=== PATIENT | male | born 1950 | race Asian ===

== ENCOUNTER 2020-06-08 13:12 | Inpatient (IN) | payer MEDICARE, MEDICAID ==
[2020-06-08] VITALS (7 sets, daily range): BP systolic 119–131; BP diastolic 62–78
[~2020-06-08] VITALS: Ht 177.8 cm; Wt 69.0 kg
--- NOTE | 2020-06-08 13:20 | NUR ---
ED Nurse Note: Patient BIBA from [facility] d/t abnormal labs, WBC 28.16 and HGb of 7.0 drawn yesterday. Patient obtunded at baseline. Patient came with Thomson catheter, intact and patent. G-tube intact. Trach to vent, AC 16 VT 400, FiO2 45, P 5. Patient has 2 port PICC line in left upper arm, one port will not flush, the 2nd port is patent. Blood drawn and sent to lab along with urine and Covid swab. Patient on the environmental monitoring technician. Bed in lowest position.
--- NOTE | 2020-06-08 13:35 | Emergency Room Report ---
History of Present Illness General Chief Complaint: Abnormal Labs Source: Medical Record (Wilma Anne) Present Illness HPI 70 YO male w. hx of CKD, respiratory failure, sepsis, DM2, and decubitus ulcers amongst others was sent to the ED from [facility]. Care for having an elevated WBC count of 28K. No fevers or chills. HPI and ROS are limited to that of the paperwork provided by residential with general summary of pt. PmHx, meds, and abnormal lab value. Pt. unable to give detail regarding his ED visit as he is non-verbal. (Wilma Anne) Allergies: Coded Allergies: No Known Allergies (Unverified , 06/08/20) COVID-19 Screening Contact w/high risk pt: No Experienced COVID-19 symptoms?: No COVID-19 Testing performed EDUCATION COORDINATOR: No COVID-19 Screening: Negative COVID-19 COVID-19 Testing Source: 06/02/20 (Wilma Anne) Patient History Limited by: medical condition Past Medical History: see triage record, old chart reviewed Past Surgical History: none Pertinent Family History: unable to obtain Reviewed Nursing Documentation: PMH: Agreed; PSxH: Agreed (Wilma Anne) Nursing Documentation-PMH Past Medical History: No History, Except For Hx Diabetes: Yes - DMII, hypothyroidism (Wilma Anne) Review of Systems All Other Systems: negative except mentioned in HPI (Wilma Anne) Physical Exam Vital Signs Date Time Temp Pulse Resp B/P (MAP) Pulse Ox O2 Delivery O2 Flow Rate FiO2 06/08/20 13:14 98.2 101 26 126/71 (89) 98 Mechanical Ventilator 4.0 (Wilma Anne) Medical Decision Making PA Attestation Dr. Hull Is my supervising Physician whom patient management has been discussed with. (Wilma Anne) Diagnostic Impression: Primary Impression: Pneumonia Qualified Codes: J18.9 - Pneumonia, unspecified organism Additional Impression: UTI (urinary tract infection) Qualified Codes: N30.01 - Acute cystitis with hematuria ER Course 70 YO male w. hx of CKD, respiratory failure, sepsis, DM2, and decubitus ulcers amongst others was sent to the ED from [facility]. Care for having an elevated WBC count of 28K. No fevers or chills. HPI and ROS are limited to that of the paperwork provided by residential with general summary of pt. PmHx, meds, and abnormal lab value. Pt. unable to give detail regarding his ED visit as he is non-verbal. Ddx considered but are not limited to renal failure, infection/sepsis, electrolyte imbalance, cardiac injury, or UTI just to name a few Vital signs: are WNL, pt. is afebrile H&PE are most consistent with Medically complicated patient with hx of sepsis with new onset of elevated WBC's. Pt. is chronically ill, Trach-vent dependent. ORDERS: -CBC: WBC's 20k -CMP: -Lactic Acid -Troponin: -CK: - UA: evidence of UTI : presence of both yeast and bacteria with increased inflammatory markers. CXR: Left lower lobe infiltrate. ED INTERVENTIONS: - 30cc/Kg NS Bolus IV - Levquin 750mg IV -Zosyn IV - Vancomycin 1.5g IV DISPOSITION: at this time pt. will be admitted to Dr. Hyatt for UTI and PNA in a patient who is Trach-vent dependent. Dr. Hyatt agreed to admit the pt. and to continue pt. care management. Labs Test 06/08/20 13:35 06/08/20 14:10 POC Whole Blood Glucose 104 MG/DL (74-106) White Blood Count 20.6 K/UL (4.8-10.8) Red Blood Count 2.60 M/UL (4.70-6.10) Hemoglobin 7.3 G/DL (14.2-18.0) Hematocrit 23.7 % (42.0-52.0) Mean Corpuscular Volume 91 FL (80-99) Mean Corpuscular Hemoglobin 28.0 PG (27.0-31.0) Mean Corpuscular Hemoglobin Concent 30.7 G/DL (32.0-36.0) Red Cell Distribution Width 16.2 % (11.6-14.8) Platelet Count 632 K/UL (150-450) Mean Platelet Volume 6.1 FL (6.5-10.1) Neutrophils (%) (Auto) % (45.0-75.0) Lymphocytes (%) (Auto) % (20.0-45.0) Monocytes (%) (Auto) % (1.0-10.0) Eosinophils (%) (Auto) % (0.0-3.0) Basophils (%) (Auto) % (0.0-2.0) Differential Total Cells Counted 100 Neutrophils % (Manual) 85 % (45-75) Lymphocytes % (Manual) 9 % (20-45) Monocytes % (Manual) 6 % (1-10) Eosinophils % (Manual) 0 % (0-3) Basophils % (Manual) 0 % (0-2) Band Neutrophils 0 % (0-8) Platelet Estimate Increased Platelet Morphology Normal Hypochromasia 1+ Anisocytosis 1+ Urine Color Pale yellow Urine Appearance Slightly cloudy Urine pH 5 (4.5-8.0) Urine Specific [place] 1.010 (1.005-1.035) Urine Protein 2+ (NEGATIVE) Urine Glucose (UA) Negative (NEGATIVE) Urine Ketones Negative (NEGATIVE) Urine Blood Negative (NEGATIVE) Urine Nitrite Positive (NEGATIVE) Urine Bilirubin Negative (NEGATIVE) Urine Urobilinogen Normal MG/DL (0.0-1.0) Urine Leukocyte Esterase 2+ (NEGATIVE) Urine RBC 0 /HPF (0 - 0) Urine WBC 10-15 /HPF (0 - 0) Urine Squamous Epithelial Cells None /LPF (NONE/OCC) Urine Bacteria Moderate /HPF (NONE) Urine Yeast Moderate /HPF (NONE) Sodium Level 144 MMOL/L (136-145) Potassium Level 3.7 MMOL/L (3.5-5.1) Chloride Level 111 MMOL/L (98-107) Carbon Dioxide Level 21 MMOL/L (21-32) Anion Gap 12 mmol/L (5-15) Blood Urea Nitrogen 27 mg/dL (7-18) Creatinine 0.8 MG/DL (0.55-1.30) Estimat Glomerular Filtration Rate > 60 mL/min (>60) Glucose Level 85 MG/DL (74-106) Lactic Acid Level 0.90 mmol/L (0.4-2.0) Calcium Level 8.3 MG/DL (8.5-10.1) Total Bilirubin 0.2 MG/DL (0.2-1.0) Aspartate Amino Transf (AST/SGOT) 34 U/L (15-37) Alanine Aminotransferase (ALT/SGPT) 97 U/L (12-78) Alkaline Phosphatase 367 U/L (46-116) Total Creatine Kinase 27 U/L (26-308) Creatine Kinase MB 1.5 NG/ML (0.0-3.6) Creatine Kinase MB Relative Index 5.5 Troponin I 0.000 ng/mL (0.000-0.056) Total Protein 7.7 G/DL (6.4-8.2) Albumin 1.7 G/DL (3.4-5.0) Globulin 6.0 g/dL Albumin/Globulin Ratio 0.3 (1.0-2.7) (Wilma Anne) ER Course Please see above note. Patient examined by me. Patient able to nod yes and no with my questions. He denies pain at this time. Discussed findings with patient and treatment plan. Contacted admitting physician. (Abner Carlson MD) EKG Diagnostic Results Rate: normal - 98 Rhythm: NSR ST Segments: no acute changes Other Impression 1st degree AV block ASA given to the pt in ED: No PA Scribe Text This Interpretation was scribed by LISSETT Anne. (Wilma Anne) Chest X-Ray Diagnostic Results Chest X-Ray Diagnostic Results : Chest X-Ray Ordered: Yes # of Views/Limited/Complete: 1 View EP Interpretation: Yes PA Xray: Interpretation reviewed, by supervising MD, and agrees with findings. Interpretation: no pneumothorax, other - Left lower lobe infiltrate. Impression: Other Electronically Signed by: Wilma Anne PA-C (Wilma Anne) Last Vital Signs Date Time Temp Pulse Resp B/P (MAP) Pulse Ox O2 Delivery O2 Flow Rate FiO2 06/08/20 13:14 98.2 101 26 126/71 (89) 98 Mechanical Ventilator 4.0 (Wilma Anne) Status: improved (Abner Carlson MD) Disposition: ADMITTED INPATIENT Condition: Serious Wilma Anne Jun 08, 2020 13:35 Abner Carlson MD Jun 09, 2020 23:27
[2020-06-08] MEDS ORDERED: FAMOTIDINE20 MG GT (13:45)
[2020-06-08] MEDS ORDERED: CLONIDINE HCL0.1 M1 GT (13:45)
[2020-06-08] MEDS ORDERED: DOCUSATE SODIU100 MG GT (13:45)
[2020-06-08] MEDS ORDERED: HUMULIN R100 UNIT/1 SUBQ (13:45)
[2020-06-08] MEDS ORDERED: EPOGEN20000 UNI1 SUBQ (13:45)
[2020-06-08] MEDS ORDERED: ACETAMINOP160 MG/5 M ORAL (13:45)
[2020-06-08] MEDS ORDERED: FLORASTOR250 MG GT (13:45)
[2020-06-08] MEDS ORDERED: AMLODIPINE BESYL5 MG GT (13:45)
[2020-06-08] MEDS ORDERED: AMIODARONE HCL200 MG GT (13:45)
[2020-06-08] MEDS ORDERED: URECHOLINE25 MG GT (13:45)
[2020-06-08] MEDS ORDERED: HYDRALAZINE HCL25 M1 GT (13:46)
[2020-06-08] MEDS ORDERED: LANSOPRAZOLE30 MG GT (13:54)
[2020-06-08] MEDS ORDERED: ZINC SULFATE220 M1 GT (13:54)
[2020-06-08] MEDS ORDERED: ZOFRAN4 M3 GT (13:54)
[2020-06-08] MEDS ORDERED: LACTULOSE20 GM/301 GT (13:54)
[2020-06-08] MEDS ORDERED: RENA-VITE RX T1 EAC1 GT (13:54)
[2020-06-08] MEDS ORDERED: PRAVASTATIN SOD40 M1 GT (13:54)
[2020-06-08] MEDS ORDERED: NORCO 5-325 TA1 EAC1 GT ×2 (13:54→22:55)
[2020-06-08] MEDS ORDERED: NITRO0.4 SL (13:54)
[2020-06-08] MEDS ORDERED: UTI-STAT L3875 MG/31 GT (13:54)
[2020-06-08] MEDS ORDERED: KEPPRA LIQ100 MG/1 M GT (13:54)
[2020-06-08] MEDS ORDERED: LEVOTHYROXINE75 MCG GT (13:54)
[2020-06-08] MEDS ORDERED: METOCLOPRA10 MG/10 M GT (13:54)
--- NOTE | 2020-06-08 14:15 | NUR ---
ED Nurse Note: Patient has 2 port PICC line in left upper arm, blood drawn and sent to lab, along with urine, covid swab, and vre/mrsa swabs.
[2020-06-08 14:35] LABS: HEMATOCRIT 23.7 % (42.0-52.0); HEMOGLOBIN 7.3 G/DL (14.2-18.0); MEAN CORPUSCULAR VOLUME 91 FL (80-99); PLATELET COUNT 632 K/UL (150-450); RED CELL DISTRIBUTION WIDTH 16.2 % (11.6-14.8); WHITE BLOOD COUNT 20.6 K/UL (4.8-10.8)
[2020-06-08 14:40] LABS: APPEARANCE,URINE SLIGHTLY CLOUDY; BILIRUBIN, URINE NEGATIVE (NEGATIVE); COLOR,URINE PALE YELLOW; GLUCOSE, URINE (UA) NEGATIVE (NEGATIVE); KETONES,URINE NEGATIVE (NEGATIVE); LEUKOCYTE ESTERASE ,URINE 2+ (NEGATIVE); NITRITE,URINE POSITIVE (NEGATIVE); PH,URINE 5 (4.5-8.0); PROTEIN,URINE 2+ (NEGATIVE); UROBILINOGEN,URINE NORMAL MG/DL (0.0-1.0)
[2020-06-08] MEDS ORDERED: Piperacillin/Tazobactam 2.25 GM in NS 110 ML IVPB ONE (14:45)
[2020-06-08] MEDS ORDERED: Vancomycin 1.5gm/NS Premix 275 ML IVPB ONE (14:45)
[2020-06-08 14:48] LABS: ANION GAP 12 mmol/L (5-15); BLOOD UREA NITROGEN 27 mg/dL (7-18); CALCIUM 8.3 MG/DL (8.5-10.1); CARBON DIOXIDE 21 MMOL/L (21-32); CHLORIDE 111 MMOL/L (98-107); CREATININE 0.8 MG/DL (0.55-1.30); POTASSIUM 3.7 MMOL/L (3.5-5.1); SODIUM 144 MMOL/L (136-145)
[2020-06-08 15:01] LABS: ALANINE AMINOTRANSFERASE 97 U/L (12-78); ALBUMIN 1.7 G/DL (3.4-5.0); ALBUMIN/GLOBULIN RATIO 0.3 (1.0-2.7); ALKALINE PHOSPHATASE 367 U/L (46-116); ASPARTATE AMINO TRANSFERASE 34 U/L (15-37); BILIRUBIN,TOTAL 0.2 MG/DL (0.2-1.0); CKMB 1.5 NG/ML (0.0-3.6); CREATINE KINASE 27 U/L (26-308)
[2020-06-08] MEDS ORDERED: Cathflo Alteplase 2mg Inj INJ ONE (15:45)
--- NOTE | 2020-06-08 16:00 | NUR ---
ED Nurse Note: Per ERMD, alteplase infused into clogged PICC port per protocol. Port now flushes well, patent.
--- NOTE | 2020-06-08 16:30 | NUR ---
ED Nurse Note: Patient resting in bed, no s/s of acute distress. Patient HR currently 106, ERMD aware, patient tolerating all medications given.
--- NOTE | 2020-06-08 17:10 | Diagnostic Imaging Report ---
EXAM: XR Chest, 1 View CLINICAL HISTORY: PAIN TECHNIQUE: Frontal view of the chest. COMPARISON: None FINDINGS: Lungs: There are bibasilar infiltrates, left greater than right. There is mild elevation of left hemidiaphragm. Pleural space: Unremarkable. No pneumothorax. Heart: Unremarkable. No cardiomegaly. Mediastinum: Unremarkable. Bones/joints: Unremarkable. Tubes, lines and devices: A tracheostomy cannula and left upper extremity PICC are in satisfactory position. IMPRESSION: Bibasilar infiltrates, worrisome for pneumonia
--- NOTE | 2020-06-08 17:45 | NUR ---
ED Nurse Note: Patient vent indicating volumes are low on some breaths, RT notified. Rt increased inspiritory time. New vent settings are AC 16, VT400, FiO2 45%, P5.
--- NOTE | 2020-06-08 17:45 | NUR ---
ED Nurse Note: Pictures taken of wounds, patient has multiple pressure ulcers on sacrum, bilateral buttocks, low back, bilateral heels/calves.
--- NOTE | 2020-06-08 19:03 | NUR ---
HAND-OFF: Report given to Cecil RN.
--- NOTE | 2020-06-08 19:04 | NUR ---
ED Nurse Note: Report received from CLOVER HADDAD
--- NOTE | 2020-06-08 19:14 | NUR ---
RESPIRATORY NOTE: Received pt in ED on AC VC+ 16, 400VT, 45%, PEEP +5. Pt is trach-dependent w/ a cuffed, Portex 6 tube. Pt obtunded. B/S jessenia. rhonchi, sxn small to moderate amounts of thick/thin, mckinnon-yellow secretions. Vent plugged into red outlet, ambubag at bedside. Pt in no apparent distress at this time. Will continue plan of care.
--- NOTE | 2020-06-08 20:27 | NUR ---
ED Nurse Note: Report given to GET HADDAD
--- NOTE | 2020-06-08 20:40 | NUR ---
TRANSFER TO FLOOR: Patient transferred to SDU at rm 235 via gurney with fig washer, accompanied by RN. Belongings checked and given to RN . Patient transported safely to bed and endorsed to RN.
--- NOTE | 2020-06-08 20:50 | NUR ---
NURSE NOTES: RECEIVED REPORT FROM BOO ALBRIGHT. PATIENT TRANSFERRED TO [facility] FROM ED VIA THREE-PERSON ASSIST WITHOUT INCIDENT- RT ALREADY AT BEDSIDE. ADMITTED UNDER CARE OF DR. RUIZ WITH ADMITTING DIAGNOSIS OF SEPSIS. PATIENT IS NON-VERBAL HOWEVER IS ABLE TO SHAKE/NOD HEAD IN RESPONSE TO QUESTIONS BEING ASKED; OPENS EYES SPONTANEOUSLY. PLACED ON PATIENT CASE COORDINATOR- SHOWING NSR. NO S/SX OF PAIN OR DISCOMFORT NOTED. BREATHING EVEN AND UNLABORED ON CURRENT TRACH-VENT SETTINGS OF AC 16, VT 400, FIO2 45%, PEEP 5. VILLALOBOS CATHETER DRAINING WELL TO GRAVITY, URINE CLEAR AND YELLOW IN COLOR. NOTED TO HAVE GT UPPER QUADRANT, DRESSING CLEAN AND DRY. NOTED TO HAVE LLQ COLOSTOMY, NO STOOL NOTED IN COLLECTION BAG. DOUBLE-LUMEN PICC LINE NOTED IN NII- DRESSING CLEAN AND DRY, SITE ASYMPTOMATIC. NOTED WITH MULTIPLE PRESSURE INJURIES. PATIENT HAS NO BELONGINGS. FALL AND ASPIRATION PRECAUTIONS IN PLACE. CONTACT ISOLATION IMPLEMENTED. BED LOCKED AND IN LOWEST POSITION, SIDERAILS UP X 3. BRAKES ENGAGED. CALL LIGHT WITHIN REACH. WILL CONTINUE TO MONITOR FOR ANY CHANGES. Addendum: 06/08/20 at 2241 by Sydnee Albert RN *ABLE TO SHAKE/NOD HEAD IN RESPONSE TO SIMPLE QUESTIONS, SUCH "ARE YOU IN PAIN", "ARE YOU HAVING DIFFICULTY BREATHING".
--- NOTE | 2020-06-08 21:50 | NUR ---
NURSE NOTES: S/W TAMARA AT [facility]- PER TAMARA, FLU/PNA VACCINE DATES UNAVAILABLE RIGHT NOW, CALL BACK IN THE MORNING. TAMARA VERIFIED TPN FORMULA BEING GIVEN AT [facility], WHICH CONSISTS OF MGSO4 16, KPO4 16, KACETATE 40. TAMARA ALSO VERIFIED GT WAS REPLACED ON 06/06/20 AT [facility].
--- NOTE | 2020-06-08 21:59 | NUR ---
NURSE NOTES: CONTACTED DR. TALAVERA FOR ADMISSION ORDERS. AWAITING CALL BACK.
--- NOTE | 2020-06-08 22:34 | NUR ---
NURSE NOTES: PLACED SECOND CALL TO DR. AHUJA @ [phone] FOR ADMISSION ORDERS. AWAITING CALL BACK.
--- NOTE | 2020-06-08 23:20 | NUR ---
NURSE NOTES: PLACED THIRD CALL TO DR. TALAVERA REGARDING ADMISSION ORDERS. AWAITING CALL BACK.
--- NOTE | 2020-06-08 23:40 | NUR ---
NURSE NOTES: INFORMED NURSE DAIRY EQUIPMENT REPAIRER, BETTY, AND CHARGE NURSE, KATHARINE, DR. TALAVERA HAS NOT RETURNED CALLS YET- WAS INSTRUCTED BY KATHARINE TO CALL JOSEPH. MESSAGE LEFT FOR DR. RUIZ. AWAITING CALL BACK.
--- NOTE | 2020-06-08 23:58 | History & Physical ---
History and Physical History & Physicial History and Physical HPI Patient is a 70 year old man with.past medical history of Respiratory failure, Sepsis, Chronic Kidney Disease, Type 2 Diabetes, and Decubitus ulcers, Hypertension, GERD, Anemia Pancreatitis, on TPN, Seizure Hx, Hypothyroidism, Hyperlidemia. Noted to have abnormal labs, having an elevated WBC count of 28K. No fevers, chills noted. HPI and ROS are limited Pt. unable to give detail regarding his ED visit as he is non-verbal. Allergies: No Known Allergies Past Medical History: Respiratory failure, Sepsis, Chronic Kidney Disease, Type 2 Diabetes, and Decubitus ulcers, Hypertension, GERD, Anemia Pancreatitis, on TPN, Seizure Hx, Hypothyroidism, Hyperlidemia Past Surgical History: Trach, G tube All Other Systems: negative except mentioned in HPI Physical Exam Vital Signs Noted Date Time Temp Pulse Resp B/P (MAP) Pulse Ox O2 Delivery O2 Flow Rate FiO2 06/08/20 13:14 98.2 101 26 126/71 (89) 98 Mechanical Ventilator 4.0 Physical Examination: Chronically illappearing HEENT:NCAT, moist mm Chest: CTAB Heart: Hs1, HS2, RRR Abdomen: SNTND, G tube Extyremities: Wellperfusedd, no edema ASSESSMENT ANALYST: AMS, no focal signs, no seizures Impression: Pneumonia Urinary tract infection Sepsis Chronic Respiratory failure Anemia Chronic Kidney Disease Coronary Artery Disease Type 2 Diabetes Hypoglycemia Decubitus ulcers Hypertension GERD Anemi Pancreatitis, on TPN Seizure Hx Hypothyroidism Hyperlidemia Plan IV Antibiotics Await culture results Monitor labs IVF/IV glucose 10% TPN per Renal REGIONAL RECRUITER Medications Seizure medications PPX Dextrose Transfuse PRN GERD management Labs noted Test 06/08/20 13:35 06/08/20 14:10 POC Whole Blood Glucose 104 MG/DL (74-106) White Blood Count 20.6 K/UL (4.8-10.8) Red Blood Count 2.60 M/UL (4.70-6.10) Hemoglobin 7.3 G/DL (14.2-18.0) Hematocrit 23.7 % (42.0-52.0) Mean Corpuscular Volume 91 FL (80-99) Mean Corpuscular Hemoglobin 28.0 PG (27.0-31.0) Mean Corpuscular Hemoglobin Concent 30.7 G/DL (32.0-36.0) Red Cell Distribution Width 16.2 % (11.6-14.8) Platelet Count 632 K/UL (150-450) Mean Platelet Volume 6.1 FL (6.5-10.1) Neutrophils (%) (Auto) % (45.0-75.0) Lymphocytes (%) (Auto) % (20.0-45.0) Monocytes (%) (Auto) % (1.0-10.0) Eosinophils (%) (Auto) % (0.0-3.0) Basophils (%) (Auto) % (0.0-2.0) Differential Total Cells Counted 100 Neutrophils % (Manual) 85 % (45-75) Lymphocytes % (Manual) 9 % (20-45) Monocytes % (Manual) 6 % (1-10) Eosinophils % (Manual) 0 % (0-3) Basophils % (Manual) 0 % (0-2) Band Neutrophils 0 % (0-8) Platelet Estimate Increased Platelet Morphology Normal Hypochromasia 1+ Anisocytosis 1+ Urine Color Pale yellow Urine Appearance Slightly cloudy Urine pH 5 (4.5-8.0) Urine Specific [place] 1.010 (1.005-1.035) Urine Protein 2+ (NEGATIVE) Urine Glucose (UA) Negative (NEGATIVE) Urine Ketones Negative (NEGATIVE) Urine Blood Negative (NEGATIVE) Urine Nitrite Positive (NEGATIVE) Urine Bilirubin Negative (NEGATIVE) Urine Urobilinogen Normal MG/DL (0.0-1.0) Urine Leukocyte Esterase 2+ (NEGATIVE) Urine RBC 0 /HPF (0 - 0) Urine WBC 10-15 /HPF (0 - 0) Urine Squamous Epithelial Cells None /LPF (NONE/OCC) Urine Bacteria Moderate /HPF (NONE) Urine Yeast Moderate /HPF (NONE) Sodium Level 144 MMOL/L (136-145) Potassium Level 3.7 MMOL/L (3.5-5.1) Chloride Level 111 MMOL/L (98-107) Carbon Dioxide Level 21 MMOL/L (21-32) Anion Gap 12 mmol/L (5-15) Blood Urea Nitrogen 27 mg/dL (7-18) Creatinine 0.8 MG/DL (0.55-1.30) Estimat Glomerular Filtration Rate > 60 mL/min (>60) Glucose Level 85 MG/DL (74-106) Lactic Acid Level 0.90 mmol/L (0.4-2.0) Calcium Level 8.3 MG/DL (8.5-10.1) Total Bilirubin 0.2 MG/DL (0.2-1.0) Aspartate Amino Transf (AST/SGOT) 34 U/L (15-37) Alanine Aminotransferase (ALT/SGPT) 97 U/L (12-78) Alkaline Phosphatase 367 U/L (46-116) Total Creatine Kinase 27 U/L (26-308) Creatine Kinase MB 1.5 NG/ML (0.0-3.6) Creatine Kinase MB Relative Index 5.5 Troponin I 0.000 ng/mL (0.000-0.056) Total Protein 7.7 G/DL (6.4-8.2) Albumin 1.7 G/DL (3.4-5.0) Globulin 6.0 g/dL Albumin/Globulin Ratio 0.3 (1.0-2.7) EKG: Rate: normal - 98 Rhythm: NSR ST Segments: no acute changes Other Impression 1st degree AV block Chest X-Ray no pneumothorax, other - Left lower lobe infiltrate. Abner Mcclelland MD Jun 08, 2020 23:58
[2020-06-09] VITALS: BP 107/61
[2020-06-09] MEDS ORDERED: Dextrose 10%/0.9% SOD CHL 1,000 ML IV SCH (00:15)
[2020-06-09] MEDS ORDERED: Dextrose 10% 1,000 ML IV SCH (00:15)
[2020-06-09] MEDS ORDERED: Nitroglycerin Subl 0.4mg tab SL PRN (00:30)
[2020-06-09] MEDS ORDERED: Lactulose 20gm/30ml UDC GT PRN (00:30)
--- NOTE | 2020-06-09 00:30 | NUR ---
JACQUARD CARD CUTTER Note: JACQUARD CARD CUTTER was called at 2350 by RASHMI SHARP RN, and notified DR. TALAVERA. PATIENT BS NOTED TO BE 36, RECHECKED BS 33. NO ADMISSION ORDERS AT THAT TIME, AND PATIENT NPO- PRESENCE OF G-TUBE FOR MEDICATIONS ONLY. JACQUARD CARD CUTTER ARRIVED WITHIN 2 MINUTES OF CALL BEING PLACED. BS 32, GIVEN D50 1 AMP- BS THEN 165. See JACQUARD CARD CUTTER documentation form for full report.
[2020-06-09 00:45] LABS: ANION GAP 12 mmol/L (5-15); BLOOD UREA NITROGEN 21 mg/dL (7-18); CARBON DIOXIDE 20 MMOL/L (21-32); CHLORIDE 114 MMOL/L (98-107); CREATININE 0.7 MG/DL (0.55-1.30); POTASSIUM 3.4 MMOL/L (3.5-5.1); SODIUM 146 MMOL/L (136-145)
--- NOTE | 2020-06-09 00:45 | NUR ---
NURSE NOTES: MADE DR. TALAVERA AWARE THAT HGB 7.3. PER DR. TALAVERA, WILL WAIT FOR H/H RESULTS IN THE AM BEFORE GIVING ADDITIONAL ORDERS.
[2020-06-09 00:49] LABS: ALANINE AMINOTRANSFERASE 85 U/L (12-78); ALBUMIN 1.5 G/DL (3.4-5.0); ALBUMIN/GLOBULIN RATIO 0.3 (1.0-2.7); ALKALINE PHOSPHATASE 383 U/L (46-116); ASPARTATE AMINO TRANSFERASE 44 U/L (15-37); BILIRUBIN,TOTAL 0.2 MG/DL (0.2-1.0)
[2020-06-09] MEDS ORDERED: Dextrose 10% 1,000 ML IV ONE (00:53)
[2020-06-09] MEDS: Dextrose 10% 1,000 ML IV SCH ×3 (01:41→23:28)
[2020-06-09 04:00] VITALS: BP 141/76
[2020-06-09] MEDS: Vancomycin 1.5gm/NS Premix 275 ML IVPB SCH ×2 (04:19→15:13)
--- NOTE | 2020-06-09 04:59 | NUR ---
NURSE NOTES: PICC LINE DRESSING CHANGED, SITE REMAINS ASYMPTOMATIC. PATIENT TOLERATED WELL.
--- NOTE | 2020-06-09 05:39 | NUR ---
NURSE NOTES: BS 65, RECHECKED 66. PATIENT CURRENTLY RECEIVING D10W @ 75 ML/HR. CONTACTED DR. TALAVERA TO REQUEST AN ADJUSTMENT IN RATE. AWAITING CALL BACK.
[2020-06-09] MEDS: Piperacillin/Tazobactam 3.375 GM in NS 110 ML IVPB SCH ×3 (05:42→21:04)
--- NOTE | 2020-06-09 05:45 | NUR ---
NURSE NOTES: RECEIVED NEW ORDERS TO/RB FROM DR. TALAVERA TO INCREASE D10W TO 90 ML/HR AND TO REDUCE NS TO 50 ML/HR. ORDERS NOTED AND CARRIED OUT.
[2020-06-09] MEDS: HydrALAZINE 25mg tab GT SCH ×3 (05:48→21:05)
[2020-06-09] MEDS: Bethanechol 25mg Tab GT SCH ×4 (05:48→23:28)
[2020-06-09] MEDS: Metoclopramide 10mg/10ml Liq GT SCH ×4 (05:48→23:28)
[2020-06-09] MEDS: NovoLOG Insulin Flexpen SUBQ SCH ×4 (06:00→23:27)
--- NOTE | 2020-06-09 07:25 | NUR ---
NURSE HAND-OFF REPORT: Important Events on Shift: NEW ADMISSION, LABOR RELATIONS ANALYST CALLED FOR HYPOGLYCEMIA, HYPOGLYCEMIA EPISODES Patient Status: STABLE Diet: NPO Pending Orders: TPN PER DR. VARNER Pending Results/Labs:06/09 AM LABS Pending MD notification:N/A Latest Vital Signs: Temperature 97.2 , Pulse 87 , B/P 145 /80 , Respiratory Rate 24 , O2 SAT 100 , Mechanical Ventilator, O2 Flow Rate 4.0 . Vital Sign Comment: STABLE EKG Rhythm: Sinus Rhythm Rhythm change?: N MD Notified?: Y -DR.BALFE BAILEY Response: No New Orders Received Latest Pulido Fall Score: 70 Fall Risk: High Risk Safety Measures: Call light Within Reach, Bed Alarm Zone 2, Side Rails Side Rails x3, Bed position Low and Locked. Fall Precautions: Yellow Socks Yellow Gown Door Sign Patient Fall Education Report given to BOO ENGL[place].
--- NOTE | 2020-06-09 07:30 | NUR ---
NURSE NOTES: Received report from BOO Machado and BOO Lane. The patient is resting on the bed without acute distress or shortness of breath. The patient is obtunded, opening eyes spontaneously but not tracking. SR with HR of 90-100s with 1AVB on the teletypesetter monitor. The patient is trach'ed and on mechanical ventilator on following setting and oxygen saturation is 100%: Portex 6, AC 16, TV 400, FiO2 45%, and PEEP 5. The patient has GT that is intact and patent but kept in NPO since the patient has history of pancreatitis and was on TPN at residential. The patient has Thomson that is draining by gravity. The patient has colostomy with red intact stoma. Multiple skin issues noted and dressing intact. Per BOO Lane, ordered P200 matress but did not arrive yet. The patient has NII double lumen PICC line that the patient came in with from residential that is intact and patent and running D10W @90mL/hr and NS @ 50mL/hr per order. Per BOO Lane, the patient had episode of hypoglycemia and had to call CHANGE OF ADDRESS CLERK for the management of the condition. The patient's bed in the lowest position, call light in reach, and fall, aspiration, and seizure precaution reinforced. IV site intact and patent. Will follow up the order and lab. Will closely monitor the patient. Will continue plan of care.
[2020-06-09] MEDS ORDERED: ACETYLCYST100 MG/1 M INH (07:43)
[2020-06-09] MEDS ORDERED: FERROUS SU300 MG/5 M GT (07:43)
[2020-06-09] MEDS ORDERED: VITAMIN C500 M1 GT (07:43)
--- NOTE | 2020-06-09 07:55 | Pulmonology Progress Note ---
Subjective ROS Limited/Unobtainable: Yes Allergies: Coded Allergies: No Known Allergies (Unverified , 06/08/20) Subjective care noted overnight events reviewed on vent Objective Last 24 Hour Vital Signs Date Time Temp Pulse Resp B/P (MAP) Pulse Ox O2 Delivery O2 Flow Rate FiO2 06/09/20 05:48 145/80 06/09/20 04:00 87 06/09/20 04:00 97.2 86 24 141/76 (97) 100 06/09/20 04:00 45 06/09/20 04:00 Mechanical Ventilator 06/09/20 03:27 88 30 45 06/09/20 00:00 Mechanical Ventilator 06/09/20 00:00 97.0 87 22 107/61 (76) 100 06/09/20 00:00 84 06/09/20 00:00 45 06/08/20 23:50 83 20 100 06/08/20 23:26 85 25 45 06/08/20 22:13 98.6 84 26 121/79 100 Mechanical Ventilator 45 06/08/20 22:00 87 06/08/20 21:39 97.5 91 19 126/71 (89) 100 06/08/20 21:38 Mechanical Ventilator 06/08/20 20:29 98.6 93 26 121/72 100 Mechanical Ventilator 4.0 45 06/08/20 19:22 98.5 27 119/62 100 Mechanical Ventilator 4.0 45 06/08/20 19:11 98 27 100 Mechanical Ventilator 45 06/08/20 19:10 98 27 45 06/08/20 17:16 98.1 23 130/76 100 Mechanical Ventilator 45 06/08/20 15:30 98.2 22 131/78 99 Mechanical Ventilator 40 06/08/20 15:30 92 28 98 Mechanical Ventilator 4.0 45 97 26 45 45 06/08/20 13:32 98.2 26 126/71 98 Mechanical Ventilator 4.0 06/08/20 13:20 97 26 45 06/08/20 13:14 98.2 101 26 126/71 (89) 98 Mechanical Ventilator 4.0 Intake and Output 06/08/20 06/09/20 19:00 07:00 Intake Total 656.75 ml Output Total 1600 ml Balance -943.25 ml Intake IV Total 656.75 ml Output Urine Total 1600 ml Objective WDWN NAD reduced breath sounds bilaterally without rhonchi or wheeze [id number] without MRG NABS nontender colostomy no CCE nonfocal reduced LOC trach in place Microbiology Date/Time Source Procedure Growth Status 06/08/20 14:10 Urine,Clean Catch Urine Culture - Preliminary Gram Negative Imer Resulted 06/08/20 13:40 Nasopharynx SARS-CoV-2 RdRp Gene Assay - Final Complete Laboratory Tests 06/08/20 13:35: POC Whole Blood Glucose 104 06/08/20 14:10: White Blood Count 20.6H, Red Blood Count 2.60L, Hemoglobin 7.3L, Hematocrit 23.7L, Mean Corpuscular Volume 91, Mean Corpuscular Hemoglobin 28.0, Mean Corpuscular Hemoglobin Concent 30.7L, Red Cell Distribution Width 16.2H, Platelet Count 632H, Mean Platelet Volume 6.1L, Neutrophils (%) (Auto) , Lymphocytes (%) (Auto) , Monocytes (%) (Auto) , Eosinophils (%) (Auto) , Basophils (%) (Auto) , Differential Total Cells Counted 100, Neutrophils % (Manual) 85H, Lymphocytes % (Manual) 9L, Monocytes % (Manual) 6, Eosinophils % ( Manual) 0, Basophils % (Manual) 0, Band Neutrophils 0, Platelet Estimate IncreasedH, Platelet Morphology Normal, Hypochromasia 1+, Anisocytosis 1+, Prothrombin Time 11.4, Prothromb Time International Ratio 1.0, Activated Partial Thromboplast Time 34H, Urine Color Pale yellow, Urine Appearance Slightly cloudy, Urine pH 5, Urine Specific [place] 1.010, Urine Protein 2+H, Urine Glucose (UA) Negative, Urine Ketones Negative, Urine Blood Negative, Urine Nitrite PositiveH, Urine Bilirubin Negative, Urine Urobilinogen Normal, Urine Leukocyte Esterase 2+H, Urine RBC 0, Urine WBC 10-15H, Urine Squamous Epithelial Cells None, Urine Bacteria ModerateH, Urine Yeast ModerateH, Sodium Level 144, Potassium Level 3.7, Chloride Level 111H, Carbon Dioxide Level 21, Anion Gap 12, Blood Urea Nitrogen 27H, Creatinine 0.8, Estimat Glomerular Filtration Rate > 60, Glucose Level 85, Lactic Acid Level 0.90, Calcium Level 8.3L, Total Bilirubin 0.2, Aspartate Amino Transf (AST/SGOT) 34, Alanine Aminotransferase (ALT/SGPT) 97H, Alkaline Phosphatase 367H, Total Creatine Kinase 27, Creatine Kinase MB 1.5, Creatine Kinase MB Relative Index 5.5, Troponin I 0.000, Total Protein 7.7, Albumin 1.7L, Globulin 6.0, Albumin/Globulin Ratio 0.3L 06/08/20 23:41: POC Whole Blood Glucose 36*L 06/08/20 23:45: POC Whole Blood Glucose 33*L 06/08/20 23:59: POC Whole Blood Glucose 32*L 06/09/20 00:03: POC Whole Blood Glucose [Pending] 06/09/20 00:27: Sodium Level 146H, Potassium Level 3.4L, Chloride Level 114H, Carbon Dioxide Level 20L, Anion Gap 12, Blood Urea Nitrogen 21H, Creatinine 0.7, Estimat Glomerular Filtration Rate > 60, Glucose Level 115H, Calcium Level 8.0L, Total Bilirubin 0.2, Aspartate Amino Transf (AST/SGOT) 44H, Alanine Aminotransferase (ALT/SGPT) 85H, Alkaline Phosphatase 383H, Total Protein 6.8, Albumin 1.5L, Globulin 5.3, Albumin/Globulin Ratio 0.3L 06/09/20 05:34: POC Whole Blood Glucose 65L 06/09/20 05:36: POC Whole Blood Glucose 66L 06/09/20 06:22: POC Whole Blood Glucose 120H 06/09/20 07:33: POC Whole Blood Glucose [Pending] Current Medications Medications (Trade) Dose Ordered Sig/Milla Route PRN Reason Start Time Stop Time Status Last Admin Dose Admin Amiodarone HCl (Cordarone) 200 mg DAILY GT 06/09/20 09:00 09/07/20 08:59 Amlodipine Besylate (Norvasc) 5 mg TWICE A DAY GT 06/09/20 09:00 07/09/20 08:59 Bethanechol Chloride (Urecholine) 25 mg Q6HR GT 06/09/20 06:00 07/09/20 05:59 06/09/20 05:48 Clonidine HCl (Catapres Tab) 0.1 mg Q6H PRN GT For High Blood Pressure 06/09/20 00:30 09/07/20 00:29 Dextrose 1,000 ml @ 90 mls/hr Q11H7M IV 06/09/20 01:00 07/09/20 00:59 06/09/20 01:41 Dextrose (Dextrose 50%) 25 ml Q30M PRN IV Hypoglycemia 06/09/20 06:00 09/07/20 05:59 06/09/20 06:02 Dextrose (Dextrose 50%) 50 ml Q30M PRN IV Hypoglycemia 06/09/20 00:15 09/07/20 00:14 Dextrose (Dextrose 50%) 50 ml Q30M PRN IV Hypoglycemia 06/09/20 00:15 09/07/20 00:14 Docusate Sodium (Colace) 100 mg TWICE A DAY GT 06/09/20 09:00 07/09/20 08:59 Epoetin Cameron (Epoetin Cameron-EPBX(NON ESRD)) 10,000 unit TUE- SUBQ 06/09/20 21:00 09/07/20 20:59 Famotidine (Pepcid) 20 mg TWICE A DAY GT 06/09/20 09:00 09/07/20 08:59 Hydralazine HCl (Apresoline) 25 mg EVERY 8 HOURS GT 06/09/20 06:00 09/07/20 05:59 06/09/20 05:48 Insulin Aspart (NovoLOG) Q6HR SUBQ 06/09/20 06:00 09/07/20 05:59 Lactulose (Cephulac) 20 gm Q6H PRN GT Constipation 06/09/20 00:30 07/09/20 00:29 Lansoprazole (Prevacid) 30 mg TWICE A DAY GT 06/09/20 09:00 07/09/20 08:59 Levetiracetam (Keppra) 500 mg TWICE A DAY GT 06/09/20 09:00 07/09/20 08:59 Levofloxacin 150 ml @ 150 mls/hr Q24H IVPB 06/09/20 14:00 06/16/20 13:59 Levothyroxine Sodium (Synthroid) 75 mcg DAILY GT 06/09/20 09:00 07/09/20 08:59 Metoclopramide HCl (Reglan) 5 mg EVERY 6 HOURS GT 06/09/20 06:00 07/09/20 05:59 06/09/20 05:48 Nitroglycerin (Ntg) 0.4 mg Q5MIN X 3 DOSES PRN SL CHEST PAIN 06/09/20 00:30 07/09/20 00:29 Ondansetron HCl (Zofran) 4 mg Q6H PRN GT Nausea & Vomiting 06/09/20 00:30 07/09/20 00:29 Piperacillin Sod/ Tazobactam Sod 3.375 gm/Sodium Chloride 110 ml @ 27.5 mls/hr EVERY 8 HOURS IVPB 06/09/20 06:00 06/16/20 05:59 06/09/20 05:42 Pravastatin Sodium (Pravachol) 40 mg BEDTIME GT 06/09/20 21:00 07/09/20 20:59 Sodium Chloride 1,000 ml @ 50 mls/hr Q20H IV 06/09/20 01:00 07/09/20 00:59 06/09/20 01:37 Vancomycin HCl (Vanco pharmacy to dose) 1 ea DAILY PRN MISC Per rx protocol 06/09/20 00:15 07/09/20 00:14 Vancomycin/Sodium Chloride 275 ml @ 137.5 mls/ hr Q12H IVPB 06/09/20 04:00 06/14/20 03:59 06/09/20 04:19 Zinc Sulfate (Zinc Sulfate) 220 mg DAILY GT 06/09/20 09:00 09/07/20 08:59 Assessment/Plan Assessment/Plan sepsis leukocytosis anemia colostomy respiratory failure possible gib chronic pancreatitis chronic encephalopathy hypernatremia acute renal failure pneumonia PLAN vent support IV antibiotics GI to see for TPN and anemia renal with abnormal lytes ID assessment concern with TPN line and risk for fungemia assess for gt feeds monitor cxr close follow up transfuse guarded at present impression, plan, and exam edited and reviewed in detail care discussed with Mundo Burciaga MD Jun 09, 2020 07:55
[2020-06-09 08:00] VITALS: BP 148/82
--- NOTE | 2020-06-09 08:00 | NUR ---
NURSE NOTES: Initial nursing assessment done. Initial vital signs taken. BS of 96 noted. Will closely monitor the patient. Will continue plan of care.
--- NOTE | 2020-06-09 09:00 | NUR ---
NURSE NOTES: Lab called to primary RN. Per lab personnel, blood needs to be redrawn since there is huge difference in result from previous day. Will redraw from PICC line as soon as possible. Will continue plan of care.
--- NOTE | 2020-06-09 09:02 | NUR ---
RD ASSESSMENT & RECOMMENDATIONS SEE CARE ACTIVITY FOR COMPLETE ASSESSMENT DAILY ESTIMATED NEEDS: Needs based on Critical care, wound, pancreatitis/ 67kg 22-30 kcals/kg 8739-2037 total kcals 1.25-2 g protein/kg 83-134 g total protein 25-30 mL/kg 2973-0570 total fluid mLs NUTRITION DIAGNOSIS: Swallowing difficulty R/T dysphagia, respiratory status as evidenced by pt trach/vent dep, h/o PEG placement, GT feeds held and was on TPN [employer] for Pancreatitis, remains NPO and off TPN at this time. CURRENT TF:NPO ENTERAL NUTRITION RECOMMENDATIONS: CONSULT RD FOR TF WHEN PANCREATITIS RESOLVED/ MEDICALLY APPROPRIATE FOR TF PARENTERAL NUTRITION RECOMMENDATIONS: D/AA Rate: 60 IL Rate: 0 Total Rate: 60 Volume: 1440 % Dextrose: 20 % AA: 5.0 Energy (kcals/kg): 1267 Protein (g/kg protein): 72 Nonprotein KCALS: 979.2 GIR (mg CHO/kg/min): 4.3 % Fat KCALS: 0 TPN Comment: * If triglyceride is elevated, rec to continue MA[employer] TPN order of D20% AA 5.0% without lipids @ 60ml/hr x 24 hrs -> will meet 86% est kcal/87% est prot needs. * Consult RD for TPN formulary change if triglyceride wnl ADDITIONAL RECOMMENDATIONS: * Per SNF: HT=5'8" [id number] (as of 05/22/20), rec re-calibrated bedscale wt * Check LIPASE and TRIGLYCERIDE * Monitor for ability to resume GT feeds * Close monitoring for hypoglycemia: maintain D10 IVF while without TPN/NPO * Monitor lytes, replete as needed * Wound healing: add MVI x 1, Vit C 500mg x1 add Grady BID w/ TF
--- NOTE | 2020-06-09 09:14 | History and Physical Report ---
DATE OF ADMISSION: 06/08/2020 CHIEF COMPLAINT: Sepsis and pneumonia. HISTORY OF PRESENT ILLNESS: The patient is an unfortunate 70-year-old male. He has a history of chronic respiratory failure, encephalopathy, and pancreatitis. He has a colostomy and has been on TPN at the shelter facility. He was transferred from [facility] with complaints of severe leukocytosis and anemia. On evaluation in the emergency room, the patient was afebrile. He had a white count of 25,000. An x-ray evidence of bilateral pneumonia. The patient has been pancultured and has been started on broad spectrum IV antibiotics. He is now admitted for further evaluation and care. PAST MEDICAL HISTORY: As above. PAST SURGICAL HISTORY: Includes a trach and a colostomy. CURRENT MEDICATIONS: Reconciled and reviewed. ALLERGIES: None. FAMILY HISTORY: None. SOCIAL HISTORY: There is no known history of tobacco, ethanol, or drugs. REVIEW OF SYSTEMS: Unobtainable as the patient is nonverbal. PHYSICAL EXAMINATION: VITAL SIGNS: Temperature 98, pulse 100, respirations 23, blood pressure 130/76. GENERAL: The patient is a chronically ill-appearing male, in no apparent distress. HEENT: Head is normocephalic and atraumatic. Sclerae are anicteric. Oropharynx is clear. NECK: Supple. HEART: Regular rate and rhythm without murmurs, rubs, or gallops. LUNGS: Clear to auscultation anteriorly. ABDOMEN: Soft, nontender, and nondistended. There is colostomy noted with brown stool. EXTREMITIES: Without clubbing or cyanosis. SKIN: The patient has multiple wounds on the heels and stage III on the left buttock. A large stage IV sacral decubitus ulcer noted that appears clean. There is also right heel DTI. NEUROLOGIC: The patient does open his eyes. LABORATORY DATA: Sodium 146, potassium 3.4, chloride 114, bicarb 20, BUN 21, and creatinine 0.7. White count 20, hemoglobin 7.3, hematocrit 23.7. Chest x-ray showed bilateral infiltrates. ASSESSMENT: This is an unfortunate 70-year-old with a history of pancreatitis, colostomy, hypertension, hyperlipidemia, and atrial fibrillation, admitted with sepsis secondary to pneumonia. PLAN: 1. IV antibiotics. 2. Follow up pending cultures. 3. Continue vent support. 4. Pulmonary, Renal, Infectious Disease, and Surgery consultations. 5. Wound care will be referred to the general surgeon. 6. Continue amiodarone for rate control. 7. Monitor electrolytes. 8. The patient will be continued on DVT and stress ulcer prophylaxes. Robby Mays M.D. DR: IDANIA JOB#: [id number] CC:
--- NOTE | 2020-06-09 09:17 | Consultation ---
History of Present Illness General Date patient seen: Jun 09, 2020 Reason for Hospitalization: Abnormal Labs Present Illness HPI 70 year old male with multiple medical comorbidities including history of CKD, respiratory failure, sepsis, DM2, and decubitus ulcers who came to ED from [facility]. Care for having an elevated WBC count and abnormal labs. No fevers or chills. HPI and ROS are limited to that of the paperwork provided by [facility] with general summary of pt. PmHx, meds, and abnormal lab value. Pt. unable to give detail as he is non-verbal. noted to have stage 4 sacral wound, dTI's, colostomy. surgery called to evaluate and assist with care. patient seen, chart reviewed, patient examined. Allergies: Coded Allergies: No Known Allergies (Unverified , 06/08/20) COVID-19 Screening Contact w/high risk pt: No Experienced COVID-19 symptoms?: No Medication History Scheduled Amiodarone Hcl* (Cordarone*), 200 MG GT DAILY, (Reported) Amlodipine Besylate* (Amlodipine Besylate*), 5 MG GT TWICE A DAY, (Reported) Ascorbic Acid* (Vitamin C*), 500 MG GT DAILY, (Reported) Bethanechol Chl (Bethanechol Chloride), 25 MG GT Q6HR, (Reported) Cran/Vitc/Mannose/Inulin/Brom (Uti-Stat Liquid), 3,875 MG GT DAILY, (Reported) Docusate Sodium* (Docusate Sodium*), 100 MG GT TWICE A DAY, (Reported) Epoetin Cameron (Epogen), 10,000 UNIT SUBQ 3XW, (Reported) Famotidine* (Pepcid 20mg tablet*), 20 MG GT TWICE A DAY, (Reported) Ferrous Sulfate (Ferrous Sulfate), 7.5 ML GT TID, (Reported) Hydralazine Hcl* (Hydralazine Hcl*), 25 MG GT EVERY 8 HOURS, (Reported) Insulin Regular, Human (Humulin R), 0 SUBQ Q6HR, (Reported) Lansoprazole* (Lansoprazole*), 30 MG GT TWICE A DAY, (Reported) Levetiracetam (Keppra), 5 ML GT TWICE A DAY, (Reported) Levothyroxine Sodium* (Levothyroxine Sodium*), 75 MCG GT DAILY, (Reported) Metoclopramide Hcl* (Metoclopramide Hcl*), 5 MG GT EVERY 6 HOURS, (Reported) Pravastatin Sod (Pravastatin Sod), 40 MG GT BEDTIME, (Reported) Saccharomyces Boulardii (Florastor*), 1 CAP GT TWICE A DAY, (Reported) Vit B Cmplx 3/Fa/Vit C/Biotin (Karmen-Armida Rx Tablet), 1 EACH GT DAILY, (Reported) Zinc Sulfate (Zinc Sulfate*), 220 MG GT DAILY, (Reported) Scheduled PRN Acetylcysteine* (Acetylcysteine*), 100 MG INH Q6H PRN for MUCUS, (Reported) Clonidine HCl (Clonidine HCl ER), 0.1 MG GT Q6HR PRN for For High Blood Pressure, (Reported) Hydrocodone Bit/Acetaminophen 5-325* ([place] 5-325 Tablet*), 1 TAB GT Q4H PRN for Pain Scale (3-5), (Reported) Hydrocodone Bit/Acetaminophen 5-325* ([place] 5-325 Tablet*), 2 TAB GT Q4H PRN for Pain Scale (6-10), (Reported) Lactulose (Lactulose*), 30 ML GT Q6HR PRN for Constipation, (Reported) Nitroglycerin 0.4MG table* (Nitroglycerin*), 0.4 MG SL .Q5MIN X 3 DOSES PRN for CHEST PAIN, (Reported) Ondansetron* (Zofran*), 4 MG GT Q6H PRN for Nausea & Vomiting, (Reported) Discontinued Medications Acetaminophen 160MG/5ML* (Acetaminophen*), 20 ML ORAL, (Reported) Discontinued Reason: MD discontinued med Patient History Limited by: medical condition History Provided By: Medical Record, PMD Healthcare decision maker Resuscitation status Advanced Directive on File Past Medical/Surgical History Past Medical/Surgical History: (1) Colostomy in place (2) Stage 4 skin ulcer of sacral region (3) Deep tissue injury (4) Feeding by G-tube (5) UTI (urinary tract infection) (6) Pneumonia (7) Sepsis Review of Systems Review of Symptoms General ROS: no weight loss or fever Psychological ROS: no depression or mood changes, no memory loss Ophthalmic ROS: no visual changes or eye irritation ENT ROS: no nasal congestion, hearing loss, dizziness Allergy and Immunology ROS: no allergic symptoms or urticaria Hematological and Lymphatic ROS: no swollen glands, unusual bleeding or bruising Endocrine ROS: no polyuria, polydipsia, weight changes, temperature intolerance Respiratory ROS: no cough, shortness of breath, or wheezing Cardiovascular ROS: no chest pain or dyspnea on exertion Gastrointestinal ROS: denies abdominal pain, bright red blood in stool. Musculoskeletal ROS: no myalgias or arthralgias Neurological ROS: no TIA or stroke symptoms Dermatological ROS: no new or changing skin lesions, rashes or pruritis limited given medical condition Physical Exam Physical Exam General appearance: alert, no distress, appears stated age Head: Normocephalic, without obvious abnormality, atraumatic Eyes: conjunctivae/corneas clear. PERRL, EOM's intact. Fundi benign Throat: Lips, mucosa, and tongue normal. Teeth and gums normal Neck: supple, symmetrical, trachea midline, no adenopathy, thyroid: not enlarged, symmetric, no tenderness/mass/nodules, no carotid bruit and no JVD trach on vent Lungs: dec to auscultation bilaterally on vent Heart: regular rate and rhythm, S1, S2 normal, no murmur, click, rub or gallop Abdomen: soft, non-tender. Bowel sounds normal. No masses, no organomegaly peg, colostomy Extremities: extremities normal, atraumatic, no cyanosis or edema Pulses: 2+ and symmetric Skin: Skin stage 4 sacral, dti Neurologic: Grossly normal Last 24 Hour Vital Signs Date Time Temp Pulse Resp B/P (MAP) Pulse Ox O2 Delivery O2 Flow Rate FiO2 06/09/20 08:39 35 06/09/20 07:07 91 25 45 06/09/20 05:48 145/80 06/09/20 04:00 87 06/09/20 04:00 97.2 86 24 141/76 (97) 100 06/09/20 04:00 45 06/09/20 04:00 Mechanical Ventilator 06/09/20 03:27 88 30 45 06/09/20 00:00 Mechanical Ventilator 06/09/20 00:00 97.0 87 22 107/61 (76) 100 06/09/20 00:00 84 06/09/20 00:00 45 06/08/20 23:50 83 20 100 06/08/20 23:26 85 25 45 06/08/20 22:13 98.6 84 26 121/79 100 Mechanical Ventilator 45 06/08/20 22:00 87 06/08/20 21:39 97.5 91 19 126/71 (89) 100 06/08/20 21:38 Mechanical Ventilator 06/08/20 20:29 98.6 93 26 121/72 100 Mechanical Ventilator 4.0 45 06/08/20 19:22 98.5 27 119/62 100 Mechanical Ventilator 4.0 45 06/08/20 19:11 98 27 100 Mechanical Ventilator 45 06/08/20 19:10 98 27 45 06/08/20 17:16 98.1 23 130/76 100 Mechanical Ventilator 45 06/08/20 15:30 98.2 22 131/78 99 Mechanical Ventilator 40 06/08/20 15:30 92 28 98 Mechanical Ventilator 4.0 45 97 26 45 45 06/08/20 13:32 98.2 26 126/71 98 Mechanical Ventilator 4.0 06/08/20 13:20 97 26 45 06/08/20 13:14 98.2 101 26 126/71 (89) 98 Mechanical Ventilator 4.0 Intake and Output 06/08/20 06/09/20 19:00 07:00 Intake Total 656.75 ml Output Total 1600 ml Balance -943.25 ml Intake IV Total 656.75 ml Output Urine Total 1600 ml Laboratory Tests Test 06/08/20 13:35 06/08/20 14:10 06/08/20 23:41 06/08/20 23:45 POC Whole Blood Glucose 104 MG/DL (74-106) 36 MG/DL (74-106) *L 33 MG/DL (74-106) *L White Blood Count 20.6 K/UL (4.8-10.8) H Red Blood Count 2.60 M/UL (4.70-6.10) L Hemoglobin 7.3 G/DL (14.2-18.0) L Hematocrit 23.7 % (42.0-52.0) L Mean Corpuscular Volume 91 FL (80-99) Mean Corpuscular Hemoglobin 28.0 PG (27.0-31.0) Mean Corpuscular Hemoglobin Concent 30.7 G/DL (32.0-36.0) L Red Cell Distribution Width 16.2 % (11.6-14.8) H Platelet Count 632 K/UL (150-450) H Mean Platelet Volume 6.1 FL (6.5-10.1) L Neutrophils (%) (Auto) % (45.0-75.0) Lymphocytes (%) (Auto) % (20.0-45.0) Monocytes (%) (Auto) % (1.0-10.0) Eosinophils (%) (Auto) % (0.0-3.0) Basophils (%) (Auto) % (0.0-2.0) Differential Total Cells Counted 100 Neutrophils % (Manual) 85 % (45-75) H Lymphocytes % (Manual) 9 % (20-45) L Monocytes % (Manual) 6 % (1-10) Eosinophils % (Manual) 0 % (0-3) Basophils % (Manual) 0 % (0-2) Band Neutrophils 0 % (0-8) Platelet Estimate Increased H Platelet Morphology Normal Hypochromasia 1+ Anisocytosis 1+ Prothrombin Time 11.4 SEC (9.30-11.50) Prothromb Time International Ratio 1.0 (0.9-1.1) Activated Partial Thromboplast Time 34 SEC (23-33) H Urine Color Pale yellow Urine Appearance Slightly cloudy Urine pH 5 (4.5-8.0) Urine Specific [place] 1.010 (1.005-1.035) Urine Protein 2+ (NEGATIVE) H Urine Glucose (UA) Negative (NEGATIVE) Urine Ketones Negative (NEGATIVE) Urine Blood Negative (NEGATIVE) Urine Nitrite Positive (NEGATIVE) H Urine Bilirubin Negative (NEGATIVE) Urine Urobilinogen Normal MG/DL (0.0-1.0) Urine Leukocyte Esterase 2+ (NEGATIVE) H Urine RBC 0 /HPF (0 - 0) Urine WBC 10-15 /HPF (0 - 0) H Urine Squamous Epithelial Cells None /LPF (NONE/OCC) Urine Bacteria Moderate /HPF (NONE) H Urine Yeast Moderate /HPF (NONE) H Sodium Level 144 MMOL/L (136-145) Potassium Level 3.7 MMOL/L (3.5-5.1) Chloride Level 111 MMOL/L (98-107) H Carbon Dioxide Level 21 MMOL/L (21-32) Anion Gap 12 mmol/L (5-15) Blood Urea Nitrogen 27 mg/dL (7-18) H Creatinine 0.8 MG/DL (0.55-1.30) Estimat Glomerular Filtration Rate > 60 mL/min (>60) Glucose Level 85 MG/DL (74-106) Lactic Acid Level 0.90 mmol/L (0.4-2.0) Calcium Level 8.3 MG/DL (8.5-10.1) L Total Bilirubin 0.2 MG/DL (0.2-1.0) Aspartate Amino Transf (AST/SGOT) 34 U/L (15-37) Alanine Aminotransferase (ALT/SGPT) 97 U/L (12-78) H Alkaline Phosphatase 367 U/L (46-116) H Total Creatine Kinase 27 U/L (26-308) Creatine Kinase MB 1.5 NG/ML (0.0-3.6) Creatine Kinase MB Relative Index 5.5 Troponin I 0.000 ng/mL (0.000-0.056) Total Protein 7.7 G/DL (6.4-8.2) Albumin 1.7 G/DL (3.4-5.0) L Globulin 6.0 g/dL Albumin/Globulin Ratio 0.3 (1.0-2.7) L Test 06/08/20 23:59 06/09/20 00:03 06/09/20 00:27 06/09/20 04:00 POC Whole Blood Glucose 32 MG/DL (74-106) *L Pending Sodium Level 146 MMOL/L (136-145) H Pending Potassium Level 3.4 MMOL/L (3.5-5.1) L Pending Chloride Level 114 MMOL/L (98-107) H Pending Carbon Dioxide Level 20 MMOL/L (21-32) L Pending Anion Gap 12 mmol/L (5-15) Blood Urea Nitrogen 21 mg/dL (7-18) H Pending Creatinine 0.7 MG/DL (0.55-1.30) Pending Estimat Glomerular Filtration Rate > 60 mL/min (>60) Pending Glucose Level 115 MG/DL (74-106) H Pending Calcium Level 8.0 MG/DL (8.5-10.1) L Pending Total Bilirubin 0.2 MG/DL (0.2-1.0) Aspartate Amino Transf (AST/SGOT) 44 U/L (15-37) H Alanine Aminotransferase (ALT/SGPT) 85 U/L (12-78) H Alkaline Phosphatase 383 U/L (46-116) H Total Protein 6.8 G/DL (6.4-8.2) Albumin 1.5 G/DL (3.4-5.0) L Globulin 5.3 g/dL Albumin/Globulin Ratio 0.3 (1.0-2.7) L Hemoglobin A1c Pending Iron Level Pending Unsaturated Iron Binding Pending Vitamin B12 Level Pending Test 06/09/20 05:34 06/09/20 05:36 06/09/20 06:22 06/09/20 07:33 POC Whole Blood Glucose 65 MG/DL (74-106) L 66 MG/DL (74-106) L 120 MG/DL (74-106) H Pending Test 06/09/20 08:23 Arterial Blood pH 7.376 (7.350-7.450) Arterial Blood Partial Pressure CO2 32.5 mmHg (35.0-45.0) L Arterial Blood Partial Pressure O2 156.9 mmHg (75.0-100.0) H Arterial Blood HCO3 18.6 mmol/L (22.0-26.0) L Arterial Blood Oxygen Saturation 99.1 % (95-100) Arterial Blood Base Excess -5.9 (-2-2) L Ismael Test Positive Microbiology Date/Time Source Procedure Growth Status 06/08/20 14:10 Urine,Clean Catch Urine Culture - Preliminary Gram Negative Imer Resulted 06/08/20 13:40 Nasopharynx SARS-CoV-2 RdRp Gene Assay - Final Complete Height (Feet): 5 Height (Inches): 10.00 Weight (Pounds): 162 Medications Current Medications Medications (Trade) Dose Ordered Sig/Milla Route PRN Reason Start Time Stop Time Status Last Admin Dose Admin Amiodarone HCl (Cordarone) 200 mg DAILY GT 06/09/20 09:00 09/07/20 08:59 Amlodipine Besylate (Norvasc) 5 mg TWICE A DAY GT 06/09/20 09:00 07/09/20 08:59 Bethanechol Chloride (Urecholine) 25 mg Q6HR GT 06/09/20 06:00 07/09/20 05:59 06/09/20 05:48 Clonidine HCl (Catapres Tab) 0.1 mg Q6H PRN GT For High Blood Pressure 06/09/20 00:30 12/20/20 00:29 Dextrose 1,000 ml @ 90 mls/hr Q11H7M IV 06/09/20 01:00 07/09/20 00:59 06/09/20 01:41 Dextrose (Dextrose 50%) 25 ml Q30M PRN IV Hypoglycemia 06/09/20 06:00 09/07/20 05:59 06/09/20 06:02 Dextrose (Dextrose 50%) 50 ml Q30M PRN IV Hypoglycemia 06/09/20 00:15 09/07/20 00:14 Dextrose (Dextrose 50%) 50 ml Q30M PRN IV Hypoglycemia 06/09/20 00:15 09/07/20 00:14 Docusate Sodium (Colace) 100 mg TWICE A DAY GT 06/09/20 09:00 07/09/20 08:59 Epoetin Cameron (Epoetin Cameron-EPBX(NON ESRD)) 10,000 unit SUBQ 06/09/20 21:00 09/07/20 20:59 Famotidine (Pepcid) 20 mg TWICE A DAY GT 06/09/20 09:00 09/07/20 08:59 Hydralazine HCl (Apresoline) 25 mg EVERY 8 HOURS GT 06/09/20 06:00 09/07/20 05:59 06/09/20 05:48 Insulin Aspart (NovoLOG) Q6HR SUBQ 06/09/20 06:00 09/07/20 05:59 Lactulose (Cephulac) 20 gm Q6H PRN GT Constipation 06/09/20 00:30 07/09/20 00:29 Lansoprazole (Prevacid) 30 mg TWICE A DAY GT 06/09/20 09:00 07/09/20 08:59 Levetiracetam (Keppra) 500 mg TWICE A DAY GT 06/09/20 09:00 07/09/20 08:59 Levofloxacin 150 ml @ 150 mls/hr Q24H IVPB 06/09/20 14:00 06/16/20 13:59 Levothyroxine Sodium (Synthroid) 75 mcg DAILY GT 06/09/20 09:00 07/09/20 08:59 Metoclopramide HCl (Reglan) 5 mg EVERY 6 HOURS GT 06/09/20 06:00 07/09/20 05:59 06/09/20 05:48 Nitroglycerin (Ntg) 0.4 mg Q5MIN X 3 DOSES PRN SL CHEST PAIN 06/09/20 00:30 07/09/20 00:29 Ondansetron HCl (Zofran) 4 mg Q6H PRN GT Nausea & Vomiting 06/09/20 00:30 07/09/20 00:29 Piperacillin Sod/ Tazobactam Sod 3.375 gm/Sodium Chloride 110 ml @ 27.5 mls/hr EVERY 8 HOURS IVPB 06/09/20 06:00 06/16/20 05:59 06/09/20 05:42 Pravastatin Sodium (Pravachol) 40 mg BEDTIME GT 06/09/20 21:00 07/09/20 20:59 Sodium Chloride 1,000 ml @ 50 mls/hr Q20H IV 06/09/20 01:00 07/09/20 00:59 06/09/20 01:37 Vancomycin HCl (Vanco pharmacy to dose) 1 ea DAILY PRN MISC Per rx protocol 06/09/20 00:15 07/09/20 00:14 Vancomycin/Sodium Chloride 275 ml @ 137.5 mls/ hr Q12H IVPB 06/09/20 04:00 06/14/20 03:59 06/09/20 04:19 Zinc Sulfate (Zinc Sulfate) 220 mg DAILY GT 06/09/20 09:00 09/07/20 08:59 Assessment/Plan Problem List: (1) UTI (urinary tract infection) ICD Codes: N39.0 - Urinary tract infection, site not specified SNOMED: 62690954 Qualifiers: Qualified Codes: N30.01 - Acute cystitis with hematuria (2) Pneumonia ICD Codes: J18.9 - Pneumonia, unspecified organism SNOMED: 082905941 Qualifiers: Qualified Codes: J18.9 - Pneumonia, unspecified organism (3) Sepsis Assessment & Plan: leukocytosis, anemia. abnormal labs stage 4 sacral prior debridement and seems like ostectomy colostomy noted mid back and bilateral ischial dti ua noted on iv abx g tube in place but per reports on tpn at facility labs ordered imaging ordered no acute surgical intervention planned will follow with recs ICD Codes: A41.9 - Sepsis, unspecified organism SNOMED: 56541577 (4) Colostomy in place ICD Codes: Z93.3 - Colostomy status SNOMED: 962380429, 094189246 (5) Feeding by G-tube ICD Codes: Z93.1 - Gastrostomy status SNOMED: 720015084, 884852941, 177241945 (6) Deep tissue injury ICD Codes: T14.8XXA - Other injury of unspecified body region, initial encounter SNOMED: 021965396 (7) Stage 4 skin ulcer of sacral region Assessment & Plan: Patient noted to have stage 4 sacral decubitus ulcer which has had prior debridement and seems like ostectomy vs bone biopsy. bone palpable. good granulation tissue. no drainage. minimal tunneling. wounds likely etiology of sepsis. does have bilateral ischial and mid back eschar deep issue injury noted. local care plan initiated. will follow with recs ICD Codes: L98.429 - Non-pressure chronic ulcer of back with unspecified severity SNOMED: 29989770, 884534554 Jonny Powell Jun 09, 2020 09:17
--- NOTE | 2020-06-09 09:24 | General Progress Note ---
Subjective Allergies: Coded Allergies: No Known Allergies (Unverified , 06/08/20) Objective Last 24 Hour Vital Signs Date Time Temp Pulse Resp B/P (MAP) Pulse Ox O2 Delivery O2 Flow Rate FiO2 06/09/20 08:39 35 06/09/20 07:07 91 25 45 06/09/20 05:48 145/80 06/09/20 04:00 87 06/09/20 04:00 97.2 86 24 141/76 (97) 100 06/09/20 04:00 45 06/09/20 04:00 Mechanical Ventilator 06/09/20 03:27 88 30 45 06/09/20 00:00 Mechanical Ventilator 06/09/20 00:00 97.0 87 22 107/61 (76) 100 06/09/20 00:00 84 06/09/20 00:00 45 06/08/20 23:50 83 20 100 06/08/20 23:26 85 25 45 06/08/20 22:13 98.6 84 26 121/79 100 Mechanical Ventilator 45 06/08/20 22:00 87 06/08/20 21:39 97.5 91 19 126/71 (89) 100 06/08/20 21:38 Mechanical Ventilator 06/08/20 20:29 98.6 93 26 121/72 100 Mechanical Ventilator 4.0 45 06/08/20 19:22 98.5 27 119/62 100 Mechanical Ventilator 4.0 45 06/08/20 19:11 98 27 100 Mechanical Ventilator 45 06/08/20 19:10 98 27 45 06/08/20 17:16 98.1 23 130/76 100 Mechanical Ventilator 45 06/08/20 15:30 98.2 22 131/78 99 Mechanical Ventilator 40 06/08/20 15:30 92 28 98 Mechanical Ventilator 4.0 45 97 26 45 45 06/08/20 13:32 98.2 26 126/71 98 Mechanical Ventilator 4.0 06/08/20 13:20 97 26 45 06/08/20 13:14 98.2 101 26 126/71 (89) 98 Mechanical Ventilator 4.0 Intake and Output 06/08/20 06/09/20 19:00 07:00 Intake Total 656.75 ml Output Total 1600 ml Balance -943.25 ml Intake IV Total 656.75 ml Output Urine Total 1600 ml Laboratory Tests 06/08/20 13:35: POC Whole Blood Glucose 104 06/08/20 14:10: White Blood Count 20.6H, Red Blood Count 2.60L, Hemoglobin 7.3L, Hematocrit 23.7L, Mean Corpuscular Volume 91, Mean Corpuscular Hemoglobin 28.0, Mean Corpuscular Hemoglobin Concent 30.7L, Red Cell Distribution Width 16.2H, Platelet Count 632H, Mean Platelet Volume 6.1L, Neutrophils (%) (Auto) , Lymphocytes (%) (Auto) , Monocytes (%) (Auto) , Eosinophils (%) (Auto) , Basophils (%) (Auto) , Differential Total Cells Counted 100, Neutrophils % (Manual) 85H, Lymphocytes % (Manual) 9L, Monocytes % (Manual) 6, Eosinophils % (Manual) 0, Basophils % (Manual) 0, Band Neutrophils 0, Platelet Estimate IncreasedH, Platelet Morphology Normal, Hypochromasia 1+, Anisocytosis 1+, Prothrombin Time 11.4, Prothromb Time International Ratio 1.0, Activated Partial Thromboplast Time 34H, Urine Color Pale yellow, Urine Appearance Slightly cloudy, Urine pH 5, Urine Specific [place] 1.010, Urine Protein 2+H, Urine Glucose (UA) Negative, Urine Ketones Negative, Urine Blood Negative, Urine Nitrite PositiveH, Urine Bilirubin Negative, Urine Urobilinogen Normal, Urine Leukocyte Esterase 2+H, Urine RBC 0, Urine WBC 10-15H, Urine Squamous Epithelial Cells None, Urine Bacteria ModerateH, Urine Yeast ModerateH, Sodium Level 144, Potassium Level 3.7, Chloride Level 111H, Carbon Dioxide Level 21, Anion Gap 12, Blood Urea Nitrogen 27H, Creatinine 0.8, Estimat Glomerular Filtration Rate > 60, Glucose Level 85, Lactic Acid Level 0.90, Calcium Level 8.3L, Total Bilirubin 0.2, Aspartate Amino Transf (AST/SGOT) 34, Alanine Aminotransferase (ALT/SGPT) 97H, Alkaline Phosphatase 367H, Total Creatine Kinase 27, Creatine Kinase MB 1.5, Creatine Kinase MB Relative Index 5.5, Troponin I 0.000, Total Protein 7.7, Albumin 1.7L, Globulin 6.0, Albumin/Globulin Ratio 0.3L 06/08/20 23:41: POC Whole Blood Glucose 36*L 06/08/20 23:45: POC Whole Blood Glucose 33*L 06/08/20 23:59: POC Whole Blood Glucose 32*L 06/09/20 00:03: POC Whole Blood Glucose [Pending] 06/09/20 00:27: Sodium Level 146H, Potassium Level 3.4L, Chloride Level 114H, Carbon Dioxide Level 20L, Anion Gap 12, Blood Urea Nitrogen 21H, Creatinine 0.7, Estimat Glomerular Filtration Rate > 60, Glucose Level 115H, Calcium Level 8.0L, Total Bilirubin 0.2, Aspartate Amino Transf (AST/SGOT) 44H, Alanine Aminotransferase (ALT/SGPT) 85H, Alkaline Phosphatase 383H, Total Protein 6.8, Albumin 1.5L, Globulin 5.3, Albumin/Globulin Ratio 0.3L 06/09/20 04:00: Sodium Level [Pending], Potassium Level [Pending], Chloride Level [Pending], Carbon Dioxide Level [Pending], Blood Urea Nitrogen [Pending], Creatinine [Pending], Estimat Glomerular Filtration Rate [Pending], Glucose Level [Pending], Calcium Level [Pending], Hemoglobin A1c [Pending], Iron Level [Pending], Unsaturated Iron Binding [Pending], Vitamin B12 Level [Pending] 06/09/20 05:34: POC Whole Blood Glucose 65L 06/09/20 05:36: POC Whole Blood Glucose 66L 06/09/20 06:22: POC Whole Blood Glucose 120H 06/09/20 07:33: POC Whole Blood Glucose [Pending] 06/09/20 08:23: Arterial Blood pH 7.376, Arterial Blood Partial Pressure CO2 32.5L, Arterial Blood Partial Pressure O2 156.9H, Arterial Blood HCO3 18.6L, Arterial Blood Oxygen Saturation 99.1, Arterial Blood Base Excess -5.9L, Ismael Test Positive Height (Feet): 5 Height (Inches): 10.00 Weight (Pounds): 162 Assessment/Plan Assessment/Plan: Assessment - h/o pancreatitis - s/p colostomy - sepsis/leukocytosis - resp failure / trach - dysphagia / GT - s/p CVA - Anemia - CAD - DM - HTN - GERD Recommendations - Abx - CT abd/pelvis - PPI - Monitor CBC - NPO - will evaluate for feeds after CT obtained Thank you P Moshe Casas MD Jun 09, 2020 09:24
[2020-06-09] MEDS: Amiodarone 200mg tab GT SCH (09:29)
[2020-06-09] MEDS: Docusate 100mg/10ml Liq GT SCH ×2 (09:29→17:38)
[2020-06-09] MEDS: levETIRAcetam 500mg/5ml Liquid GT SCH ×2 (09:29→17:38)
[2020-06-09] MEDS ORDERED: Omnipaque-300 100ml vial INJ PRN (09:30)
[2020-06-09] MEDS: Zinc Sulfate 220mg GT SCH (09:30)
--- NOTE | 2020-06-09 09:30 | NUR ---
NURSE NOTES: Dr. Kraft at the bedside assessed the patient. Notified Dr. Kraft regarding the patient's condition and abnormal lab. Dr. Kraft ordered CT abdomen and pelvis with contrast to be done. Dr. Kraft ordered the patient to be NPO status until CT abdomen and pelvis to be done. Will closely monitor the patient. Will continue plan of care.
[2020-06-09 09:53] LABS: HEMATOCRIT 19.9 % (42.0-52.0); HEMOGLOBIN 5.9 G/DL (14.2-18.0); MEAN CORPUSCULAR VOLUME 96 FL (80-99); PLATELET COUNT 488 K/UL (150-450); RED BLOOD COUNT 2.06 M/UL (4.70-6.10); RED CELL DISTRIBUTION WIDTH 16.6 % (11.6-14.8); WHITE BLOOD COUNT 11.7 K/UL (4.8-10.8)
--- NOTE | 2020-06-09 10:00 | NUR ---
NURSE NOTES: Morning medications administered per order. Tolerated well. Redrew blood from PICC line site and sent down to the lab. Awaiting for the result. Will closely monitor the patient. Will continue plan of care.
--- NOTE | 2020-06-09 10:30 | NUR ---
NURSE NOTES: Dr. Kraft was notified regarding abnormal lab including hemoglobin from 7.[address] Kraft ordered 2 unit pRBC to be transfused. Will carry out the order as soon as possible. Will closely monitor the patient. Will continue plan of care.
--- NOTE | 2020-06-09 11:30 | NUR ---
NURSE NOTES: Dr. Hamilton was notified regarding abnormal blood culture result. Dr. Hamilton was notifeid gram positive cocci in 1/2 bottle in blood culture. Per Dr. Hamilton, the patient is already on vanco and seen by Dr. Leyva. No new order at this time. Will closely monitor the patient. Will continue plan of care.
--- NOTE | 2020-06-09 11:30 | Consultation ---
DATE OF CONSULTATION: 06/09/2020 INFECTIOUS DISEASES CONSULTATION This consult is for coverage of Dr. Leyva. CONSULTING PHYSICIAN: Ramakrishna Lancaster MD PRIMARY ATTENDING PHYSICIAN: Mundo Hamilton MD REASON FOR CONSULTATION: Sepsis, UTI, pneumonia. HISTORY OF PRESENT ILLNESS: The patient is a 70-year-old male [facility] from [facility] because of elevation of WBC to 28,000, in hospital had a WBC of 20.6 and pulse of 101. The patient came with PICC line that was placed before in an outside facility. According to notes, he had pancreatitis and for a while he was on TPN also. PAST MEDICAL HISTORY: Significant for ventilator-dependent respiratory failure, diabetes mellitus , hypothyroidism, stage IV sacral ulcer, hypertension, anemia. PAST SURGICAL HISTORY: Tracheotomy, G-tube placement, and colostomy. ALLERGIES: No known drug allergies. MEDICATIONS: Epogen, Levaquin, zinc, levothyroxine, Keppra, Prevacid, famotidine, amlodipine, metoclopramide, Zosyn, vancomycin, sodium chloride, Zofran, lactulose, nitroglycerin. SOCIAL HISTORY: prison resident. . No other history obtainable by the patient. PHYSICAL EXAMINATION: VITAL SIGNS: Temperature 97, pulse 87, blood pressure 107/61. GENERAL APPEARANCE: No acute distress, seems to have normal weight. HEAD AND NECK: Status post tracheostomy. HEART: Normal rate, has left arm PICC line. ABDOMEN: Flat, soft, has G-tube and colostomy. GENITOURINARY: Has Thomson catheter. EXTREMITIES: Has no edema. LABORATORY AND DIAGNOSTIC DATA: WBC today is 11.7, hemoglobin 5.9 coming down from 7.3, hematocrit 19.9, platelet 488. Sodium 146 , , chloride 114, BUN 21, creatinine 0.7, glucose of 32 at the time of admission. Chest x-ray showed bibasilar infiltrates worrisome for pneumonia. UA showed wbc's of 10 to 15. COVID-19 test was negative. Urine culture gram-negative rods. IMPRESSION: Sepsis with leukocytosis and tachycardia, has pyuria, bacteriuria likely UTI, may have pneumonia in the basilar area, has central line. We will try to rule out line sepsis, has ventilator-dependent respiratory failure, diabetes mellitus with hypoglycemia, hypothyroidism, has multiple pressure ulcers including stage IV sacral ulcer, right heel deep tissue injury, has hypertension, has anemia with drop in hemoglobin and hematocrit. RECOMMENDATION: Ask for sputum culture. We will follow up urine and blood culture. We will continue with Zosyn, vancomycin, and Levaquin. Try to taper antibiotics soon. At the end of my exam, I thank Dr. Hamilton, for involving me in the care of this patient. Ramakrishna Lancaster M.D. DR: Marcelo JOB#: [id number] CC: CARLOS
[2020-06-09 11:56] LABS: ANION GAP 13 mmol/L (5-15); BLOOD UREA NITROGEN 15 mg/dL (7-18); CALCIUM 8.1 MG/DL (8.5-10.1); CARBON DIOXIDE 19 MMOL/L (21-32); CHLORIDE 111 MMOL/L (98-107); CREATININE 0.6 MG/DL (0.55-1.30); POTASSIUM 3.4 MMOL/L (3.5-5.1); SODIUM 143 MMOL/L (136-145)
[2020-06-09 12:00] VITALS: BP 146/73
--- NOTE | 2020-06-09 12:00 | NUR ---
NURSE NOTES: The patient was seen by wound care nurse and Dr. Powell. Wound care ordered by Dr. Powell and wound care dressing done by wound care nurse. Will closely monitor the patient. Will continue plan of care.
--- NOTE | 2020-06-09 12:10 | NUR ---
NURSE NOTES: BS 114 noted. No coverage per protocol. Will closely monitor the patient. Will continue plan of care.
--- NOTE | 2020-06-09 12:30 | NUR ---
NURSE NOTES: Dr. Hamilton was notified regarding abnormal lab including hemoglobin, potassium, and blood culture. Dr. Hamilton ordered KCL 10mEq x2 total 20mEq KCL to be administered. Will administer per order. Will closely monitor the patient. Will continue plan of care.
[2020-06-09 12:32] LABS: % IRON SATURATION 14 % (15-50); IRON 17 ug/dL (50-175); TOTAL IRON BINDING CAPACITY 122 ug/dL (250-450)
--- NOTE | 2020-06-09 13:00 | NUR ---
NURSE NOTES: Dr. Juarez at the bedside assessed the patient. Dr. Juarez was notified that the patient has been getting TPN at [facility] living. Per Dr. uJarez, he will review and order as needed. Will closely monitor the patient. Will continue plan of care.
--- NOTE | 2020-06-09 13:44 | Consultation ---
DATE OF CONSULTATION: 06/09/2020 NEPHROLOGY CONSULTATION CONSULTING PHYSICIAN: Jacek Cole MD REFERRING PHYSICIAN: Mundo Hamilton MD REASON FOR CONSULTATION: TPN. HISTORY OF PRESENT ILLNESS: This is a 70-year-old male from jail with anoxic encephalopathy, chronic kidney disease, type 2 diabetes mellitus, and decubitus ulcer, who I am asked to see for TPN. PAST MEDICAL HISTORY: As above: 1. Respiratory failure. 2. Chronic kidney disease. 3. Type 2 diabetes mellitus. 4. Decubitus ulcers. 5. Hypertensive cardiovascular disease. 6. Gastroesophageal reflux disease. 7. Anemia of chronic kidney disease. 8. Malfunctioning graft. MEDICATIONS: 1. TPN. 2. IV D10. 3. Potassium chloride p.r.n. 4. IV Levaquin. 5. IV Zosyn. 6. IV fluid normal saline. 7. Vancomycin IV. 8. Amiodarone via G-tube. 9. Amlodipine via G-tube. 10. Urecholine via G-tube. 11. Catapres via G-tube p.r.n. elevated SBP. 12. Subcutaneous Epogen. 13. Hydralazine. 14. Insulin sliding scale. 15. Lactulose. 16. Keppra. 17. Synthroid. 18. Metoclopramide p.r.n. 19. Zofran p.r.n. 20. Zinc sulfate. ALLERGIES: No known drug allergies. FAMILY HISTORY: Unable to obtain due to mental status. SOCIAL HISTORY: Unable to obtain due to mental status. REVIEW OF SYSTEMS: Unable to obtain due to mental status. PHYSICAL EXAMINATION: GENERAL: This is an elderly male, who is in no acute distress. VITAL SIGNS: Blood pressure 145/74, pulse 92 and regular, respirations 24. HEENT: The head is normocephalic and atraumatic. Pupils are equal, round, and reactive to light. NECK: He has midline tracheostomy. LUNGS: Bilateral rhonchi. HEART: Regular rate and rhythm without rubs, murmurs, or gallops. ABDOMEN: Soft and nontender. He has a G-tube. Bowel sounds were active. EXTREMITIES: No clubbing, cyanosis, or edema. NEUROLOGICAL: He is obtunded. There were no gross focal findings. LABORATORY AND ANCILLARY DATA: CBC shows white count of 11,700, hematocrit 19.9, and platelet count 488,000. Chemistry, sodium 143, potassium 3.4, creatinine 0.6, BUN 15. Urinalysis, 10-15 white blood cells. Chest x-ray, bibasilar infiltrates, suspected pneumonia. ASSESSMENT: 1. Bilateral pneumonia. 2. Septicemia secondary to the above. 3. Respiratory failure. 4. Chronic kidney disease. 5. Type 2 diabetes mellitus. 6. Decubitus ulcers. 7. Hypertensive cardiovascular disease. 8. Gastroesophageal reflux disease. 9. Anemia of chronic kidney disease. 10. Malfunctioning graft. PLAN: 1. Continue TPN from the same formula from the jail. 2. chemistry and adjust TPN accordingly. Thank you, Dr. Hamilton, for letting me participate in the care of this patient. Jacek Cole M.D. DR: Bakari JOB#: [id number] CC:
--- NOTE | 2020-06-09 13:50 | NUR ---
NURSE NOTES: 1 unit pRBC transfusion started per Dr. Kraft's order. Stable vital signs noted. Will recheck the patient in 15 minutes. Will closely monitor the patient. Will continue plan of care.
--- NOTE | 2020-06-09 14:05 | NUR ---
NURSE NOTES: The patient is getting 1 unit pRBC transfusion in safe manner per Dr. Kraft's order. Stable vital signs noted. Will closely monitor the patient. Will continue plan of care.
--- NOTE | 2020-06-09 14:30 | NUR ---
NURSE NOTES: The patient went down and up from CT of abdomen and pelvis with contrast with consent per Dr. Kraft's order. The patient safely came back to floor and stabilized by RT and RN. Will closely monitor the patient. Will continue plan of care.
--- NOTE | 2020-06-09 15:30 | NUR ---
NURSE NOTES: 1 unit pRBC transfusion completed per Dr. Gutierrez's order. Tolerated well. Will closely monitor the patient. Will get 2nd unit pRBC transfusion to be started. Will continue plan of care.
--- NOTE | 2020-06-09 15:50 | NUR ---
NURSE NOTES: 2nd unit pRBC transfusion started per Dr. Kraft's order. The patient is tolerating well. Will recheck the vital signs in 15 minutes. Will closely monitor the patient. Will continue plan of care.
[2020-06-09 16:00] VITALS: BP 135/76
--- NOTE | 2020-06-09 16:05 | NUR ---
NURSE NOTES: The patient is getting 2nd unit pRBC transfusion in a safe manner per Dr. Kraft's order. Stable vital signs noted. Will closely monitor the patient. Will continue plan of care.
--- NOTE | 2020-06-09 16:25 | NUR ---
CASE MANAGEMENT: REVIEW 70 YEAR OLD MALE BIBA FROM [facility] CC: ABNORMAL LABS SI: SEPSIS T 98.2 HR 101 RR 26 BP 126/71 SAT 98% MECH VENT FIO2 45 WBC 20.6 H/H 7.3/23.7 K 3.4 GLUCOSE 36 BLOOD CX PENDING URINE CX PENDING IS: LEVOFLOXACIN IV X1 ZOSYN IV X1 NS IVF X1 VANCOMYCIN IV X1 STEP DOWN UNIT STATUS DCP: PATIENT IS FROM [facility]
--- NOTE | 2020-06-09 17:00 | NUR ---
NURSE NOTES: Bed bath given to the patient. Tolerated well. Will closely monitor the patient. Will continue plan of care.
--- NOTE | 2020-06-09 17:08 | Diagnostic Imaging Report ---
Indication: Lower extremity pain Technique: Grayscale and duplex images of the bilateral lower extremity veins Comparison: None Findings: Bilaterally, grayscale and duplex images demonstrate no evidence of intraluminal thrombus. Normal phasic Doppler waveforms, demonstrating normal augmentation response and no evidence of valvular insufficiency. Greater saphenous vein(s) and tibial veins are patent. Normal compressibility. Impression: Negative for evidence of lower extremity deep venous thrombosis bilaterally
--- NOTE | 2020-06-09 18:00 | NUR ---
NURSE NOTES: BS 127 noted. No coverage per protocol. Will closely monitor the patient. Will continue plan of care.
--- NOTE | 2020-06-09 18:48 | NUR ---
NURSE NOTES:WOUND CARE NOTES:Pt deconditioned and presented on admission with, Tracheostomy,GT, Multiple Pressure Injuries. Dry eschar noted to L earlobe(L)0.8cm x (W)0.6cm. No erythema noted periwound. Loose,dry eschar cap L earlobe(L)1cm x (W)0.7cm. Base of wound beneath loose eschar cap is moist and paul. No odor or exudate noted. Non-Blanchable erythema with shearing centrally posterior neck under tracheal collar.Periwound skin is dark without erythema or fluctuance.(L)1.5cm x (W)4.5cm. Resolving Pressure injury L lumbar area(L)2cm x (W00.7cm. [place] epithelial at base of wound. Loose dry edges . no erythema or induration periwound. Full thickness Pressure Injury Lumbar Spine(L)2.5cm x (W)1.5cm. Base of wound is 75% paul and moist,25% slough.Borders are macerated. No odor or exudate noted. Periwound without erythema or fluctuance. Full Thickness Sacral Pressure Injury (L)7.5cm x (W)8.8cm x (D)2.4cm, undermining clockwise 12-5 by 1.8cm @2o'clock. Base of wound is beefy red with purpuric area at base. Small area of bone exposure, scattered slough(20%) Wound is otherwise beefy red. Small amt serous exudate note. No odor noted. DTPI L lower Buttocks that is evolving. Base of wound is 75% soft necrosis,25% most and pink with surrounding maroon and indurated borders. DTPI that is evolving and is partially opened at L ischium(L)8cm x (W)9.5cm. Base of wound is purpuric ,indurated with opening that is 25% slough,75% moist and pink. NO odor noted. DTPI R Ischium that is evolving and is partially opened(L)6.3cm x (W)6.5cm. Base of wound is Indurated reddish/brown with opening that is 25% slough,25% soft necrosis,50% moist and pink. NO odor or exudate noted. No evidence of erythema or fluctuance periwound. Resolving Pressure Injury posterior L tibia with dry eschar cap,mixed dry pink epithelial. Unstageable Pressure injury posterior R Tibia. Stable dry eschar noted(L)14.5cm x (W)1.7cm. Unstageable Pressure Injury R heel(L)3.2cm x (W)4.2cm. Base of wound is 100% necrotic with marginal erythema and fluctuance periwound. Partial Thickness Pressure Injury medial L heel(L)1.3cm x (W)1.2cm. Base of wound is moist and viable . Edges are macerated with surrounding non-blanchable erythema with fluctuance. UNstageable Pressure Injury Lateral L Heel . Base of wound is 100% soft necrosis and is malodorous. Non-Blanchable erythema with Fluctuance periwound.(L)4cm x (W)3.4cm. Tx.Plan: Apply Betadine to R and L earlobes. Cover each ear with Optifoam drsg. Change every 3 days and prn. Apply Cavilon Skin Barrier to posterior neck. Cover with Optifoam drsg. Change every 3 days and prn. Cleanse Wounds Lumbar and L lumbar with Saline. Apply TheraHoney. Apply Moisture Barrier Paste periwound. Cover each site with Optifoam drsgs. Change every 3 days and prn. Cleanse Sacral wound with Saline. Loosely pack with Therahoney impregnated Kerlix. Apply Moisture Barrier paste periwound. Cover with Optifoam drsg. Change Daily and prn. Apply Moisture Barrier Paste to Scrotum with each incontinence care. Cleanse R and L Ischial wounds with Saline. Apply Therahoney. Apply Moisture Barrier Paste periwound. Cover each wound with Optifoam drsg. Changee very 3 days and prn. Apply Betadine to Posterior R and L Tibial wounds. Cover each wound with Optifoam drsgs. Change every 3 days and prn. Apply Betadine to R and L Heel wounds. Cover each heel with Optifoam drsgs. Change every 3 days and prn. Reposition at least every 2hours or as tolerated. Off-load heels with Pillows. APM/COLBY Mattress overlay.
--- NOTE | 2020-06-09 18:49 | Diagnostic Imaging Report ---
Clinical Indication: Abdominal pain, history of pancreatitis, sepsis Technique: Patient given contrast via gastrostomy. IV administration nonionic contrast. Venous phase spiral acquisition obtained through the abdomen and pelvis. Multiplanar reconstructions were generated. Total dose length product 367 mGycm. CTDIvol(s) 6 mGy. Dose reduction achieved using automated exposure control Comparison: none Findings: Ulceration is seen in the retrosacral and retrococcygeal region, with ulceration extending caudad to the tip of the coccyx. Gas bubbles are seen within the subcutaneous fat as well as infiltration of the subcutaneous fat. No definite localized fluid collection to suggest abscess. There is discontinuity of the coccyx, with the C2 segment and essentially absent except for a few fragments, and the C3 and C4 segments displaced anteriorly. There is slight indistinctness to the pancreatic margins and minimal haziness to the mesenteric root fat just inferior to the pancreas, but no significant peripancreatic phlegmon or other inflammatory change. The pancreas enhances normally. The liver is unremarkable. The gallbladder is not visualized. The spleen, adrenals are unremarkable. There is ectasia of the left ureter, although some segmental portions of the left ureter are normal in caliber. No definite downstream obstructive lesion demonstrated. The bladder is distended despite the presence of a Thomson catheter. There is a left lower quadrant mid sigmoid diverting colostomy. Some of the ingested contrast appears to have traversed into the distal colon despite the presence of the colostomy. There is questionable wall thickening of the sigmoid colon distal to the colostomy, although this could be an artifact of under distention. There is considerable edema of the presacral and precoccygeal fat. The appendix is normal. No evidence of diverticulosis or diverticulitis. No small bowel distention. Ingested contrast has traversed the entirety of the GI tract. No free or loculated intraperitoneal gas or fluid is evident. There is a gastrostomy in good position. There is extensive consolidation of essentially the entire visualized portion of left lower lobe. Reticular and patchy opacities are also seen involving the right lower lobe. The bones elsewhere demonstrate degenerative spondylosis changes. Impression: Extensive decubitus ulceration, presumably evident clinically. Evidence of essentially complete erosion of the second coccygeal segment and separation of the third and fourth coccygeal segments, consistent with osteomyelitis, acuity indeterminate. No evidence of abscess formation Slight indistinctness to the pancreatic margins and minimal haziness to the mesenteric root fat, may reflect stated clinical history of pancreatitis. No significant peripancreatic phlegmon or fluid or evidence of pancreatic necrosis Distended bladder despite evidence of a Thomson catheter Ectasia of the left ureter without definite downstream obstructive process. Suspect related to the above Left lower quadrant sigmoid diverting colostomy. Some ingested contrast appears to traversed into the distal colon despite the presence of this. Questionable wall thickening of the sigmoid colon distal to colostomy. Most likely artifact of under distention, but the possibility of colitis should also be considered. Nonspecific edema of the presacral and precoccygeal fat Extensive consolidation of essentially entire visualized left lower lobe. Less dense consolidation of the right lower lobe Other findings as noted, including degenerative spondylosis changes, gastrostomy The CT scanner at [facility] is accredited by the [employer] and the scans are performed using protocols designed to limit radiation exposure to as low as reasonably achievable to attain images of sufficient resolution adequate for diagnostic evaluation.
--- NOTE | 2020-06-09 18:50 | NUR ---
NURSE NOTES: Completed 2nd unit pRBC transfusion in a safe manner per Dr. Kraft's order. The patient tolerated well. Will closely monitor the patient. Will continue plan of care.
--- NOTE | 2020-06-09 19:00 | NUR ---
NURSE NOTES: Pt report received from SAMANTA HADDAD. pt remains stable vital signs stable. pt is alert and oriented times 1, sleeping in bed, no acute signs symptoms of neuro distress noted. pt is on bus monitor showing SR with 1st deg HB, no acute other cardiac abnormalities noted. pt is trach vented, sating 99% O2, no acute resp distress noted. pt bed is low, locked, armed, call light within reach, bed rails up times 3. will follow plan of care.
--- NOTE | 2020-06-09 19:30 | NUR ---
NURSE HAND-OFF REPORT: Important Events on Shift: 2 unit pRBC transfusion, 20mEq KCL IV, CT scan of abodmen/ pelvis with contrast, TPN order to follow up with Dr. Juarez Patient Status: Stable, Full code Diet: NPO except meds via GT Pending Orders: OB stool and sputum culture to be collected Pending Results/Labs: N Pending MD notification: N Latest Vital Signs: Temperature 97.9 , Pulse 100 , B/P 147 /73 , Respiratory Rate 25 , O2 SAT 100 , Mechanical Ventilator, O2 Flow Rate 4.0 . Vital Sign Comment: Stable EKG Rhythm: SR w/ 1st AVB Rhythm change?: N MD Notified?: Y -DR.BALFE BAILEY Response: No New Orders Received Latest Pulido Fall Score: 70 Fall Risk: High Risk Safety Measures: Call light Within Reach, Bed Alarm Zone 2, Side Rails Side Rails x2, Bed position Low and Locked. Fall Precautions: Yellow Socks Yellow Gown Door Sign Patient Fall Education Report given to BOO Bain. The patient is stable at this time. Endorsed plan of care.
[2020-06-09 20:00] VITALS: BP 142/75
[2020-06-09] MEDS: Epoetin Alfa-EPBX (NON ESRD)10,000 unit/ml vial SUBQ SCH (21:04)
--- NOTE | 2020-06-09 23:00 | NUR ---
NURSE NOTES: pt was turned, repositioned and cleaned.
--- NOTE | 2020-06-09 23:29 | Consultation ---
DATE OF CONSULTATION: 06/09/2020 GASTROENTEROLOGY CONSULTATION REPORT CONSULTING PHYSICIAN: Moshe Kraft MD. CHIEF COMPLAINT: I was asked to see this patient by Dr. Mundo Haimlton for evaluation of pancreatitis and feeding. HISTORY OF PRESENT ILLNESS: The patient is an unfortunate 70-year-old man with multiple medical problems including tracheostomy and gastrostomy and a recent history of pancreatitis who [facility] who was admitted to the hospital for evaluation of leukocytosis and sepsis. Patient is unable to provide any history and most of the information is only available from the chart. There is no family at bedside. The patient has a left lower quadrant colostomy, but the reason for this is unclear. PAST MEDICAL HISTORY: History of respiratory failure status post tracheostomy tube placement, sepsis, chronic kidney disease, type 2 diabetes, decubitus ulceration, hypertension, gastroesophageal reflux disease, history of recent pancreatitis on TPN, disorder, hypothyroidism, hyperlipidemia, bedbound state, status post colostomy. FAMILY HISTORY: Unavailable. SOCIAL HISTORY: [facility] is from a [facility] and has been receiving TPN recently. REVIEW OF SYSTEMS: Otherwise negative. PHYSICAL EXAMINATION: GENERAL: Debilitated man, seen in his room. HEENT: Normocephalic and atraumatic. Sclerae anicteric. There is some degree of temporal muscle loss. NECK: Supple. CHEST: Clear to auscultation except for some coarse breath sounds. CARDIOVASCULAR: Revealed a regular rate. ABDOMEN: Soft with a left lower quadrant colostomy as well as a gastrostomy tube in the left upper quadrant. EXTREMITIES: Revealed no edema. LABORATORY DATA: Noted. ASSESSMENT: This patient has had a recent history for pancreatitis per report, but status of this is not clear and he likely can be fed by mouth if pancreatitis is resolved. Given the sepsis and leukocytosis, I will order a CT scan of the abdomen and pelvis to rule out any pancreatic phlegmon or infected pseudocyst or other complication. If not, then the source of the sepsis is other location and the patient can be restarted on his feeding. RECOMMENDATIONS: Per above discussion and per orders written in the chart. I will also check a lipase level to monitor for any residual pancreatitis. Thank you for asking me to participate in the care of this patient. Moshe Kraft M.D. DR: NATA JOB#: [id number] CC:
[2020-06-10] VITALS: BP 139/75
--- NOTE | 2020-06-10 03:20 | NUR ---
NURSE NOTES: Mover Barbara by pts bed side drawing Blood/ Labs.
--- NOTE | 2020-06-10 03:30 | NUR ---
NURSE NOTES: Pressure mattress in place. all bed linens were replaced.
[2020-06-10 03:57] LABS: EOSINOPHILS % (AUTO) 1.3 % (0.0-3.0); LYMPHOCYTES % (AUTO) 8.4 % (20.0-45.0); MEAN CORPUSCULAR VOLUME 88 FL (80-99); MONOCYTES % (AUTO) 9.8 % (1.0-10.0); NEUTROPHILS % (AUTO) 79.5 % (45.0-75.0); PLATELET COUNT 550 K/UL (150-450); RED BLOOD COUNT 3.54 M/UL (4.70-6.10); RED CELL DISTRIBUTION WIDTH 15.7 % (11.6-14.8); WHITE BLOOD COUNT 6.1 K/UL (4.8-10.8)
[2020-06-10 04:00] VITALS: BP 146/84
[2020-06-10 04:46] LABS: ALANINE AMINOTRANSFERASE 86 U/L (12-78); ALBUMIN 1.5 G/DL (3.4-5.0); ALBUMIN/GLOBULIN RATIO 0.3 (1.0-2.7); ALKALINE PHOSPHATASE 354 U/L (46-116); ANION GAP 13 mmol/L (5-15); ASPARTATE AMINO TRANSFERASE 56 U/L (15-37); BILIRUBIN,TOTAL 0.3 MG/DL (0.2-1.0); BLOOD UREA NITROGEN 9 mg/dL (7-18); CALCIUM 7.9 MG/DL (8.5-10.1); CARBON DIOXIDE 20 MMOL/L (21-32); CHLORIDE 108 MMOL/L (98-107); CREATININE 0.7 MG/DL (0.55-1.30); POTASSIUM 2.9 MMOL/L (3.5-5.1); SODIUM 140 MMOL/L (136-145)
[2020-06-10 04:48] LABS: PHOSPHORUS 2.8 MG/DL (2.5-4.9)
[2020-06-10 05:07] LABS: IRON 17 ug/dL (50-175); TOTAL IRON BINDING CAPACITY 110 ug/dL (250-450)
[2020-06-10 05:12] LABS: % IRON SATURATION 15 % (15-50)
[2020-06-10] MEDS: Bethanechol 25mg Tab GT SCH ×4 (06:05→23:27)
[2020-06-10] MEDS: Piperacillin/Tazobactam 3.375 GM in NS 110 ML IVPB SCH ×3 (06:06→21:16)
[2020-06-10] MEDS: HydrALAZINE 25mg tab GT SCH ×3 (06:06→21:17)
[2020-06-10] MEDS: Metoclopramide 10mg/10ml Liq GT SCH ×4 (06:06→23:27)
[2020-06-10] MEDS: NovoLOG Insulin Flexpen SUBQ SCH ×4 (06:37→23:28)
--- NOTE | 2020-06-10 07:10 | NUR ---
NURSE HAND-OFF REPORT: Important Events on Shift:[STARTING TUBE FEEDING.] Patient Status: [STABLE] Diet: [TUBE FEEDING] Pending Orders: [NA] Pending Results/Labs:[NA] Pending MD notification:[NA] Latest Vital Signs: Temperature 98.1 , Pulse 92 , B/P 146 /84 , Respiratory Rate 25 , O2 SAT 99 , Mechanical Ventilator, O2 Flow Rate 4.0 . Vital Sign Comment: [Stable] EKG Rhythm: SR w/ 1st deg AVB Rhythm change?: N MD Notified?: Paula CHUNG MD Response: No New Orders Received Latest Pulido Fall Score: 70 Fall Risk: High Risk Safety Measures: Call light Within Reach, Bed Alarm Zone 2, Side Rails Side Rails x2, Bed position Low and Locked. Fall Precautions: Yellow Socks Yellow Gown Door Sign Patient Fall Education Report given to [SAMANTA HADDAD].
--- NOTE | 2020-06-10 07:50 | NUR ---
NURSE NOTES: Dr. Hamilton was notified regarding abnormal lab including potassium and magnesium level. Dr. Hamilton ordered KCL 40mEq via IV and 2gm of Mg IV. Will administer as ordered. Will continue plan of care.
--- NOTE | 2020-06-10 07:53 | Pulmonology Progress Note ---
Subjective ROS Limited/Unobtainable: Yes Allergies: Coded Allergies: No Known Allergies (Unverified , 06/08/20) Subjective care noted overnight events reviewed on vent lytes noted still NPO Objective Last 24 Hour Vital Signs Date Time Temp Pulse Resp B/P (MAP) Pulse Ox O2 Delivery O2 Flow Rate FiO2 06/10/20 06:06 146/84 06/10/20 04:00 98.1 90 25 146/84 (104) 99 06/10/20 04:00 45 06/10/20 04:00 92 06/10/20 04:00 Mechanical Ventilator 06/10/20 03:00 87 25 45 06/10/20 00:00 Mechanical Ventilator 06/10/20 00:00 45 06/10/20 00:00 99.6 92 27 139/75 (96) 99 06/10/20 00:00 92 06/09/20 23:15 91 25 45 06/09/20 21:05 147/73 06/09/20 20:00 98 06/09/20 20:00 99.5 99 27 142/75 (97) 100 06/09/20 20:00 45 06/09/20 20:00 Mechanical Ventilator 06/09/20 19:30 95 20 45 06/09/20 17:39 100 144/86 06/09/20 16:00 45 06/09/20 16:00 Mechanical Ventilator 06/09/20 16:00 97.9 94 25 135/76 (95) 100 06/09/20 16:00 97.9 94 25 135/76 (95) 100 06/09/20 16:00 95 06/09/20 16:00 95 06/09/20 14:45 93 25 35 06/09/20 13:29 138/72 06/09/20 12:00 98.1 94 24 146/73 (97) 100 06/09/20 12:00 93 06/09/20 12:00 Mechanical Ventilator 06/09/20 12:00 93 06/09/20 12:00 45 06/09/20 12:00 98.1 94 24 146/73 (97) 100 06/09/20 10:50 89 23 35 06/09/20 09:30 92 145/74 06/09/20 08:39 35 06/09/20 08:00 97.9 92 28 148/82 (104) 100 06/09/20 08:00 Mechanical Ventilator 06/09/20 08:00 91 06/09/20 08:00 97.9 92 28 148/82 (104) 100 06/09/20 08:00 91 06/09/20 08:00 45 Intake and Output 06/09/20 06/10/20 19:00 07:00 Intake Total 140 ml 2140.0 ml Output Total 1200 ml 1100 ml Balance -1060 ml 1040.0 ml Intake Free Water 50 ml IV Total 140 ml 1790.0 ml Tube Feeding 300 ml Output Urine Total 1200 ml 1100 ml Objective WDWN NAD reduced breath sounds bilaterally without rhonchi or wheeze [id number] without MRG NABS nontender colostomy no CCE nonfocal reduced LOC trach in place Microbiology Date/Time Source Procedure Growth Status 06/08/20 14:10 Urine,Clean Catch Urine Culture - Preliminary Gram Negative Imer Strep Species, Gamma-Hemolytic Yeast Species Resulted 06/08/20 14:10 Nasal Nares MRSA Culture - Final Staphylococcus Aureus - Mrsa Complete 06/08/20 14:10 Blood Blood Culture - Preliminary Staphylococcus Sp Coag Neg Resulted 06/08/20 13:50 Blood Blood Culture - Preliminary Staphylococcus Sp Coag Neg Resulted 06/08/20 13:40 Nasopharynx SARS-CoV-2 RdRp Gene Assay - Final Complete Laboratory Tests 06/09/20 08:23: Arterial Blood pH 7.376, Arterial Blood Partial Pressure CO2 32.5L, Arterial Blood Partial Pressure O2 156.9H, Arterial Blood HCO3 18.6L, Arterial Blood Oxygen Saturation 99.1, Arterial Blood Base Excess -5.9L, Ismael Test Positive 06/09/20 09:30: White Blood Count 11.7H, Red Blood Count 2.06L, Hemoglobin 5.9*L, Hematocrit 19.9L, Mean Corpuscular Volume 96, Mean Corpuscular Hemoglobin 28.7, Mean Corpuscular Hemoglobin Concent 29.8L, Red Cell Distribution Width 16.6H, Platelet Count 488H, Mean Platelet Volume 5.6L, Neutrophils (%) (Auto) , Lymphocytes (%) (Auto) , Monocytes (%) (Auto) , Eosinophils (%) (Auto) , Basophils (%) (Auto) , Differential Total Cells Counted 100, Neutrophils % (Manual) 95H, Lymphocytes % (Manual) 3L, Monocytes % (Manual) 2, Eosinophils % (Manual) 0, Basophils % (Manual) 0, Band Neutrophils 0, Platelet Estimate Adequate, Platelet Morphology Normal, Hypochromasia 1+, Anisocytosis 1+, Hemoglobin A1c 7.7H, Lipase 85 06/09/20 11:05: Sodium Level 143, Potassium Level 3.4L, Chloride Level 111H, Carbon Dioxide Level 19L, Anion Gap 13, Blood Urea Nitrogen 15, Creatinine 0.6, Estimat Glomerular Filtration Rate > 60, Glucose Level 107H, Calcium Level 8.1L, Iron Level 17L, Total Iron Binding Capacity 122L, Percent Iron Saturation 14L, Unsaturated Iron Binding 105L, Vitamin B12 Level 935 06/09/20 11:46: POC Whole Blood Glucose [Pending] 06/09/20 17:44: POC Whole Blood Glucose [Pending] 06/09/20 23:27: POC Whole Blood Glucose [Pending] 06/10/20 03:00: White Blood Count 6.1, Red Blood Count 3.54L, Hemoglobin 10.0#L, Hematocrit 31.0#L, Mean Corpuscular Volume 88#, Mean Corpuscular Hemoglobin 28.3, Mean Corpuscular Hemoglobin Concent 32.2, Red Cell Distribution Width 15.7H, Platelet Count 550H, Mean Platelet Volume 6.0L, Neutrophils (%) (Auto) 79.5H, Lymphocytes (%) (Auto) 8.4L, Monocytes (%) (Auto) 9.8, Eosinophils (%) (Auto) 1.3, Basophils (%) (Auto) 1.0, Sodium Level 140, Potassium Level 2.9L, Chloride Level 108H, Carbon Dioxide Level 20L, Anion Gap 13, Blood Urea Nitrogen 9, Creatinine 0.7, Estimat Glomerular Filtration Rate > 60, Glucose Level 184H, Calcium Level 7.9L, Phosphorus Level 2.8, Magnesium Level 1.4L, Iron Level 17L, Total Iron Binding Capacity 110L, Percent Iron Saturation 15, Unsaturated Iron Binding 93L, Total Bilirubin 0.3, Aspartate Amino Transf (AST/SGOT) 56H, Alanine Aminotransferase (ALT/SGPT) 86H, Alkaline Phosphatase 354H, Total Protein 6.8, Albumin 1.5L, Globulin 5.3, Albumin/Globulin Ratio 0.3L, Vitamin B12 Level 924, Vancomycin Level Trough 28.1H 06/10/20 06:09: POC Whole Blood Glucose [Pending] Current Medications Medications (Trade) Dose Ordered Sig/Milla Route PRN Reason Start Time Stop Time Status Last Admin Dose Admin Amino Acids/ Electrolytes/ Dextrose 1,440 ml @ 60 mls/hr Q24H IV 06/10/20 20:00 09/08/20 19:59 Amiodarone HCl (Cordarone) 200 mg DAILY GT 06/09/20 09:00 09/07/20 08:59 06/09/20 09:29 Amlodipine Besylate (Norvasc) 5 mg TWICE A DAY GT 06/09/20 09:00 07/09/20 08:59 06/09/20 17:39 Barium Sulfate (Readi-Cat 2) 450 ml NOW PRN ORAL Radiology Procedure 06/09/20 09:30 06/11/20 09:29 Bethanechol Chloride (Urecholine) 25 mg Q6HR GT 06/09/20 06:00 07/09/20 05:59 06/10/20 06:05 Clonidine HCl (Catapres Tab) 0.1 mg Q6H PRN GT For High Blood Pressure 06/09/20 00:30 09/07/20 00:29 Dextrose 1,000 ml @ 0 mls/hr Q24H PRN IV PN interrupted or unavailable 06/10/20 20:00 07/10/20 19:59 Dextrose 1,000 ml @ 90 mls/hr Q11H7M IV 06/09/20 01:00 06/10/20 20:00 06/09/20 23:28 Dextrose (Dextrose 50%) 25 ml Q30M PRN IV Hypoglycemia 06/09/20 06:00 09/07/20 05:59 06/09/20 06:02 Dextrose (Dextrose 50%) 50 ml Q30M PRN IV Hypoglycemia 06/09/20 00:15 09/07/20 00:14 Docusate Sodium (Colace) 100 mg TWICE A DAY GT 06/09/20 09:00 07/09/20 08:59 06/09/20 17:38 Epoetin Cameron (Epoetin Cameron-EPBX(NON ESRD)) 10,000 unit TUE-TUE-TUE SUBQ 06/09/20 21:00 09/07/20 20:59 06/09/20 21:04 Famotidine (Pepcid) 20 mg TWICE A DAY GT 06/09/20 09:00 09/07/20 08:59 06/09/20 17:39 Hydralazine HCl (Apresoline) 25 mg EVERY 8 HOURS GT 06/09/20 06:00 09/07/20 05:59 06/10/20 06:06 Insulin Aspart (NovoLOG) Q6HR SUBQ 06/09/20 06:00 09/07/20 05:59 06/10/20 06:37 Iohexol (OMNIPAQUE-300 100ml) 100 ml NOW PRN INJ Radiology Procedure 06/09/20 09:30 06/11/20 09:29 Lactulose (Cephulac) 20 gm Q6H PRN GT Constipation 06/09/20 00:30 07/09/20 00:29 Lansoprazole (Prevacid) 30 mg TWICE A DAY GT 06/09/20 09:00 07/09/20 08:59 06/09/20 17:39 Levetiracetam (Keppra) 500 mg TWICE A DAY GT 06/09/20 09:00 07/09/20 08:59 06/09/20 17:38 Levofloxacin 150 ml @ 150 mls/hr Q24H IVPB 06/09/20 14:00 06/16/20 13:59 06/09/20 14:07 Levothyroxine Sodium (Synthroid) 75 mcg DAILY GT 06/09/20 09:00 07/09/20 08:59 06/09/20 09:30 Metoclopramide HCl (Reglan) 5 mg EVERY 6 HOURS GT 06/09/20 06:00 07/09/20 05:59 06/10/20 06:06 Nitroglycerin (Ntg) 0.4 mg Q5MIN X 3 DOSES PRN SL CHEST PAIN 06/09/20 00:30 07/09/20 00:29 Ondansetron HCl (Zofran) 4 mg Q6H PRN GT Nausea & Vomiting 06/09/20 00:30 07/09/20 00:29 Piperacillin Sod/ Tazobactam Sod 3.375 gm/Sodium Chloride 110 ml @ 27.5 mls/hr EVERY 8 HOURS IVPB 06/09/20 06:00 06/16/20 05:59 06/10/20 06:06 Pravastatin Sodium (Pravachol) 40 mg BEDTIME GT 06/09/20 21:00 07/09/20 20:59 06/09/20 21:05 Sodium Chloride 1,000 ml @ 50 mls/hr Q20H IV 06/09/20 01:00 07/09/20 00:59 06/09/20 20:55 Vancomycin HCl (Vanco pharmacy to dose) 1 ea DAILY PRN MISC Per rx protocol 06/09/20 00:15 07/09/20 00:14 Vancomycin HCl 1 gm/Dextrose 275 ml @ 183.708 mls/hr Q12H IVPB 06/10/20 16:00 06/15/20 15:59 Zinc Sulfate (Zinc Sulfate) 220 mg DAILY GT 06/09/20 09:00 09/07/20 08:59 06/09/20 09:30 Assessment/Plan Assessment/Plan sepsis leukocytosis anemia colostomy respiratory failure possible gib chronic pancreatitis chronic encephalopathy hypernatremia acute renal failure pneumonia bacteremia UTI PLAN vent support IV antibiotics GI to recommend further ? start tube feeds renal with abnormal lytes- correct ID noted concern with TPN line and risk for fungemia; await further culture results assess for gt feeds monitor cxr for change close follow up transfused and improved HH guarded at present impression, plan, and exam edited and reviewed in detail care discussed with Mundo Burciaga MD Jun 10, 2020 07:53
[2020-06-10 08:00] VITALS: BP 141/83
--- NOTE | 2020-06-10 08:00 | NUR ---
NURSE NOTES: Initial nursing assessment done. Initial vital signs taken. The patient is stable at this time. Will continue plan of care.
--- NOTE | 2020-06-10 08:00 | NUR ---
NURSE NOTES: Dr. Kraft at the bedside assessed the patient. Notified 30mL bile residual from GT site. Notified Dr. Kraft that there is GTF and TPN order at the same time. Also notified abnormal lab including uptrending hemoglobin from 5.9 to 10.0 s/p 2unit pRBC transfusion on 06/09/2020. Per Dr. Kraft, clarify TPN order with Dr. Harrell. Will follow up with Dr. Harrell. Will closely monitor the patient. Will continue plan of care.
--- NOTE | 2020-06-10 08:52 | General Progress Note ---
Subjective ROS Limited/Unobtainable: Yes Constitutional: Reports: malaise, weakness HEENT: Reports: no symptoms Cardiovascular: Reports: no symptoms Respiratory: Reports: shortness of breath, sputum Gastrointestinal/Abdominal: Reports: difficulty swallowing Genitourinary: Reports: no symptoms Neurologic/Psychiatric: Reports: pre-existing deficit Endocrine: Reports: no symptoms Hematologic/Lymphatic: Reports: anemia Allergies: Coded Allergies: No Known Allergies (Unverified , 06/08/20) All Systems: reviewed and negative except above Subjective no events. remains stable on the vent. s/p transfusion. multiple positive blood cultures noted. CT noted- no pseudocyst. extensive LLL consolidation. poorly responsive. Objective Last 24 Hour Vital Signs Date Time Temp Pulse Resp B/P (MAP) Pulse Ox O2 Delivery O2 Flow Rate FiO2 06/10/20 06:06 146/84 06/10/20 04:00 98.1 90 25 146/84 (104) 99 06/10/20 04:00 45 06/10/20 04:00 92 06/10/20 04:00 Mechanical Ventilator 06/10/20 03:00 87 25 45 06/10/20 00:00 Mechanical Ventilator 06/10/20 00:00 45 06/10/20 00:00 99.6 92 27 139/75 (96) 99 06/10/20 00:00 92 06/09/20 23:15 91 25 45 06/09/20 21:05 147/73 06/09/20 20:00 98 06/09/20 20:00 99.5 99 27 142/75 (97) 100 06/09/20 20:00 45 06/09/20 20:00 Mechanical Ventilator 06/09/20 19:30 95 20 45 06/09/20 17:39 100 144/86 06/09/20 16:00 45 06/09/20 16:00 Mechanical Ventilator 06/09/20 16:00 97.9 94 25 135/76 (95) 100 06/09/20 16:00 97.9 94 25 135/76 (95) 100 06/09/20 16:00 95 06/09/20 16:00 95 06/09/20 14:45 93 25 35 06/09/20 13:29 138/72 06/09/20 12:00 98.1 94 24 146/73 (97) 100 06/09/20 12:00 93 06/09/20 12:00 Mechanical Ventilator 06/09/20 12:00 93 06/09/20 12:00 45 06/09/20 12:00 98.1 94 24 146/73 (97) 100 06/09/20 10:50 89 23 35 06/09/20 09:30 92 145/74 Intake and Output 06/09/20 06/10/20 19:00 07:00 Intake Total 140 ml 2140.0 ml Output Total 1200 ml 1100 ml Balance -1060 ml 1040.0 ml Intake Free Water 50 ml IV Total 140 ml 1790.0 ml Tube Feeding 300 ml Output Urine Total 1200 ml 1100 ml Laboratory Tests 06/09/20 09:30: White Blood Count 11.7H, Red Blood Count 2.06L, Hemoglobin 5.9*L, Hematocrit 19.9L, Mean Corpuscular Volume 96, Mean Corpuscular Hemoglobin 28.7, Mean Corpuscular Hemoglobin Concent 29.8L, Red Cell Distribution Width 16.6H, Platelet Count 488H, Mean Platelet Volume 5.6L, Neutrophils (%) (Auto) , Lymphocytes (%) (Auto) , Monocytes (%) (Auto) , Eosinophils (%) (Auto) , Basophils (%) (Auto) , Differential Total Cells Counted 100, Neutrophils % (Manual) 95H, Lymphocytes % (Manual) 3L, Monocytes % (Manual) 2, Eosinophils % (Manual) 0, Basophils % (Manual) 0, Band Neutrophils 0, Platelet Estimate Adequate, Platelet Morphology Normal, Hypochromasia 1+, Anisocytosis 1+, Hemoglobin A1c 7.7H, Lipase 85 06/09/20 11:05: Sodium Level 143, Potassium Level 3.4L, Chloride Level 111H, Carbon Dioxide Level 19L, Anion Gap 13, Blood Urea Nitrogen 15, Creatinine 0.6, Estimat Glomerular Filtration Rate > 60, Glucose Level 107H, Calcium Level 8.1L, Iron Level 17L, Total Iron Binding Capacity 122L, Percent Iron Saturation 14L, Unsaturated Iron Binding 105L, Vitamin B12 Level 935 06/09/20 11:46: POC Whole Blood Glucose [Pending] 06/09/20 17:44: POC Whole Blood Glucose [Pending] 06/09/20 23:27: POC Whole Blood Glucose [Pending] 06/10/20 03:00: White Blood Count 6.1, Red Blood Count 3.54L, Hemoglobin 10.0#L, Hematocrit 31.0#L, Mean Corpuscular Volume 88#, Mean Corpuscular Hemoglobin 28.3, Mean Corpuscular Hemoglobin Concent 32.2, Red Cell Distribution Width 15.7H, Platelet Count 550H, Mean Platelet Volume 6.0L, Neutrophils (%) (Auto) 79.5H, Lymphocytes (%) (Auto) 8.4L, Monocytes (%) (Auto) 9.8, Eosinophils (%) (Auto) 1.3, Basophils (%) (Auto) 1.0, Sodium Level 140, Potassium Level 2.9L, Chloride Level 108H, Carbon Dioxide Level 20L, Anion Gap 13, Blood Urea Nitrogen 9, Cre atinine 0.7, Estimat Glomerular Filtration Rate > 60, Glucose Level 184H, Calcium Level 7.9L, Phosphorus Level 2.8, Magnesium Level 1.4L, Iron Level 17L, Total Iron Binding Capacity 110L, Percent Iron Saturation 15, Unsaturated Iron Binding 93L, Total Bilirubin 0.3, Aspartate Amino Transf (AST/SGOT) 56H, Alanine Aminotransferase (ALT/SGPT) 86H, Alkaline Phosphatase 354H, Total Protein 6.8, Albumin 1.5L, Globulin 5.3, Albumin/Globulin Ratio 0.3L, Vitamin B12 Level 924, Vancomycin Level Trough 28.1H 06/10/20 06:09: POC Whole Blood Glucose [Pending] Height (Feet): 5 Height (Inches): 10.00 Weight (Pounds): 162 General Appearance: WD/WN, lethargic, confused EENT: normal ENT inspection Neck: non-tender, normal alignment, supple, normal inspection Cardiovascular: normal rate, regular rhythm Respiratory/Chest: chest wall non-tender, no respiratory distress, no accessory muscle use, decreased breath sounds Abdomen: normal bowel sounds, non tender, soft, no organomegaly Edema: no edema noted Arm (L), no edema noted Arm (R) Neurologic: disoriented Lymphatic: normal anterior cervical (L), normal anterior cervical (R) Assessment/Plan Problem List: (1) Stage 4 skin ulcer of sacral region ICD Codes: L98.429 - Non-pressure chronic ulcer of back with unspecified severity SNOMED: 60304675, 813147247 (2) Colostomy in place ICD Codes: Z93.3 - Colostomy status SNOMED: 931095543, 865778001 (3) Sepsis ICD Codes: A41.9 - Sepsis, unspecified organism SNOMED: 94267137 (4) Pneumonia ICD Codes: J18.9 - Pneumonia, unspecified organism SNOMED: 059530974 Qualifiers: Qualified Codes: J18.9 - Pneumonia, unspecified organism (5) UTI (urinary tract infection) ICD Codes: N39.0 - Urinary tract infection, site not specified SNOMED: 75609564 Qualifiers: Qualified Codes: N30.01 - Acute cystitis with hematuria Status: stable Assessment/Plan: cont iv abx ID consult pending follow up cultures tpn per renal replace lytes per renal vent support resp rx suctioning as needed wound care d/w surgery dvt/stress ulcer prophylaxis ?tube feeds Robby Mays MD Jun 10, 2020 08:52
[2020-06-10] MEDS: levETIRAcetam 500mg/5ml Liquid GT SCH ×2 (09:05→17:31)
[2020-06-10] MEDS: Docusate 100mg/10ml Liq GT SCH ×2 (09:05→17:31)
[2020-06-10] MEDS: Amiodarone 200mg tab GT SCH (09:05)
[2020-06-10] MEDS: Zinc Sulfate 220mg GT SCH (09:06)
--- NOTE | 2020-06-10 10:00 | NUR ---
NURSE NOTES: Medications administered per order. The patient tolerated well. Will closely monitor the patient. Will continue plan of care.
[2020-06-10] MEDS: Dextrose 10% 1,000 ML IV SCH (10:04)
--- NOTE | 2020-06-10 10:16 | NUR ---
NURSE NOTES: Received report from BOO Bain. The patient is resting on the bed without acute distress or shortness of breath. The patient is obtunded but able to communicate via facial expression and body movement. SR with 1AVB with HR 80s on the library monitor. The patient is trached and on ventilator on following setting and oxygen saturation is 100%: Portex 6, AC 16, TV 400, FIO2 45%, and PEEP 5. The patient has GT that is intact and patent and running Glucerna 1.2 @30mL/hr. 30mL of bile color residual noted and notified to Dr. Kraft. The patient has Thomson that is intact and draining well by gravity. The patient has colostomy and the skin and stoma is intact at this time and no BM noted. Skin issue noted and dressing intact. The patient has NII double lumen PICC line that is intact and patent and running D10W @90mL/hr and NS @ 50mL/hr. Mild labored breathing noted and let RT know and deep suction done. The patient's bed in the lowest position, call light in reach, and fall, aspiration, and seizure precaution reinforced. IV site intact and patent. Will follow up the lab and order. Will closely monitor the patient. Will continue plan of care. Addendum: 06/10/20 at 1029 by Aga Tobar RN RN Time should be changed to 0730.
--- NOTE | 2020-06-10 10:50 | NUR ---
NURSE NOTES: Dr. Leyva at the bedside assessed the patient. Notified active MRSA nares, VRE rectum, and positive blood culture for gram positive cocci in cluster in 1/2 bottles. Notified that the patient is already getting Zosyn and Vanco. Per Dr. Leyva, she will order to remove old PICC line and new PICC line to be inserted. Will closely monitor the patient. Will continue plan of care.
--- NOTE | 2020-06-10 10:57 | NUR ---
RD ASSESSMENT & RECOMMENDATIONS SEE CARE ACTIVITY FOR COMPLETE ASSESSMENT DAILY ESTIMATED NEEDS: Needs based on Critical care, wound / 67kg 22-30 kcals/kg 0658-2734 total kcals 1.25-2 g protein/kg 83-134 g total protein 25-30 mL/kg 9963-7690 total fluid mLs NUTRITION DIAGNOSIS: * Swallowing difficulty R/T dysphagia, respiratory status as evidenced by pttrach/vent dep, h/o PEG placement, GT feeds held and was on TPN CHANCELLOR for Pancreatitis, which now resolved, GT feeds now started. * Increased kcal/prot intake needs R/T wound healing as evidenced by pt admitted w /multiple advanced wounds, including full thickness Pressure Injury @ lumbar spine and sacrum w/ small area of bone exposure, DTPI wounds @ L lower buttocks, L ischium, R ischium, resolving pressure injury @ L tibia, unstageable wound @ R Tibia, R Lheel, and partial thickness pressure injury @ L heel. CURRENT TF:Glucerna 1.2 @ 60ml/hr x 24 hrs ENTERAL NUTRITION RECOMMENDATIONS: Glucerna 1.2 @ 65ml/hr x 24 hrs to provide 1560ml, 1872kcal, 94g prot, 1256ml free water * Increase goal rate to 65ml/hr x 24 hrs to better meet est needs * HOB over 30 degrees/ water flush per MD ADDITIONAL RECOMMENDATIONS: * Per SNF: HT=5'8" GD=[id number] (as of 05/22/20), rec re-calibrated bedscale wt * Monitor TF tolerance: lipase wnl, h/o pancreatitis * Monitor BGs, consider DC D10 IVF once TF @ goal * Wound healing: add Vit C 500mg x1 +ZnSO4 220mg QD x 10 days TF @ goal provides 100% est kcal/prot needs add Grady BID * Monitor lytes, replete as needed
--- NOTE | 2020-06-10 11:17 | Infectious Diseases Prog Note ---
Assessment/Plan Assessment/Plan antibiotics : vancomycin iv, levoquin, zosyn A 1. coag neg staph sepsis 2. pneumonia 3. gram negative, streptococcus, fungal UTI 4. leucocytosis resolved 5. respiratory failure 6. diabetes mellitus 7. hypertension P 1. continue iv vancomycin, zosyn 2. d/c levoquin 3. start fluconazole 4. d/c picc line 5. will follow up cultures Subjective ROS Limited/Unobtainable: Yes Allergies: Coded Allergies: No Known Allergies (Unverified , 06/08/20) Objective Last 24 Hour Vital Signs Date Time Temp Pulse Resp B/P (MAP) Pulse Ox O2 Delivery O2 Flow Rate FiO2 06/10/20 09:05 85 141/83 06/10/20 07:00 86 25 45 06/10/20 06:06 146/84 06/10/20 04:00 98.1 90 25 146/84 (104) 99 06/10/20 04:00 45 06/10/20 04:00 92 06/10/20 04:00 Mechanical Ventilator 06/10/20 03:00 87 25 45 06/10/20 00:00 Mechanical Ventilator 06/10/20 00:00 45 06/10/20 00:00 99.6 92 27 139/75 (96) 99 06/10/20 00:00 92 06/09/20 23:15 91 25 45 06/09/20 21:05 147/73 06/09/20 20:00 98 06/09/20 20:00 99.5 99 27 142/75 (97) 100 06/09/20 20:00 45 06/09/20 20:00 Mechanical Ventilator 06/09/20 19:30 95 20 45 06/09/20 17:39 100 144/86 06/09/20 16:00 45 06/09/20 16:00 Mechanical Ventilator 06/09/20 16:00 97.9 94 25 135/76 (95) 100 06/09/20 16:00 97.9 94 25 135/76 (95) 100 06/09/20 16:00 95 06/09/20 16:00 95 06/09/20 14:45 93 25 35 06/09/20 13:29 138/72 06/09/20 12:00 98.1 94 24 146/73 (97) 100 06/09/20 12:00 93 06/09/20 12:00 Mechanical Ventilator 06/09/20 12:00 93 06/09/20 12:00 45 06/09/20 12:00 98.1 94 24 146/73 (97) 100 Height (Feet): 5 Height (Inches): 10.00 Weight (Pounds): 162 HEENT: status post trach Respiratory/Chest: lungs clear Cardiovascular: normal rate, regular rhythm, no gallop/murmur Abdomen: soft, non tender, other - GT Extremities: no edema, other - left arm PICC Microbiology Date/Time Source Procedure Growth Status 06/08/20 14:10 Rectum VRE Culture - Final Enterococcus Faecalis - Vre Complete 06/08/20 14:10 Urine,Clean Catch Urine Culture - Preliminary Gram Negative Imer Strep Species, Gamma-Hemolytic Yeast Species Resulted 06/08/20 14:10 Nasal Nares MRSA Culture - Final Staphylococcus Aureus - Mrsa Complete 06/08/20 14:10 Blood Blood Culture - Preliminary Staphylococcus Sp Coag Neg Resulted 06/08/20 13:50 Blood Blood Culture - Preliminary Staphylococcus Sp Coag Neg Resulted 06/08/20 13:40 Nasopharynx SARS-CoV-2 RdRp Gene Assay - Final Complete Laboratory Tests Test 06/09/20 11:46 06/09/20 17:44 06/09/20 23:27 06/10/20 03:00 POC Whole Blood Glucose Pending Pending Pending White Blood Count 6.1 K/UL (4.8-10.8) Red Blood Count 3.54 M/UL (4.70-6.10) L Hemoglobin 10.0 G/DL (14.2-18.0) #L Hematocrit 31.0 % (42.0-52.0) #L Mean Corpuscular Volume 88 FL (80-99) # Mean Corpuscular Hemoglobin 28.3 PG (27.0-31.0) Mean Corpuscular Hemoglobin Concent 32.2 G/DL (32.0-36.0) Red Cell Distribution Width 15.7 % (11.6-14.8) H Platelet Count 550 K/UL (150-450) H Mean Platelet Volume 6.0 FL (6.5-10.1) L Neutrophils (%) (Auto) 79.5 % (45.0-75.0) H Lymphocytes (%) (Auto) 8.4 % (20.0-45.0) L Monocytes (%) (Auto) 9.8 % (1.0-10.0) Eosinophils (%) (Auto) 1.3 % (0.0-3.0) Basophils (%) (Auto) 1.0 % (0.0-2.0) Sodium Level 140 MMOL/L (136-145) Potassium Level 2.9 MMOL/L (3.5-5.1) L Chloride Level 108 MMOL/L (98-107) H Carbon Dioxide Level 20 MMOL/L (21-32) L Anion Gap 13 mmol/L (5-15) Blood Urea Nitrogen 9 mg/dL (7-18) Creatinine 0.7 MG/DL (0.55-1.30) Estimat Glomerular Filtration Rate > 60 mL/min (>60) Glucose Level 184 MG/DL (74-106) H Calcium Level 7.9 MG/DL (8.5-10.1) L Phosphorus Level 2.8 MG/DL (2.5-4.9) Magnesium Level 1.4 MG/DL (1.8-2.4) L Iron Level 17 ug/dL (50-175) L Total Iron Binding Capacity 110 ug/dL (250-450) L Percent Iron Saturation 15 % (15-50) Unsaturated Iron Binding 93 ug/dL (112-346) L Total Bilirubin 0.3 MG/DL (0.2-1.0) Aspartate Amino Transf (AST/SGOT) 56 U/L (15-37) H Alanine Aminotransferase (ALT/SGPT) 86 U/L (12-78) H Alkaline Phosphatase 354 U/L (46-116) H Total Protein 6.8 G/DL (6.4-8.2) Albumin 1.5 G/DL (3.4-5.0) L Globulin 5.3 g/dL Albumin/Globulin Ratio 0.3 (1.0-2.7) L Vitamin B12 Level 924 PG/ML (193-986) Vancomycin Level Trough 28.1 ug/mL (5.0-12.0) H Test 06/10/20 06:09 POC Whole Blood Glucose Pending Current Medications Medications (Trade) Dose Ordered Sig/Milla Route PRN Reason Start Time Stop Time Status Last Admin Dose Admin Amiodarone HCl (Cordarone) 200 mg DAILY GT 06/09/20 09:00 09/07/20 08:59 06/10/20 09:05 Amlodipine Besylate (Norvasc) 5 mg TWICE A DAY GT 06/09/20 09:00 07/09/20 08:59 06/10/20 09:05 Barium Sulfate (Readi-Cat 2) 450 ml NOW PRN ORAL Radiology Procedure 06/09/20 09:30 06/11/20 09:29 Bethanechol Chloride (Urecholine) 25 mg Q6HR GT 06/09/20 06:00 07/09/20 05:59 06/10/20 06:05 Clonidine HCl (Catapres Tab) 0.1 mg Q6H PRN GT For High Blood Pressure 06/09/20 00:30 09/07/20 00:29 Dextrose 1,000 ml @ 90 mls/hr Q11H7M IV 06/09/20 01:00 06/10/20 20:00 06/10/20 10:04 Dextrose (Dextrose 50%) 25 ml Q30M PRN IV Hypoglycemia 06/09/20 06:00 09/07/20 05:59 06/09/20 06:02 Dextrose (Dextrose 50%) 50 ml Q30M PRN IV Hypoglycemia 06/09/20 00:15 09/07/20 00:14 Docusate Sodium (Colace) 100 mg TWICE A DAY GT 06/09/20 09:00 07/09/20 08:59 06/10/20 09:05 Epoetin Cameron (Epoetin Cameron-EPBX(NON ESRD)) 10,000 unit SUBQ 06/09/20 21:00 09/07/20 20:59 06/09/20 21:04 Famotidine (Pepcid) 20 mg TWICE A DAY GT 06/09/20 09:00 09/07/20 08:59 06/10/20 09:06 Hydralazine HCl (Apresoline) 25 mg EVERY 8 HOURS GT 06/09/20 06:00 09/07/20 05:59 06/10/20 06:06 Insulin Aspart (NovoLOG) Q6HR SUBQ 06/09/20 06:00 09/07/20 05:59 06/10/20 06:37 Iohexol (OMNIPAQUE-300 100ml) 100 ml NOW PRN INJ Radiology Procedure 06/09/20 09:30 06/11/20 09:29 Lactulose (Cephulac) 20 gm Q6H PRN GT Constipation 06/09/20 00:30 07/09/20 00:29 Lansoprazole (Prevacid) 30 mg TWICE A DAY GT 06/09/20 09:00 07/09/20 08:59 06/10/20 09:06 Levetiracetam (Keppra) 500 mg TWICE A DAY GT 06/09/20 09:00 07/09/20 08:59 06/10/20 09:05 Levofloxacin 150 ml @ 150 mls/hr Q24H IVPB 06/09/20 14:00 06/16/20 13:59 06/09/20 14:07 Levothyroxine Sodium (Synthroid) 75 mcg DAILY GT 06/09/20 09:00 07/09/20 08:59 06/10/20 09:06 Metoclopramide HCl (Reglan) 5 mg EVERY 6 HOURS GT 06/09/20 06:00 07/09/20 05:59 06/10/20 06:06 Nitroglycerin (Ntg) 0.4 mg Q5MIN X 3 DOSES PRN SL CHEST PAIN 06/09/20 00:30 07/09/20 00:29 Ondansetron HCl (Zofran) 4 mg Q6H PRN GT Nausea & Vomiting 06/09/20 00:30 07/09/20 00:29 Piperacillin Sod/ Tazobactam Sod 3.375 gm/Sodium Chloride 110 ml @ 27.5 mls/hr EVERY 8 HOURS IVPB 06/09/20 06:00 06/16/20 05:59 06/10/20 06:06 Potassium Chloride 100 ml @ 50 mls/hr EVERY 2 HOURS IVPB 06/10/20 10:00 06/10/20 13:59 06/10/20 09:08 Pravastatin Sodium (Pravachol) 40 mg BEDTIME GT 06/09/20 21:00 07/09/20 20:59 06/09/20 21:05 Sodium Chloride 1,000 ml @ 50 mls/hr Q20H IV 06/09/20 01:00 07/09/20 00:59 06/09/20 20:55 Vancomycin HCl (Vanco pharmacy to dose) 1 ea DAILY PRN MISC Per rx protocol 06/09/20 00:15 07/09/20 00:14 Vancomycin HCl 1 gm/Dextrose 275 ml @ 183.708 mls/hr Q12H IVPB 06/10/20 16:00 06/15/20 15:59 Zinc Sulfate (Zinc Sulfate) 220 mg DAILY GT 06/09/20 09:00 09/07/20 08:59 06/10/20 09:06 Jayde Leyva MD Jun 10, 2020 11:17
[2020-06-10] MEDS ORDERED: Heparin1,000 units/500ml Premix(Conc:2 units/ml) IV PRN (11:30)
[2020-06-10] MEDS ORDERED: Lidocaine 1% Plain 30 ml INJ PRN (11:30)
[2020-06-10 12:00] VITALS: BP 139/81
--- NOTE | 2020-06-10 12:00 | NUR ---
NURSE NOTES: BS 191 noted. Novolog administered per protocol. Will closely monitor the patient. Will continue plan of care.
--- NOTE | 2020-06-10 12:00 | NUR ---
NURSE NOTES: The patient is resting on the bed comfortably without acute distress or shortness of breath. Oral care done. Will continue plan of care.
[2020-06-10] MEDS: Fluconazole 100mg tab ORAL SCH (12:22)
--- NOTE | 2020-06-10 12:37 | Nephrology Progress Note ---
Assessment/Plan Plan Started TF. TPN DC'ed. I'll sign off. Subjective Subjective Obtunded. Started TF. Objective Objective Last 24 Hour Vital Signs Date Time Temp Pulse Resp B/P (MAP) Pulse Ox O2 Delivery O2 Flow Rate FiO2 06/10/20 11:00 87 24 45 06/10/20 09:05 85 141/83 06/10/20 08:00 98.2 85 24 141/83 (102) 100 06/10/20 08:00 Mechanical Ventilator 06/10/20 08:00 45 06/10/20 08:00 85 06/10/20 07:00 86 25 45 06/10/20 06:06 146/84 06/10/20 04:00 98.1 90 25 146/84 (104) 99 06/10/20 04:00 45 06/10/20 04:00 92 06/10/20 04:00 Mechanical Ventilator 06/10/20 03:00 87 25 45 06/10/20 00:00 Mechanical Ventilator 06/10/20 00:00 45 06/10/20 00:00 99.6 92 27 139/75 (96) 99 06/10/20 00:00 92 06/09/20 23:15 91 25 45 06/09/20 21:05 147/73 06/09/20 20:00 98 06/09/20 20:00 99.5 99 27 142/75 (97) 100 06/09/20 20:00 45 06/09/20 20:00 Mechanical Ventilator 06/09/20 19:30 95 20 45 06/09/20 17:39 100 144/86 06/09/20 16:00 45 06/09/20 16:00 Mechanical Ventilator 06/09/20 16:00 97.9 94 25 135/76 (95) 100 06/09/20 16:00 97.9 94 25 135/76 (95) 100 06/09/20 16:00 95 06/09/20 16:00 95 06/09/20 14:45 93 25 35 06/09/20 13:29 138/72 Intake and Output 06/09/20 06/10/20 19:00 07:00 Intake Total 140 ml 2140.0 ml Output Total 1200 ml 1100 ml Balance -1060 ml 1040.0 ml Intake Free Water 50 ml IV Total 140 ml 1790.0 ml Tube Feeding 300 ml Output Urine Total 1200 ml 1100 ml Laboratory Tests 06/09/20 17:44: POC Whole Blood Glucose [Pending] 06/09/20 23:27: POC Whole Blood Glucose [Pending] 06/10/20 03:00: White Blood Count 6.1, Red Blood Count 3.54L, Hemoglobin 10.0#L, Hematocrit 31.0#L, Mean Corpuscular Volume 88#, Mean Corpuscular Hemoglobin 28.3, Mean Corpuscular Hemoglobin Concent 32.2, Red Cell Distribution Width 15.7H, Platelet Count 550H, Mean Platelet Volume 6.0L, Neutrophils (%) (Auto) 79.5H, Ly mphocytes (%) (Auto) 8.4L, Monocytes (%) (Auto) 9.8, Eosinophils (%) (Auto) 1.3, Basophils (%) (Auto) 1.0, Sodium Level 140, Potassium Level 2.9L, Chloride Level 108H, Carbon Dioxide Level 20L, Anion Gap 13, Blood Urea Nitrogen 9, Creatinine 0.7, Estimat Glomerular Filtration Rate > 60, Glucose Level 184H, Calcium Level 7.9L, Phosphorus Level 2.8, Magnesium Level 1.4L, Iron Level 17L, Total Iron Binding Capacity 110L, Percent Iron Saturation 15, Unsaturated Iron Binding 93L, Total Bilirubin 0.3, Aspartate Amino Transf (AST/SGOT) 56H, Alanine Aminotransferase (ALT/SGPT) 86H, Alkaline Phosphatase 354H, Total Protein 6.8, Albumin 1.5L, Globulin 5.3, Albumin/Globulin Ratio 0.3L, Vitamin B12 Level 924, Vancomycin Level Trough 28.1H 06/10/20 06:09: POC Whole Blood Glucose [Pending] 06/10/20 12:29: POC Whole Blood Glucose 191H Height (Feet): 5 Height (Inches): 10.00 Weight (Pounds): 162 Objective Obtunded. CV RR Lungs CTA Abd SNT. PEG ok E No CCE Jacek Cole MD Jun 10, 2020 12:37
--- NOTE | 2020-06-10 12:45 | NUR ---
NURSE NOTES: Clarification made with Dr. Harrell regarding Mg 2gm order. Dr. Juarez was notified that the patient already received 2gm Mg in the morning per Dr. Hamilton's order. Per Dr. Harrell, administer additional dose of Mg 2gm IV per order. Will administer per order. Will continue plan of care.
--- NOTE | 2020-06-10 13:02 | NUR ---
RADIOLOGY DEPT., ABDOMEN X-RAY PERFORMED.-P.DYE
--- NOTE | 2020-06-10 13:30 | NUR ---
NURSE NOTES: Sputum sample collected by RT. Sent down to the lab. Will closely monitor the patient. Will continue plan of care.
--- NOTE | 2020-06-10 13:42 | Surgery Progress Note ---
Surgery Progress Note Subjective Additional Comments labs reviewed imaging reviewed comfortable dressings going well Objective Last 24 Hour Vital Signs Date Time Temp Pulse Resp B/P (MAP) Pulse Ox O2 Delivery O2 Flow Rate FiO2 06/10/20 13:27 139/81 06/10/20 13:22 73 06/10/20 11:00 87 24 45 06/10/20 09:05 85 141/83 06/10/20 08:00 98.2 85 24 141/83 (102) 100 06/10/20 08:00 Mechanical Ventilator 06/10/20 08:00 45 06/10/20 08:00 85 06/10/20 07:00 86 25 45 06/10/20 06:06 146/84 06/10/20 04:00 98.1 90 25 146/84 (104) 99 06/10/20 04:00 45 06/10/20 04:00 92 06/10/20 04:00 Mechanical Ventilator 06/10/20 03:00 87 25 45 06/10/20 00:00 Mechanical Ventilator 06/10/20 00:00 45 06/10/20 00:00 99.6 92 27 139/75 (96) 99 06/10/20 00:00 92 06/09/20 23:15 91 25 45 06/09/20 21:05 147/73 06/09/20 20:00 98 06/09/20 20:00 99.5 99 27 142/75 (97) 100 06/09/20 20:00 45 06/09/20 20:00 Mechanical Ventilator 06/09/20 19:30 95 20 45 06/09/20 17:39 100 144/86 06/09/20 16:00 45 06/09/20 16:00 Mechanical Ventilator 06/09/20 16:00 97.9 94 25 135/76 (95) 100 06/09/20 16:00 97.9 94 25 135/76 (95) 100 06/09/20 16:00 95 06/09/20 16:00 95 06/09/20 14:45 93 25 35 I&O Intake and Output 06/09/20 06/10/20 19:00 07:00 Intake Total 140 ml 2140.0 ml Output Total 1200 ml 1100 ml Balance -1060 ml 1040.0 ml Intake Free Water 50 ml IV Total 140 ml 1790.0 ml Tube Feeding 300 ml Output Urine Total 1200 ml 1100 ml Dressing: other Wound: other Cardiovascular: RSR Respiratory: decreased breath sounds Abdomen: soft, non-tender, present bowel sounds Extremities: no cyanosis, other Laboratory Tests Test 06/09/20 17:44 06/09/20 23:27 06/10/20 03:00 06/10/20 06:09 POC Whole Blood Glucose Pending Pending Pending White Blood Count 6.1 K/UL (4.8-10.8) Red Blood Count 3.54 M/UL (4.70-6.10) L Hemoglobin 10.0 G/DL (14.2-18.0) #L Hematocrit 31.0 % (42.0-52.0) #L Mean Corpuscular Volume 88 FL (80-99) # Mean Corpuscular Hemoglobin 28.3 PG (27.0-31.0) Mean Corpuscular Hemoglobin Concent 32.2 G/DL (32.0-36.0) Red Cell Distribution Width 15.7 % (11.6-14.8) H Platelet Count 550 K/UL (150-450) H Mean Platelet Volume 6.0 FL (6.5-10.1) L Neutrophils (%) (Auto) 79.5 % (45.0-75.0) H Lymphocytes (%) (Auto) 8.4 % (20.0-45.0) L Monocytes (%) (Auto) 9.8 % (1.0-10.0) Eosinophils (%) (Auto) 1.3 % (0.0-3.0) Basophils (%) (Auto) 1.0 % (0.0-2.0) Sodium Level 140 MMOL/L (136-145) Potassium Level 2.9 MMOL/L (3.5-5.1) L Chloride Level 108 MMOL/L (98-107) H Carbon Dioxide Level 20 MMOL/L (21-32) L Anion Gap 13 mmol/L (5-15) Blood Urea Nitrogen 9 mg/dL (7-18) Creatinine 0.7 MG/DL (0.55-1.30) Estimat Glomerular Filtration Rate > 60 mL/min (>60) Glucose Level 184 MG/DL (74-106) H Calcium Level 7.9 MG/DL (8.5-10.1) L Phosphorus Level 2.8 MG/DL (2.5-4.9) Magnesium Level 1.4 MG/DL (1.8-2.4) L Iron Level 17 ug/dL (50-175) L Total Iron Binding Capacity 110 ug/dL (250-450) L Percent Iron Saturation 15 % (15-50) Unsaturated Iron Binding 93 ug/dL (112-346) L Total Bilirubin 0.3 MG/DL (0.2-1.0) Aspartate Amino Transf (AST/SGOT) 56 U/L (15-37) H Alanine Aminotransferase (ALT/SGPT) 86 U/L (12-78) H Alkaline Phosphatase 354 U/L (46-116) H Total Protein 6.8 G/DL (6.4-8.2) Albumin 1.5 G/DL (3.4-5.0) L Globulin 5.3 g/dL Albumin/Globulin Ratio 0.3 (1.0-2.7) L Vitamin B12 Level 924 PG/ML (193-986) Vancomycin Level Trough 28.1 ug/mL (5.0-12.0) H Test 06/10/20 12:29 POC Whole Blood Glucose 191 MG/DL (74-106) H Plan Problems: (1) UTI (urinary tract infection) (2) Pneumonia (3) Sepsis Assessment & Plan: leukocytosis, anemia. 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 Dry eschar noted to L earlobe(L)0.8cm x (W)0.6cm. No erythema noted periwound. Loose,dry eschar cap L earlobe(L)1cm x (W)0.7cm. Base of wound beneath loose eschar cap is moist and paul. No odor or exudate noted. Non-Blanchable erythema with shearing centrally posterior neck under tracheal collar.Periwound skin is dark without erythema or fluctuance.(L)1.5cm x (W)4.5cm. Resolving Pressure injury L lumbar area(L)2cm x (W00.7cm. [place] epithelial at base of wound. Loose dry edges . no erythema or induration periwound. Full thickness Pressure Injury Lumbar Spine(L)2.5cm x (W)1.5cm. Base of wound is 75% paul and moist,25% slough.Borders are macerated. No odor or exudate noted. Periwound without erythema or fluctuance. Full Thickness Sacral Pressure Injury (L)7.5cm x (W)8.8cm x (D)2.4cm, undermining clockwise 12-5 by 1.8cm @2o'clock. Base of wound is beefy red with purpuric area at base. Small area of bone exposure, scattered slough(20%) Wound is otherwise beefy red. Small amt serous exudate note. No odor noted. DTPI L lower Buttocks that is evolving. Base of wound is 75% soft necrosis,25% most and pink with surrounding maroon and indurated borders. DTPI that is evolving and is partially opened at L ischium(L)8cm x (W)9.5cm. Base of wound is purpuric ,indurated with opening that is 25% slough,75% moist and pink. NO odor noted. DTPI R Ischium that is evolving and is partially opened(L)6.3cm x (W)6.5cm. Base of wound is Indurated reddish/brown with opening that is 25% slough,25% soft necrosis,50% moist and pink. NO odor or exudate noted. No evidence of erythema or fluctuance periwound. Resolving Pressure Injury posterior L tibia with dry eschar cap,mixed dry pink epithelial. Unstageable Pressure injury posterior R Tibia. Stable dry eschar noted(L)14.5cm x (W)1.7cm. Unstageable Pressure Injury R heel(L)3.2cm x (W)4.2cm. Base of wound is 100% necrotic with marginal erythema and fluctuance periwound. Partial Thickness Pressure Injury medial L heel(L)1.3cm x (W)1.2cm. Base of wound is moist and viable . Edges are macerated with surrounding non-blanchable erythema with fluctuance. UNstageable Pressure Injury Lateral L Heel . Base of wound is 100% soft necrosis and is malodorous. Non-Blanchable erythema with Fluctuance periwound.(L)4cm x (W)3.4cm. Tx.Plan: Apply Betadine to R and L earlobes. Cover each ear with Optifoam drsg. Change every 3 days and prn. Apply Cavilon Skin Barrier to posterior neck. Cover with Optifoam drsg. Change every 3 days and prn. Cleanse Wounds Lumbar and L lumbar with Saline. Apply TheraHoney. Apply Moisture Barrier Paste periwound. Cover each site with Optifoam drsgs. Change every 3 days and prn. Cleanse Sacral wound with Saline. Loosely pack with Therahoney impregnated Kerlix. Apply Moisture Barrier paste periwound. Cover with Optifoam drsg. Change Daily and prn. Apply Moisture Barrier Paste to Scrotum with each incontinence care. Cleanse R and L Ischial wounds with Saline. Apply Therahoney. Apply Moisture Barrier Paste periwound. Cover each wound with Optifoam drsg. Changee very 3 days and prn. Apply Betadine to Posterior R and L Tibial wounds. Cover each wound with Optifoam drsgs. Change every 3 days and prn. Apply Betadine to R and L Heel wounds. Cover each heel with Optifoam drsgs. Change every 3 days and prn. Reposition at least every 2hours or as tolerated. Off-load heels with Pillows. APM/COLBY Mattress overlay. Jonny Powell Jun 10, 2020 13:42
--- NOTE | 2020-06-10 14:03 | Diagnostic Imaging Report ---
Indication: Abdominal pain Technique: Supine view of the abdomen Comparison: CT scan of the abdomen 06/09/2020 Findings: There is a gastrostomy. Enteric from recent CT scan is seen within the colon. Injected contrast from previous CT scan is also seen within the bladder, which is somewhat distended despite the presence of a Thomson catheter. The bowel gas pattern is unremarkable. No unusual masses or calcifications. There is consolidation of the left lower lobe and reticular infiltrates in the right lower lobe. Impression: No acute abdominal process Somewhat distended bladder, despite the presence of Thomson catheter. This was also previously reported Bilateral pulmonary parenchymal basilar consolidation
--- NOTE | 2020-06-10 15:00 | NUR ---
NURSE NOTES: SCD applied to the patient. Tolerated well. Will closely monitor the patient. Will continue plan of care.
--- NOTE | 2020-06-10 15:16 | NUR ---
CASE MANAGEMENT: REVIEW SI: UTI . SEPSIS . PNA T 97.9 HR 90 RR 24 BP 141/83 SAT 100% MECH VENT FIO2 45 H/H 10.0/31.0 K 2.9 GLUCOSE 191 IS: VANCOMYCIN IV Q12HR DIFLUCAN PO QD EPOETIN SUBQ MWF ZOSYN IV Q8HR NS IVF @ 50ML/HR STEP DOWN UNIT STATUS DCP: PATIENT IS FROM [facility]
--- NOTE | 2020-06-10 15:34 | Cardiology Report ---
APPROVED REPORT EXAM: Two-dimensional and M-mode echocardiogram with Doppler and color Doppler. INDICATION OTHER M-Mode DIMENSIONS IVSd1.0 (0.7-1.1cm)Left Atrium (MM)3.8 (1.6-4.0cm) LVDd5.3 (3.5-5.6cm)Aortic Root2.6 (2.0-3.7cm) PWd0.9 (0.7-1.1cm)Aortic Cusp Exc.2.0 (1.5-2.0cm) IVSs1.6 cm LVDs3.4 (2.5-4.0cm) PWs1.3 cm <Conclusion> Normal left ventricular chamber size, systolic function and wall motion. Left ventricular ejection fraction estimated to be 60-65%. All other cardiac chamber sizes are within normal limits. Calcification of aortic valve with adequate cusp excursion. Thickened mitral valve leaflets with normal excursion. Mitral annulus and aortic root calcification. Pulmonic valve not well visualized. Normal tricuspid valve structure. IVC at normal size with physiologic collapse. A color flow and spectral Doppler study was performed and revealed: No aortic insufficiency. Mild mitral regurgitation. Mitral diastolic velocities are poorly visualized to allow estimation of function Mild tricuspid regurgitation. Tricuspid systolic velocities suggests peak right ventricular systolic pressure of 43 mmHg,consistent with mild pulmonary hypertension. Pulmonic regurgitation present.
[2020-06-10] MEDS: Vancomycin 1gm in D5W 275ml IVPB SCH (15:53)
[2020-06-10 16:00] VITALS: BP 127/68
--- NOTE | 2020-06-10 17:00 | NUR ---
NURSE NOTES: Bed bath given to the patient. Tolerated well. Will closely monitor the patient. Will continue plan of care.
--- NOTE | 2020-06-10 18:00 | NUR ---
NURSE NOTES: BS 232 noted. Novolog administered per protocol. The patient is resting comfortably without acute distress or shortness of breath. Tolerating vent setting and TF well. Will closely monitor the patient. Will continue plan of care.
--- NOTE | 2020-06-10 19:10 | NUR ---
NURSE NOTES: pt report received from Dayanna HADDAD. pt remains stable. pt is non verbal neuro humphrey, however, no acute neuro abnormalities noted. pt is on nurse monitoring showing SR 1st deg AVB, no other acute cardiac abnormalities noted. pt is trach vented, sating 99% O2, no acute resp distress noted. pt bed is low, locked, armed, call light within reach, bed rails up times 3. will follow plan of care.
--- NOTE | 2020-06-10 19:34 | NUR ---
NURSE HAND-OFF REPORT: Important Events on Shift: 40 mEq KCl replacement, 4 gm Magnesium replacement, started tube feeding Glucerna 1.2 @ 20mL/hr w/goal of 60mL/hr Patient Status: full code, stable Diet: tube feeding Glucerna 1.2 @ 20mL/hr w/goal of 60mL/hr Pending Orders: OB stools Pending Results/Labs:sputum culture results Pending MD notification:N Latest Vital Signs: Temperature 97.9 , Pulse 89 , B/P 127 /68 , Respiratory Rate 22 , O2 SAT 100 , Mechanical Ventilator, O2 Flow Rate 4.0 . Vital Sign Comment: stable EKG Rhythm: SR w/ 1AVB Rhythm change?: N MD Notified?: Y -DR.BALFE BAILEY Response: No New Orders Received Latest Pulido Fall Score: 70 Fall Risk: High Risk Safety Measures: Call light Within Reach, Bed Alarm Zone 2, Side Rails Side Rails x2, Bed position Low and Locked. Fall Precautions: Yellow Socks Yellow Gown Door Sign Patient Fall Education Report given to BOO Bain.Pt is stable at this time. Endorsed plan of care. Addendum: 06/10/20 at 2004 by Leonardo Lamas RN Pending order: PICC line insertion on 06/11/2020. Then, remove old PICC line per Dr. Leyva's order.
[2020-06-10 20:00] VITALS: BP 142/76
[2020-06-10] MEDS ORDERED: Dextrose 10% 1,000 ML IV PRN (20:00)
[2020-06-10] MEDS ORDERED: AMINO ACIDS IV SCH (20:00)
[2020-06-10] MEDS ORDERED: DEXTROSE IV SCH (20:00)
[2020-06-10] MEDS: Dyna-Hex 2% Top Sol 2oz TOPIC SCH (20:06)
--- NOTE | 2020-06-10 22:33 | General Progress Note ---
Subjective Allergies: Coded Allergies: No Known Allergies (Unverified , 06/08/20) Subjective NAD started TF today Objective Last 24 Hour Vital Signs Date Time Temp Pulse Resp B/P (MAP) Pulse Ox O2 Delivery O2 Flow Rate FiO2 06/10/20 21:17 151/75 06/10/20 20:00 Mechanical Ventilator 06/10/20 20:00 45 06/10/20 20:00 89 06/10/20 20:00 98.2 88 23 142/76 (98) 100 06/10/20 19:15 89 22 45 06/10/20 17:32 85 127/68 06/10/20 16:00 45 06/10/20 16:00 Mechanical Ventilator 06/10/20 16:00 97.9 85 25 127/68 (87) 100 06/10/20 16:00 86 06/10/20 14:05 87 22 45 06/10/20 13:27 139/81 06/10/20 13:22 73 06/10/20 12:00 Mechanical Ventilator 06/10/20 12:00 45 06/10/20 12:00 97.9 90 24 139/81 (100) 100 06/10/20 11:00 87 24 45 06/10/20 09:05 85 141/83 06/10/20 08:00 98.2 85 24 141/83 (102) 100 06/10/20 08:00 Mechanical Ventilator 06/10/20 08:00 45 06/10/20 08:00 85 06/10/20 07:00 86 25 45 06/10/20 06:06 146/84 06/10/20 04:00 98.1 90 25 146/84 (104) 99 06/10/20 04:00 45 06/10/20 04:00 92 06/10/20 04:00 Mechanical Ventilator 06/10/20 03:00 87 25 45 06/10/20 00:00 Mechanical Ventilator 06/10/20 00:00 45 06/10/20 00:00 99.6 92 27 139/75 (96) 99 06/10/20 00:00 92 06/09/20 23:15 91 25 45 Intake and Output 06/09/20 06/10/20 19:00 07:00 Intake Total 140 ml 2140.0 ml Output Total 1200 ml 1100 ml Balance -1060 ml 1040.0 ml Intake Free Water 50 ml IV Total 140 ml 1790.0 ml Tube Feeding 300 ml Output Urine Total 1200 ml 1100 ml Laboratory Tests 06/09/20 23:27: POC Whole Blood Glucose [Pending] 06/10/20 03:00: White Blood Count 6.1, Red Blood Count 3.54L, Hemoglobin 10.0#L, Hematocrit 31.0#L, Mean Corpuscular Volume 88#, Mean Corpuscular Hemoglobin 28.3, Mean Corpuscular Hemoglobin Concent 32.2, Red Cell Distribution Width 15.7H, Platelet Count 550H, Mean Platelet Volume 6.0L, Neutrophils (%) (Auto) 79.5H, Lymphocytes (%) (Auto) 8.4L, Monocytes (%) (Auto) 9.8, Eosinophils (%) (Auto) 1.3, Basophils (%) (Auto) 1.0, Sodium Level 140, Potassium Level 2.9L, Chloride Level 108H, Carbon Dioxide Level 20L, Anion Gap 13, Blood Urea Nitrogen 9, Creatinine 0.7, Estimat Glomerular Filtration Rate > 60, Glucose Level 184H, Calcium Level 7.9L, Phosphorus Level 2.8, Magnesium Level 1.4L, Iron Level 17L, Total Iron Binding Capacity 110L, Percent Iron Saturation 15, Unsaturated Iron B inding 93L, Total Bilirubin 0.3, Aspartate Amino Transf (AST/SGOT) 56H, Alanine Aminotransferase (ALT/SGPT) 86H, Alkaline Phosphatase 354H, Total Protein 6.8, Albumin 1.5L, Globulin 5.3, Albumin/Globulin Ratio 0.3L, Vitamin B12 Level 924, Vancomycin Level Trough 28.1H 06/10/20 06:09: POC Whole Blood Glucose [Pending] 06/10/20 12:29: POC Whole Blood Glucose 191H 06/10/20 17:29: POC Whole Blood Glucose [Pending] Height (Feet): 5 Height (Inches): 10.00 Weight (Pounds): 162 Objective Elderly man NCAT (+) trach coarse BS RR abd soft, (+) GT no edema Assessment/Plan Status: stable Assessment/Plan: Assessment - h/o pancreatitis - resolved - s/p colostomy - sepsis/leukocytosis - resp failure / trach - dysphagia / GT - s/p CVA - Anemia - CAD - DM - HTN - GERD Recommendations - Abx - CT abd/pelvis noted - PPI - Monitor CBC - TF Moshe Kraft MD Jun 10, 2020 22:33
--- NOTE | 2020-06-10 23:00 | NUR ---
NURSE NOTES: pt turned cleaned and repositioned. checked pts G tube for residuals, 10 ML of residual. monitoring pts blood sugar.
[2020-06-11] VITALS: BP 128/73
--- NOTE | 2020-06-11 03:48 | NUR ---
NURSE NOTES: Eduardo blood/ Lab. handed blood tubes to Softball Umpire.
[2020-06-11 04:00] VITALS: BP 152/83
[2020-06-11] MEDS: Vancomycin 1gm in D5W 275ml IVPB SCH ×2 (04:53→16:16)
[2020-06-11] MEDS: NovoLOG Insulin Flexpen SUBQ SCH ×4 (05:11→23:38)
[2020-06-11] MEDS: Metoclopramide 10mg/10ml Liq GT SCH ×4 (05:12→23:40)
[2020-06-11] MEDS: Bethanechol 25mg Tab GT SCH ×4 (05:12→23:40)
[2020-06-11] MEDS: HydrALAZINE 25mg tab GT SCH ×3 (05:12→21:46)
[2020-06-11 05:55] LABS: BASOPHILS % (AUTO) 0.7 % (0.0-2.0); EOSINOPHILS % (AUTO) 3.3 % (0.0-3.0); HEMATOCRIT 29.5 % (42.0-52.0); HEMOGLOBIN 9.3 G/DL (14.2-18.0); LYMPHOCYTES % (AUTO) 10.9 % (20.0-45.0); MEAN CORPUSCULAR VOLUME 88 FL (80-99); MONOCYTES % (AUTO) 10.3 % (1.0-10.0); NEUTROPHILS % (AUTO) 74.8 % (45.0-75.0); PLATELET COUNT 512 K/UL (150-450); RED BLOOD COUNT 3.33 M/UL (4.70-6.10); RED CELL DISTRIBUTION WIDTH 16.1 % (11.6-14.8); WHITE BLOOD COUNT 8.5 K/UL (4.8-10.8)
[2020-06-11 06:29] LABS: ANION GAP 11 mmol/L (5-15); BLOOD UREA NITROGEN 5 mg/dL (7-18); CALCIUM 7.2 MG/DL (8.5-10.1); CARBON DIOXIDE 22 MMOL/L (21-32); CHLORIDE 110 MMOL/L (98-107); CREATININE 0.7 MG/DL (0.55-1.30); SODIUM 143 MMOL/L (136-145)
[2020-06-11] MEDS: Piperacillin/Tazobactam 3.375 GM in NS 110 ML IVPB SCH (06:31)
[2020-06-11 06:44] LABS: POTASSIUM 2.3 MMOL/L (3.5-5.1)
[2020-06-11 07:15] LABS: IRON 29 ug/dL (50-175); TOTAL IRON BINDING CAPACITY 135 ug/dL (250-450)
[2020-06-11 07:16] LABS: % IRON SATURATION 21 % (15-50)
--- NOTE | 2020-06-11 07:20 | NUR ---
NURSE HAND-OFF REPORT: Important Events on Shift:[Advancing feeding. monitoring residuals. critical lab value report to Krystin.] Patient Status: [Stable] Diet: [tube feeding as per doctor order] Pending Orders: [awaiting doctor call back for critical Potassium ] Pending Results/Labs:[NA] Pending MD notification:[Samsone to call back] Latest Vital Signs: Temperature 97.0 , Pulse 89 , B/P 152 /78 , Respiratory Rate 23 , O2 SAT 99 , Mechanical Ventilator, O2 Flow Rate 4.0 . Vital Sign Comment: [stable] EKG Rhythm: SR w/ 1AVB Rhythm change?: N MD Notified?: Paula CHUNG MD Response: No New Orders Received Latest Pulido Fall Score: 70 Fall Risk: High Risk Safety Measures: Call light Within Reach, Bed Alarm Zone 2, Side Rails Side Rails x2, Bed position Low and Locked. Fall Precautions: Yellow Socks Yellow Gown Door Sign Patient Fall Education Report given to [Linda RN].
--- NOTE | 2020-06-11 07:45 | NUR ---
NURSE NOTES: Received report from BOO Bain. Pt is in bed, obtunded, not in acute distress. SR w/ 1*AVB in monitor worker with vitals signs of BP 142/79, Hr 92, T 97.6. Pt is trached on vent with the following setting AC 16, TV 400, FiO2 45%, PEEP 5. and O2 sat 100%. GT is intact and patent with no residue and running Glucerna 40 mL/hr. Colostomy L upper quadrant has brownish to dark soft stools. Urinary catheter is intact and patent and draining yellowish urine. PICC line in L upper arm is intact and patent. Bed is in lowest position, bed alarm on, call light is within reach, HOB is always at 30 degrees or higher and fall and aspiration precautions are implemented. Will closely monitor patient. Will continue with plan of care.
[2020-06-11 08:00] VITALS: BP 146/75
[2020-06-11] MEDS: Docusate 100mg/10ml Liq GT SCH ×2 (08:59→17:18)
[2020-06-11] MEDS: levETIRAcetam 500mg/5ml Liquid GT SCH ×2 (09:00→17:21)
[2020-06-11] MEDS: Amiodarone 200mg tab GT SCH (09:00)
[2020-06-11] MEDS: Zinc Sulfate 220mg GT SCH (09:01)
[2020-06-11] MEDS: Fluconazole 100mg tab ORAL SCH (09:01)
--- NOTE | 2020-06-11 10:00 | NUR ---
NURSE NOTES: Patient assessed, repositioned, and medications were given as ordered. Will continue to monitor patient. Will continue with plans of care.
--- NOTE | 2020-06-11 11:18 | Infectious Diseases Prog Note ---
Assessment/Plan Assessment/Plan antibiotics : vancomycin iv, levoquin, fluconazole A 1. coag neg staph sepsis 2. pneumonia 3. e.coli enterococcus, fungal UTI 4. leucocytosis resolved 5. respiratory failure 6. diabetes mellitus 7. hypertension P 1. continue iv vancomycin 2. d/c zosyn 3. start ceftriaxone 4. continue fluconazole 5 more days 5. will follow up cultures Subjective ROS Limited/Unobtainable: Yes Allergies: Coded Allergies: No Known Allergies (Unverified , 06/08/20) Objective Last 24 Hour Vital Signs Date Time Temp Pulse Resp B/P (MAP) Pulse Ox O2 Delivery O2 Flow Rate FiO2 06/11/20 09:01 92 146/75 06/11/20 08:00 91 06/11/20 08:00 Mechanical Ventilator 06/11/20 08:00 97.0 91 23 146/75 (98) 100 06/11/20 08:00 45 06/11/20 07:05 84 21 45 06/11/20 05:12 152/78 06/11/20 04:00 45 06/11/20 04:00 Mechanical Ventilator 06/11/20 04:00 86 06/11/20 04:00 97.0 89 23 152/83 (106) 99 06/11/20 03:02 86 21 45 06/11/20 00:00 89 06/11/20 00:00 45 06/11/20 00:00 97.4 85 23 128/73 (91) 98 06/11/20 00:00 Mechanical Ventilator 06/10/20 23:02 89 21 45 06/10/20 21:17 151/75 06/10/20 20:00 Mechanical Ventilator 06/10/20 20:00 45 06/10/20 20:00 89 06/10/20 20:00 98.2 88 23 142/76 (98) 100 06/10/20 19:15 89 22 45 06/10/20 17:32 85 127/68 06/10/20 16:00 45 06/10/20 16:00 Mechanical Ventilator 06/10/20 16:00 97.9 85 25 127/68 (87) 100 06/10/20 16:00 86 06/10/20 14:05 87 22 45 06/10/20 13:27 139/81 06/10/20 13:22 73 06/10/20 12:00 Mechanical Ventilator 06/10/20 12:00 45 06/10/20 12:00 97.9 90 24 139/81 (100) 100 Height (Feet): 5 Height (Inches): 10.00 Weight (Pounds): 162 HEENT: status post trach Respiratory/Chest: lungs clear Cardiovascular: normal rate, regular rhythm, no gallop/murmur Abdomen: soft, non tender, other - GT Extremities: no edema, other - left arm PICC Microbiology Date/Time Source Procedure Growth Status 06/10/20 15:00 Sputum Gram Stain - Final Resulted 06/10/20 15:00 Sputum Sputum Culture Pending Resulted 06/08/20 14:10 Rectum - Final NO CARBAPENEM-RESISTANT ENTEROBACTERI... Complete 06/08/20 14:10 Rectum VRE Culture - Final Enterococcus Faecalis - Vre Complete 06/08/20 14:10 Urine,Clean Catch Urine Culture - Preliminary Escherichia Coli Enterococcus Faecalis Yeast Species Resulted 06/08/20 14:10 Nasal Nares MRSA Culture - Final Staphylococcus Aureus - Mrsa Complete 06/08/20 14:10 Blood Blood Culture - Preliminary Staphylococcus Capitis Resulted 06/08/20 13:50 Blood Blood Culture - Final Staphylococcus Epidermidis Complete 06/08/20 13:40 Nasopharynx SARS-CoV-2 RdRp Gene Assay - Final Complete Laboratory Tests Test 06/10/20 12:29 06/10/20 17:29 06/10/20 23:25 06/11/20 03:59 POC Whole Blood Glucose 191 MG/DL (74-106) H Pending Pending White Blood Count 8.5 K/UL (4.8-10.8) Red Blood Count 3.33 M/UL (4.70-6.10) L Hemoglobin 9.3 G/DL (14.2-18.0) L Hematocrit 29.5 % (42.0-52.0) L Mean Corpuscular Volume 88 FL (80-99) Mean Corpuscular Hemoglobin 28.1 PG (27.0-31.0) Mean Corpuscular Hemoglobin Concent 31.7 G/DL (32.0-36.0) L Red Cell Distribution Width 16.1 % (11.6-14.8) H Platelet Count 512 K/UL (150-450) H Mean Platelet Volume 5.4 FL (6.5-10.1) L Neutrophils (%) (Auto) 74.8 % (45.0-75.0) Lymphocytes (%) (Auto) 10.9 % (20.0-45.0) L Monocytes (%) (Auto) 10.3 % (1.0-10.0) H Eosinophils (%) (Auto) 3.3 % (0.0-3.0) H Basophils (%) (Auto) 0.7 % (0.0-2.0) Sodium Level 143 MMOL/L (136-145) Potassium Level 2.3 MMOL/L (3.5-5.1) *L Chloride Level 110 MMOL/L (98-107) H Carbon Dioxide Level 22 MMOL/L (21-32) Anion Gap 11 mmol/L (5-15) Blood Urea Nitrogen 5 mg/dL (7-18) L Creatinine 0.7 MG/DL (0.55-1.30) Estimat Glomerular Filtration Rate > 60 mL/min (>60) Glucose Level 124 MG/DL (74-106) H Calcium Level 7.2 MG/DL (8.5-10.1) L Iron Level 29 ug/dL (50-175) L Total Iron Binding Capacity 135 ug/dL (250-450) L Percent Iron Saturation 21 % (15-50) Unsaturated Iron Binding 106 ug/dL (112-346) L Vitamin B12 Level 823 PG/ML (193-986) Test 06/11/20 05:11 POC Whole Blood Glucose 138 MG/DL (74-106) H Current Medications Medications (Trade) Dose Ordered Sig/Milla Route PRN Reason Start Time Stop Time Status Last Admin Dose Admin Amiodarone HCl (Cordarone) 200 mg DAILY GT 06/09/20 09:00 09/07/20 08:59 06/11/20 09:00 Amlodipine Besylate (Norvasc) 5 mg TWICE A DAY GT 06/09/20 09:00 07/09/20 08:59 06/11/20 09:01 Bethanechol Chloride (Urecholine) 25 mg Q6HR GT 06/09/20 06:00 07/09/20 05:59 06/11/20 05:12 Chlorhexidine Gluconate (Sue-Hex 2%) 1 applic DAILY@1999 TOPIC 06/10/20 20:00 09/08/20 19:59 06/10/20 20:06 Clonidine HCl (Catapres Tab) 0.1 mg Q6H PRN GT For High Blood Pressure 06/09/20 00:30 09/07/20 00:29 Dextrose (Dextrose 50%) 25 ml Q30M PRN IV Hypoglycemia 06/09/20 06:00 09/07/20 05:59 06/09/20 06:02 Dextrose (Dextrose 50%) 50 ml Q30M PRN IV Hypoglycemia 06/09/20 00:15 09/07/20 00:14 Docusate Sodium (Colace) 100 mg TWICE A DAY GT 06/09/20 09:00 07/09/20 08:59 06/11/20 08:59 Epoetin Cameron (Epoetin Cameron-EPBX(NON ESRD)) 10,000 unit SUBQ 06/09/20 21:00 09/07/20 20:59 06/09/20 21:04 Famotidine (Pepcid) 20 mg TWICE A DAY GT 06/09/20 09:00 09/07/20 08:59 06/11/20 09:01 Fluconazole (Diflucan) 100 mg DAILY ORAL 06/10/20 12:00 06/17/20 11:59 06/11/20 09:01 Heparin Sodium/ Sodium Chloride (Heparin 1000 units/500ml Premix) 1,000 unit ONCE PRN IV PICC LINE PLACEMENT 06/10/20 11:30 06/12/20 11:29 Hydralazine HCl (Apresoline) 25 mg EVERY 8 HOURS GT 06/09/20 06:00 09/07/20 05:59 06/11/20 05:12 Insulin Aspart (NovoLOG) Q6HR SUBQ 06/09/20 06:00 09/07/20 05:59 06/10/20 23:28 Lactulose (Cephulac) 20 gm Q6H PRN GT Constipation 06/09/20 00:30 07/09/20 00:29 Lansoprazole (Prevacid) 30 mg TWICE A DAY GT 06/09/20 09:00 07/09/20 08:59 06/11/20 09:01 Levetiracetam (Keppra) 500 mg TWICE A DAY GT 06/09/20 09:00 07/09/20 08:59 06/11/20 09:00 Levothyroxine Sodium (Synthroid) 75 mcg DAILY GT 06/09/20 09:00 07/09/20 08:59 06/11/20 09:01 Lidocaine HCl (Xylocaine 1% 30ml) 30 ml ONCE PRN INJ picc line placement 06/10/20 11:30 06/12/20 11:29 Metoclopramide HCl (Reglan) 5 mg EVERY 6 HOURS GT 06/09/20 06:00 07/09/20 05:59 06/11/20 05:12 Nitroglycerin (Ntg) 0.4 mg Q5MIN X 3 DOSES PRN SL CHEST PAIN 06/09/20 00:30 07/09/20 00:29 Ondansetron HCl (Zofran) 4 mg Q6H PRN GT Nausea & Vomiting 06/09/20 00:30 07/09/20 00:29 Piperacillin Sod/ Tazobactam Sod 3.375 gm/Sodium Chloride 110 ml @ 27.5 mls/hr EVERY 8 HOURS IVPB 06/09/20 06:00 06/16/20 05:59 06/11/20 06:31 Pravastatin Sodium (Pravachol) 40 mg BEDTIME GT 06/09/20 21:00 07/09/20 20:59 06/10/20 20:06 Sodium Chloride 1,000 ml @ 50 mls/hr Q20H IV 06/09/20 01:00 07/09/20 00:59 06/10/20 13:30 Vancomycin HCl (Vanco pharmacy to dose) 1 ea DAILY PRN MISC Per rx protocol 06/09/20 00:15 07/09/20 00:14 Vancomycin HCl 1 gm/Dextrose 275 ml @ 183.708 mls/hr Q12H IVPB 06/10/20 16:00 06/15/20 15:59 06/11/20 04:53 Zinc Sulfate (Zinc Sulfate) 220 mg DAILY GT 06/09/20 09:00 09/07/20 08:59 06/11/20 09:01 Jayde Leyva MD Jun 11, 2020 11:18
--- NOTE | 2020-06-11 11:30 | NUR ---
Contacted Dr. Hamilton regarding the critical potassium level of 2.3. Dr. Hamilton ordered 40 mEq K-Dur GT, and 40 mEq Potassium Chloride IV to be given over 4 hours via central line.
[2020-06-11 12:00] VITALS: BP 151/82
--- NOTE | 2020-06-11 12:00 | NUR ---
NURSE NOTES: GT residual was noted to be 150mL. GT feeding was held. Will continue to monitor residuals.
[2020-06-11] MEDS ORDERED: Tubing IV Secondary IV ONE ×3 (12:56→13:12)
[2020-06-11] MEDS ORDERED: NS 275ml ONE ×2 (12:56→13:02)
[2020-06-11] MEDS: cefTRIAXone 1 GM in D5W 55 ML IVPB SCH (14:15)
--- NOTE | 2020-06-11 15:00 | NUR ---
PICC line insertion done at bedside by radiologist. Place in Right upper arm. Will remove the old PICC line on left upper arm.
--- NOTE | 2020-06-11 15:18 | NUR ---
RADIOLOGY NOTE: RIGHT UPPER EXTREMITY PICC LINE PLACEMENT BY DR. SHARON RODRIGUEZ. FA
--- NOTE | 2020-06-11 15:40 | NUR ---
CASE MANAGEMENT: REVIEW SI: UTI . SEPSIS . PNA T 97.0 HR 86 RR 23 BP 152/83 SAT 99% MECH VENT FIO2 45 H/H 9.3/29.5 K+ 2.3 IS: VANCOMYCIN IV Q12HR DIFLUCAN PO QD CEFTRIAXONE IV Q24HR EPOETIN SUBQ MWF ZOSYN IV Q8HR NS IVF @ 50ML/HR STEP DOWN UNIT STATUS DCP: PATIENT IS FROM [facility]
--- NOTE | 2020-06-11 15:48 | Surgery Progress Note ---
Surgery Progress Note Subjective Additional Comments no acute events Objective Last 24 Hour Vital Signs Date Time Temp Pulse Resp B/P (MAP) Pulse Ox O2 Delivery O2 Flow Rate FiO2 06/11/20 15:21 92 26 45 06/11/20 14:11 141/79 06/11/20 12:00 83 06/11/20 12:00 Mechanical Ventilator 06/11/20 12:00 97.7 88 20 151/82 (105) 100 06/11/20 12:00 45 06/11/20 11:29 87 21 45 06/11/20 09:01 92 146/75 06/11/20 08:00 91 06/11/20 08:00 Mechanical Ventilator 06/11/20 08:00 97.0 91 23 146/75 (98) 100 06/11/20 08:00 45 06/11/20 07:05 84 21 45 06/11/20 05:12 152/78 06/11/20 04:00 45 06/11/20 04:00 Mechanical Ventilator 06/11/20 04:00 86 06/11/20 04:00 97.0 89 23 152/83 (106) 99 06/11/20 03:02 86 21 45 06/11/20 00:00 89 06/11/20 00:00 45 06/11/20 00:00 97.4 85 23 128/73 (91) 98 06/11/20 00:00 Mechanical Ventilator 06/10/20 23:02 89 21 45 06/10/20 21:17 151/75 06/10/20 20:00 Mechanical Ventilator 06/10/20 20:00 45 06/10/20 20:00 89 06/10/20 20:00 98.2 88 23 142/76 (98) 100 06/10/20 19:15 89 22 45 06/10/20 17:32 85 127/68 06/10/20 16:00 45 06/10/20 16:00 Mechanical Ventilator 06/10/20 16:00 97.9 85 25 127/68 (87) 100 06/10/20 16:00 86 I&O Intake and Output 06/10/20 06/11/20 19:00 07:00 Intake Total 340 ml 1263.708 ml Output Total 1800 ml 2000 ml Balance -1460 ml -736.292 ml Intake Free Water 80 ml IV Total 50 ml 843.708 ml Tube Feeding 210 ml 420 ml Output Urine Total 1800 ml 2000 ml # Bowel Movements 1 Dressing: other Wound: other Cardiovascular: RSR Respiratory: decreased breath sounds Abdomen: soft, non-tender, present bowel sounds Extremities: edema, no tenderness, no cyanosis Laboratory Tests Test 06/10/20 17:29 06/10/20 23:25 06/11/20 03:59 06/11/20 05:11 POC Whole Blood Glucose Pending Pending 138 MG/DL (74-106) H White Blood Count 8.5 K/UL (4.8-10.8) Red Blood Count 3.33 M/UL (4.70-6.10) L Hemoglobin 9.3 G/DL (14.2-18.0) L Hematocrit 29.5 % (42.0-52.0) L Mean Corpuscular Volume 88 FL (80-99) Mean Corpuscular Hemoglobin 28.1 PG (27.0-31.0) Mean Corpuscular Hemoglobin Concent 31.7 G/DL (32.0-36.0) L Red Cell Distribution Width 16.1 % (11.6-14.8) H Platelet Count 512 K/UL (150-450) H Mean Platelet Volume 5.4 FL (6.5-10.1) L Neutrophils (%) (Auto) 74.8 % (45.0-75.0) Lymphocytes (%) (Auto) 10.9 % (20.0-45.0) L Monocytes (%) (Auto) 10.3 % (1.0-10.0) H Eosinophils (%) (Auto) 3.3 % (0.0-3.0) H Basophils (%) (Auto) 0.7 % (0.0-2.0) Sodium Level 143 MMOL/L (136-145) Potassium Level 2.3 MMOL/L (3.5-5.1) *L Chloride Level 110 MMOL/L (98-107) H Carbon Dioxide Level 22 MMOL/L (21-32) Anion Gap 11 mmol/L (5-15) Blood Urea Nitrogen 5 mg/dL (7-18) L Creatinine 0.7 MG/DL (0.55-1.30) Estimat Glomerular Filtration Rate > 60 mL/min (>60) Glucose Level 124 MG/DL (74-106) H Calcium Level 7.2 MG/DL (8.5-10.1) L Iron Level 29 ug/dL (50-175) L Total Iron Binding Capacity 135 ug/dL (250-450) L Percent Iron Saturation 21 % (15-50) Unsaturated Iron Binding 106 ug/dL (112-346) L Vitamin B12 Level 823 PG/ML (193-986) Test 06/11/20 12:00 POC Whole Blood Glucose 186 MG/DL (74-106) H Plan Problems: (1) UTI (urinary tract infection) (2) Pneumonia (3) Sepsis Assessment & Plan: leukocytosis, anemia. 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 Dry eschar noted to L earlobe(L)0.8cm x (W)0.6cm. No erythema noted periwound. Loose,dry eschar cap L earlobe(L)1cm x (W)0.7cm. Base of wound beneath loose eschar cap is moist and paul. No odor or exudate noted. Non-Blanchable erythema with shearing centrally posterior neck under tracheal collar.Periwound skin is dark without erythema or fluctuance.(L)1.5cm x (W)4.5cm. Resolving Pressure injury L lumbar area(L)2cm x (W00.7cm. [place] epithelial at base of wound. Loose dry edges . no erythema or induration periwound. Full thickness Pressure Injury Lumbar Spine(L)2.5cm x (W)1.5cm. Base of wound is 75% paul and moist,25% slough.Borders are macerated. No odor or exudate noted. Periwound without erythema or fluctuance. Full Thickness Sacral Pressure Injury (L)7.5cm x (W)8.8cm x (D)2.4cm, undermining clockwise 12-5 by 1.8cm @2o'clock. Base of wound is beefy red with purpuric area at base. Small area of bone exposure, scattered slough(20%) Wound is otherwise beefy red. Small amt serous exudate note. No odor noted. DTPI L lower Buttocks that is evolving. Base of wound is 75% soft necrosis,25% most and pink with surrounding maroon and indurated borders. DTPI that is evolving and is partially opened at L ischium(L)8cm x (W)9.5cm. Base of wound is purpuric ,indurated with opening that is 25% slough,75% moist and pink. NO odor noted. DTPI R Ischium that is evolving and is partially opened(L)6.3cm x (W)6.5cm. Base of wound is Indurated reddish/brown with opening that is 25% slough,25% soft necrosis,50% moist and pink. NO odor or exudate noted. No evidence of erythema or fluctuance periwound. Resolving Pressure Injury posterior L tibia with dry eschar cap,mixed dry pink epithelial. Unstageable Pressure injury posterior R Tibia. Stable dry eschar noted(L)14.5cm x (W)1.7cm. Unstageable Pressure Injury R heel(L)3.2cm x (W)4.2cm. Base of wound is 100% necrotic with marginal erythema and fluctuance periwound. Partial Thickness Pressure Injury medial L heel(L)1.3cm x (W)1.2cm. Base of wound is moist and viable . Edges are macerated with surrounding non-blanchable erythema with fluctuance. UNstageable Pressure Injury Lateral L Heel . Base of wound is 100% soft necrosis and is malodorous. Non-Blanchable erythema with Fluctuance periwound.(L)4cm x (W)3.4cm. Tx.Plan: Apply Betadine to R and L earlobes. Cover each ear with Optifoam drsg. Change every 3 days and prn. Apply Cavilon Skin Barrier to posterior neck. Cover with Optifoam drsg. Change every 3 days and prn. Cleanse Wounds Lumbar and L lumbar with Saline. Apply TheraHoney. Apply Moisture Barrier Paste periwound. Cover each site with Optifoam drsgs. Change every 3 days and prn. Cleanse Sacral wound with Saline. Loosely pack with Therahoney impregnated Kerlix. Apply Moisture Barrier paste periwound. Cover with Optifoam drsg. Change Daily and prn. Apply Moisture Barrier Paste to Scrotum with each incontinence care. Cleanse R and L Ischial wounds with Saline. Apply Therahoney. Apply Moisture Barrier Paste periwound. Cover each wound with Optifoam drsg. Changee very 3 days and prn. Apply Betadine to Posterior R and L Tibial wounds. Cover each wound with Optifoam drsgs. Change every 3 days and prn. Apply Betadine to R and L Heel wounds. Cover each heel with Optifoam drsgs. Change every 3 days and prn. Reposition at least every 2hours or as tolerated. Off-load heels with Pillows. APM/COLBY Mattress overlay. Jonny Powell Jun 11, 2020 15:48
[2020-06-11 16:00] VITALS: BP 140/80
--- NOTE | 2020-06-11 16:25 | Brief Operative Note ---
Immediate Post Operative Note Operative Note Pre-op Diagnosis: needs long filler cigar roller machine IV access Procedure: PICC Surgeon: Richard Webster Anesthesia: local Specimen: none Complications: none Condition: unstable Fluids: none Implant(s) used?: No Richie Webster MD Jun 11, 2020 16:25
--- NOTE | 2020-06-11 16:43 | Diagnostic Imaging Report ---
Indications: Needs long-term IV access Technique: Procedure performed at bedside. Procedural timeout performed. Ultrasound confirms patent compressible right basilic vein. Total sterile technique, including sterile probe cover and sterile gel, sterile gloves, hand hygiene, hat, mask,, sterile gown, large sterile drape, and preparation with 2% chlorhexidine utilized. Local anesthesia with 1% lidocaine. Under real-time ultrasound guidance, puncture basilic vein using 21-gauge needle, passage 0.018 guidewire, exchange for 4 [place]i peel-away sheath. 4 [place] Bard dual-lumen power PICC cut to 41 cm. It was inserted through the peel-away sheath. Peel-away sheath and guidewire removed. Catheter fixed to the skin. Both catheter ports aspirated and flushed. Patient tolerated procedure well, without immediate complication. Followup chest x-ray obtained, documents catheter tip position at the mid superior vena cava Impression: Successful bedside placement of right arm PICC under sonographic guidance, as described above.
--- NOTE | 2020-06-11 16:49 | Pulmonology Progress Note ---
Subjective ROS Limited/Unobtainable: Yes Allergies: Coded Allergies: No Known Allergies (Unverified , 06/08/20) All Systems: reviewed and negative except above Subjective care noted overnight events reviewed on vent lytes noted started on feeds Objective Last 24 Hour Vital Signs Date Time Temp Pulse Resp B/P (MAP) Pulse Ox O2 Delivery O2 Flow Rate FiO2 06/11/20 15:21 92 26 45 06/11/20 14:11 141/79 06/11/20 12:00 83 06/11/20 12:00 Mechanical Ventilator 06/11/20 12:00 97.7 88 20 151/82 (105) 100 06/11/20 12:00 45 06/11/20 11:29 87 21 45 06/11/20 09:01 92 146/75 06/11/20 08:00 91 06/11/20 08:00 Mechanical Ventilator 06/11/20 08:00 97.0 91 23 146/75 (98) 100 06/11/20 08:00 45 06/11/20 07:05 84 21 45 06/11/20 05:12 152/78 06/11/20 04:00 45 06/11/20 04:00 Mechanical Ventilator 06/11/20 04:00 86 06/11/20 04:00 97.0 89 23 152/83 (106) 99 06/11/20 03:02 86 21 45 06/11/20 00:00 89 06/11/20 00:00 45 06/11/20 00:00 97.4 85 23 128/73 (91) 98 06/11/20 00:00 Mechanical Ventilator 06/10/20 23:02 89 21 45 06/10/20 21:17 151/75 06/10/20 20:00 Mechanical Ventilator 06/10/20 20:00 45 06/10/20 20:00 89 06/10/20 20:00 98.2 88 23 142/76 (98) 100 06/10/20 19:15 89 22 45 06/10/20 17:32 85 127/68 Intake and Output 06/10/20 06/11/20 19:00 07:00 Intake Total 340 ml 1263.708 ml Output Total 1800 ml 2000 ml Balance -1460 ml -736.292 ml Intake Free Water 80 ml IV Total 50 ml 843.708 ml Tube Feeding 210 ml 420 ml Output Urine Total 1800 ml 2000 ml # Bowel Movements 1 Objective WDWN NAD reduced breath sounds bilaterally without rhonchi or wheeze [id number] without MRG NABS nontender colostomy no CCE nonfocal reduced LOC trach in place Microbiology Date/Time Source Procedure Growth Status 06/10/20 15:00 Sputum Gram Stain - Final Resulted 06/10/20 15:00 Sputum Sputum Culture Pending Resulted Laboratory Tests 06/10/20 17:29: POC Whole Blood Glucose [Pending] 06/10/20 23:25: POC Whole Blood Glucose [Pending] 06/11/20 03:59: White Blood Count 8.5, Red Blood Count 3.33L, Hemoglobin 9.3L, Hematocrit 29.5L, Mean Corpuscular Volume 88, Mean Corpuscular Hemoglobin 28.1, Mean Corpuscular Hemoglobin Concent 31.7L, Red Cell Distribution Width 16.1H, Platelet Count 512H , Mean Platelet Volume 5.4L, Neutrophils (%) (Auto) 74.8, Lymphocytes (%) (Auto) 10.9L, Monocytes (%) (Auto) 10.3H, Eosinophils (%) (Auto) 3.3H, Basophils (%) (Auto) 0.7, Sodium Level 143, Potassium Level 2.3*L, Chloride Level 110H, Carbon Dioxide Level 22, Anion Gap 11, Blood Urea Nitrogen 5L, Creatinine 0.7, Estimat Glomerular Filtration Rate > 60, Glucose Level 124H, Calcium Level 7.2L, Iron Level 29L, Total Iron Binding Capacity 135L, Percent Iron Saturation 21, Unsaturated Iron Binding 106L, Vitamin B12 Level 823 06/11/20 05:11: POC Whole Blood Glucose 138H 06/11/20 12:00: POC Whole Blood Glucose 186H Current Medications Medications (Trade) Dose Ordered Sig/Milla Route PRN Reason Start Time Stop Time Status Last Admin Dose Admin Amiodarone HCl (Cordarone) 200 mg DAILY GT 06/09/20 09:00 09/07/20 08:59 06/11/20 09:00 Amlodipine Besylate (Norvasc) 5 mg TWICE A DAY GT 06/09/20 09:00 07/09/20 08:59 06/11/20 09:01 Bethanechol Chloride (Urecholine) 25 mg Q6HR GT 06/09/20 06:00 07/09/20 05:59 06/11/20 12:06 Ceftriaxone Sodium 1 gm/ Dextrose 55 ml @ 110 mls/hr Q24H IVPB 06/11/20 14:00 06/18/20 13:59 06/11/20 14:15 Chlorhexidine Gluconate (Sue-Hex 2%) 1 applic DAILY@2000 TOPIC 06/10/20 20:00 09/08/20 19:59 06/10/20 20:06 Clonidine HCl (Catapres Tab) 0.1 mg Q6H PRN GT For High Blood Pressure 06/09/20 00:30 09/07/20 00:29 Dextrose (Dextrose 50%) 25 ml Q30M PRN IV Hypoglycemia 06/09/20 06:00 09/07/20 05:59 06/09/20 06:02 Dextrose (Dextrose 50%) 50 ml Q30M PRN IV Hypoglycemia 06/09/20 00:15 09/07/20 00:14 Docusate Sodium (Colace) 100 mg TWICE A DAY GT 06/09/20 09:00 07/09/20 08:59 06/11/20 08:59 Epoetin Cameron (Epoetin Cameron-EPBX(NON ESRD)) 10,000 unit TUE-TUE-TUE SUBQ 06/09/20 21:00 09/07/20 20:59 06/09/20 21:04 Famotidine (Pepcid) 20 mg TWICE A DAY GT 06/09/20 09:00 09/07/20 08:59 06/11/20 09:01 Fluconazole (Diflucan) 100 mg DAILY ORAL 06/10/20 12:00 06/17/20 11:59 06/11/20 09:01 Heparin Sodium/ Sodium Chloride (Heparin 1000 units/500ml Premix) 1,000 unit ONCE PRN IV PICC LINE PLACEMENT 06/10/20 11:30 06/12/20 11:29 Hydralazine HCl (Apresoline) 25 mg EVERY 8 HOURS GT 06/09/20 06:00 09/07/20 05:59 06/11/20 14:11 Insulin Aspart (NovoLOG) Q6HR SUBQ 06/09/20 06:00 09/07/20 05:59 06/11/20 12:22 Lactulose (Cephulac) 20 gm Q6H PRN GT Constipation 06/09/20 00:30 07/09/20 00:29 Lansoprazole (Prevacid) 30 mg TWICE A DAY GT 06/09/20 09:00 07/09/20 08:59 06/11/20 09:01 Levetiracetam (Keppra) 500 mg TWICE A DAY GT 06/09/20 09:00 07/09/20 08:59 06/11/20 09:00 Levothyroxine Sodium (Synthroid) 75 mcg DAILY GT 06/09/20 09:00 07/09/20 08:59 06/11/20 09:01 Lidocaine HCl (Xylocaine 1% 30ml) 30 ml ONCE PRN INJ picc line placement 06/10/20 11:30 06/12/20 11:29 Metoclopramide HCl (Reglan) 5 mg EVERY 6 HOURS GT 06/09/20 06:00 07/09/20 05:59 06/11/20 12:06 Nitroglycerin (Ntg) 0.4 mg Q5MIN X 3 DOSES PRN SL CHEST PAIN 06/09/20 00:30 07/09/20 00:29 Ondansetron HCl (Zofran) 4 mg Q6H PRN GT Nausea & Vomiting 06/09/20 00:30 07/09/20 00:29 Pravastatin Sodium (Pravachol) 40 mg BEDTIME GT 06/09/20 21:00 07/09/20 20:59 06/10/20 20:06 Sodium Chloride 1,000 ml @ 50 mls/hr Q20H IV 06/09/20 01:00 07/09/20 00:59 06/11/20 12:06 Vancomycin HCl (Vanco pharmacy to dose) 1 ea DAILY PRN MISC Per rx protocol 06/09/20 00:15 07/09/20 00:14 Vancomycin HCl 1 gm/Dextrose 275 ml @ 183.708 mls/hr Q12H IVPB 06/10/20 16:00 06/15/20 15:59 06/11/20 16:16 Zinc Sulfate (Zinc Sulfate) 220 mg DAILY GT 06/09/20 09:00 09/07/20 08:59 06/11/20 09:01 Assessment/Plan Assessment/Plan sepsis leukocytosis anemia colostomy respiratory failure possible gib chronic pancreatitis chronic encephalopathy hypernatremia acute renal failure pneumonia bacteremia UTI pneumonia possible sacral osteo/ decub diverting colostomy PLAN vent support IV antibiotics GI noted- tube feeds as tolerated renal with abnormal lytes- correct potassiu ID noted- discuss CT findings monitor cxr for change- repeat close follow up monitor HH guarded at present impression, plan, and exam edited and reviewed in detail care discussed with Mundo Burciaga MD Jun 11, 2020 16:48
--- NOTE | 2020-06-11 17:08 | General Progress Note ---
Subjective ROS Limited/Unobtainable: Yes Constitutional: Reports: malaise, weakness HEENT: Reports: no symptoms Cardiovascular: Reports: no symptoms Respiratory: Reports: shortness of breath, sputum Gastrointestinal/Abdominal: Reports: difficulty swallowing Genitourinary: Reports: no symptoms Neurologic/Psychiatric: Reports: pre-existing deficit Endocrine: Reports: no symptoms Hematologic/Lymphatic: Reports: anemia Allergies: Coded Allergies: No Known Allergies (Unverified , 06/08/20) All Systems: reviewed and negative except above Subjective no events. remains stable on the vent. awake. nonverbal. does not track. multiple positive blood cultures noted. + urine culture. CT noted- no pseudocyst. extensive LLL consolidation. poorly responsive. id noted. on multiple iv abx. wbc improving. Objective Last 24 Hour Vital Signs Date Time Temp Pulse Resp B/P (MAP) Pulse Ox O2 Delivery O2 Flow Rate FiO2 06/11/20 15:21 92 26 45 06/11/20 14:11 141/79 06/11/20 12:00 83 06/11/20 12:00 Mechanical Ventilator 06/11/20 12:00 97.7 88 20 151/82 (105) 100 06/11/20 12:00 45 06/11/20 11:29 87 21 45 06/11/20 09:01 92 146/75 06/11/20 08:00 91 06/11/20 08:00 Mechanical Ventilator 06/11/20 08:00 97.0 91 23 146/75 (98) 100 06/11/20 08:00 45 06/11/20 07:05 84 21 45 06/11/20 05:12 152/78 06/11/20 04:00 45 06/11/20 04:00 Mechanical Ventilator 06/11/20 04:00 86 06/11/20 04:00 97.0 89 23 152/83 (106) 99 06/11/20 03:02 86 21 45 06/11/20 00:00 89 06/11/20 00:00 45 06/11/20 00:00 97.4 85 23 128/73 (91) 98 06/11/20 00:00 Mechanical Ventilator 06/10/20 23:02 89 21 45 06/10/20 21:17 151/75 06/10/20 20:00 Mechanical Ventilator 06/10/20 20:00 45 06/10/20 20:00 89 06/10/20 20:00 98.2 88 23 142/76 (98) 100 06/10/20 19:15 89 22 45 06/10/20 17:32 85 127/68 Intake and Output 06/10/20 06/11/20 19:00 07:00 Intake Total 340 ml 1263.708 ml Output Total 1800 ml 2000 ml Balance -1460 ml -736.292 ml Intake Free Water 80 ml IV Total 50 ml 843.708 ml Tube Feeding 210 ml 420 ml Output Urine Total 1800 ml 2000 ml # Bowel Movements 1 Laboratory Tests 06/10/20 17:29: POC Whole Blood Glucose [Pending] 06/10/20 23:25: POC Whole Blood Glucose [Pending] 06/11/20 03:59: White Blood Count 8.5, Red Blood Count 3.33L, Hemoglobin 9.3L, Hematocrit 29.5L, Mean Corpuscular Volume 88, Mean Corpuscular Hemoglobin 28.1, Mean Corpuscular Hemoglobin Concent 31.7L, Red Cell Distribution Width 16.1H, Platelet Count 512H , Mean Platelet Volume 5.4L, Neutrophils (%) (Auto) 74.8, Lymphocytes (%) (Auto) 10.9L, Monocytes (%) (Auto) 10.3H, Eosinophils (%) (Auto) 3.3H, Basophils (%) (Auto) 0.7, Sodium Level 143, Potassium Level 2.3*L, Chloride Level 110H, Carbon Dioxide Level 22, Anion Gap 11, Blood Urea Nitrogen 5L, Creatinine 0.7, Estimat Glomerular Filtration Rate > 60, Glucose Level 124H, Calcium Level 7.2L, Iron Level 29L, Total Iron Binding Capacity 135L, Percent Iron Saturation 21, Unsaturated Iron Binding 106L, Vitamin B12 Level 823 06/11/20 05:11: POC Whole Blood Glucose 138H 06/11/20 12:00: POC Whole Blood Glucose 186H Height (Feet): 5 Height (Inches): 10.00 Weight (Pounds): 162 General Appearance: WD/WN, no apparent distress, alert Neck: non-tender, normal alignment Cardiovascular: normal rate Respiratory/Chest: chest wall non-tender, lungs clear, normal breath sounds Abdomen: normal bowel sounds, non tender, soft, no organomegaly Edema: no edema noted Arm (L), no edema noted Arm (R) Neurologic: unresponsive Skin: normal pigmentation Lymphatic: normal anterior cervical (L), normal anterior cervical (R) Assessment/Plan Problem List: (1) Stage 4 skin ulcer of sacral region ICD Codes: L98.429 - Non-pressure chronic ulcer of back with unspecified severity SNOMED: 08240405, 994629706 (2) Colostomy in place ICD Codes: Z93.3 - Colostomy status SNOMED: 721061400, 734196260 (3) Sepsis ICD Codes: A41.9 - Sepsis, unspecified organism SNOMED: 15871870 (4) Pneumonia ICD Codes: J18.9 - Pneumonia, unspecified organism SNOMED: 137048695 Qualifiers: Qualified Codes: J18.9 - Pneumonia, unspecified organism (5) UTI (urinary tract infection) ICD Codes: N39.0 - Urinary tract infection, site not specified SNOMED: 63546867 Qualifiers: Qualified Codes: N30.01 - Acute cystitis with hematuria Status: stable Assessment/Plan: cont iv abx ID consult pending follow up cultures tpn per renal replace lytes per renal vent support resp rx suctioning as needed wound care d/w surgery dvt/stress ulcer prophylaxis ?tube feeds Robby Mays MD Jun 11, 2020 17:08
--- NOTE | 2020-06-11 19:10 | NUR ---
NURSE NOTES: pt report received from LAMINE RN. pt remains stable resting in bed. pt is non verbal neuro humphrey, however, no acute change in mentation. pt is on personal injury specialist showing NSR with 1st deg AVB, doctor is aware. no other acute signs or symptoms of acute cardiac distress noted. pt is trach vented sating 98% O2, no acute resp distress noted. pt bed is low, locked, armed, call light within reach, bed rails up times 3. will follow plan of care.
--- NOTE | 2020-06-11 19:21 | NUR ---
NURSE HAND-OFF REPORT: Important Events on Shift: new PICC line placed, critical potassium of 2.3 was replaced with 40 mEq Potassium chloride IV, and K-dur 40 mEq Patient Status: stable, full code Diet: Glucerna 1.2 @ 20 mL/hr with goal of 40 mL/hr. Pending Orders: N Pending Results/Labs:Potassium Pending MD notification: Latest Vital Signs: Temperature 98.0 , Pulse 96 , B/P 151 /91 , Respiratory Rate 20 , O2 SAT 95 , Mechanical Ventilator, O2 Flow Rate 4.0 . Vital Sign Comment: stable EKG Rhythm: 1st deg AVB Rhythm change?: N MD Notified?: Paula CHUNG MD Response: No New Orders Received Latest Pulido Fall Score: 70 Fall Risk: High Risk Safety Measures: Call light Within Reach, Bed Alarm Zone 2, Side Rails Side Rails x2, Bed position Low and Locked. Fall Precautions: Yellow Socks Yellow Gown Door Sign Patient Fall Education Report given to BOO Bain.
--- NOTE | 2020-06-11 19:34 | NUR ---
RESPIRATORY NOTE: Received pt in AC VC 16, 400VT, 45%, PEEP +5. Pt is trach-dependent w/ a cuffed, Portex 6 tube. Pt asleep/obtunded. B/S jessenia. rhonchi, sxn small to moderate amounts of thick mckinnon-yellow secretions. Vent plugged into red outlet, ambubag at bedside. Pt in no apparent distress at this time. Will continue plan of care.
[2020-06-11 20:00] VITALS: BP 142/77
[2020-06-11] MEDS: Dyna-Hex 2% Top Sol 2oz TOPIC SCH (20:36)
[2020-06-11] MEDS: Epoetin Alfa-EPBX (NON ESRD)10,000 unit/ml vial SUBQ SCH (20:37)
--- NOTE | 2020-06-11 20:43 | General Progress Note ---
Subjective Allergies: Coded Allergies: No Known Allergies (Unverified , 06/08/20) Subjective NAD tolerating TF K noted - been replaced Objective Last 24 Hour Vital Signs Date Time Temp Pulse Resp B/P (MAP) Pulse Ox O2 Delivery O2 Flow Rate FiO2 06/11/20 19:31 90 23 45 06/11/20 17:21 96 151/91 06/11/20 16:00 93 06/11/20 16:00 45 06/11/20 16:00 98.0 93 20 140/80 (100) 95 06/11/20 16:00 Mechanical Ventilator 06/11/20 15:21 92 26 45 06/11/20 14:11 141/79 06/11/20 12:00 83 06/11/20 12:00 Mechanical Ventilator 06/11/20 12:00 97.7 88 20 151/82 (105) 100 06/11/20 12:00 45 06/11/20 11:29 87 21 45 06/11/20 09:01 92 146/75 06/11/20 08:00 91 06/11/20 08:00 Mechanical Ventilator 06/11/20 08:00 97.0 91 23 146/75 (98) 100 06/11/20 08:00 45 06/11/20 07:05 84 21 45 06/11/20 05:12 152/78 06/11/20 04:00 45 06/11/20 04:00 Mechanical Ventilator 06/11/20 04:00 86 06/11/20 04:00 97.0 89 23 152/83 (106) 99 06/11/20 03:02 86 21 45 06/11/20 00:00 89 06/11/20 00:00 45 06/11/20 00:00 97.4 85 23 128/73 (91) 98 06/11/20 00:00 Mechanical Ventilator 06/10/20 23:02 89 21 45 06/10/20 21:17 151/75 Intake and Output 06/10/20 06/11/20 19:00 07:00 Intake Total 340 ml 1263.708 ml Output Total 1800 ml 2000 ml Balance -1460 ml -736.292 ml Intake Free Water 80 ml IV Total 50 ml 843.708 ml Tube Feeding 210 ml 420 ml Output Urine Total 1800 ml 2000 ml # Bowel Movements 1 Laboratory Tests 06/10/20 23:25: POC Whole Blood Glucose [Pending] 06/11/20 03:59: White Blood Count 8.5, Red Blood Count 3.33L, Hemoglobin 9.3L, Hematocrit 29.5L, Mean Corpuscular Volume 88, Mean Corpuscular Hemoglobin 28.1, Mean Corpuscular Hemoglobin Concent 31.7L, Red Cell Distribution Width 16.1H, Platelet Count 512H , Mean Platelet Volume 5.4L, Neutrophils (%) (Auto) 74.8, Lymphocytes (%) (Auto) 10.9L, Monocytes (%) (Auto) 10.3H, Eosinophils (%) (Auto) 3.3H, Basophils (%) (Auto) 0.7, Sodium Level 143, Potassium Level 2.3*L, Chloride Level 110H, Carbon Dioxide Level 22, Anion Gap 11, Blood Urea Nitrogen 5L, Creatinine 0.7, Estimat Glomerular Filtration Rate > 60, Glucose Level 124H, Calcium Level 7.2L, Iron Level 29L, Total Iron Binding Capacity 135L, Percent Iron Saturation 21, Un saturated Iron Binding 106L, Vitamin B12 Level 823 06/11/20 05:11: POC Whole Blood Glucose 138H 06/11/20 12:00: POC Whole Blood Glucose 186H 06/11/20 17:21: POC Whole Blood Glucose 207H Height (Feet): 5 Height (Inches): 10.00 Weight (Pounds): 162 Objective Elderly man NCAT (+) trach coarse BS RR abd soft, (+) GT no edema Assessment/Plan Status: stable Assessment/Plan: Assessment - h/o pancreatitis - resolved - s/p colostomy - sepsis/leukocytosis - resp failure / trach - dysphagia / GT - s/p CVA - Anemia - CAD - DM - hypokalemia - HTN - GERD Recommendations - Abx - CT abd/pelvis noted - PPI - Monitor CBC - TF - replace and recheck Moshe Carroll MD Jun 11, 2020 20:43
--- NOTE | 2020-06-11 22:00 | NUR ---
NURSE NOTES: pt Left upper arm PICC removed per Doctor order. no abnormalities to removal site. site has been cleaned, 4 by 4 orion and tape applied on site.
[2020-06-12] VITALS: BP 145/69
--- NOTE | 2020-06-12 02:23 | NUR ---
NURSE NOTES: Dressing change for new PICC line on Right upper arm has been preformed. no abnormalities to site. PICC line able to flush with no complications.
[2020-06-12 03:27] LABS: EOSINOPHILS % (AUTO) 1.7 % (0.0-3.0); HEMATOCRIT 29.3 % (42.0-52.0); HEMOGLOBIN 9.5 G/DL (14.2-18.0); LYMPHOCYTES % (AUTO) 14.9 % (20.0-45.0); MEAN CORPUSCULAR VOLUME 87 FL (80-99); MONOCYTES % (AUTO) 8.4 % (1.0-10.0); PLATELET COUNT 551 K/UL (150-450); RED BLOOD COUNT 3.38 M/UL (4.70-6.10); RED CELL DISTRIBUTION WIDTH 15.6 % (11.6-14.8); WHITE BLOOD COUNT 10.2 K/UL (4.8-10.8)
[2020-06-12 03:50] LABS: ALANINE AMINOTRANSFERASE 58 U/L (12-78); ALBUMIN 1.4 G/DL (3.4-5.0); ALBUMIN/GLOBULIN RATIO 0.3 (1.0-2.7); ALKALINE PHOSPHATASE 260 U/L (46-116); ANION GAP 8 mmol/L (5-15); ASPARTATE AMINO TRANSFERASE 27 U/L (15-37); BILIRUBIN,TOTAL 0.3 MG/DL (0.2-1.0); BLOOD UREA NITROGEN 6 mg/dL (7-18); CALCIUM 7.6 MG/DL (8.5-10.1); CARBON DIOXIDE 25 MMOL/L (21-32); CHLORIDE 109 MMOL/L (98-107); CREATININE 0.6 MG/DL (0.55-1.30); SODIUM 142 MMOL/L (136-145)
[2020-06-12 03:56] LABS: POTASSIUM 2.4 MMOL/L (3.5-5.1)
[2020-06-12 04:00] VITALS: BP 140/80
--- NOTE | 2020-06-12 04:20 | NUR ---
NURSE NOTES: changed pts colostomy bag. collected stool and sent stool down to lab.
--- NOTE | 2020-06-12 04:33 | NUR ---
NURSE NOTES: called Doctor Alfonso Urgent line to report critical lab value of Potassium 2.4. awaiting call back, awaiting new orders. vital signs stable.
[2020-06-12] MEDS: NovoLOG Insulin Flexpen SUBQ SCH ×3 (05:43→18:18)
[2020-06-12] MEDS: Metoclopramide 10mg/10ml Liq GT SCH ×3 (05:46→18:08)
[2020-06-12] MEDS: HydrALAZINE 25mg tab GT SCH ×3 (05:47→22:05)
[2020-06-12] MEDS: Bethanechol 25mg Tab GT SCH ×3 (05:47→18:09)
--- NOTE | 2020-06-12 06:30 | NUR ---
NURSE NOTES: doctor Hamilton called. reported critical Potassium level of 2.4. Doctor Hamilton ordered; K IRA 40 MeQ G tube times 1 now. KCL 40 MeQ IV in 4 hrs. and another 40 MeQ IV KCL in the next 4 Hrs. Addendum: 06/12/20 at 0654 by YUNI GRAY RN NURSE NOTES: doctor Hamilton called. reported critical Potassium level of 2.4. Doctor Hamilton ordered. K IRA 40 MeQ G tube times 1 now. KCL 40 MeQ IV in 4 hrs. and another 40 MeQ IV KCL 4 Hrs from now. total of 120 MeQ.
--- NOTE | 2020-06-12 07:15 | NUR ---
NURSE NOTES: Received patient from [facility] Bain under the care of Dr. Hamilton for the admitting dx of sepsis. Patient is asleep but opens eyes to stimulus. On fall, aspiration, and seizure precautions observed and maintained at all times. Patient noted with SR, on trach with vent settings of AC 16 TV400 FiO2 45% PEEP 5 tolerating well, with no sign of discomfort noted at this time. P-200 mattress noted and functioning well. Will continue to monitor.
--- NOTE | 2020-06-12 07:20 | NUR ---
NURSE HAND-OFF REPORT: Important Events on Shift:[CONTINUE TUBE FEEDING PER DOCTOR ORDER. REPORTED CRITICAL Potassium level.] Patient Status: [STABLE] Diet: [Tube feeding per doctor orders.] Pending Orders: [NA] Pending Results/Labs:[POTASSIUM] Pending MD notification:[POTASSIUM LEVEL.] Latest Vital Signs: Temperature 97.4 , Pulse 90 , B/P 140 /80 , Respiratory Rate 17 , O2 SAT 99 , Mechanical Ventilator, O2 Flow Rate 4.0 . Vital Sign Comment: [STABLE] EKG Rhythm: SR w/ 1AVB Rhythm change?: N MD Notified?: Y -DR.BALFE BAILEY Response: No New Orders Received Latest Pulido Fall Score: 70 Fall Risk: High Risk Safety Measures: Call light Within Reach, Bed Alarm Zone 2, Side Rails Side Rails x2, Bed position Low and Locked. Fall Precautions: Yellow Socks Yellow Gown Door Sign Patient Fall Education Report given to [[facility] RN].
[2020-06-12 08:00] VITALS: BP 152/86
--- NOTE | 2020-06-12 08:00 | NUR ---
NURSE NOTES: Patient noted to have Low potassium levels, endorsed from previous shift. Started on KCl 40meq IVPB. Will continue to monitor.
[2020-06-12] MEDS: Zinc Sulfate 220mg GT SCH (09:00)
--- NOTE | 2020-06-12 09:07 | Pulmonology Progress Note ---
Subjective ROS Limited/Unobtainable: Yes Allergies: Coded Allergies: No Known Allergies (Unverified , 06/08/20) All Systems: reviewed and negative except above Subjective care noted overnight events reviewed on vent on feeds low K Objective Last 24 Hour Vital Signs Date Time Temp Pulse Resp B/P (MAP) Pulse Ox O2 Delivery O2 Flow Rate FiO2 06/12/20 08:00 45 06/12/20 08:00 Mechanical Ventilator 06/12/20 08:00 96.4 87 18 152/86 (108) 100 06/12/20 06:50 90 17 45 06/12/20 05:47 140/80 06/12/20 04:00 45 06/12/20 04:00 97.4 90 21 140/80 (100) 99 06/12/20 04:00 Mechanical Ventilator 06/12/20 04:00 89 06/12/20 03:23 88 27 45 06/12/20 00:00 97.1 87 21 145/69 (94) 98 06/12/20 00:00 Mechanical Ventilator 06/12/20 00:00 83 06/12/20 00:00 45 06/11/20 23:16 84 19 45 06/11/20 21:46 143/94 06/11/20 20:00 97.0 92 21 142/77 (98) 100 06/11/20 20:00 Mechanical Ventilator 06/11/20 20:00 92 06/11/20 20:00 45 06/11/20 19:31 90 23 45 06/11/20 17:21 96 151/91 06/11/20 16:00 93 06/11/20 16:00 45 06/11/20 16:00 98.0 93 20 140/80 (100) 95 06/11/20 16:00 Mechanical Ventilator 06/11/20 15:21 92 26 45 06/11/20 14:11 141/79 06/11/20 12:00 83 06/11/20 12:00 Mechanical Ventilator 06/11/20 12:00 97.7 88 20 151/82 (105) 100 06/11/20 12:00 45 06/11/20 11:29 87 21 45 Intake and Output 06/11/20 06/12/20 19:00 07:00 Intake Total 970 ml 840 ml Output Total 2250 ml 1350 ml Balance -1280 ml -510 ml Intake Free Water 230 ml IV Total 400 ml 550 ml Tube Feeding 220 ml 290 ml Other 120 ml Output Urine Total 2250 ml 1200 ml Stool Total 150 ml # Voids 2 # Bowel Movements 100 Objective WDWN NAD reduced breath sounds bilaterally without rhonchi or wheeze [id number] without MRG NABS nontender colostomy no CCE nonfocal reduced LOC trach in place reviewed Microbiology Date/Time Source Procedure Growth Status 06/10/20 15:00 Sputum Gram Stain - Final Resulted 06/10/20 15:00 Sputum Culture - Preliminary Gram Negative Bacillus 1 Resulted Laboratory Tests 06/11/20 12:00: POC Whole Blood Glucose 186H 06/11/20 17:21: POC Whole Blood Glucose 207H 06/11/20 23:37: POC Whole Blood Glucose [Pending] 06/12/20 03:00: White Blood Count 10.2, Red Blood Count 3.38L, Hemoglobin 9.5L, Hematocrit 29.3L , Mean Corpuscular Volume 87, Mean Corpuscular Hemoglobin 28.1, Mean Corpuscular Hemoglobin Concent 32.5, Red Cell Distribution Width 15.6H, Platelet Count 551H , Mean Platelet Volume 5.3L, Neutrophils (%) (Auto) 74.0, Lymphocytes (%) (Auto) 14.9L, Monocytes (%) (Auto) 8.4, Eosinophils (%) (Auto) 1.7, Basophils (%) (Auto) 1.0, Sodium Level 142, Potassium Level 2.4*L, Chloride Level 109H, Carbon Dioxide Level 25, Anion Gap 8, Blood Urea Nitrogen 6L, Creatinine 0.6, Estimat Glomerular Filtration Rate > 60, Glucose Level 127H, Calcium Level 7.6L, Total Bilirubin 0.3, Aspartate Amino Transf (AST/SGOT) 27, Alanine Aminotransferase (ALT/SGPT) 58, Alkaline Phosphatase 260H, Total Protein 6.5, Albumin 1.4L, G lobulin 5.1, Albumin/Globulin Ratio 0.3L, Vancomycin Level Trough 36.1H 06/12/20 04:20: Stool Occult Blood [Pending] 06/12/20 05:43: POC Whole Blood Glucose [Pending] Current Medications Medications (Trade) Dose Ordered Sig/Milla Route PRN Reason Start Time Stop Time Status Last Admin Dose Admin Amiodarone HCl (Cordarone) 200 mg DAILY GT 06/09/20 09:00 09/07/20 08:59 06/11/20 09:00 Amlodipine Besylate (Norvasc) 5 mg TWICE A DAY GT 06/09/20 09:00 07/09/20 08:59 06/11/20 17:21 Bethanechol Chloride (Urecholine) 25 mg Q6HR GT 06/09/20 06:00 07/09/20 05:59 06/12/20 05:47 Ceftriaxone Sodium 1 gm/ Dextrose 55 ml @ 110 mls/hr Q24H IVPB 06/11/20 14:00 06/18/20 13:59 06/11/20 14:15 Chlorhexidine Gluconate (Sue-Hex 2%) 1 applic DAILY@2000 TOPIC 06/10/20 20:00 09/08/20 19:59 06/11/20 20:36 Clonidine HCl (Catapres Tab) 0.1 mg Q6H PRN GT For High Blood Pressure 06/09/20 00:30 09/07/20 00:29 Dextrose (Dextrose 50%) 25 ml Q30M PRN IV Hypoglycemia 06/09/20 06:00 09/07/20 05:59 06/09/20 06:02 Dextrose (Dextrose 50%) 50 ml Q30M PRN IV Hypoglycemia 06/09/20 00:15 09/07/20 00:14 Docusate Sodium (Colace) 100 mg TWICE A DAY GT 06/09/20 09:00 07/09/20 08:59 06/11/20 17:18 Epoetin Cameron (Epoetin Cameron-EPBX(NON ESRD)) 10,000 unit TUE-TUE-TUE SUBQ 06/09/20 21:00 09/07/20 20:59 06/11/20 20:37 Famotidine (Pepcid) 20 mg TWICE A DAY GT 06/09/20 09:00 09/07/20 08:59 06/11/20 17:19 Fluconazole (Diflucan) 100 mg DAILY ORAL 06/10/20 12:00 06/17/20 11:59 06/11/20 09:01 Heparin Sodium/ Sodium Chloride (Heparin 1000 units/500ml Premix) 1,000 unit ONCE PRN IV PICC LINE PLACEMENT 06/10/20 11:30 06/12/20 11:29 Hydralazine HCl (Apresoline) 25 mg EVERY 8 HOURS GT 06/09/20 06:00 09/07/20 05:59 06/12/20 05:47 Insulin Aspart (NovoLOG) Q6HR SUBQ 06/09/20 06:00 09/07/20 05:59 06/11/20 23:38 Lactulose (Cephulac) 20 gm Q6H PRN GT Constipation 06/09/20 00:30 07/09/20 00:29 Lansoprazole (Prevacid) 30 mg TWICE A DAY GT 06/09/20 09:00 07/09/20 08:59 06/11/20 17:19 Levetiracetam (Keppra) 500 mg TWICE A DAY GT 06/09/20 09:00 07/09/20 08:59 06/11/20 17:21 Levothyroxine Sodium (Synthroid) 75 mcg DAILY GT 06/09/20 09:00 07/09/20 08:59 06/11/20 09:01 Lidocaine HCl (Xylocaine 1% 30ml) 30 ml ONCE PRN INJ picc line placement 06/10/20 11:30 06/12/20 11:29 Metoclopramide HCl (Reglan) 5 mg EVERY 6 HOURS GT 06/09/20 06:00 07/09/20 05:59 06/12/20 05:46 Nitroglycerin (Ntg) 0.4 mg Q5MIN X 3 DOSES PRN SL CHEST PAIN 06/09/20 00:30 07/09/20 00:29 Ondansetron HCl (Zofran) 4 mg Q6H PRN GT Nausea & Vomiting 06/09/20 00:30 07/09/20 00:29 Potassium Chloride 100 ml @ 100 mls/hr Q1HR IVPB 06/12/20 08:00 06/12/20 11:59 06/12/20 08:27 Pravastatin Sodium (Pravachol) 40 mg BEDTIME GT 06/09/20 21:00 07/09/20 20:59 06/11/20 20:37 Sodium Chloride 1,000 ml @ 50 mls/hr Q20H IV 06/09/20 01:00 07/09/20 00:59 06/12/20 08:28 Vancomycin HCl (Vanco pharmacy to dose) 1 ea DAILY PRN MISC Per rx protocol 06/09/20 00:15 07/09/20 00:14 Vancomycin/Sodium Chloride 275 ml @ 137.5 mls/ hr Q24H IVPB 06/12/20 15:00 06/17/20 14:59 Zinc Sulfate (Zinc Sulfate) 220 mg DAILY GT 06/09/20 09:00 09/07/20 08:59 06/11/20 09:01 Assessment/Plan Assessment/Plan sepsis leukocytosis anemia colostomy respiratory failure possible gib chronic pancreatitis chronic encephalopathy hypernatremia acute renal failure pneumonia bacteremia UTI pneumonia possible sacral osteo/ decub diverting colostomy PLAN vent support IV antibiotics GI on feeds replace K ID noted- discuss CT findings in regards to osteo monitor cxr and recommend close follow up monitor HH guarded at present impression, plan, and exam edited and reviewed in detail care discussed with Mundo Burciaga MD Jun 12, 2020 09:07
[2020-06-12] MEDS: Docusate 100mg/10ml Liq GT SCH ×2 (09:42→18:08)
[2020-06-12] MEDS: Amiodarone 200mg tab GT SCH (09:42)
[2020-06-12] MEDS: levETIRAcetam 500mg/5ml Liquid GT SCH ×2 (09:42→18:08)
[2020-06-12] MEDS: Fluconazole 100mg tab ORAL SCH (09:43)
--- NOTE | 2020-06-12 10:16 | Infectious Diseases Prog Note ---
Assessment/Plan Assessment/Plan A 1. coagulase neg staph line sepsis 2. pneumonia 3. E.coli Enterococcus, fungal UTI 4. leucocytosis resolved 5. Ventilatory dependent respiratory failure 6. diabetes mellitus 7. hypertension 8. 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 continue iv vancomycin & ceftriaxone 2. continue fluconazole 5 more days 3. will follow up cultures Subjective ROS Limited/Unobtainable: Yes Constitutional: Denies: fever Allergies: Coded Allergies: No Known Allergies (Unverified , 06/08/20) Objective Last 24 Hour Vital Signs Date Time Temp Pulse Resp B/P (MAP) Pulse Ox O2 Delivery O2 Flow Rate FiO2 06/12/20 09:44 87 152/86 06/12/20 08:00 45 06/12/20 08:00 Mechanical Ventilator 06/12/20 08:00 96.4 87 18 152/86 (108) 100 06/12/20 06:50 90 17 45 06/12/20 05:47 140/80 06/12/20 04:00 45 06/12/20 04:00 97.4 90 21 140/80 (100) 99 06/12/20 04:00 Mechanical Ventilator 06/12/20 04:00 89 06/12/20 03:23 88 27 45 06/12/20 00:00 97.1 87 21 145/69 (94) 98 06/12/20 00:00 Mechanical Ventilator 06/12/20 00:00 83 06/12/20 00:00 45 06/11/20 23:16 84 19 45 06/11/20 21:46 143/94 06/11/20 20:00 97.0 92 21 142/77 (98) 100 06/11/20 20:00 Mechanical Ventilator 06/11/20 20:00 92 06/11/20 20:00 45 06/11/20 19:31 90 23 45 06/11/20 17:21 96 151/91 06/11/20 16:00 93 06/11/20 16:00 45 06/11/20 16:00 98.0 93 20 140/80 (100) 95 06/11/20 16:00 Mechanical Ventilator 06/11/20 15:21 92 26 45 06/11/20 14:11 141/79 06/11/20 12:00 83 06/11/20 12:00 Mechanical Ventilator 06/11/20 12:00 97.7 88 20 151/82 (105) 100 06/11/20 12:00 45 06/11/20 11:29 87 21 45 Height (Feet): 5 Height (Inches): 10.00 Weight (Pounds): 162 HEENT: status post trach Respiratory/Chest: crackles/rales, other - on ventilator Cardiovascular: normal rate, other - PICC line Abdomen: soft, non tender, other - GT feeding Extremities: other - edema of arms Neurologic/Psychiatric: other - opens eyes Microbiology Date/Time Source Procedure Growth Status 06/10/20 15:00 Sputum Gram Stain - Final Resulted 06/10/20 15:00 Sputum Culture - Preliminary Gram Negative Bacillus 1 Resulted Laboratory Tests Test 06/11/20 12:00 06/11/20 17:21 06/11/20 23:37 06/12/20 03:00 POC Whole Blood Glucose 186 MG/DL (74-106) H 207 MG/DL (74-106) H Pending White Blood Count 10.2 K/UL (4.8-10.8) Red Blood Count 3.38 M/UL (4.70-6.10) L Hemoglobin 9.5 G/DL (14.2-18.0) L Hematocrit 29.3 % (42.0-52.0) L Mean Corpuscular Volume 87 FL (80-99) Mean Corpuscular Hemoglobin 28.1 PG (27.0-31.0) Mean Corpuscular Hemoglobin Concent 32.5 G/DL (32.0-36.0) Red Cell Distribution Width 15.6 % (11.6-14.8) H Platelet Count 551 K/UL (150-450) H Mean Platelet Volume 5.3 FL (6.5-10.1) L Neutrophils (%) (Auto) 74.0 % (45.0-75.0) Lymphocytes (%) (Auto) 14.9 % (20.0-45.0) L Monocytes (%) (Auto) 8.4 % (1.0-10.0) Eosinophils (%) (Auto) 1.7 % (0.0-3.0) Basophils (%) (Auto) 1.0 % (0.0-2.0) Sodium Level 142 MMOL/L (136-145) Potassium Level 2.4 MMOL/L (3.5-5.1) *L Chloride Level 109 MMOL/L (98-107) H Carbon Dioxide Level 25 MMOL/L (21-32) Anion Gap 8 mmol/L (5-15) Blood Urea Nitrogen 6 mg/dL (7-18) L Creatinine 0.6 MG/DL (0.55-1.30) Estimat Glomerular Filtration Rate > 60 mL/min (>60) Glucose Level 127 MG/DL (74-106) H Calcium Level 7.6 MG/DL (8.5-10.1) L Total Bilirubin 0.3 MG/DL (0.2-1.0) Aspartate Amino Transf (AST/SGOT) 27 U/L (15-37) Alanine Aminotransferase (ALT/SGPT) 58 U/L (12-78) Alkaline Phosphatase 260 U/L (46-116) H Total Protein 6.5 G/DL (6.4-8.2) Albumin 1.4 G/DL (3.4-5.0) L Globulin 5.1 g/dL Albumin/Globulin Ratio 0.3 (1.0-2.7) L Vancomycin Level Trough 36.1 ug/mL (5.0-12.0) H Test 06/12/20 04:20 06/12/20 05:43 Stool Occult Blood Negative (NEGATIVE) POC Whole Blood Glucose Pending Current Medications Medications (Trade) Dose Ordered Sig/Milla Route PRN Reason Start Time Stop Time Status Last Admin Dose Admin Amiodarone HCl (Cordarone) 200 mg DAILY GT 06/09/20 09:00 09/07/20 08:59 06/12/20 09:42 Amlodipine Besylate (Norvasc) 5 mg TWICE A DAY GT 06/09/20 09:00 07/09/20 08:59 06/12/20 09:44 Bethanechol Chloride (Urecholine) 25 mg Q6HR GT 06/09/20 06:00 07/09/20 05:59 06/12/20 05:47 Ceftriaxone Sodium 1 gm/ Dextrose 55 ml @ 110 mls/hr Q24H IVPB 06/11/20 14:00 06/18/20 13:59 06/11/20 14:15 Chlorhexidine Gluconate (Sue-Hex 2%) 1 applic DAILY@2000 TOPIC 06/10/20 20:00 12/21/20 19:59 06/11/20 20:36 Clonidine HCl (Catapres Tab) 0.1 mg Q6H PRN GT For High Blood Pressure 06/09/20 00:30 09/07/20 00:29 Dextrose (Dextrose 50%) 25 ml Q30M PRN IV Hypoglycemia 06/09/20 06:00 09/07/20 05:59 06/09/20 06:02 Dextrose (Dextrose 50%) 50 ml Q30M PRN IV Hypoglycemia 06/09/20 00:15 09/07/20 00:14 Docusate Sodium (Colace) 100 mg TWICE A DAY GT 06/09/20 09:00 07/09/20 08:59 06/12/20 09:42 Epoetin Cameron (Epoetin Cameron-EPBX(NON ESRD)) 10,000 unit SUBQ 06/09/20 21:00 09/07/20 20:59 06/11/20 20:37 Famotidine (Pepcid) 20 mg TWICE A DAY GT 06/09/20 09:00 09/07/20 08:59 06/12/20 09:44 Fluconazole (Diflucan) 100 mg DAILY ORAL 06/10/20 12:00 06/17/20 11:59 06/12/20 09:43 Heparin Sodium/ Sodium Chloride (Heparin 1000 units/500ml Premix) 1,000 unit ONCE PRN IV PICC LINE PLACEMENT 06/10/20 11:30 06/12/20 11:29 Hydralazine HCl (Apresoline) 25 mg EVERY 8 HOURS GT 06/09/20 06:00 09/07/20 05:59 06/12/20 05:47 Insulin Aspart (NovoLOG) Q6HR SUBQ 06/09/20 06:00 09/07/20 05:59 06/11/20 23:38 Lactulose (Cephulac) 20 gm Q6H PRN GT Constipation 06/09/20 00:30 07/09/20 00:29 Lansoprazole (Prevacid) 30 mg TWICE A DAY GT 06/09/20 09:00 07/09/20 08:59 06/12/20 09:44 Levetiracetam (Keppra) 500 mg TWICE A DAY GT 06/09/20 09:00 07/09/20 08:59 06/12/20 09:42 Levothyroxine Sodium (Synthroid) 75 mcg DAILY GT 06/09/20 09:00 07/09/20 08:59 06/12/20 09:00 Lidocaine HCl (Xylocaine 1% 30ml) 30 ml ONCE PRN INJ picc line placement 06/10/20 11:30 06/12/20 11:29 Metoclopramide HCl (Reglan) 5 mg EVERY 6 HOURS GT 06/09/20 06:00 07/09/20 05:59 06/12/20 05:46 Nitroglycerin (Ntg) 0.4 mg Q5MIN X 3 DOSES PRN SL CHEST PAIN 06/09/20 00:30 07/09/20 00:29 Ondansetron HCl (Zofran) 4 mg Q6H PRN GT Nausea & Vomiting 06/09/20 00:30 07/09/20 00:29 Potassium Chloride 100 ml @ 100 mls/hr Q1HR IVPB 06/12/20 08:00 06/12/20 11:59 06/12/20 09:47 Pravastatin Sodium (Pravachol) 40 mg BEDTIME GT 06/09/20 21:00 07/09/20 20:59 06/11/20 20:37 Sodium Chloride 1,000 ml @ 50 mls/hr Q20H IV 06/09/20 01:00 07/09/20 00:59 06/12/20 08:28 Vancomycin HCl (Vanco pharmacy to dose) 1 ea DAILY PRN MISC Per rx protocol 06/09/20 00:15 07/09/20 00:14 Vancomycin/Sodium Chloride 275 ml @ 137.5 mls/ hr Q24H IVPB 06/12/20 15:00 06/17/20 14:59 Zinc Sulfate (Zinc Sulfate) 220 mg DAILY GT 06/09/20 09:00 09/07/20 08:59 06/12/20 09:00 Ramakrishna Lancaster MD Jun 12, 2020 10:16
--- NOTE | 2020-06-12 10:44 | NUR ---
RADIOLOGY DEPT., CHEST X-RAY DONE.-P.DYE
--- NOTE | 2020-06-12 11:15 | NUR ---
NURSE NOTES: Clarified KCl order from Dr. Hamilton. New orders noted and carried out.
[2020-06-12 12:00] VITALS: BP 127/74
--- NOTE | 2020-06-12 13:33 | Surgery Progress Note ---
Surgery Progress Note Subjective Additional Comments afebrile HD stable local care going well picc line placed no n/v Objective Last 24 Hour Vital Signs Date Time Temp Pulse Resp B/P (MAP) Pulse Ox O2 Delivery O2 Flow Rate FiO2 06/12/20 12:00 45 06/12/20 12:00 Mechanical Ventilator 06/12/20 12:00 97.7 77 18 127/74 (91) 98 06/12/20 11:19 96 28 55 06/12/20 09:44 87 152/86 06/12/20 08:01 91 06/12/20 08:00 45 06/12/20 08:00 Mechanical Ventilator 06/12/20 08:00 91 06/12/20 08:00 96.4 87 18 152/86 (108) 100 06/12/20 06:50 90 17 45 06/12/20 05:47 140/80 06/12/20 04:00 45 06/12/20 04:00 97.4 90 21 140/80 (100) 99 06/12/20 04:00 Mechanical Ventilator 06/12/20 04:00 89 06/12/20 03:23 88 27 45 06/12/20 00:00 97.1 87 21 145/69 (94) 98 06/12/20 00:00 Mechanical Ventilator 06/12/20 00:00 83 06/12/20 00:00 45 06/11/20 23:16 84 19 45 06/11/20 21:46 143/94 06/11/20 20:00 97.0 92 21 142/77 (98) 100 06/11/20 20:00 Mechanical Ventilator 06/11/20 20:00 92 06/11/20 20:00 45 06/11/20 19:31 90 23 45 06/11/20 17:21 96 151/91 06/11/20 16:00 93 06/11/20 16:00 45 06/11/20 16:00 98.0 93 20 140/80 (100) 95 06/11/20 16:00 Mechanical Ventilator 06/11/20 15:21 92 26 45 06/11/20 14:11 141/79 I&O Intake and Output 06/11/20 06/12/20 19:00 07:00 Intake Total 970 ml 840 ml Output Total 2250 ml 1350 ml Balance -1280 ml -510 ml Intake Free Water 230 ml IV Total 400 ml 550 ml Tube Feeding 220 ml 290 ml Other 120 ml Output Urine Total 2250 ml 1200 ml Stool Total 150 ml # Voids 2 # Bowel Movements 100 Dressing: other Wound: other Cardiovascular: RSR Respiratory: decreased breath sounds Abdomen: soft, non-tender, present bowel sounds Extremities: no tenderness, no cyanosis Laboratory Tests Test 06/11/20 17:21 06/11/20 23:37 06/12/20 03:00 06/12/20 04:20 POC Whole Blood Glucose 207 MG/DL (74-106) H Pending White Blood Count 10.2 K/UL (4.8-10.8) Red Blood Count 3.38 M/UL (4.70-6.10) L Hemoglobin 9.5 G/DL (14.2-18.0) L Hematocrit 29.3 % (42.0-52.0) L Mean Corpuscular Volume 87 FL (80-99) Mean Corpuscular Hemoglobin 28.1 PG (27.0-31.0) Mean Corpuscular Hemoglobin Concent 32.5 G/DL (32.0-36.0) Red Cell Distribution Width 15.6 % (11.6-14.8) H Platelet Count 551 K/UL (150-450) H Mean Platelet Volume 5.3 FL (6.5-10.1) L Neutrophils (%) (Auto) 74.0 % (45.0-75.0) Lymphocytes (%) (Auto) 14.9 % (20.0-45.0) L Monocytes (%) (Auto) 8.4 % (1.0-10.0) Eosinophils (%) (Auto) 1.7 % (0.0-3.0) Basophils (%) (Auto) 1.0 % (0.0-2.0) Sodium Level 142 MMOL/L (136-145) Potassium Level 2.4 MMOL/L (3.5-5.1) *L Chloride Level 109 MMOL/L (98-107) H Carbon Dioxide Level 25 MMOL/L (21-32) Anion Gap 8 mmol/L (5-15) Blood Urea Nitrogen 6 mg/dL (7-18) L Creatinine 0.6 MG/DL (0.55-1.30) Estimat Glomerular Filtration Rate > 60 mL/min (>60) Glucose Level 127 MG/DL (74-106) H Calcium Level 7.6 MG/DL (8.5-10.1) L Total Bilirubin 0.3 MG/DL (0.2-1.0) Aspartate Amino Transf (AST/SGOT) 27 U/L (15-37) Alanine Aminotransferase (ALT/SGPT) 58 U/L (12-78) Alkaline Phosphatase 260 U/L (46-116) H Total Protein 6.5 G/DL (6.4-8.2) Albumin 1.4 G/DL (3.4-5.0) L Globulin 5.1 g/dL Albumin/Globulin Ratio 0.3 (1.0-2.7) L Vancomycin Level Trough 36.1 ug/mL (5.0-12.0) H Stool Occult Blood Negative (NEGATIVE) Test 06/12/20 05:43 06/12/20 12:11 POC Whole Blood Glucose Pending 156 MG/DL (74-106) H Plan Problems: (1) UTI (urinary tract infection) (2) Pneumonia (3) Sepsis Assessment & Plan: leukocytosis, anemia. abnormal labs stage 4 sacral prior debridement and seems like ostectomy colostomy noted mid back and bilateral ischial dti ua noted on iv abx g tube in place but per reports on tpn at facility labs ordered imaging ordered no acute surgical intervention planned will follow with recs (4) Colostomy in place (5) Feeding by G-tube (6) Deep tissue injury (7) Stage 4 skin ulcer of sacral region Assessment & Plan: Pt deconditioned and presented on admission with, T racheostomy,GT, Multiple Pressure Injuries. Dry eschar noted to L earlobe(L)0.8cm x (W)0.6cm. No erythema noted periwound. Loose,dry eschar cap L earlobe(L)1cm x (W)0.7cm. Base of wound beneath loose eschar cap is moist and paul. No odor or exudate noted. Non-Blanchable erythema with shearing centrally posterior neck under tracheal collar.Periwound skin is dark without erythema or fluctuance.(L)1.5cm x (W)4.5cm. Resolving Pressure injury L lumbar area(L)2cm x (W00.7cm. [place] epithelial at base of wound. Loose dry edges . no erythema or induration periwound. Full thickness Pressure Injury Lumbar Spine(L)2.5cm x (W)1.5cm. Base of wound is 75% paul and moist,25% slough.Borders are macerated. No odor or exudate noted. Periwound without erythema or fluctuance. Full Thickness Sacral Pressure Injury (L)7.5cm x (W)8.8cm x (D)2.4cm, undermining clockwise 12-5 by 1.8cm @2o'clock. Base of wound is beefy red with purpuric area at base. Small area of bone exposure, scattered slough(20%) Wound is otherwise beefy red. Small amt serous exudate note. No odor noted. DTPI L lower Buttocks that is evolving. Base of wound is 75% soft necrosis,25% most and pink with surrounding maroon and indurated borders. DTPI that is evolving and is partially opened at L ischium(L)8cm x (W)9.5cm. Base of wound is purpuric ,indurated with opening that is 25% slough,75% moist and pink. NO odor noted. DTPI R Ischium that is evolving and is partially opened(L)6.3cm x (W)6.5cm. Base of wound is Indurated reddish/brown with opening that is 25% slough,25% soft necrosis,50% moist and pink. NO odor or exudate noted. No evidence of erythema or fluctuance periwound. Resolving Pressure Injury posterior L tibia with dry eschar cap,mixed dry pink epithelial. Unstageable Pressure injury posterior R Tibia. Stable dry eschar noted(L)14.5cm x (W)1.7cm. Unstageable Pressure Injury R heel(L)3.2cm x (W)4.2cm. Base of wound is 100% necrotic with marginal erythema and fluctuance periwound. Partial Thickness Pressure Injury medial L heel(L)1.3cm x (W)1.2cm. Base of wo und is moist and viable . Edges are macerated with surrounding non-blanchable erythema with fluctuance. UNstageable Pressure Injury Lateral L Heel . Base of wound is 100% soft necrosis and is malodorous. Non-Blanchable erythema with Fluctuance periwound.(L)4cm x (W)3.4cm. Tx.Plan: Apply Betadine to R and L earlobes. Cover each ear with Optifoam drsg. Change every 3 days and prn. Apply Cavilon Skin Barrier to posterior neck. Cover with Optifoam drsg. Change every 3 days and prn. Cleanse Wounds Lumbar and L lumbar with Saline. Apply TheraHoney. Apply Moisture Barrier Paste periwound. Cover each site with Optifoam drsgs. Change every 3 days and prn. Cleanse Sacral wound with Saline. Loosely pack with Therahoney impregnated Kerlix. Apply Moisture Barrier paste periwound. Cover with Optifoam drsg. Change Daily and prn. Apply Moisture Barrier Paste to Scrotum with each incontinence care. Cleanse R and L Ischial wounds with Saline. Apply Therahoney. Apply Moisture Barrier Paste periwound. Cover each wound with Optifoam drsg. Changee very 3 days and prn. Apply Betadine to Posterior R and L Tibial wounds. Cover each wound with Optifoam drsgs. Change every 3 days and prn. Apply Betadine to R and L Heel wounds. Cover each heel with Optifoam drsgs. Change every 3 days and prn. Reposition at least every 2hours or as tolerated. Off-load heels with Pillows. APM/COLBY Mattress overlay. Jonny Powell Jun 12, 2020 13:33
[2020-06-12] MEDS ORDERED: Tubing IV Secondary IV ONE (14:18)
[2020-06-12] MEDS ORDERED: NS 275ml ONE (14:18)
[2020-06-12] MEDS: cefTRIAXone 1 GM in D5W 55 ML IVPB SCH (14:36)
--- NOTE | 2020-06-12 14:50 | Diagnostic Imaging Report ---
Indication: Reason For Exam: SOB Technique: One view of the chest Comparison: Post PICC radiograph yesterday Findings: Interim removal of previously demonstrated left PICC. Right PICC remains. Tracheostomy remains. There is slightly improved aeration of the left retrocardiac region, although infiltrate in this area persists. The left lateral hemidiaphragm is better visualized currently. There is right infrahilar infiltrate again demonstrated. The right costophrenic sulcus is cut off exam. The heart size is normal. Impression: Improved the persistent infiltrate at the left lung base Persistent right infrahilar infiltrate
[2020-06-12] MEDS: Vancomycin 1.5gm/NS Premix IVPB SCH (15:33)
[2020-06-12 16:00] VITALS: BP 142/81
--- NOTE | 2020-06-12 16:31 | General Progress Note ---
Subjective ROS Limited/Unobtainable: Yes Constitutional: Reports: malaise, weakness HEENT: Reports: no symptoms Cardiovascular: Reports: no symptoms Respiratory: Reports: shortness of breath, sputum Gastrointestinal/Abdominal: Reports: difficulty swallowing Genitourinary: Reports: no symptoms Neurologic/Psychiatric: Reports: pre-existing deficit Endocrine: Reports: no symptoms Hematologic/Lymphatic: Reports: anemia Allergies: Coded Allergies: No Known Allergies (Unverified , 06/08/20) All Systems: reviewed and negative except above Subjective no events. remains stable on the vent. awake. nonverbal. does not track. multiple positive blood cultures noted. + urine culture. CT noted- no pseudocyst. extensive LLL consolidation. poorly responsive. id noted. on multiple iv abx. wbc improving. Low k noted. now on tube feeds. tolerating so far Objective Last 24 Hour Vital Signs Date Time Temp Pulse Resp B/P (MAP) Pulse Ox O2 Delivery O2 Flow Rate FiO2 06/12/20 16:00 45 06/12/20 16:00 Mechanical Ventilator 06/12/20 14:56 104 29 55 06/12/20 14:55 127/74 06/12/20 12:00 45 06/12/20 12:00 97 06/12/20 12:00 Mechanical Ventilator 06/12/20 12:00 97.7 77 18 127/74 (91) 98 06/12/20 11:19 96 28 55 06/12/20 09:44 87 152/86 06/12/20 08:01 91 06/12/20 08:00 45 06/12/20 08:00 Mechanical Ventilator 06/12/20 08:00 91 06/12/20 08:00 96.4 87 18 152/86 (108) 100 06/12/20 06:50 90 17 45 06/12/20 05:47 140/80 06/12/20 04:00 45 06/12/20 04:00 97.4 90 21 140/80 (100) 99 06/12/20 04:00 Mechanical Ventilator 06/12/20 04:00 89 06/12/20 03:23 88 27 45 06/12/20 00:00 97.1 87 21 145/69 (94) 98 06/12/20 00:00 Mechanical Ventilator 06/12/20 00:00 83 06/12/20 00:00 45 06/11/20 23:16 84 19 45 06/11/20 21:46 143/94 06/11/20 20:00 97.0 92 21 142/77 (98) 100 06/11/20 20:00 Mechanical Ventilator 06/11/20 20:00 92 06/11/20 20:00 45 06/11/20 19:31 90 23 45 06/11/20 17:21 96 151/91 Intake and Output 06/11/20 06/12/20 19:00 07:00 Intake Total 970 ml 840 ml Output Total 2250 ml 1350 ml Balance -1280 ml -510 ml Intake Free Water 230 ml IV Total 400 ml 550 ml Tube Feeding 220 ml 290 ml Other 120 ml Output Urine Total 2250 ml 1200 ml Stool Total 150 ml # Voids 2 # Bowel Movements 100 Laboratory Tests 06/11/20 17:21: POC Whole Blood Glucose 207H 06/11/20 23:37: POC Whole Blood Glucose [Pending] 06/12/20 03:00: White Blood Count 10.2, Red Blood Count 3.38L, Hemoglobin 9.5L, Hematocrit 29.3L , Mean Corpuscular Volume 87, Mean Corpuscular Hemoglobin 28.1, Mean Corpuscular Hemoglobin Concent 32.5, Red Cell Distribution Width 15.6H, Platelet Count 551H , Mean Platelet Volume 5.3L, Neutrophils (%) (Auto) 74.0, Lymphocytes (%) (Auto) 14.9L, Monocytes (%) (Auto) 8.4, Eosinophils (%) (Auto) 1.7, Basophils (%) (Auto) 1.0, Sodium Level 142, Potassium Level 2.4*L, Chloride Level 109H, Carbon Dioxide Level 25, Anion Gap 8, Blood Urea Nitrogen 6L, Creatinine 0.6, Estimat Glomerular Filtration Rate > 60, Glucose Level 127H, Calcium Level 7.6L, Total Bilirubin 0.3, Aspartate Amino Transf (AST/SGOT) 27, Alanine Aminotransferase (ALT/SGPT) 58, Alkaline Phosphatase 260H, Total Protein 6.5, Albumin 1.4L, Globulin 5.1, Albumin/Globulin Ratio 0.3L, Vancomycin Level Trough 36.1H 06/12/20 04:20: Stool Occult Blood Negative 06/12/20 05:43: POC Whole Blood Glucose [Pending] 06/12/20 12:11: POC Whole Blood Glucose 156H Height (Feet): 5 Height (Inches): 10.00 Weight (Pounds): 162 Objective General Appearance: WD/WN, no apparent distress, alert Neck: non-tender, normal alignment Cardiovascular: normal rate Respiratory/Chest: chest wall non-tender, lungs clear, normal breath sounds Abdomen: normal bowel sounds, non tender, soft, no organomegaly Edema: no edema noted Arm (L), no edema noted Arm (R) Neurologic: unresponsive Skin: normal pigmentation Lymphatic: normal anterior cervical (L), normal anterior cervical (R) Assessment/Plan Problem List: (1) Stage 4 skin ulcer of sacral region ICD Codes: L98.429 - Non-pressure chronic ulcer of back with unspecified severity SNOMED: 60917688, 094519123 (2) Colostomy in place ICD Codes: Z93.3 - Colostomy status SNOMED: 728383690, 565131837 (3) Sepsis ICD Codes: A41.9 - Sepsis, unspecified organism SNOMED: 45313620 (4) Pneumonia ICD Codes: J18.9 - Pneumonia, unspecified organism SNOMED: 840562915 Qualifiers: Qualified Codes: J18.9 - Pneumonia, unspecified organism (5) UTI (urinary tract infection) ICD Codes: N39.0 - Urinary tract infection, site not specified SNOMED: 51336720 Qualifiers: Qualified Codes: N30.01 - Acute cystitis with hematuria Status: stable Assessment/Plan: cont iv abx ID consult appreciated follow up cultures tube feeds/wean TPN replace lytes vent support resp rx suctioning as needed wound care d/w surgery dvt/stress ulcer prophylaxis Robby Mays MD Jun 12, 2020 16:31
--- NOTE | 2020-06-12 16:52 | NUR ---
CASE MANAGEMENT: REVIEW 06/12/2020 SI;SEPSIS. VS: T 97.7 HR 77 RR 18 B/P 127/74 SATS 98% ON MECH VENT FIO2 45 LABS: K 2.4 CL 109 BUN 6 GLU 127 CA 7.6 IS:NA @ 50 ML/HR HYDRALAZINE GT Q8H NORVASC GT BID PREVACID GT BID KEPPRA GT BID CORDARONE GT QD DIFLUCAN PO QD SDU DCP: [facility]
--- NOTE | 2020-06-12 19:30 | NUR ---
NURSE NOTES: Received pt awake, trache to vent on ac mode, pt consistently with good eye contact. , 02 sat 99% with fio2 0f 55%,Tolerated GT fdg Glucerna 1.2 at 30ml/hr. HOB kept elevated. On aspiration precaution. Unable to draw K level at this time due to KCL 10meq still infusing. awaiting for IVpb K to finished. Aware rn dischargeBOO Casey.
--- NOTE | 2020-06-12 19:45 | NUR ---
NURSE HAND-OFF REPORT: Important Events on Shift: Low Potassium, aware with new orders. Patient Status: Stable Diet: Gt feed Pending Orders: Pending Results/Labs: Pending MD notification: Latest Vital Signs: Temperature 98.4 , Pulse 101 , B/P 144 /100 , Respiratory Rate 27 , O2 SAT 94 , Mechanical Ventilator, O2 Flow Rate 4.0 . Vital Sign Comment: EKG Rhythm: SR w/ 1AVB Rhythm change?: Y Notified?: N -DR.BALFE BAILEY Response: No New Orders Received Latest Pluido Fall Score: 70 Fall Risk: High Risk Safety Measures: Call light Within Reach, Bed Alarm Zone 2, Side Rails Side Rails x2, Bed position Low and Locked. Fall Precautions: Yellow Socks Yellow Gown Door Sign Patient Fall Education Report given to BOO Coleman.
[2020-06-12 20:00] VITALS: BP 146/85
[2020-06-12] MEDS: Dyna-Hex 2% Top Sol 2oz TOPIC SCH (20:08)
--- NOTE | 2020-06-12 20:58 | General Progress Note ---
Subjective Allergies: Coded Allergies: No Known Allergies (Unverified , 06/08/20) Subjective NAD tolerating TF K low stool OB (-) Objective Last 24 Hour Vital Signs Date Time Temp Pulse Resp B/P (MAP) Pulse Ox O2 Delivery O2 Flow Rate FiO2 06/12/20 19:26 101 27 55 06/12/20 18:09 104 144/100 06/12/20 16:00 45 06/12/20 16:00 Mechanical Ventilator 06/12/20 16:00 98.4 102 16 142/81 (101) 94 06/12/20 16:00 102 06/12/20 14:56 104 29 55 06/12/20 14:55 127/74 06/12/20 12:00 45 06/12/20 12:00 97 06/12/20 12:00 Mechanical Ventilator 06/12/20 12:00 97.7 77 18 127/74 (91) 98 06/12/20 11:19 96 28 55 06/12/20 09:44 87 152/86 06/12/20 08:01 91 06/12/20 08:00 45 06/12/20 08:00 Mechanical Ventilator 06/12/20 08:00 91 06/12/20 08:00 96.4 87 18 152/86 (108) 100 06/12/20 06:50 90 17 45 06/12/20 05:47 140/80 06/12/20 04:00 45 06/12/20 04:00 97.4 90 21 140/80 (100) 99 06/12/20 04:00 Mechanical Ventilator 06/12/20 04:00 89 06/12/20 03:23 88 27 45 06/12/20 00:00 97.1 87 21 145/69 (94) 98 06/12/20 00:00 Mechanical Ventilator 06/12/20 00:00 83 06/12/20 00:00 45 06/11/20 23:16 84 19 45 06/11/20 21:46 143/94 Intake and Output 06/11/20 06/12/20 18:59 06:59 Intake Total 890 ml 960 ml Output Total 2250 ml 1350 ml Balance -1360 ml -390 ml Intake Free Water 180 ml 50 ml IV Total 350 ml 600 ml Tube Feeding 240 ml 310 ml Other 120 ml Output Urine Total 2250 ml 1200 ml Stool Total 150 ml # Voids 2 # Bowel Movements 100 Laboratory Tests 06/11/20 23:37: POC Whole Blood Glucose [Pending] 06/12/20 03:00: White Blood Count 10.2, Red Blood Count 3.38L, Hemoglobin 9.5L, Hematocrit 29.3L , Mean Corpuscular Volume 87, Mean Corpuscular Hemoglobin 28.1, Mean Corpuscular Hemoglobin Concent 32.5, Red Cell Distribution Width 15.6H, Platelet Count 551H , Mean Platelet Volume 5.3L, Neutrophils (%) (Auto) 74.0, Lymphocytes (%) (Auto) 14.9L, Monocytes (%) (Auto) 8.4, Eosinophils (%) (Auto) 1.7, Basophils (%) (Auto) 1.0, Sodium Level 142, Potassium Level 2.4*L, Chloride Level 109H, Carbon Dioxide Level 25, Anion Gap 8, Blood Urea Nitrogen 6L, Creatinine 0.6, Estimat Glomerular Filtration Rate > 60, Glucose Level 127H, Calcium Level 7.6L, Total Bilirubin 0.3, Aspartate Amino Transf (AST/SGOT) 27, Alanine Aminotransferase (ALT/SGPT) 58, Alkaline Phosphatase 260H, Total Protein 6.5, Albumin 1.4L, Globulin 5.1, Albumin/Globulin Ratio 0.3L, Vancomycin Level Trough 36.1H 06/12/20 04:20: Stool Occult Blood Negative 06/12/20 05:43: POC Whole Blood Glucose [Pending] 06/12/20 12:11: POC Whole Blood Glucose 156H 06/12/20 18:16: POC Whole Blood Glucose [Pending] Height (Feet): 5 Height (Inches): 10.00 Weight (Pounds): 162 Objective Elderly man NCAT (+) trach coarse BS RR abd soft, (+) GT no edema Assessment/Plan Status: stable Assessment/Plan: Assessment - h/o pancreatitis - resolved - s/p colostomy - sepsis/leukocytosis - resp failure / trach - dysphagia / GT - s/p CVA - Anemia - CAD - DM - hypokalemia - HTN - GERD Recommendations - Abx - CT abd/pelvis noted - PPI - Monitor CBC - TF - replace and recheck Moshe Carroll MD Jun 12, 2020 20:58
--- NOTE | 2020-06-12 21:30 | NUR ---
NURSE NOTES: Tolerating fdg well at 30ml/hr no residuals, colostomy to drain with soft to liquid greenish brownish. . Pt with pressure sores, covered with optifoam clean and dry.pls see pictures. On P 200 mattress. Turned q 2hrs PRN with good skin care done.
[2020-06-12 23:09] LABS: ANION GAP 9 mmol/L (5-15); BLOOD UREA NITROGEN 5 mg/dL (7-18); CALCIUM 7.5 MG/DL (8.5-10.1); CARBON DIOXIDE 27 MMOL/L (21-32); CHLORIDE 104 MMOL/L (98-107); CREATININE 0.6 MG/DL (0.55-1.30); POTASSIUM 3.3 MMOL/L (3.5-5.1); SODIUM 139 MMOL/L (136-145)
[2020-06-13] VITALS: BP 151/87
--- NOTE | 2020-06-13 00:11 | NUR ---
NURSE NOTES: Notify Dr Hamilton with K 3.3. Awaiting for md to call back.
[2020-06-13] MEDS: Metoclopramide 10mg/10ml Liq GT SCH ×5 (00:19→23:47)
[2020-06-13] MEDS: Bethanechol 25mg Tab GT SCH ×5 (00:20→23:48)
[2020-06-13] MEDS: NovoLOG Insulin Flexpen SUBQ SCH ×5 (00:21→23:47)
[2020-06-13 04:00] VITALS: BP 146/87
[2020-06-13 05:25] LABS: BASOPHILS % (AUTO) 0.4 % (0.0-2.0); EOSINOPHILS % (AUTO) 0.6 % (0.0-3.0); HEMATOCRIT 30.2 % (42.0-52.0); HEMOGLOBIN 9.7 G/DL (14.2-18.0); LYMPHOCYTES % (AUTO) 9.6 % (20.0-45.0); MEAN CORPUSCULAR VOLUME 87 FL (80-99); MONOCYTES % (AUTO) 5.3 % (1.0-10.0); NEUTROPHILS % (AUTO) 84.1 % (45.0-75.0); PLATELET COUNT 577 K/UL (150-450); RED BLOOD COUNT 3.46 M/UL (4.70-6.10); RED CELL DISTRIBUTION WIDTH 15.4 % (11.6-14.8); WHITE BLOOD COUNT 13.8 K/UL (4.8-10.8)
--- NOTE | 2020-06-13 05:42 | NUR ---
NURSE NOTES: Dr Hamilton acknowledge k 3.3 with order Kcl 40meq Gt and was given.
[2020-06-13 05:50] LABS: ALANINE AMINOTRANSFERASE 52 U/L (12-78); ALBUMIN 1.6 G/DL (3.4-5.0); ALBUMIN/GLOBULIN RATIO 0.4 (1.0-2.7); ALKALINE PHOSPHATASE 245 U/L (46-116); ANION GAP 8 mmol/L (5-15); ASPARTATE AMINO TRANSFERASE 30 U/L (15-37); BILIRUBIN,TOTAL 0.4 MG/DL (0.2-1.0); BLOOD UREA NITROGEN 6 mg/dL (7-18); CALCIUM 7.4 MG/DL (8.5-10.1); CARBON DIOXIDE 27 MMOL/L (21-32); CHLORIDE 106 MMOL/L (98-107); CREATININE 0.6 MG/DL (0.55-1.30); SODIUM 141 MMOL/L (136-145)
--- NOTE | 2020-06-13 06:00 | NUR ---
NURSE NOTES: No resp distress noted, Gt site not leaking VSS
[2020-06-13 06:05] LABS: POTASSIUM 2.7 MMOL/L (3.5-5.1)
--- NOTE | 2020-06-13 06:19 | NUR ---
NURSE NOTES: Dr Hamilton been notified by BOO Casey with pts K 2.7. awaiting for md to call back
[2020-06-13] MEDS: HydrALAZINE 25mg tab GT SCH ×3 (06:24→21:12)
--- NOTE | 2020-06-13 07:10 | NUR ---
NURSE NOTES: Received patient from Cheryl Coleman under the care of Dr. Murry for the admitting dx of sepsis. Patient noted to be asleep but easily arousable. Tolerating vent settings well, with no sign of pain or discomfort at this time. GT noted flushing well. Will continue with current plan of care.
--- NOTE | 2020-06-13 07:18 | NUR ---
NURSE NOTES: Noted Potassium from lab draw this morning was 2.7. Dr. Hamilton made aware, awaiting for orders.
--- NOTE | 2020-06-13 07:21 | NUR ---
NURSE NOTES: RE called Dr Silva for K 2.7
--- NOTE | 2020-06-13 07:27 | NUR ---
NURSE HAND-OFF REPORT: Important Events on Shift: Patient Status: Diet: Pending Orders: Pending Results/Labs: Pending MD notification: Latest Vital Signs: Temperature 98.0 , Pulse 96 , B/P 146 /87 , Respiratory Rate 28 , O2 SAT 98 , Mechanical Ventilator, O2 Flow Rate 4.0 . Vital Sign Comment: EKG Rhythm: SR w/ 1AVB Rhythm change?: N MD Notified?: N -DR.BALFE BAILEY Response: No New Orders Received Latest Pulido Fall Score: 70 Fall Risk: High Risk Safety Measures: Call light Within Reach, Bed Alarm Zone 2, Side Rails Side Rails x2, Bed position Low and Locked. Fall Precautions: Yellow Socks Yellow Gown Door Sign Patient Fall Education Report given to Javier HADDAD.
--- NOTE | 2020-06-13 07:32 | NUR ---
NURSE NOTES: Dr. Hamilton notified of labs, with new orders noted and carried out.
--- NOTE | 2020-06-13 07:36 | NUR ---
NURSE NOTES: Spoke to Dr estrada and aware md of pts K 2.7, verbalized he will order some K replacement
[2020-06-13 08:00] VITALS: BP 147/83
--- NOTE | 2020-06-13 08:04 | Pulmonology Progress Note ---
Subjective ROS Limited/Unobtainable: Yes Constitutional: Denies: fever Allergies: Coded Allergies: No Known Allergies (Unverified , 06/08/20) All Systems: reviewed and negative except above Subjective care noted overnight events reviewed on vent on feeds low K even after significant replacement Objective Last 24 Hour Vital Signs Date Time Temp Pulse Resp B/P (MAP) Pulse Ox O2 Delivery O2 Flow Rate FiO2 06/13/20 06:24 146/87 06/13/20 04:00 94 06/13/20 04:00 45 06/13/20 04:00 Mechanical Ventilator 06/13/20 04:00 98.0 96 28 146/87 (106) 98 06/13/20 03:29 96 30 55 06/13/20 00:00 Mechanical Ventilator 06/13/20 00:00 98.6 100 28 151/87 (108) 98 06/13/20 00:00 100 06/12/20 23:22 100 28 55 06/12/20 22:05 146/85 06/12/20 20:00 Mechanical Ventilator 06/12/20 20:00 97.9 102 27 146/85 (105) 94 06/12/20 20:00 102 06/12/20 20:00 45 06/12/20 19:26 101 27 55 06/12/20 18:09 104 144/100 06/12/20 16:00 45 06/12/20 16:00 Mechanical Ventilator 06/12/20 16:00 98.4 102 16 142/81 (101) 94 06/12/20 16:00 102 06/12/20 14:56 104 29 55 06/12/20 14:55 127/74 06/12/20 12:00 45 06/12/20 12:00 97 06/12/20 12:00 Mechanical Ventilator 06/12/20 12:00 97.7 77 18 127/74 (91) 98 06/12/20 11:19 96 28 55 06/12/20 09:44 87 152/86 Intake and Output 06/12/20 06/13/20 19:00 07:00 Intake Total 310 ml 1060 ml Output Total 1240 ml 3030 ml Balance -930 ml -1970 ml Intake Free Water 150 ml 80 ml IV Total 50 ml 550 ml Tube Feeding 60 ml 430 ml Other 50 ml Output Urine Total 1200 ml 3000 ml Stool Total 40 ml 30 ml Objective WDWN NAD reduced breath sounds bilaterally without rhonchi or wheeze [id number] without MRG NABS nontender colostomy no CCE nonfocal reduced LOC trach in place reviewed Microbiology Date/Time Source Procedure Growth Status 06/10/20 15:00 Sputum Gram Stain - Final Resulted 06/10/20 15:00 Sputum Culture - Preliminary Gram Negative Bacillus 1 Resulted Laboratory Tests 06/12/20 12:11: POC Whole Blood Glucose 156H 06/12/20 18:16: POC Whole Blood Glucose [Pending] 06/12/20 22:45: Sodium Level 139, Potassium Level 3.3L, Chloride Level 104, Carbon Dioxide Level 27, Anion Gap 9, Blood Urea Nitrogen 5L, Creatinine 0.6, Estimat Glomerular Filtration Rate > 60, Glucose Level 176H, Calcium Level 7.5L 06/12/20 22:48: POC Whole Blood Glucose 178H 06/13/20 04:00: White Blood Count 13.8H, Red Blood Count 3.46L, Hemoglobin 9.7L, Hematocrit 30.2L, Mean Corpuscular Volume 87, Mean Corpuscular Hemoglobin 27.9, Mean Corpuscular Hemoglobin Concent 32.0, Red Cell Distribution Width 15.4H, Platelet Count 577H, Mean Platelet Volume 5.4L, Neutrophils (%) (Auto) 84.1H, Lymphocytes (%) (Auto) 9.6L, Monocytes (%) (Auto) 5.3, Eosinophils (%) (Auto) 0.6, Basophils (%) (Auto) 0.4, Sodium Level 141, Potassium Level 2.7*L, Chloride Level 106, Carbon Dioxide Level 27, Anion Gap 8, Blood Urea Nitrogen 6L, Creatinine 0.6, Estimat Glomerular Filtration Rate > 60, Glucose Level 144H, Calcium Level 7.4L, Total Bilirubin 0.4, Aspartate Amino Transf (AST/SGOT) 30, Alanine Aminotransferase (ALT/SGPT) 52, Alkaline Phosphatase 245H, Total Protein 5.8L, Albumin 1.6L, Globulin 4.2, Albumin/Globulin Ratio 0.4L 06/13/20 04:24: POC Whole Blood Glucose 143H Current Medications Medications (Trade) Dose Ordered Sig/Milla Route PRN Reason Start Time Stop Time Status Last Admin Dose Admin Amiodarone HCl (Cordarone) 200 mg DAILY GT 06/09/20 09:00 09/07/20 08:59 06/12/20 09:42 Amlodipine Besylate (Norvasc) 5 mg TWICE A DAY GT 06/09/20 09:00 07/09/20 08:59 06/12/20 18:09 Bethanechol Chloride (Urecholine) 25 mg Q6HR GT 06/09/20 06:00 07/09/20 05:59 06/13/20 06:24 Ceftriaxone Sodium 1 gm/ Dextrose 55 ml @ 110 mls/hr Q24H IVPB 06/11/20 14:00 06/18/20 13:59 06/12/20 14:36 Chlorhexidine Gluconate (Sue-Hex 2%) 1 applic DAILY@2000 TOPIC 06/10/20 20:00 09/08/20 19:59 06/12/20 20:08 Clonidine HCl (Catapres Tab) 0.1 mg Q6H PRN GT For High Blood Pressure 06/09/20 00:30 09/07/20 00:29 Dextrose (Dextrose 50%) 25 ml Q30M PRN IV Hypoglycemia 06/09/20 06:00 09/07/20 05:59 06/09/20 06:02 Dextrose (Dextrose 50%) 50 ml Q30M PRN IV Hypoglycemia 06/09/20 00:15 09/07/20 00:14 Docusate Sodium (Colace) 100 mg TWICE A DAY GT 06/09/20 09:00 07/09/20 08:59 06/12/20 18:08 Epoetin Cameron (Epoetin Cameron-EPBX(NON ESRD)) 10,000 unit SUBQ 06/09/20 21:00 09/07/20 20:59 06/11/20 20:37 Famotidine (Pepcid) 20 mg TWICE A DAY GT 06/09/20 09:00 09/07/20 08:59 06/12/20 18:08 Fluconazole (Diflucan) 100 mg DAILY ORAL 06/10/20 12:00 06/17/20 11:59 06/12/20 09:43 Hydralazine HCl (Apresoline) 25 mg EVERY 8 HOURS GT 06/09/20 06:00 09/07/20 05:59 06/13/20 06:24 Insulin Aspart (NovoLOG) Q6HR SUBQ 06/09/20 06:00 09/07/20 05:59 06/13/20 06:25 Lactulose (Cephulac) 20 gm Q6H PRN GT Constipation 06/09/20 00:30 07/09/20 00:29 Lansoprazole (Prevacid) 30 mg TWICE A DAY GT 06/09/20 09:00 07/09/20 08:59 06/12/20 18:09 Levetiracetam (Keppra) 500 mg TWICE A DAY GT 06/09/20 09:00 07/09/20 08:59 06/12/20 18:08 Levothyroxine Sodium (Synthroid) 75 mcg DAILY GT 06/09/20 09:00 07/09/20 08:59 06/12/20 09:00 Magnesium Sulfate 100 ml @ 100 mls/hr Q1H IVPB 06/13/20 08:30 06/13/20 10:29 Metoclopramide HCl (Reglan) 5 mg EVERY 6 HOURS GT 06/09/20 06:00 07/09/20 05:59 06/13/20 06:24 Nitroglycerin (Ntg) 0.4 mg Q5MIN X 3 DOSES PRN SL CHEST PAIN 06/09/20 00:30 07/09/20 00:29 Ondansetron HCl (Zofran) 4 mg Q6H PRN GT Nausea & Vomiting 06/09/20 00:30 07/09/20 00:29 Potassium Chloride 100 ml @ 100 mls/hr Q1H IVPB 06/13/20 08:00 06/13/20 11:59 Potassium Chloride (K-Dur) 40 meq ONCE GT 06/13/20 12:00 06/13/20 14:00 Potassium Chloride (K-Dur) 40 meq ONCE ORAL 06/13/20 06:30 06/13/20 08:30 06/13/20 07:00 Pravastatin Sodium (Pravachol) 40 mg BEDTIME GT 06/09/20 21:00 07/09/20 20:59 06/12/20 21:02 Sodium Chloride 1,000 ml @ 50 mls/hr Q20H IV 06/09/20 01:00 07/09/20 00:59 06/13/20 07:01 Vancomycin HCl (Vanco pharmacy to dose) 1 ea DAILY PRN MISC Per rx protocol 06/09/20 00:15 07/09/20 00:14 Vancomycin/Sodium Chloride 275 ml @ 137.5 mls/ hr Q24H IVPB 06/12/20 15:00 06/17/20 14:59 06/12/20 15:33 Zinc Sulfate (Zinc Sulfate) 220 mg DAILY GT 06/09/20 09:00 09/07/20 08:59 06/12/20 09:00 Assessment/Plan Assessment/Plan sepsis leukocytosis anemia colostomy respiratory failure possible gib chronic pancreatitis chronic encephalopathy hypernatremia acute renal failure pneumonia bacteremia UTI pneumonia possible sacral osteo/ decub diverting colostomy PLAN vent support IV antibiotics GI on feeds replace K ID recommendations noted monitor cxr and recommend close follow up monitor HH guarded at present impression, plan, and exam edited and reviewed in detail care discussed with Mundo Burciaga MD Jun 13, 2020 08:04
--- NOTE | 2020-06-13 08:11 | NUR ---
CASE MANAGEMENT: REVIEW 06/13/2020 SI;SEPSIS. VS: T 98 HR 94 RR 28 B/P 146/87 SATS 98% ON MECH VENT FIO2 45 LABS: WBC 13.8 K 2.7 BUN 6 GLU 144 CA 7.4 ALP 245 IS:NS @ 50 ML/HR HYDRALAZINE GT Q8H NORVASC GT BID PREVACID GT BID KEPPRA GT BID CORDARONE GT QD DIFLUCAN PO QD SDU DCP: [facility]
--- NOTE | 2020-06-13 08:13 | NUR ---
RD ASSESSMENT & RECOMMENDATIONS SEE CARE ACTIVITY FOR COMPLETE ASSESSMENT DAILY ESTIMATED NEEDS: Needs based on Critical care, wound / 67kg 22-30 kcals/kg 0841-8441 total kcals 1.25-2 g protein/kg 83-134 g total protein 25-30 mL/kg 7435-9606 total fluid mLs NUTRITION DIAGNOSIS: * Swallowing difficulty R/T dysphagia, respiratory status as evidenced by pt trach/vent dep, h/o PEG placement, GT feeds held and was on TPN GLUE SPRAYER for Pancreatitis, which now resolved, now on GT feeds. * Increased kcal/prot intake needs R/T wound healing as evidenced by pt admitted w /multiple advanced wounds, including full thickness Pressure Injury @ lumbar spine and sacrum w/ small area of bone exposure, DTPI wounds @ L lower buttocks, L ischium, R ischium, resolving pressure injury @ L tibia, unstageable wound @ R Tibia, R Lheel, and partial thickness pressure injury @ L heel. CURRENT TF:Glucerna 1.2 @ 60ml/hr x 24 hrs ENTERAL NUTRITION RECOMMENDATIONS: Glucerna 1.2 @ 60ml/hr x 24 hrs + Prosource 1pkt daily to provide 1440ml, 1728kcal, 86g +11g prot (1.45g/kg), 1159ml free water * Maintain current TF * Add Prosource 1pkt daily to better meet protein needs * HOB over 30 degrees/ water flush per MD * add Grady BID via GT for wound healing ADDITIONAL RECOMMENDATIONS: * Per SNF: HT=5'8" DB=446eic (as of 05/22/20), rec re-calibrated bedscale wt * Monitor TF tolerance: lipase wnl, h/o pancreatitis * Monitor lytes, replete as needed (K 2.7*) * Wound healing: add Vit C 500mg x1, continue ZnSO4 TF @ goal provides 100% est kcal/prot needs add Grady BID
[2020-06-13] MEDS: Fluconazole 100mg tab ORAL SCH (09:19)
[2020-06-13] MEDS: levETIRAcetam 500mg/5ml Liquid GT SCH ×2 (09:19→18:59)
[2020-06-13] MEDS: Docusate 100mg/10ml Liq GT SCH ×2 (09:19→18:59)
[2020-06-13] MEDS: Amiodarone 200mg tab GT SCH (09:19)
[2020-06-13] MEDS: Zinc Sulfate 220mg GT SCH (09:20)
--- NOTE | 2020-06-13 10:30 | NUR ---
NURSE NOTES: Seen and examined by CEDRICK Molina at this time. Will continue to monitor.
--- NOTE | 2020-06-13 11:06 | Infectious Diseases Prog Note ---
Assessment/Plan Assessment/Plan antibiotics : vancomycin iv, ceftriaxone, fluconazole A 1. coag neg staph sepsis 2. pneumonia with pseudomonas, gram negative rods 3. e.coli, enterococcus, fungal UTI 4. leucocytosis resolved 5. respiratory failure 6. diabetes mellitus 7. hypertension 9. coccyxgeal osteomyelitis P 1. continue iv vancomycin 37 more days 2. continue ceftriaxone 37 more days 3. continue fluconazole 3 more days 4. start inhaled colistin 5. will follow up cultures Subjective ROS Limited/Unobtainable: Yes Allergies: Coded Allergies: No Known Allergies (Unverified , 06/08/20) Objective Last 24 Hour Vital Signs Date Time Temp Pulse Resp B/P (MAP) Pulse Ox O2 Delivery O2 Flow Rate FiO2 06/13/20 09:20 96 147/83 06/13/20 08:00 98.6 95 18 147/83 (104) 100 06/13/20 08:00 55 06/13/20 08:00 Mechanical Ventilator 06/13/20 08:00 94 06/13/20 07:47 95 26 55 06/13/20 06:24 146/87 06/13/20 04:00 94 06/13/20 04:00 45 06/13/20 04:00 Mechanical Ventilator 06/13/20 04:00 98.0 96 28 146/87 (106) 98 06/13/20 03:29 96 30 55 06/13/20 00:00 Mechanical Ventilator 06/13/20 00:00 98.6 100 28 151/87 (108) 98 06/13/20 00:00 100 06/12/20 23:22 100 28 55 06/12/20 22:05 146/85 06/12/20 20:00 Mechanical Ventilator 06/12/20 20:00 97.9 102 27 146/85 (105) 94 06/12/20 20:00 102 06/12/20 20:00 45 06/12/20 19:26 101 27 55 06/12/20 18:09 104 144/100 06/12/20 16:00 45 06/12/20 16:00 Mechanical Ventilator 06/12/20 16:00 98.4 102 16 142/81 (101) 94 06/12/20 16:00 102 06/12/20 14:56 104 29 55 06/12/20 14:55 127/74 06/12/20 12:00 45 06/12/20 12:00 97 06/12/20 12:00 Mechanical Ventilator 06/12/20 12:00 97.7 77 18 127/74 (91) 98 06/12/20 11:19 96 28 55 Height (Feet): 5 Height (Inches): 10.00 Weight (Pounds): 162 Microbiology Date/Time Source Procedure Growth Status 06/10/20 15:00 Sputum Gram Stain - Final Resulted 06/10/20 15:00 Sputum Culture - Preliminary Pseudomonas Aeruginosa Gram Negative Bacillus 2 Resulted Laboratory Tests Test 06/12/20 12:11 06/12/20 18:16 06/12/20 22:45 06/12/20 22:48 POC Whole Blood Glucose 156 MG/DL (74-106) H Pending 178 MG/DL (74-106) H Sodium Level 139 MMOL/L (136-145) Potassium Level 3.3 MMOL/L (3.5-5.1) L Chloride Level 104 MMOL/L (98-107) Carbon Dioxide Level 27 MMOL/L (21-32) Anion Gap 9 mmol/L (5-15) Blood Urea Nitrogen 5 mg/dL (7-18) L Creatinine 0.6 MG/DL (0.55-1.30) Estimat Glomerular Filtration Rate > 60 mL/min (>60) Glucose Level 176 MG/DL (74-106) H Calcium Level 7.5 MG/DL (8.5-10.1) L Test 06/13/20 04:00 06/13/20 04:24 White Blood Count 13.8 K/UL (4.8-10.8) H Red Blood Count 3.46 M/UL (4.70-6.10) L Hemoglobin 9.7 G/DL (14.2-18.0) L Hematocrit 30.2 % (42.0-52.0) L Mean Corpuscular Volume 87 FL (80-99) Mean Corpuscular Hemoglobin 27.9 PG (27.0-31.0) Mean Corpuscular Hemoglobin Concent 32.0 G/DL (32.0-36.0) Red Cell Distribution Width 15.4 % (11.6-14.8) H Platelet Count 577 K/UL (150-450) H Mean Platelet Volume 5.4 FL (6.5-10.1) L Neutrophils (%) (Auto) 84.1 % (45.0-75.0) H Lymphocytes (%) (Auto) 9.6 % (20.0-45.0) L Monocytes (%) (Auto) 5.3 % (1.0-10.0) Eosinophils (%) (Auto) 0.6 % (0.0-3.0) Basophils (%) (Auto) 0.4 % (0.0-2.0) Sodium Level 141 MMOL/L (136-145) Potassium Level 2.7 MMOL/L (3.5-5.1) *L Chloride Level 106 MMOL/L (98-107) Carbon Dioxide Level 27 MMOL/L (21-32) Anion Gap 8 mmol/L (5-15) Blood Urea Nitrogen 6 mg/dL (7-18) L Creatinine 0.6 MG/DL (0.55-1.30) Estimat Glomerular Filtration Rate > 60 mL/min (>60) Glucose Level 144 MG/DL (74-106) H Calcium Level 7.4 MG/DL (8.5-10.1) L Total Bilirubin 0.4 MG/DL (0.2-1.0) Aspartate Amino Transf (AST/SGOT) 30 U/L (15-37) Alanine Aminotransferase (ALT/SGPT) 52 U/L (12-78) Alkaline Phosphatase 245 U/L (46-116) H Total Protein 5.8 G/DL (6.4-8.2) L Albumin 1.6 G/DL (3.4-5.0) L Globulin 4.2 g/dL Albumin/Globulin Ratio 0.4 (1.0-2.7) L POC Whole Blood Glucose 143 MG/DL (74-106) H Current Medications Medications (Trade) Dose Ordered Sig/Milla Route PRN Reason Start Time Stop Time Status Last Admin Dose Admin Amiodarone HCl (Cordarone) 200 mg DAILY GT 06/09/20 09:00 09/07/20 08:59 06/13/20 09:19 Amlodipine Besylate (Norvasc) 5 mg TWICE A DAY GT 06/09/20 09:00 07/09/20 08:59 06/13/20 09:20 Bethanechol Chloride (Urecholine) 25 mg Q6HR GT 06/09/20 06:00 07/09/20 05:59 06/13/20 06:24 Ceftriaxone Sodium 1 gm/ Dextrose 55 ml @ 110 mls/hr Q24H IVPB 06/11/20 14:00 06/18/20 13:59 06/12/20 14:36 Chlorhexidine Gluconate (Sue-Hex 2%) 1 applic DAILY@2000 TOPIC 06/10/20 20:00 09/08/20 19:59 06/12/20 20:08 Clonidine HCl (Catapres Tab) 0.1 mg Q6H PRN GT For High Blood Pressure 06/09/20 00:30 09/07/20 00:29 Dextrose (Dextrose 50%) 25 ml Q30M PRN IV Hypoglycemia 06/09/20 06:00 09/07/20 05:59 06/09/20 06:02 Dextrose (Dextrose 50%) 50 ml Q30M PRN IV Hypoglycemia 06/09/20 00:15 09/07/20 00:14 Docusate Sodium (Colace) 100 mg TWICE A DAY GT 06/09/20 09:00 07/09/20 08:59 06/13/20 09:19 Epoetin Cameron (Epoetin Cameron-EPBX(NON ESRD)) 10,000 unit TUE-TUE-TUE SUBQ 06/09/20 21:00 09/07/20 20:59 06/11/20 20:37 Famotidine (Pepcid) 20 mg TWICE A DAY GT 06/09/20 09:00 09/07/20 08:59 06/13/20 09:19 Fluconazole (Diflucan) 100 mg DAILY ORAL 06/10/20 12:00 06/17/20 11:59 06/13/20 09:19 Hydralazine HCl (Apresoline) 25 mg EVERY 8 HOURS GT 06/09/20 06:00 09/07/20 05:59 06/13/20 06:24 Insulin Aspart (NovoLOG) Q6HR SUBQ 06/09/20 06:00 09/07/20 05:59 06/13/20 06:25 Lactulose (Cephulac) 20 gm Q6H PRN GT Constipation 06/09/20 00:30 07/09/20 00:29 Lansoprazole (Prevacid) 30 mg TWICE A DAY GT 06/09/20 09:00 07/09/20 08:59 06/13/20 09:19 Levetiracetam (Keppra) 500 mg TWICE A DAY GT 06/09/20 09:00 07/09/20 08:59 06/13/20 09:19 Levothyroxine Sodium (Synthroid) 75 mcg DAILY GT 06/09/20 09:00 07/09/20 08:59 06/13/20 09:19 Metoclopramide HCl (Reglan) 5 mg EVERY 6 HOURS GT 06/09/20 06:00 07/09/20 05:59 06/13/20 06:24 Nitroglycerin (Ntg) 0.4 mg Q5MIN X 3 DOSES PRN SL CHEST PAIN 06/09/20 00:30 07/09/20 00:29 Ondansetron HCl (Zofran) 4 mg Q6H PRN GT Nausea & Vomiting 06/09/20 00:30 07/09/20 00:29 Potassium Chloride 100 ml @ 100 mls/hr Q1H IVPB 06/13/20 08:00 06/13/20 11:59 06/13/20 09:33 Potassium Chloride (K-Dur) 40 meq ONCE GT 06/13/20 12:00 06/13/20 14:00 Pravastatin Sodium (Pravachol) 40 mg BEDTIME GT 06/09/20 21:00 07/09/20 20:59 06/12/20 21:02 Sodium Chloride 1,000 ml @ 50 mls/hr Q20H IV 06/09/20 01:00 07/09/20 00:59 06/13/20 07:01 Vancomycin HCl (Vanco pharmacy to dose) 1 ea DAILY PRN MISC Per rx protocol 06/09/20 00:15 07/09/20 00:14 Vancomycin/Sodium Chloride 275 ml @ 137.5 mls/ hr Q24H IVPB 06/12/20 15:00 06/17/20 14:59 06/12/20 15:33 Zinc Sulfate (Zinc Sulfate) 220 mg DAILY GT 06/09/20 09:00 09/07/20 08:59 06/13/20 09:20 Jayde Leyva MD Jun 13, 2020 11:06
[2020-06-13 12:00] VITALS: BP 138/76
--- NOTE | 2020-06-13 13:00 | NUR ---
NURSE NOTES: Initiated 2nd round of Potassium. Patient tolerated 1st round well. Will continue to monitor.
[2020-06-13] MEDS: cefTRIAXone 1 GM in D5W 55 ML IVPB SCH (14:49)
--- NOTE | 2020-06-13 15:22 | Surgery Progress Note ---
Surgery Progress Note Subjective Additional Comments ill appearing labs noted no acute events Objective Last 24 Hour Vital Signs Date Time Temp Pulse Resp B/P (MAP) Pulse Ox O2 Delivery O2 Flow Rate FiO2 06/13/20 14:48 138/74 06/13/20 11:03 88 21 55 06/13/20 09:20 96 147/83 06/13/20 08:00 98.6 95 18 147/83 (104) 100 06/13/20 08:00 55 06/13/20 08:00 Mechanical Ventilator 06/13/20 08:00 94 06/13/20 07:47 95 26 55 06/13/20 06:24 146/87 06/13/20 04:00 94 06/13/20 04:00 45 06/13/20 04:00 Mechanical Ventilator 06/13/20 04:00 98.0 96 28 146/87 (106) 98 06/13/20 03:29 96 30 55 06/13/20 00:00 Mechanical Ventilator 06/13/20 00:00 98.6 100 28 151/87 (108) 98 06/13/20 00:00 100 06/12/20 23:22 100 28 55 06/12/20 22:05 146/85 06/12/20 20:00 Mechanical Ventilator 06/12/20 20:00 97.9 102 27 146/85 (105) 94 06/12/20 20:00 102 06/12/20 20:00 45 06/12/20 19:26 101 27 55 06/12/20 18:09 104 144/100 06/12/20 16:00 45 06/12/20 16:00 Mechanical Ventilator 06/12/20 16:00 98.4 102 16 142/81 (101) 94 06/12/20 16:00 102 I&O Intake and Output 06/12/20 06/13/20 19:00 07:00 Intake Total 310 ml 1060 ml Output Total 1240 ml 3030 ml Balance -930 ml -1970 ml Intake Free Water 150 ml 80 ml IV Total 50 ml 550 ml Tube Feeding 60 ml 430 ml Other 50 ml Output Urine Total 1200 ml 3000 ml Stool Total 40 ml 30 ml Dressing: other Wound: other Cardiovascular: RSR Respiratory: decreased breath sounds Abdomen: soft, non-tender, present bowel sounds Extremities: no tenderness, no cyanosis Laboratory Tests Test 06/12/20 18:16 06/12/20 22:45 06/12/20 22:48 06/13/20 04:00 POC Whole Blood Glucose Pending 178 MG/DL (74-106) H Sodium Level 139 MMOL/L (136-145) 141 MMOL/L (136-145) Potassium Level 3.3 MMOL/L (3.5-5.1) L 2.7 MMOL/L (3.5-5.1) *L Chloride Level 104 MMOL/L (98-107) 106 MMOL/L (98-107) Carbon Dioxide Level 27 MMOL/L (21-32) 27 MMOL/L (21-32) Anion Gap 9 mmol/L (5-15) 8 mmol/L (5-15) Blood Urea Nitrogen 5 mg/dL (7-18) L 6 mg/dL (7-18) L Creatinine 0.6 MG/DL (0.55-1.30) 0.6 MG/DL (0.55-1.30) Estimat Glomerular Filtration Rate > 60 mL/min (>60) > 60 mL/min (>60) Glucose Level 176 MG/DL (74-106) H 144 MG/DL (74-106) H Calcium Level 7.5 MG/DL (8.5-10.1) L 7.4 MG/DL (8.5-10.1) L White Blood Count 13.8 K/UL (4.8-10.8) H Red Blood Count 3.46 M/UL (4.70-6.10) L Hemoglobin 9.7 G/DL (14.2-18.0) L Hematocrit 30.2 % (42.0-52.0) L Mean Corpuscular Volume 87 FL (80-99) Mean Corpuscular Hemoglobin 27.9 PG (27.0-31.0) Mean Corpuscular Hemoglobin Concent 32.0 G/DL (32.0-36.0) Red Cell Distribution Width 15.4 % (11.6-14.8) H Platelet Count 577 K/UL (150-450) H Mean Platelet Volume 5.4 FL (6.5-10.1) L Neutrophils (%) (Auto) 84.1 % (45.0-75.0) H Lymphocytes (%) (Auto) 9.6 % (20.0-45.0) L Monocytes (%) (Auto) 5.3 % (1.0-10.0) Eosinophils (%) (Auto) 0.6 % (0.0-3.0) Basophils (%) (Auto) 0.4 % (0.0-2.0) Total Bilirubin 0.4 MG/DL (0.2-1.0) Aspartate Amino Transf (AST/SGOT) 30 U/L (15-37) Alanine Aminotransferase (ALT/SGPT) 52 U/L (12-78) Alkaline Phosphatase 245 U/L (46-116) H Total Protein 5.8 G/DL (6.4-8.2) L Albumin 1.6 G/DL (3.4-5.0) L Globulin 4.2 g/dL Albumin/Globulin Ratio 0.4 (1.0-2.7) L Test 06/13/20 04:24 06/13/20 11:49 POC Whole Blood Glucose 143 MG/DL (74-106) H 176 MG/DL (74-106) H Plan Problems: (1) UTI (urinary tract infection) (2) Pneumonia (3) Sepsis Assessment & Plan: leukocytosis, anemia. 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 Dry eschar noted to L earlobe(L)0.8cm x (W)0.6cm. No erythema noted periwound. Loose,dry eschar cap L earlobe(L)1cm x (W)0.7cm. Base of wound beneath loose eschar cap is moist and paul. No odor or exudate noted. Non-Blanchable erythema with shearing centrally posterior neck under tracheal collar.Periwound skin is dark without erythema or fluctuance.(L)1.5cm x (W)4.5cm. Resolving Pressure injury L lumbar area(L)2cm x (W00.7cm. [place] epithelial at base of wound. Loose dry edges . no erythema or induration periwound. Full thickness Pressure Injury Lumbar Spine(L)2.5cm x (W)1.5cm. Base of wound is 75% paul and moist,25% slough.Borders are macerated. No odor or exudate noted. Periwound without erythema or fluctuance. Full Thickness Sacral Pressure Injury (L)7.5cm x (W)8.8cm x (D)2.4cm, undermining clockwise 12-5 by 1.8cm @2o'clock. Base of wound is beefy red with purpuric area at base. Small area of bone exposure, scattered slough(20%) Wound is otherwise beefy red. Small amt serous exudate note. No odor noted. DTPI L lower Buttocks that is evolving. Base of wound is 75% soft necrosis,25% most and pink with surrounding maroon and indurated borders. DTPI that is evolving and is partially opened at L ischium(L)8cm x (W)9.5cm. Base of wound is purpuric ,indurated with opening that is 25% slough,75% moist and pink. NO odor noted. DTPI R Ischium that is evolving and is partially opened(L)6.3cm x (W)6.5cm. Base of wound is Indurated reddish/brown with opening that is 25% slough,25% soft necrosis,50% moist and pink. NO odor or exudate noted. No evidence of erythema or fluctuance periwound. Resolving Pressure Injury posterior L tibia with dry eschar cap,mixed dry pink epithelial. Unstageable Pressure injury posterior R Tibia. Stable dry eschar noted(L)14.5cm x (W)1.7cm. Unstageable Pressure Injury R heel(L)3.2cm x (W)4.2cm. Base of wound is 100% necrotic with marginal erythema and fluctuance periwound. Partial Thickness Pressure Injury medial L heel(L)1.3cm x (W)1.2cm. Base of wound is moist and viable . Edges are macerated with surrounding non-blanchable erythema with fluctuance. UNstageable Pressure Injury Lateral L Heel . Base of wound is 100% soft necrosis and is malodorous. Non-Blanchable erythema with Fluctuance periwound.(L)4cm x (W)3.4cm. Tx.Plan: Apply Betadine to R and L earlobes. Cover each ear with Optifoam drsg. Change every 3 days and prn. Apply Cavilon Skin Barrier to posterior neck. Cover with Optifoam drsg. Change every 3 days and prn. Cleanse Wounds Lumbar and L lumbar with Saline. Apply TheraHoney. Apply Moisture Barrier Paste periwound. Cover each site with Optifoam drsgs. Change every 3 days and prn. Cleanse Sacral wound with Saline. Loosely pack with Therahoney impregnated Kerlix. Apply Moisture Barrier paste periwound. Cover with Optifoam drsg. Change Daily and prn. Apply Moisture Barrier Paste to Scrotum with each incontinence care. Cleanse R and L Ischial wounds with Saline. Apply Therahoney. Apply Moisture Barrier Paste periwound. Cover each wound with Optifoam drsg. Changee very 3 days and prn. Apply Betadine to Posterior R and L Tibial wounds. Cover each wound with Optifoam drsgs. Change every 3 days and prn. Apply Betadine to R and L Heel wounds. Cover each heel with Optifoam drsgs. Change every 3 days and prn. Reposition at least every 2hours or as tolerated. Off-load heels with Pillows. APM/COLBY Mattress overlay. Jonny Powell Jun 13, 2020 15:21
[2020-06-13] MEDS: Vancomycin 1.5gm/NS Premix IVPB SCH (15:43)
[2020-06-13 16:00] VITALS: BP 151/89
--- NOTE | 2020-06-13 16:16 | General Progress Note ---
Subjective ROS Limited/Unobtainable: Yes Constitutional: Reports: malaise, weakness HEENT: Reports: no symptoms Cardiovascular: Reports: no symptoms Respiratory: Reports: shortness of breath, sputum Gastrointestinal/Abdominal: Reports: no symptoms Genitourinary: Reports: no symptoms Neurologic/Psychiatric: Reports: pre-existing deficit, seizure Endocrine: Reports: no symptoms Hematologic/Lymphatic: Reports: no symptoms Allergies: Coded Allergies: No Known Allergies (Unverified , 06/08/20) All Systems: reviewed and negative except above Subjective There have been no overnight events. Remained stable on the ventilator. Awake but nonverbal. Does not follow commands. No fevers or chills. Tolerating tube feeds. No residuals off TPN. On multiple IV antibiotics for the UTI and staph sepsis. Objective Last 24 Hour Vital Signs Date Time Temp Pulse Resp B/P (MAP) Pulse Ox O2 Delivery O2 Flow Rate FiO2 06/13/20 14:48 138/74 06/13/20 12:00 55 06/13/20 12:00 97.7 87 16 138/76 (96) 100 06/13/20 12:00 93 06/13/20 12:00 Mechanical Ventilator 06/13/20 11:03 88 21 55 06/13/20 09:20 96 147/83 06/13/20 08:00 98.6 95 18 147/83 (104) 100 06/13/20 08:00 55 06/13/20 08:00 Mechanical Ventilator 06/13/20 08:00 94 06/13/20 07:47 95 26 55 06/13/20 06:24 146/87 06/13/20 04:00 94 06/13/20 04:00 45 06/13/20 04:00 Mechanical Ventilator 06/13/20 04:00 98.0 96 28 146/87 (106) 98 06/13/20 03:29 96 30 55 06/13/20 00:00 Mechanical Ventilator 06/13/20 00:00 98.6 100 28 151/87 (108) 98 06/13/20 00:00 100 06/12/20 23:22 100 28 55 06/12/20 22:05 146/85 06/12/20 20:00 Mechanical Ventilator 06/12/20 20:00 97.9 102 27 146/85 (105) 94 9/24/20 20:00 102 06/12/20 20:00 45 06/12/20 19:26 101 27 55 06/12/20 18:09 104 144/100 Intake and Output 06/12/20 06/13/20 19:00 07:00 Intake Total 310 ml 1060 ml Output Total 1240 ml 3030 ml Balance -930 ml -1970 ml Intake Free Water 150 ml 80 ml IV Total 50 ml 550 ml Tube Feeding 60 ml 430 ml Other 50 ml Output Urine Total 1200 ml 3000 ml Stool Total 40 ml 30 ml Laboratory Tests 06/12/20 18:16: POC Whole Blood Glucose [Pending] 06/12/20 22:45: Sodium Level 139, Potassium Level 3.3L, Chloride Level 104, Carbon Dioxide Level 27, Anion Gap 9, Blood Urea Nitrogen 5L, Creatinine 0.6, Estimat Glomerular Filtration Rate > 60, Glucose Level 176H, Calcium Level 7.5L 06/12/20 22:48: POC Whole Blood Glucose 178H 06/13/20 04:00: Sodium Level 141, Potassium Level 2.7*L, Chloride Level 106, Carbon Dioxide Level 27, Anion Gap 8, Blood Urea Nitrogen 6L, Creatinine 0.6, Estimat Glomerular Filtration Rate > 60, Glucose Level 144H, Calcium Level 7.4L, White Blood Count 13.8H, Red Blood Count 3.46L, Hemoglobin 9.7L, Hematocrit 30.2L, Mean Corpuscular Volume 87, Mean Corpuscular Hemoglobin 27.9, Mean Corpuscular Hemoglobin Concent 32.0, Red Cell Distribution Width 15.4H, Platelet Count 577H, Mean Platelet Volume 5.4L, Neutrophils (%) (Auto) 84.1H, Lymphocytes (%) (Auto) 9.6L, Monocytes (%) (Auto) 5.3, Eosinophils (%) (Auto) 0.6, Basophils (%) (Auto) 0.4, Total Bilirubin 0.4, Aspartate Amino Transf (AST/SGOT) 30, Alanine Aminotransferase (ALT/SGPT) 52, Alkaline Phosphatase 245H, Total Protein 5.8L, Albumin 1.6L, Globulin 4.2, Albumin/Globulin Ratio 0.4L 06/13/20 04:24: POC Whole Blood Glucose 143H 06/13/20 11:49: POC Whole Blood Glucose 176H Height (Feet): 5 Height (Inches): 10.00 Weight (Pounds): 162 Objective General Appearance: WD/WN, no apparent distress, alert Neck: non-tender, normal alignment Cardiovascular: normal rate Respiratory/Chest: chest wall non-tender, lungs clear, normal breath sounds Abdomen: normal bowel sounds, non tender, soft, no organomegaly Edema: no edema noted Arm (L), no edema noted Arm (R) Neurologic: unresponsive Skin: normal pigmentation Lymphatic: normal anterior cervical (L), normal anterior cervical (R) Assessment/Plan Problem List: (1) Stage 4 skin ulcer of sacral region ICD Codes: L98.429 - Non-pressure chronic ulcer of back with unspecified severity SNOMED: 22484179, 758094592 (2) Colostomy in place ICD Codes: Z93.3 - Colostomy status SNOMED: 691319177, 155973838 (3) Sepsis ICD Codes: A41.9 - Sepsis, unspecified organism SNOMED: 10058504 (4) Pneumonia ICD Codes: J18.9 - Pneumonia, unspecified organism SNOMED: 897220448 Qualifiers: Qualified Codes: J18.9 - Pneumonia, unspecified organism (5) UTI (urinary tract infection) ICD Codes: N39.0 - Urinary tract infection, site not specified SNOMED: 30202712 Qualifiers: Qualified Codes: N30.01 - Acute cystitis with hematuria Status: stable Assessment/Plan: cont iv abx ID consult appreciated tube feeds. monitor residuals replace lytes as needed vent support resp rx suctioning as needed wean as able cont bp rx wound care d/w surgery turn q2 dvt/stress ulcer prophylaxis Robby Mays MD Jun 13, 2020 16:16
--- NOTE | 2020-06-13 17:17 | NUR ---
[employer] REPRESENTATIVE DOOR TO DOOR NOTE Pt's sister Lisandra So requested resource on healthcare POA document. Per Lisandra, pt has two daughters but they do not want to be POA. Daughters requested Lisandra to be POA. Pt expressed Lisandra that he can sign the paper. SW provided the healthcare POA resource.
--- NOTE | 2020-06-13 17:20 | NUR ---
NURSE NOTES:Seen and examined by Dr. Powell. No new orders, continue with current plan of care.
--- NOTE | 2020-06-13 19:25 | NUR ---
NURSE HAND-OFF REPORT: Important Events on Shift: Completed rounds of Potassium for patient. Patient Status: Stable Diet: GT feeding Glucerna 1.2 Pending Orders: Pending Results/Labs: Pending MD notification: Latest Vital Signs: Temperature 98.7 , Pulse 98 , B/P 151 /89 , Respiratory Rate 18 , O2 SAT 100 , Mechanical Ventilator, O2 Flow Rate 4.0 . Vital Sign Comment: WNL EKG Rhythm: SR with 1st AVB Rhythm change?: Y Notified?: N -DR.BALFE BAILEY Response: No New Orders Received Latest Pulido Fall Score: 70 Fall Risk: High Risk Safety Measures: Call light Within Reach, Bed Alarm Zone 2, Side Rails Side Rails x2, Bed position Low and Locked. Fall Precautions: Yellow Socks Yellow Gown Door Sign Patient Fall Education Report given to Nadia Arellano RN.
--- NOTE | 2020-06-13 19:26 | NUR ---
NURSE NOTES: received pt from Javier HADDAD., pt is resting on the bed at this time, opens eyes. no s/s of pain at this time. pt is on trach vent, no SOB noted. O2sat is at 100% at this time. Gtube site intact, clean, and patent as well. colostomy bag noted, no leaking noted at this time, and intact. florez cath is intact draining well with gravity, dark green stool noted. right upper picc line noted dressing site intact, clean, and patent. call light within reach. will continue to monitor pt with plan of care. bed at the lowest position, alarmed, and locked. side rails are padded.
[2020-06-13 20:00] VITALS: BP 136/78
--- NOTE | 2020-06-13 20:17 | NUR ---
NURSE NOTES: notified Dr. Leyva, regarding pt's fever 101.8. other vital signs are stable at this time.will wait for call back. will apply cooling measures to pt. call light within reach. will continue to monitor pt.
[2020-06-13] MEDS: Dyna-Hex 2% Top Sol 2oz TOPIC SCH (20:28)
[2020-06-13] MEDS: Epoetin Alfa-EPBX (NON ESRD)10,000 unit/ml vial SUBQ SCH (20:28)
--- NOTE | 2020-06-13 21:25 | NUR ---
NURSE NOTES: made Dr. Hamilton aware regarding pt's fever 101.8. blood culture and urine culture order received. will carry on, and continue to monitor pt with cooling measures, call light within reach.
--- NOTE | 2020-06-13 22:00 | NUR ---
NURSE NOTES: cooling measure applied, repositioned pt Q 2hrs. call light within reach. will continue to monitor pt.
[2020-06-13] MEDS: Colistin for inhalation INH SCH (22:43)
--- NOTE | 2020-06-13 23:31 | General Progress Note ---
Subjective Allergies: Coded Allergies: No Known Allergies (Unverified , 06/08/20) Subjective NAD tolerating TF d/w RN (+) Fever Objective Last 24 Hour Vital Signs Date Time Temp Pulse Resp B/P (MAP) Pulse Ox O2 Delivery O2 Flow Rate FiO2 06/13/20 22:43 98 25 100 Mechanical Ventilator 55 92 16 06/13/20 22:16 100.3 06/13/20 21:12 142/75 06/13/20 20:00 101.8 99 20 136/78 (97) 100 06/13/20 20:00 Mechanical Ventilator 06/13/20 20:00 50 06/13/20 19:32 98 06/13/20 19:00 100 25 55 06/13/20 19:00 98 151/89 06/13/20 16:00 55 06/13/20 16:00 98 06/13/20 16:00 Mechanical Ventilator 06/13/20 16:00 98.7 101 18 151/89 (109) 100 06/13/20 15:15 100 25 55 06/13/20 14:48 138/74 06/13/20 12:00 55 06/13/20 12:00 97.7 87 16 138/76 (96) 100 06/13/20 12:00 93 06/13/20 12:00 Mechanical Ventilator 06/13/20 11:03 88 21 55 06/13/20 09:20 96 147/83 06/13/20 08:00 98.6 95 18 147/83 (104) 100 06/13/20 08:00 55 06/13/20 08:00 Mechanical Ventilator 06/13/20 08:00 94 06/13/20 07:47 95 26 55 06/13/20 06:24 146/87 06/13/20 04:00 94 06/13/20 04:00 45 06/13/20 04:00 Mechanical Ventilator 06/13/20 04:00 98.0 96 28 146/87 (106) 98 06/13/20 03:29 96 30 55 06/13/20 00:00 Mechanical Ventilator 06/13/20 00:00 98.6 100 28 151/87 (108) 98 06/13/20 00:00 100 Intake and Output 06/12/20 06/13/20 19:00 07:00 Intake Total 310 ml 1060 ml Output Total 1240 ml 3030 ml Balance -930 ml -1970 ml Intake Free Water 150 ml 80 ml IV Total 50 ml 550 ml Tube Feeding 60 ml 430 ml Other 50 ml Output Urine Total 1200 ml 3000 ml Stool Total 40 ml 30 ml Laboratory Tests 06/13/20 04:00: White Blood Count 13.8H, Red Blood Count 3.46L, Hemoglobin 9.7L, Hematocrit 30.2L, Mean Corpuscular Volume 87, Mean Corpuscular Hemoglobin 27.9, Mean Corpuscular Hemoglobin Concent 32.0, Red Cell Distribution Width 15.4H, Platelet Count 577H, Mean Platelet Volume 5.4L, Neutrophils (%) (Auto) 84.1H, Lymphocytes (%) (Auto) 9.6L, Monocytes (%) (Auto) 5.3, Eosinophils (%) (Auto) 0.6, Basophils (%) (Auto) 0.4, Sodium Level 141, Potassium Level 2.7*L, Chloride Level 106, Carbon Dioxide Level 27, Anion Gap 8, Blood Urea Nitrogen 6L, Creatinine 0.6, Estimat Glomerular Filtration Rate > 60, Glucose Level 144H, Calcium Level 7.4L, Total Bilirubin 0.4, Aspartate Amino Transf (AST/SGOT) 30, Alanine Aminotr ansferase (ALT/SGPT) 52, Alkaline Phosphatase 245H, Total Protein 5.8L, Albumin 1.6L, Globulin 4.2, Albumin/Globulin Ratio 0.4L 06/13/20 04:24: POC Whole Blood Glucose 143H 06/13/20 11:49: POC Whole Blood Glucose 176H 06/13/20 19:08: POC Whole Blood Glucose [Pending] Height (Feet): 5 Height (Inches): 10.00 Weight (Pounds): 162 Objective Elderly man NCAT (+) trach coarse BS RR abd soft, (+) GT (+) colostomy no edema Assessment/Plan Status: stable Assessment/Plan: Assessment - h/o pancreatitis - resolved - s/p colostomy - sepsis/leukocytosis - resp failure / trach - dysphagia / GT - s/p CVA - Anemia - CAD - DM - hypokalemia - HTN - GERD Recommendations - Abx - CT abd/pelvis noted - PPI - Monitor CBC - TF - replace and recheck Moshe Carroll MD Jun 13, 2020 23:31
[2020-06-14] VITALS: BP 154/86
[2020-06-14 04:00] VITALS: BP 148/89
[2020-06-14] MEDS: NovoLOG Insulin Flexpen SUBQ SCH ×3 (05:06→18:24)
[2020-06-14 05:13] LABS: BASOPHILS % (AUTO) 0.4 % (0.0-2.0); HEMATOCRIT 31.6 % (42.0-52.0); HEMOGLOBIN 10.2 G/DL (14.2-18.0); LYMPHOCYTES % (AUTO) 13.1 % (20.0-45.0); MEAN CORPUSCULAR VOLUME 88 FL (80-99); MONOCYTES % (AUTO) 5.9 % (1.0-10.0); NEUTROPHILS % (AUTO) 78.7 % (45.0-75.0); PLATELET COUNT 603 K/UL (150-450); RED CELL DISTRIBUTION WIDTH 15.5 % (11.6-14.8); WHITE BLOOD COUNT 15.9 K/UL (4.8-10.8)
[2020-06-14] MEDS: HydrALAZINE 25mg tab GT SCH ×3 (05:25→21:50)
[2020-06-14] MEDS: Metoclopramide 10mg/10ml Liq GT SCH ×3 (05:25→18:22)
[2020-06-14] MEDS: Bethanechol 25mg Tab GT SCH ×3 (05:25→18:22)
[2020-06-14 05:39] LABS: ANION GAP 3 mmol/L (5-15); BLOOD UREA NITROGEN 7 mg/dL (7-18); CALCIUM 8.2 MG/DL (8.5-10.1); CARBON DIOXIDE 32 MMOL/L (21-32); CHLORIDE 103 MMOL/L (98-107); CREATININE 0.7 MG/DL (0.55-1.30); POTASSIUM 4.2 MMOL/L (3.5-5.1); SODIUM 138 MMOL/L (136-145)
--- NOTE | 2020-06-14 07:33 | NUR ---
NURSE HAND-OFF REPORT: Important Events on Shift:fever, MDR sputum and ESBL sputum needs to notify Patient Status: stable Diet: Glucerna 1.2 @ 50ml at this moment. goal is at 60 Pending Orders: none Pending Results/Labs:blood and urine culture Pending MD notification: Latest Vital Signs: Temperature 98.2 , Pulse 86 , B/P 148 /89 , Respiratory Rate 22 , O2 SAT 100 , Mechanical Ventilator, O2 Flow Rate 4.0 . Vital Sign Comment: stalbe EKG Rhythm: Sinus Rhythm Rhythm change?: N MD Notified?: N -DR.BALFE BAILEY Response: No New Orders Received Latest Pulido Fall Score: 70 Fall Risk: High Risk Safety Measures: Call light Within Reach, Bed Alarm Zone 2, Side Rails Side Rails x2, Bed position Low and Locked. Fall Precautions: Yellow Socks Yellow Gown Door Sign Patient Fall Education Report given to Rosaline Landry RN
--- NOTE | 2020-06-14 07:35 | NUR ---
NURSE NOTES: Report received from Carly MARTINES RN.Pt resting in bed asleep noted no resp distress,with trach tube to vent ,ordered vent settings tolerated,no signs of pain or discomfort ,SR on the monitor,GTF Glucerna 1.2 at 50 ml/hr no residual noted,Thomson cath draining yellow urine,colostomy bag draining dark green to black stools,skin warm and dry IV site to LAUREL PICC line intact ,SR up x2 HOB elevated bed lock in lowest position will continue with plans of care.
[2020-06-14 08:00] VITALS: BP 150/95
[2020-06-14] MEDS: Docusate 100mg/10ml Liq GT SCH ×2 (09:03→18:23)
[2020-06-14] MEDS: levETIRAcetam 500mg/5ml Liquid GT SCH ×2 (09:03→18:21)
[2020-06-14] MEDS: Fluconazole 100mg tab ORAL SCH (09:04)
[2020-06-14] MEDS: Amiodarone 200mg tab GT SCH (09:04)
[2020-06-14] MEDS: Zinc Sulfate 220mg GT SCH (09:04)
--- NOTE | 2020-06-14 09:49 | General Progress Note ---
Subjective ROS Limited/Unobtainable: No Constitutional: Reports: malaise, weakness HEENT: Reports: no symptoms Cardiovascular: Reports: no symptoms Respiratory: Reports: cough, shortness of breath, sputum Gastrointestinal/Abdominal: Reports: difficulty swallowing Genitourinary: Reports: no symptoms Neurologic/Psychiatric: Reports: pre-existing deficit Endocrine: Reports: no symptoms Hematologic/Lymphatic: Reports: no symptoms Allergies: Coded Allergies: No Known Allergies (Unverified , 06/08/20) Subjective remains stable on the vent. no fever or chills. no sob. tolerating feeds. awake but nonverbal. does not track or follow commands. WBC trending up- clinically appears stable and nontoxic. on multiple abx. Objective Last 24 Hour Vital Signs Date Time Temp Pulse Resp B/P (MAP) Pulse Ox O2 Delivery O2 Flow Rate FiO2 06/14/20 09:04 88 150/95 06/14/20 08:00 88 06/14/20 08:00 Mechanical Ventilator 06/14/20 08:00 50 06/14/20 08:00 97.7 90 17 150/95 (113) 100 06/14/20 05:25 148/89 06/14/20 04:00 Mechanical Ventilator 06/14/20 04:00 50 06/14/20 04:00 98.2 86 22 148/89 (108) 100 06/14/20 03:44 86 06/14/20 03:00 84 19 55 06/14/20 00:00 Mechanical Ventilator 06/14/20 00:00 99.5 92 20 154/86 (108) 100 06/13/20 23:49 90 06/13/20 22:43 98 25 100 Mechanical Ventilator 55 92 16 06/13/20 22:16 100.3 06/13/20 21:12 142/75 06/13/20 20:00 101.8 99 20 136/78 (97) 100 06/13/20 20:00 Mechanical Ventilator 06/13/20 20:00 50 06/13/20 19:32 98 06/13/20 19:00 100 25 55 06/13/20 19:00 98 151/89 06/13/20 16:00 55 06/13/20 16:00 98 06/13/20 16:00 Mechanical Ventilator 06/13/20 16:00 98.7 101 18 151/89 (109) 100 06/13/20 15:15 100 25 55 06/13/20 14:48 138/74 06/13/20 12:00 55 06/13/20 12:00 97.7 87 16 138/76 (96) 100 06/13/20 12:00 93 06/13/20 12:00 Mechanical Ventilator 06/13/20 11:03 88 21 55 Intake and Output 06/13/20 06/14/20 19:00 07:00 Intake Total 530 ml 1147.5 ml Output Total 2900 ml 1570 ml Balance -2370 ml -422.5 ml Intake Free Water 90 ml IV Total 50 ml 557.5 ml Tube Feeding 480 ml 500 ml Output Urine Total 2800 ml 1550 ml Stool Total 100 ml 20 ml Laboratory Tests 06/13/20 11:49: POC Whole Blood Glucose 176H 06/13/20 19:08: POC Whole Blood Glucose [Pending] 06/13/20 23:36: POC Whole Blood Glucose [Pending] 06/14/20 03:30: White Blood Count 15.9H, Red Blood Count 3.60L, Hemoglobin 10.2L, Hematocrit 31.6L, Mean Corpuscular Volume 88, Mean Corpuscular Hemoglobin 28.4, Mean Corpuscular Hemoglobin Concent 32.4, Red Cell Distribution Width 15.5H, Platelet Count 603H, Mean Platelet Volume 5.2L, Neutrophils (%) (Auto) 78.7H, Lymphocytes (%) (Auto) 13.1L, Monocytes (%) (Auto) 5.9, Eosinophils (%) (Auto) 2.0, Basophils (%) (Auto) 0.4, Sodium Level 138, Potassium Level 4.2#, Chloride Level 103, Carbon Dioxide Level 32, Anion Gap 3L, Blood Urea Nitrogen 7, Creatinine 0.7, Estimat Glomerular Filtration Rate > 60, Glucose Level 109H, Calcium Level 8.2L 06/14/20 05:02: POC Whole Blood Glucose 120H Height (Feet): 5 Height (Inches): 10.00 Weight (Pounds): 162 Objective General Appearance: WD/WN, no apparent distress, alert Neck: non-tender, normal alignment Cardiovascular: normal rate Respiratory/Chest: chest wall non-tender, lungs clear, normal breath sounds Abdomen: normal bowel sounds, non tender, soft, no organomegaly Edema: no edema noted Arm (L), no edema noted Arm (R) Neurologic: unresponsive Skin: normal pigmentation Lymphatic: normal anterior cervical (L), normal anterior cervical (R) Assessment/Plan Problem List: (1) Stage 4 skin ulcer of sacral region ICD Codes: L98.429 - Non-pressure chronic ulcer of back with unspecified severity SNOMED: 14089214, 827211516 (2) Colostomy in place ICD Codes: Z93.3 - Colostomy status SNOMED: 656489273, 095703340 (3) Sepsis ICD Codes: A41.9 - Sepsis, unspecified organism SNOMED: 08196115 (4) Pneumonia ICD Codes: J18.9 - Pneumonia, unspecified organism SNOMED: 408051811 Qualifiers: Qualified Codes: J18.9 - Pneumonia, unspecified organism (5) UTI (urinary tract infection) ICD Codes: N39.0 - Urinary tract infection, site not specified SNOMED: 57783361 Qualifiers: Qualified Codes: N30.01 - Acute cystitis with hematuria Status: stable Assessment/Plan: cont iv abx ID consult appreciated monitor wbc- ?trending up consider re-culture and repeat cxr/urine studies if continues to go up tube feeds. monitor residuals replace lytes as needed vent support resp rx suctioning as needed wean as able cont bp rx wound care d/w surgery turn q2 dvt/stress ulcer prophylaxis Robby Myas MD Jun 14, 2020 09:49
--- NOTE | 2020-06-14 10:00 | NUR ---
NURSE NOTES: Pt's family at bedside,mother and sister visiting,updated re pt's status.
--- NOTE | 2020-06-14 10:25 | Pulmonology Progress Note ---
Subjective ROS Limited/Unobtainable: Yes Constitutional: Denies: fever Allergies: Coded Allergies: No Known Allergies (Unverified , 06/08/20) All Systems: reviewed and negative except above Subjective care noted overnight events reviewed on vent on feeds low K now better Objective Last 24 Hour Vital Signs Date Time Temp Pulse Resp B/P (MAP) Pulse Ox O2 Delivery O2 Flow Rate FiO2 06/14/20 09:04 88 150/95 06/14/20 08:00 88 06/14/20 08:00 Mechanical Ventilator 06/14/20 08:00 50 06/14/20 08:00 97.7 90 17 150/95 (113) 100 06/14/20 05:25 148/89 06/14/20 04:00 Mechanical Ventilator 06/14/20 04:00 50 06/14/20 04:00 98.2 86 22 148/89 (108) 100 06/14/20 03:44 86 06/14/20 03:00 84 19 55 06/14/20 00:00 Mechanical Ventilator 06/14/20 00:00 99.5 92 20 154/86 (108) 100 06/13/20 23:49 90 06/13/20 22:43 98 25 100 Mechanical Ventilator 55 92 16 06/13/20 22:16 100.3 06/13/20 21:12 142/75 06/13/20 20:00 101.8 99 20 136/78 (97) 100 06/13/20 20:00 Mechanical Ventilator 06/13/20 20:00 50 06/13/20 19:32 98 06/13/20 19:00 100 25 55 06/13/20 19:00 98 151/89 06/13/20 16:00 55 06/13/20 16:00 98 06/13/20 16:00 Mechanical Ventilator 06/13/20 16:00 98.7 101 18 151/89 (109) 100 06/13/20 15:15 100 25 55 06/13/20 14:48 138/74 06/13/20 12:00 55 06/13/20 12:00 97.7 87 16 138/76 (96) 100 06/13/20 12:00 93 06/13/20 12:00 Mechanical Ventilator 06/13/20 11:03 88 21 55 Intake and Output 06/13/20 06/14/20 19:00 07:00 Intake Total 530 ml 1147.5 ml Output Total 2900 ml 1570 ml Balance -2370 ml -422.5 ml Intake Free Water 90 ml IV Total 50 ml 557.5 ml Tube Feeding 480 ml 500 ml Output Urine Total 2800 ml 1550 ml Stool Total 100 ml 20 ml Objective WDWN NAD reduced breath sounds bilaterally without rhonchi or wheeze [id number] without MRG NABS nontender colostomy no CCE nonfocal reduced LOC trach in place reviewed Laboratory Tests 06/13/20 11:49: POC Whole Blood Glucose 176H 06/13/20 19:08: POC Whole Blood Glucose [Pending] 06/13/20 23:36: POC Whole Blood Glucose [Pending] 06/14/20 03:30: White Blood Count 15.9H, Red Blood Count 3.60L, Hemoglobin 10.2L, Hematocrit 31.6L, Mean Corpuscular Volume 88, Mean Corpuscular Hemoglobin 28.4, Mean Corpuscular Hemoglobin Concent 32.4, Red Cell Distribution Width 15.5H, Platelet Count 603H, Mean Platelet Volume 5.2L, Neutrophils (%) (Auto) 78.7H, Lymphocytes (%) (Auto) 13.1L, Monocytes (%) (Auto) 5.9, Eosinophils (%) (Auto) 2.0, Basophils (%) (Auto) 0.4, Sodium Level 138, Potassium Level 4.2#, Chloride Level 103, Carbon Dioxide Level 32, Anion Gap 3L, Blood Urea Nitrogen 7, Creatinine 0.7, Estimat Glomerular Filtration Rate > 60, Glucose Level 109H, Calcium Level 8.2L 06/14/20 05:02: POC Whole Blood Glucose 120H Current Medications Medications (Trade) Dose Ordered Sig/Milla Route PRN Reason Start Time Stop Time Status Last Admin Dose Admin Acetaminophen (Tylenol) 650 mg Q4H PRN ORAL Temp >100.5 06/13/20 21:15 07/13/20 21:14 06/13/20 21:46 Amiodarone HCl (Cordarone) 200 mg DAILY GT 06/09/20 09:00 09/07/20 08:59 06/14/20 09:04 Amlodipine Besylate (Norvasc) 5 mg TWICE A DAY GT 06/09/20 09:00 07/09/20 08:59 06/14/20 09:04 Bethanechol Chloride (Urecholine) 25 mg Q6HR GT 06/09/20 06:00 07/09/20 05:59 06/14/20 05:25 Ceftriaxone Sodium 1 gm/ Dextrose 55 ml @ 110 mls/hr Q24H IVPB 06/11/20 14:00 07/20/20 23:59 06/13/20 14:49 Chlorhexidine Gluconate (Sue-Hex 2%) 1 applic DAILY@1999 TOPIC 06/10/20 20:00 09/08/20 19:59 06/13/20 20:28 Clonidine HCl (Catapres Tab) 0.1 mg Q6H PRN GT For High Blood Pressure 06/09/20 00:30 09/07/20 00:29 Colistimethate Sodium (Colistin *inhalation use only*) 75 mg Q12HR@ INH 06/13/20 22:00 06/20/20 21:59 06/13/20 22:43 Dextrose (Dextrose 50%) 25 ml Q30M PRN IV Hypoglycemia 06/09/20 06:00 09/07/20 05:59 06/09/20 06:02 Dextrose (Dextrose 50%) 50 ml Q30M PRN IV Hypoglycemia 06/09/20 00:15 09/07/20 00:14 Docusate Sodium (Colace) 100 mg TWICE A DAY GT 06/09/20 09:00 07/09/20 08:59 06/14/20 09:03 Epoetin Cameron (Epoetin Cameron-EPBX(NON ESRD)) 10,000 unit SUBQ 06/09/20 21:00 09/07/20 20:59 06/13/20 20:28 Famotidine (Pepcid) 20 mg TWICE A DAY GT 06/09/20 09:00 09/07/20 08:59 06/14/20 09:04 Fluconazole (Diflucan) 100 mg DAILY ORAL 06/10/20 12:00 06/17/20 11:59 06/14/20 09:04 Hydralazine HCl (Apresoline) 25 mg EVERY 8 HOURS GT 06/09/20 06:00 09/07/20 05:59 06/14/20 05:25 Insulin Aspart (NovoLOG) Q6HR SUBQ 06/09/20 06:00 09/07/20 05:59 06/13/20 23:47 Lactulose (Cephulac) 20 gm Q6H PRN GT Constipation 06/09/20 00:30 07/09/20 00:29 Lansoprazole (Prevacid) 30 mg TWICE A DAY GT 06/09/20 09:00 07/09/20 08:59 06/14/20 09:04 Levetiracetam (Keppra) 500 mg TWICE A DAY GT 06/09/20 09:00 07/09/20 08:59 06/14/20 09:03 Levothyroxine Sodium (Synthroid) 75 mcg DAILY GT 06/09/20 09:00 07/09/20 08:59 06/14/20 09:04 Metoclopramide HCl (Reglan) 5 mg EVERY 6 HOURS GT 06/09/20 06:00 07/09/20 05:59 06/14/20 05:25 Nitroglycerin (Ntg) 0.4 mg Q5MIN X 3 DOSES PRN SL CHEST PAIN 06/09/20 00:30 07/09/20 00:29 Ondansetron HCl (Zofran) 4 mg Q6H PRN GT Nausea & Vomiting 06/09/20 00:30 07/09/20 00:29 Pravastatin Sodium (Pravachol) 40 mg BEDTIME GT 06/09/20 21:00 07/09/20 20:59 06/13/20 20:28 Sodium Chloride 1,000 ml @ 50 mls/hr Q20H IV 06/09/20 01:00 07/09/20 00:59 06/13/20 23:51 Vancomycin HCl (Vanco pharmacy to dose) 1 ea DAILY PRN MISC Per rx protocol 06/09/20 00:15 07/20/20 00:14 Vancomycin/Sodium Chloride 275 ml @ 137.5 mls/ hr Q24H IVPB 06/12/20 15:00 07/20/20 23:59 06/13/20 15:43 Zinc Sulfate (Zinc Sulfate) 220 mg DAILY GT 06/09/20 09:00 09/07/20 08:59 06/14/20 09:04 Assessment/Plan Assessment/Plan sepsis leukocytosis anemia colostomy respiratory failure possible gib chronic pancreatitis chronic encephalopathy hypernatremia acute renal failure pneumonia bacteremia UTI pneumonia sacral osteo/ decub diverting colostomy PLAN vent support IV antibiotics- noted; PICC line GI on feeds replace K and monitor ID recommendations noted monitor cxr and recommend close follow up monitor HH guarded at present hope to dc soon back to snf message left for sister impression, plan, and exam edited and reviewed in detail care discussed with Mundo Burciaga MD Jun 14, 2020 10:25
[2020-06-14] MEDS: Colistin for inhalation INH SCH ×2 (11:34→22:45)
[2020-06-14 12:22] VITALS: BP 154/89
--- NOTE | 2020-06-14 13:00 | NUR ---
NURSE NOTES: Oral care done ,oral/tracheal secretions suctioned PRN.
[2020-06-14] MEDS: cefTRIAXone 1 GM in D5W 55 ML IVPB SCH (13:30)
--- NOTE | 2020-06-14 15:45 | General Progress Note ---
Subjective Allergies: Coded Allergies: No Known Allergies (Unverified , 06/08/20) Subjective NAD tolerating TF Objective Last 24 Hour Vital Signs Date Time Temp Pulse Resp B/P (MAP) Pulse Ox O2 Delivery O2 Flow Rate FiO2 06/14/20 13:30 154/89 06/14/20 12:22 97.9 88 17 154/89 (110) 100 06/14/20 12:00 Mechanical Ventilator 06/14/20 12:00 84 06/14/20 12:00 50 06/14/20 11:34 83 20 100 Mechanical Ventilator 55 85 20 06/14/20 09:04 88 150/95 06/14/20 08:00 88 06/14/20 08:00 Mechanical Ventilator 06/14/20 08:00 50 06/14/20 08:00 97.7 90 17 150/95 (113) 100 06/14/20 07:48 87 25 55 06/14/20 05:25 148/89 06/14/20 04:00 Mechanical Ventilator 06/14/20 04:00 50 06/14/20 04:00 98.2 86 22 148/89 (108) 100 06/14/20 03:44 86 06/14/20 03:00 84 19 55 06/14/20 00:00 Mechanical Ventilator 06/14/20 00:00 99.5 92 20 154/86 (108) 100 06/13/20 23:49 90 06/13/20 22:43 98 25 100 Mechanical Ventilator 55 92 16 06/13/20 22:16 100.3 06/13/20 21:12 142/75 06/13/20 20:00 101.8 99 20 136/78 (97) 100 06/13/20 20:00 Mechanical Ventilator 06/13/20 20:00 50 06/13/20 19:32 98 06/13/20 19:00 100 25 55 06/13/20 19:00 98 151/89 06/13/20 16:00 55 06/13/20 16:00 98 06/13/20 16:00 Mechanical Ventilator 06/13/20 16:00 98.7 101 18 151/89 (109) 100 Intake and Output 06/13/20 06/14/20 19:00 07:00 Intake Total 530 ml 1147.5 ml Output Total 2900 ml 1570 ml Balance -2370 ml -422.5 ml Intake Free Water 90 ml IV Total 50 ml 557.5 ml Tube Feeding 480 ml 500 ml Output Urine Total 2800 ml 1550 ml Stool Total 100 ml 20 ml Laboratory Tests 06/13/20 19:08: POC Whole Blood Glucose [Pending] 06/13/20 23:36: POC Whole Blood Glucose [Pending] 06/14/20 03:30: White Blood Count 15.9H, Red Blood Count 3.60L, Hemoglobin 10.2L, Hematocrit 31.6L, Mean Corpuscular Volume 88, Mean Corpuscular Hemoglobin 28.4, Mean Corpuscular Hemoglobin Concent 32.4, Red Cell Distribution Width 15.5H, Platelet Count 603H, Mean Platelet Volume 5.2L, Neutrophils (%) (Auto) 78.7H, Lymphocytes (%) (Auto) 13.1L, Monocytes (%) (Auto) 5.9, Eosinophils (%) (Auto) 2.0, Basophils (%) (Auto) 0.4, Sodium Level 138, Potassium Level 4.2#, Chloride Level 103, Carbon Dioxide Level 32, Anion Gap 3L, Blood Urea Nitrogen 7, Creatinine 0.7, Estimat Glomerular Filtration Rate > 60, Glucose Level 109H, Calcium Level 8.2L 06/14/20 05:02: POC Whole Blood Glucose 120H 06/14/20 12:20: POC Whole Blood Glucose 191H 06/14/20 15:30: Vancomycin Level Trough [Pending] Height (Feet): 5 Height (Inches): 10.00 Weight (Pounds): 162 Objective Elderly man NCAT (+) trach coarse BS RR abd soft, (+) GT (+) colostomy no edema Assessment/Plan Status: stable Assessment/Plan: Assessment - h/o pancreatitis - resolved - s/p colostomy - sepsis/leukocytosis - resp failure / trach - dysphagia / GT - s/p CVA - Anemia - CAD - DM - hypokalemia - HTN - GERD Recommendations - Abx - CT abd/pelvis noted - PPI - Monitor CBC - TF - replace and recheck Moshe Carroll MD Jun 14, 2020 15:45
[2020-06-14 16:00] VITALS: BP 136/85
--- NOTE | 2020-06-14 16:00 | NUR ---
NURSE NOTES: Bed bath given,kept dry and clean,pulled up and repositioned .
[2020-06-14] MEDS: Vancomycin 1.5gm/NS Premix IVPB SCH (17:32)
--- NOTE | 2020-06-14 19:00 | NUR ---
NURSE NOTES: Pt stable no resp distress presented,pt afebrile the whole shift.
--- NOTE | 2020-06-14 19:20 | NUR ---
NURSE HAND-OFF REPORT: Important Events on Shift: Patient Status: Stable Diet: Glucerna 1.2 at 50 ml/hr GT Pending Orders: N/A Pending Results/Labs:N/A Pending MD notificationN/A] Latest Vital Signs: Temperature 98.6 , Pulse 95 , B/P 154 /89 , Respiratory Rate 24 , O2 SAT 100 , Mechanical Ventilator, O2 Flow Rate 4.0 . Vital Sign Comment: stable EKG Rhythm: SR with 1st AVB Rhythm change?: N MD Notified?: N - MD Response: No New Orders Received Latest Pulido Fall Score: 70 Fall Risk: High Risk Safety Measures: Call light Within Reach, Bed Alarm Zone 2, Side Rails Side Rails x2, Bed position Low and Locked. Fall Precautions: Yellow Socks Yellow Gown Door Sign Patient Fall Education Report given Akin Guzman RN
--- NOTE | 2020-06-14 19:52 | Surgery Progress Note ---
Surgery Progress Note Subjective Symptoms: tolerating diet, passing flatus, BM, pain decreased Objective Last 24 Hour Vital Signs Date Time Temp Pulse Resp B/P (MAP) Pulse Ox O2 Delivery O2 Flow Rate FiO2 06/14/20 18:52 95 29 100 Mechanical Ventilator 50 06/14/20 18:52 95 24 55 06/14/20 18:23 86 154/89 06/14/20 16:00 50 06/14/20 16:00 50 06/14/20 16:00 98.6 94 21 136/85 (102) 100 06/14/20 16:00 84 06/14/20 16:00 Mechanical Ventilator 06/14/20 15:27 86 24 55 06/14/20 13:30 154/89 06/14/20 12:22 97.9 88 17 154/89 (110) 100 06/14/20 12:00 Mechanical Ventilator 06/14/20 12:00 84 06/14/20 12:00 50 06/14/20 11:34 83 20 100 Mechanical Ventilator 55 85 20 06/14/20 09:04 88 150/95 06/14/20 08:00 88 06/14/20 08:00 Mechanical Ventilator 06/14/20 08:00 50 06/14/20 08:00 97.7 90 17 150/95 (113) 100 06/14/20 07:48 87 25 55 06/14/20 05:25 148/89 06/14/20 04:00 Mechanical Ventilator 06/14/20 04:00 50 06/14/20 04:00 98.2 86 22 148/89 (108) 100 06/14/20 03:44 86 06/14/20 03:00 84 19 55 06/14/20 00:00 Mechanical Ventilator 06/14/20 00:00 99.5 92 20 154/86 (108) 100 06/13/20 23:49 90 06/13/20 22:43 98 25 100 Mechanical Ventilator 55 92 16 06/13/20 22:16 100.3 06/13/20 21:12 142/75 06/13/20 20:00 101.8 99 20 136/78 (97) 100 06/13/20 20:00 Mechanical Ventilator 06/13/20 20:00 50 I&O Intake and Output 06/13/20 06/14/20 19:00 07:00 Intake Total 530 ml 1197.5 ml Output Total 2900 ml 1570 ml Balance -2370 ml -372.5 ml Intake Free Water 90 ml IV Total 50 ml 557.5 ml Tube Feeding 480 ml 550 ml Output Urine Total 2800 ml 1550 ml Stool Total 100 ml 20 ml Dressing: saturated Cardiovascular: RSR Respiratory: clear, decreased breath sounds Abdomen: soft, non-tender, present bowel sounds Extremities: no tenderness, no cyanosis Laboratory Tests Test 06/13/20 23:36 06/14/20 03:30 06/14/20 05:02 06/14/20 12:20 POC Whole Blood Glucose Pending 120 MG/DL (74-106) H 191 MG/DL (74-106) H White Blood Count 15.9 K/UL (4.8-10.8) H Red Blood Count 3.60 M/UL (4.70-6.10) L Hemoglobin 10.2 G/DL (14.2-18.0) L Hematocrit 31.6 % (42.0-52.0) L Mean Corpuscular Volume 88 FL (80-99) Mean Corpuscular Hemoglobin 28.4 PG (27.0-31.0) Mean Corpuscular Hemoglobin Concent 32.4 G/DL (32.0-36.0) Red Cell Distribution Width 15.5 % (11.6-14.8) H Platelet Count 603 K/UL (150-450) H Mean Platelet Volume 5.2 FL (6.5-10.1) L Neutrophils (%) (Auto) 78.7 % (45.0-75.0) H Lymphocytes (%) (Auto) 13.1 % (20.0-45.0) L Monocytes (%) (Auto) 5.9 % (1.0-10.0) Eosinophils (%) (Auto) 2.0 % (0.0-3.0) Basophils (%) (Auto) 0.4 % (0.0-2.0) Sodium Level 138 MMOL/L (136-145) Potassium Level 4.2 MMOL/L (3.5-5.1) # Chloride Level 103 MMOL/L (98-107) Carbon Dioxide Level 32 MMOL/L (21-32) Anion Gap 3 mmol/L (5-15) L Blood Urea Nitrogen 7 mg/dL (7-18) Creatinine 0.7 MG/DL (0.55-1.30) Estimat Glomerular Filtration Rate > 60 mL/min (>60) Glucose Level 109 MG/DL (74-106) H Calcium Level 8.2 MG/DL (8.5-10.1) L Test 06/14/20 15:30 06/14/20 18:19 Vancomycin Level Trough 19.3 ug/mL (5.0-12.0) H POC Whole Blood Glucose Pending Plan Problems: (1) UTI (urinary tract infection) (2) Pneumonia (3) Sepsis Assessment & Plan: leukocytosis, anemia. 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 Dry eschar noted to L earlobe(L)0.8cm x (W)0.6cm. No erythema noted periwound. Loose,dry eschar cap L earlobe(L)1cm x (W)0.7cm. Base of wound beneath loose eschar cap is moist and paul. No odor or exudate noted. Non-Blanchable erythema with shearing centrally posterior neck under tracheal collar.Periwound skin is dark without erythema or fluctuance.(L)1.5cm x (W)4.5cm. Resolving Pressure injury L lumbar area(L)2cm x (W00.7cm. [place] epithelial at base of wound. Loose dry edges . no erythema or induration periwound. Full thickness Pressure Injury Lumbar Spine(L)2.5cm x (W)1.5cm. Base of wound is 75% paul and moist,25% slough.Borders are macerated. No odor or exudate noted. Periwound without erythema or fluctuance. Full Thickness Sacral Pressure Injury (L)7.5cm x (W)8.8cm x (D)2.4cm, undermining clockwise 12-5 by 1.8cm @2o'clock. Base of wound is beefy red with purpuric area at base. Small area of bone exposure, scattered slough(20%) Wound is otherwise beefy red. Small amt serous exudate note. No odor noted. DTPI L lower Buttocks that is evolving. Base of wound is 75% soft necrosis,25% most and pink with surrounding maroon and indurated borders. DTPI that is evolving and is partially opened at L ischium(L)8cm x (W)9.5cm. Base of wound is purpuric ,indurated with opening that is 25% slough,75% moist and pink. NO odor noted. DTPI R Ischium that is evolving and is partially opened(L)6.3cm x (W)6.5cm. Base of wound is Indurated reddish/brown with opening that is 25% slough,25% soft necrosis,50% moist and pink. NO odor or exudate noted. No evidence of erythema or fluctuance periwound. Resolving Pressure Injury posterior L tibia with dry eschar cap,mixed dry pink epithelial. Unstageable Pressure injury posterior R Tibia. Stable dry eschar noted(L)14.5cm x (W)1.7cm. Unstageable Pressure Injury R heel(L)3.2cm x (W)4.2cm. Base of wound is 100% necrotic with marginal erythema and fluctuance periwound. Partial Thickness Pressure Injury medial L heel(L)1.3cm x (W)1.2cm. Base of wound is moist and viable . Edges are macerated with surrounding non-blanchable erythema with fluctuance. UNstageable Pressure Injury Lateral L Heel . Base of wound is 100% soft necrosis and is malodorous. Non-Blanchable erythema with Fluctuance periwound.(L)4cm x (W)3.4cm. Tx.Plan: Apply Betadine to R and L earlobes. Cover each ear with Optifoam drsg. Change every 3 days and prn. Apply Cavilon Skin Barrier to posterior neck. Cover with Optifoam drsg. Change every 3 days and prn. Cleanse Wounds Lumbar and L lumbar with Saline. Apply TheraHoney. Apply Moisture Barrier Paste periwound. Cover each site with Optifoam drsgs. Change every 3 days and prn. Cleanse Sacral wound with Saline. Loosely pack with Therahoney impregnated Kerlix. Apply Moisture Barrier paste periwound. Cover with Optifoam drsg. Change Daily and prn. Apply Moisture Barrier Paste to Scrotum with each incontinence care. Cleanse R and L Ischial wounds with Saline. Apply Therahoney. Apply Moisture Barrier Paste periwound. Cover each wound with Optifoam drsg. Changee very 3 days and prn. Apply Betadine to Posterior R and L Tibial wounds. Cover each wound with Optifoam drsgs. Change every 3 days and prn. Apply Betadine to R and L Heel wounds. Cover each heel with Optifoam drsgs. Change every 3 days and prn. Reposition at least every 2hours or as tolerated. Off-load heels with Pillows. APM/COLBY Mattress overlay. Jonny Powell Jun 14, 2020 19:52
--- NOTE | 2020-06-14 19:55 | NUR ---
NURSE NOTES: Pt received from BOO Carrillo alert and oriented x1 opens eyes spontaneously but nonverbal. Trach-dependent with AC 16, TV 400, 50% FiO2, Peep 5, saturating at 100% with no acute s/s of distress noted. R upper arm PICC running to NS at 50 as ordered, asymptomatic and patent, able to withdraw blood. Gtube feed tolerated - 20 ml gastric residual noted - with Glucerna 1.2 at 60. Colostomy noted with beefy red stoma, with small amount of black liquid stool. Thomson catheter draining to clear and yellow urine. SCDs noted on bilateral lower extremities. Bed in lowest position, bed alarm on. Call light and belongings within reach.
[2020-06-14 20:00] VITALS: BP 129/97
[2020-06-14] MEDS: Meropenem 1gm/NS 55ml IVPB SCH ×2 (21:51)
[2020-06-14] MEDS: Dyna-Hex 2% Top Sol 2oz TOPIC SCH (22:02)
--- NOTE | 2020-06-14 23:17 | NUR ---
NURSE NOTES: Bed bath and wound care provided. Wound Care Pictures taken per protocol, uploaded into EMR. Colostomy bag noted to be leaking, thus changed with one-piece colostomy bag. Beefy red stoma noted with black liquid stool - 100 mL.
[2020-06-15] VITALS: BP 128/69
--- NOTE | 2020-06-15 00:10 | NUR ---
NURSE NOTES: Gtube feed tolerating - 10 ml gastric residual noted. Gtube feed increased to goal of 60, will continue to monitor.
[2020-06-15] MEDS: Bethanechol 25mg Tab GT SCH ×4 (00:22→17:39)
[2020-06-15] MEDS: Metoclopramide 10mg/10ml Liq GT SCH ×4 (00:22→17:39)
[2020-06-15] MEDS: NovoLOG Insulin Flexpen SUBQ SCH ×4 (00:24→17:40)
[2020-06-15] MEDS: Meropenem 1gm/NS 55ml IVPB SCH ×6 (03:28→20:23)
[2020-06-15 04:00] VITALS: BP 134/82
[2020-06-15 05:38] LABS: BASOPHILS % (AUTO) 0.5 % (0.0-2.0); EOSINOPHILS % (AUTO) 3.3 % (0.0-3.0); HEMOGLOBIN 9.6 G/DL (14.2-18.0); LYMPHOCYTES % (AUTO) 12.2 % (20.0-45.0); MEAN CORPUSCULAR VOLUME 89 FL (80-99); MONOCYTES % (AUTO) 7.6 % (1.0-10.0); NEUTROPHILS % (AUTO) 76.4 % (45.0-75.0); PLATELET COUNT 555 K/UL (150-450); RED BLOOD COUNT 3.39 M/UL (4.70-6.10); WHITE BLOOD COUNT 12.9 K/UL (4.8-10.8)
[2020-06-15] MEDS: HydrALAZINE 25mg tab GT SCH ×3 (05:51→22:21)
[2020-06-15 05:53] LABS: ALANINE AMINOTRANSFERASE 34 U/L (12-78); ALBUMIN 1.7 G/DL (3.4-5.0); ALBUMIN/GLOBULIN RATIO 0.3 (1.0-2.7); ALKALINE PHOSPHATASE 202 U/L (46-116); ANION GAP 4 mmol/L (5-15); ASPARTATE AMINO TRANSFERASE 21 U/L (15-37); BILIRUBIN,TOTAL 0.3 MG/DL (0.2-1.0); BLOOD UREA NITROGEN 11 mg/dL (7-18); CARBON DIOXIDE 32 MMOL/L (21-32); CHLORIDE 103 MMOL/L (98-107); CREATININE 0.7 MG/DL (0.55-1.30); POTASSIUM 3.8 MMOL/L (3.5-5.1); SODIUM 139 MMOL/L (136-145)
--- NOTE | 2020-06-15 07:04 | NUR ---
NURSE HAND-OFF REPORT: Important Events on Shift: Gtube feed tolerated, able to be titrated up to goal of 60 ml/hr. Patient Status: Stable Diet: Glucerna 1.2 GT Pending Orders: n/a Pending Results/Labs: n/a Pending MD notification: n/a Latest Vital Signs: Temperature 98.4 , Pulse 90 , B/P 127 /79 , Respiratory Rate 18 , O2 SAT 100 , Mechanical Ventilator, O2 Flow Rate 4.0 . Vital Sign Comment: WNL EKG Rhythm: SR with 1st AVB Rhythm change?: N MD Notified?: N MD Response: No New Orders Received Latest Pulido Fall Score: 70 Fall Risk: High Risk Safety Measures: Call light Within Reach, Bed Alarm Zone 2, Side Rails Side Rails x2, Bed position Low and Locked. Fall Precautions: Yes Yellow Socks Yellow Gown Door Sign Patient Fall Education Report given to BOO Alan.
--- NOTE | 2020-06-15 07:15 | NUR ---
NURSE NOTES: Received report from BOO Dyer. The patient is resting on the bed without acute distress or shortness of breath. The patient is obtunded, opening eyes spontaneously, and responding to verbal and tactile stimuli. Communication made by facial expression and body movement. SR w/ 1AVB with HR of 80s on the monitoring and evaluation advisor. The patient is trach'ed and on ventilator on following setting and oxygen saturation is 100: Portex 6, AC 16, TV 400, FiO2 50%, and PEEP 5. The patient's GT intact and patent and running Glucerna 1.2 @60mL/hr and no residual noted at this time. Thomson intact and draining by gravity. Colostomy site clean and bright red intact stoma noted with colostomy bag on place. The patient's skin issue noted and dressing intact. The patient's bed in the lowest position, call light in reach, and fall, aspiration, and seizure precaution reinforced. IV site intact and patent. Will closely monitor the patient. Will follow up the lab and order. Will continue plan of care.
--- NOTE | 2020-06-15 07:30 | NUR ---
NURSE NOTES: Initial vital signs taken. Initial nursing assessment done. The patient is stable at this time. Will continue plan of care.
--- NOTE | 2020-06-15 07:58 | Surgery Progress Note ---
Surgery Progress Note Subjective Additional Comments leukocytosis improved tolerating tf cellulitis improving no n/v Objective Last 24 Hour Vital Signs Date Time Temp Pulse Resp B/P (MAP) Pulse Ox O2 Delivery O2 Flow Rate FiO2 06/15/20 07:16 82 21 55 06/15/20 05:51 127/79 06/15/20 04:00 Mechanical Ventilator 06/15/20 04:00 50 06/15/20 04:00 86 06/15/20 04:00 98.4 90 18 134/82 (99) 100 06/15/20 03:02 84 19 55 06/15/20 00:00 Mechanical Ventilator 06/15/20 00:00 50 06/15/20 00:00 98.7 89 18 128/69 (88) 100 06/14/20 23:33 82 06/14/20 22:45 89 22 100 Mechanical Ventilator 55 85 20 06/14/20 21:50 129/97 06/14/20 21:00 91 06/14/20 20:00 98.8 94 16 129/97 (108) 100 06/14/20 20:00 Mechanical Ventilator 06/14/20 20:00 50 06/14/20 18:52 95 29 100 Mechanical Ventilator 50 06/14/20 18:52 95 24 55 06/14/20 18:23 86 154/89 06/14/20 16:00 50 06/14/20 16:00 50 06/14/20 16:00 98.6 94 21 136/85 (102) 100 06/14/20 16:00 84 06/14/20 16:00 Mechanical Ventilator 06/14/20 15:27 86 24 55 06/14/20 13:30 154/89 06/14/20 12:22 97.9 88 17 154/89 (110) 100 06/14/20 12:00 Mechanical Ventilator 06/14/20 12:00 84 06/14/20 12:00 50 06/14/20 11:34 83 20 100 Mechanical Ventilator 55 85 20 06/14/20 09:04 88 150/95 06/14/20 08:00 88 06/14/20 08:00 Mechanical Ventilator 06/14/20 08:00 50 06/14/20 08:00 97.7 90 17 150/95 (113) 100 I&O Intake and Output 06/14/20 06/15/20 19:00 07:00 Intake Total 1727.5 ml 1470 ml Output Total 2550 ml 900 ml Balance -822.5 ml 570 ml Intake Free Water 100 ml 200 ml IV Total 737.5 ml 660 ml Tube Feeding 650 ml 610 ml Other 240 ml Output Urine Total 2500 ml 800 ml Stool Total 50 ml 100 ml Dressing: saturated Cardiovascular: RSR Respiratory: decreased breath sounds Abdomen: soft, non-tender, present bowel sounds Extremities: no edema, no tenderness, no cyanosis Laboratory Tests Test 06/14/20 12:20 06/14/20 15:30 06/14/20 18:19 06/15/20 00:08 POC Whole Blood Glucose 191 MG/DL (74-106) H Pending 162 MG/DL (74-106) H Vancomycin Level Trough 19.3 ug/mL (5.0-12.0) H Test 06/15/20 03:25 06/15/20 06:04 White Blood Count 12.9 K/UL (4.8-10.8) H Red Blood Count 3.39 M/UL (4.70-6.10) L Hemoglobin 9.6 G/DL (14.2-18.0) L Hematocrit 30.0 % (42.0-52.0) L Mean Corpuscular Volume 89 FL (80-99) Mean Corpuscular Hemoglobin 28.4 PG (27.0-31.0) Mean Corpuscular Hemoglobin Concent 32.1 G/DL (32.0-36.0) Red Cell Distribution Width 16.0 % (11.6-14.8) H Platelet Count 555 K/UL (150-450) H Mean Platelet Volume 5.5 FL (6.5-10.1) L Neutrophils (%) (Auto) 76.4 % (45.0-75.0) H Lymphocytes (%) (Auto) 12.2 % (20.0-45.0) L Monocytes (%) (Auto) 7.6 % (1.0-10.0) Eosinophils (%) (Auto) 3.3 % (0.0-3.0) H Basophils (%) (Auto) 0.5 % (0.0-2.0) Sodium Level 139 MMOL/L (136-145) Potassium Level 3.8 MMOL/L (3.5-5.1) Chloride Level 103 MMOL/L (98-107) Carbon Dioxide Level 32 MMOL/L (21-32) Anion Gap 4 mmol/L (5-15) L Blood Urea Nitrogen 11 mg/dL (7-18) Creatinine 0.7 MG/DL (0.55-1.30) Estimat Glomerular Filtration Rate > 60 mL/min (>60) Glucose Level 159 MG/DL (74-106) H Calcium Level 8.0 MG/DL (8.5-10.1) L Total Bilirubin 0.3 MG/DL (0.2-1.0) Aspartate Amino Transf (AST/SGOT) 21 U/L (15-37) Alanine Aminotransferase (ALT/SGPT) 34 U/L (12-78) Alkaline Phosphatase 202 U/L (46-116) H Total Protein 6.7 G/DL (6.4-8.2) Albumin 1.7 G/DL (3.4-5.0) L Globulin 5.0 g/dL Albumin/Globulin Ratio 0.3 (1.0-2.7) L POC Whole Blood Glucose 157 MG/DL (74-106) H Plan Problems: (1) UTI (urinary tract infection) (2) Pneumonia (3) Sepsis Assessment & Plan: leukocytosis, anemia. 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 Dry eschar noted to L earlobe(L)0.8cm x (W)0.6cm. No erythema noted periwound. Loose,dry eschar cap L earlobe(L)1cm x (W)0.7cm. Base of wound beneath loose eschar cap is moist and paul. No odor or exudate noted. Non-Blanchable erythema with shearing centrally posterior neck under tracheal collar.Periwound skin is dark without erythema or fluctuance.(L)1.5cm x (W)4.5cm. Resolving Pressure injury L lumbar area(L)2cm x (W00.7cm. [place] epithelial at base of wound. Loose dry edges . no erythema or induration periwound. Full thickness Pressure Injury Lumbar Spine(L)2.5cm x (W)1.5cm. Base of wound is 75% paul and moist,25% slough.Borders are macerated. No odor or exudate noted. Periwound without erythema or fluctuance. Full Thickness Sacral Pressure Injury (L)7.5cm x (W)8.8cm x (D)2.4cm, undermining clockwise 12-5 by 1.8cm @2o'clock. Base of wound is beefy red with purpuric area at base. Small area of bone exposure, scattered slough(20%) Wound is otherwise beefy red. Small amt serous exudate note. No odor noted. DTPI L lower Buttocks that is evolving. Base of wound is 75% soft necrosis,25% most and pink with surrounding maroon and indurated borders. DTPI that is evolving and is partially opened at L ischium(L)8cm x (W)9.5cm. Base of wound is purpuric ,indurated with opening that is 25% slough,75% moist and pink. NO odor noted. DTPI R Ischium that is evolving and is partially opened(L)6.3cm x (W)6.5cm. Base of wound is Indurated reddish/brown with opening that is 25% slough,25% soft necrosis,50% moist and pink. NO odor or exudate noted. No evidence of erythema or fluctuance periwound. Resolving Pressure Injury posterior L tibia with dry eschar cap,mixed dry pink epithelial. Unstageable Pressure injury posterior R Tibia. Stable dry eschar noted(L)14.5cm x (W)1.7cm. Unstageable Pressure Injury R heel(L)3.2cm x (W)4.2cm. Base of wound is 100% necrotic with marginal erythema and fluctuance periwound. Partial Thickness Pressure Injury medial L heel(L)1.3cm x (W)1.2cm. Base of woun d is moist and viable . Edges are macerated with surrounding non-blanchable erythema with fluctuance. UNstageable Pressure Injury Lateral L Heel . Base of wound is 100% soft necrosis and is malodorous. Non-Blanchable erythema with Fluctuance periwound.(L)4cm x (W)3.4cm. Tx.Plan: Apply Betadine to R and L earlobes. Cover each ear with Optifoam drsg. Change every 3 days and prn. Apply Cavilon Skin Barrier to posterior neck. Cover with Optifoam drsg. Change every 3 days and prn. Cleanse Wounds Lumbar and L lumbar with Saline. Apply TheraHoney. Apply Moisture Barrier Paste periwound. Cover each site with Optifoam drsgs. Change every 3 days and prn. Cleanse Sacral wound with Saline. Loosely pack with Therahoney i mpregnated Kerlix. Apply Moisture Barrier paste periwound. Cover with Optifoam drsg. Change Daily and prn. Apply Moisture Barrier Paste to Scrotum with each incontinence care. Cleanse R and L Ischial wounds with Saline. Apply Therahoney. Apply Moisture Barrier Paste periwound. Cover each wound with Optifoam drsg. Changee very 3 days and prn. Apply Betadine to Posterior R and L Tibial wounds. Cover each wound with Optifoam drsgs. Change every 3 days and prn. Apply Betadine to R and L Heel wounds. Cover each heel with Optifoam drsgs. Change every 3 days and prn. Reposition at least every 2hours or as tolerated. Off-load heels with Pillows. APM/COLBY Mattress overlay. Jonny Powell Jun 15, 2020 07:58
[2020-06-15 08:00] VITALS: BP_SYST 126; BP_SYST 129; BP_DIAS 76; BP_DIAS 84
[2020-06-15] MEDS: Docusate 100mg/10ml Liq GT SCH ×2 (08:42→17:37)
[2020-06-15] MEDS: Amiodarone 200mg tab GT SCH (08:43)
[2020-06-15] MEDS: levETIRAcetam 500mg/5ml Liquid GT SCH ×2 (08:43→17:37)
[2020-06-15] MEDS: Zinc Sulfate 220mg GT SCH (08:44)
--- NOTE | 2020-06-15 09:30 | NUR ---
NURSE NOTES: Medications administered per order. Tolerated well. Will closely monitor the patient. Will continue plan of care.
--- NOTE | 2020-06-15 09:32 | Pulmonology Progress Note ---
Subjective ROS Limited/Unobtainable: Yes Constitutional: Denies: fever Allergies: Coded Allergies: No Known Allergies (Unverified , 06/08/20) All Systems: reviewed and negative except above Subjective care noted overnight events reviewed on vent on feeds sister would like transfer to [facility] Objective Last 24 Hour Vital Signs Date Time Temp Pulse Resp B/P (MAP) Pulse Ox O2 Delivery O2 Flow Rate FiO2 06/15/20 08:43 85 126/84 06/15/20 08:00 99.1 83 17 129/76 (93) 100 06/15/20 07:16 82 21 55 06/15/20 05:51 127/79 06/15/20 04:00 Mechanical Ventilator 06/15/20 04:00 50 06/15/20 04:00 86 06/15/20 04:00 98.4 90 18 134/82 (99) 100 06/15/20 03:02 84 19 55 06/15/20 00:00 Mechanical Ventilator 06/15/20 00:00 50 06/15/20 00:00 98.7 89 18 128/69 (88) 100 06/14/20 23:33 82 06/14/20 22:45 89 22 100 Mechanical Ventilator 55 85 20 06/14/20 21:50 129/97 06/14/20 21:00 91 06/14/20 20:00 98.8 94 16 129/97 (108) 100 06/14/20 20:00 Mechanical Ventilator 06/14/20 20:00 50 06/14/20 18:52 95 29 100 Mechanical Ventilator 50 06/14/20 18:52 95 24 55 06/14/20 18:23 86 154/89 06/14/20 16:00 50 06/14/20 16:00 50 06/14/20 16:00 98.6 94 21 136/85 (102) 100 06/14/20 16:00 84 06/14/20 16:00 Mechanical Ventilator 06/14/20 15:27 86 24 55 06/14/20 13:30 154/89 06/14/20 12:22 97.9 88 17 154/89 (110) 100 06/14/20 12:00 Mechanical Ventilator 06/14/20 12:00 84 06/14/20 12:00 50 06/14/20 11:34 83 20 100 Mechanical Ventilator 55 85 20 Intake and Output 06/14/20 06/15/20 18:59 06:59 Intake Total 1727.5 ml 1570 ml Output Total 2550 ml 900 ml Balance -822.5 ml 670 ml Intake Free Water 100 ml 200 ml IV Total 737.5 ml 710 ml Tube Feeding 650 ml 660 ml Other 240 ml Output Urine Total 2500 ml 800 ml Stool Total 50 ml 100 ml Objective WDWN NAD reduced breath sounds bilaterally without rhonchi or wheeze [id number] without MRG NABS nontender colostomy no CCE nonfocal reduced LOC trach in place reviewed Microbiology Date/Time Source Procedure Growth Status 06/14/20 02:29 Indwelling Cath Urine Culture - Preliminary Yeast Species Resulted 06/13/20 22:45 Blood Blood Culture - Preliminary NO GROWTH AFTER 24 HOURS Resulted 06/13/20 22:40 Blood Blood Culture - Preliminary NO GROWTH AFTER 24 HOURS Resulted Laboratory Tests 06/14/20 12:20: POC Whole Blood Glucose 191H 06/14/20 15:30: Vancomycin Level Trough 19.3H 06/14/20 18:19: POC Whole Blood Glucose [Pending] 06/15/20 00:08: POC Whole Blood Glucose 162H 06/15/20 03:25: White Blood Count 12.9H, Red Blood Count 3.39L, Hemoglobin 9.6L, Hematocrit 30.0L, Mean Corpuscular Volume 89, Mean Corpuscular Hemoglobin 28.4, Mean Corpuscular Hemoglobin Concent 32.1, Red Cell Distribution Width 16.0H, Platelet Count 555H, Mean Platelet Volume 5.5L, Neutrophils (%) (Auto) 76.4H, Lymphocytes (%) (Auto) 12.2L, Monocytes (%) (Auto) 7.6, Eosinophils (%) (Auto) 3.3H, Basophils (%) (Auto) 0.5, Sodium Level 139, Potassium Level 3.8, Chloride Level 103, Carbon Dioxide Level 32, Anion Gap 4L, Blood Urea Nitrogen 11, Creatinine 0.7, Estimat Glomerular Filtration Rate > 60, Glucose Level 159H, Calcium Level 8.0L, Total Bilirubin 0.3, Aspartate Amino Transf (AST/SGOT) 21, Alanine Aminotransferase (ALT/SGPT) 34, Alkaline Phosphatase 202H, Total Protein 6.7, Albumin 1.7L, Globulin 5.0, Albumin/Globulin Ratio 0.3L 06/15/20 06:04: POC Whole Blood Glucose 157H Current Medications Medications (Trade) Dose Ordered Sig/Milla Route PRN Reason Start Time Stop Time Status Last Admin Dose Admin Acetaminophen (Tylenol) 650 mg Q4H PRN ORAL Temp >100.5 06/13/20 21:15 07/13/20 21:14 06/13/20 21:46 Amiodarone HCl (Cordarone) 200 mg DAILY GT 06/09/20 09:00 09/07/20 08:59 06/15/20 08:43 Amlodipine Besylate (Norvasc) 5 mg TWICE A DAY GT 06/09/20 09:00 07/09/20 08:59 06/15/20 08:43 Bethanechol Chloride (Urecholine) 25 mg Q6HR GT 06/09/20 06:00 07/09/20 05:59 06/15/20 05:49 Chlorhexidine Gluconate (Sue-Hex 2%) 1 applic DAILY@1999 TOPIC 06/10/20 20:00 09/08/20 19:59 06/14/20 22:02 Clonidine HCl (Catapres Tab) 0.1 mg Q6H PRN GT For High Blood Pressure 06/09/20 00:30 09/07/20 00:29 Colistimethate Sodium (Colistin *inhalation use only*) 75 mg Q12HR@ INH 06/13/20 22:00 06/20/20 21:59 06/14/20 22:45 Dextrose (Dextrose 50%) 25 ml Q30M PRN IV Hypoglycemia 06/09/20 06:00 09/07/20 05:59 06/09/20 06:02 Dextrose (Dextrose 50%) 50 ml Q30M PRN IV Hypoglycemia 06/09/20 00:15 09/07/20 00:14 Docusate Sodium (Colace) 100 mg TWICE A DAY GT 06/09/20 09:00 07/09/20 08:59 06/15/20 08:42 Epoetin Cameron (Epoetin Cameron-EPBX(NON ESRD)) 10,000 unit TUE-TUE-TUE SUBQ 06/09/20 21:00 09/07/20 20:59 06/13/20 20:28 Famotidine (Pepcid) 20 mg TWICE A DAY GT 06/09/20 09:00 09/07/20 08:59 06/15/20 08:43 Hydralazine HCl (Apresoline) 25 mg EVERY 8 HOURS GT 06/09/20 06:00 09/07/20 05:59 06/15/20 05:51 Insulin Aspart (NovoLOG) Q6HR SUBQ 06/09/20 06:00 09/07/20 05:59 06/15/20 06:21 Lactulose (Cephulac) 20 gm Q6H PRN GT Constipation 06/09/20 00:30 07/09/20 00:29 Lansoprazole (Prevacid) 30 mg TWICE A DAY GT 06/09/20 09:00 07/09/20 08:59 06/15/20 08:43 Levetiracetam (Keppra) 500 mg TWICE A DAY GT 06/09/20 09:00 07/09/20 08:59 06/15/20 08:43 Levothyroxine Sodium (Synthroid) 75 mcg DAILY GT 06/09/20 09:00 07/09/20 08:59 06/15/20 08:44 Meropenem 1 gm/ Sodium Chloride 55 ml @ 110 mls/hr Q8H IVPB 06/14/20 20:00 06/19/20 19:59 06/15/20 03:28 Metoclopramide HCl (Reglan) 5 mg EVERY 6 HOURS GT 06/09/20 06:00 07/09/20 05:59 06/15/20 05:49 Nitroglycerin (Ntg) 0.4 mg Q5MIN X 3 DOSES PRN SL CHEST PAIN 06/09/20 00:30 07/09/20 00:29 Ondansetron HCl (Zofran) 4 mg Q6H PRN GT Nausea & Vomiting 06/09/20 00:30 07/09/20 00:29 Pravastatin Sodium (Pravachol) 40 mg BEDTIME GT 06/09/20 21:00 07/09/20 20:59 06/14/20 21:50 Sodium Chloride 1,000 ml @ 50 mls/hr Q20H IV 06/09/20 01:00 07/09/20 00:59 06/14/20 21:51 [facility] 1 ea DAILY PRN MISC Per rx protocol 06/09/20 00:15 07/20/20 00:14 Vancomycin/Sodium Chloride 1.25 ml @ 0.625 mls/ hr Q24H IVPB 06/15/20 23:00 06/20/20 22:59 Zinc Sulfate (Zinc Sulfate) 220 mg DAILY GT 06/09/20 09:00 09/07/20 08:59 06/15/20 08:44 Assessment/Plan Assessment/Plan sepsis leukocytosis anemia colostomy respiratory failure possible gib chronic pancreatitis chronic encephalopathy hypernatremia acute renal failure pneumonia bacteremia UTI pneumonia sacral osteo/ decub diverting colostomy PLAN vent support IV antibiotics- noted; PICC line GI on feeds and tolerating replace K as needed ID recommendations noted close follow up monitor HH guarded at present hope to dc soon back to snf per sister, would like to transfer to [facility]- discussed with [facility] staff impression, plan, and exam edited and reviewed in detail care discussed with Mundo Burciaga MD Jun 15, 2020 09:32
--- NOTE | 2020-06-15 10:50 | General Progress Note ---
Subjective ROS Limited/Unobtainable: Yes Constitutional: Reports: malaise, weakness HEENT: Reports: no symptoms Cardiovascular: Reports: no symptoms Respiratory: Reports: cough, shortness of breath, sputum Gastrointestinal/Abdominal: Reports: difficulty swallowing Genitourinary: Reports: no symptoms Neurologic/Psychiatric: Reports: pre-existing deficit Endocrine: Reports: no symptoms Hematologic/Lymphatic: Reports: anemia Allergies: Coded Allergies: No Known Allergies (Unverified , 06/08/20) All Systems: reviewed and negative except above Subjective There have been no significant overnight events. Patient remained stable on the ventilator. Minimal secretions. Poorly responsive. Tolerating G-tube feeds. No residuals noted. White blood cell count improving. Currently on multiple IV antibiotics. Objective Last 24 Hour Vital Signs Date Time Temp Pulse Resp B/P (MAP) Pulse Ox O2 Delivery O2 Flow Rate FiO2 06/15/20 08:43 85 126/84 06/15/20 08:00 99.1 83 17 129/76 (93) 100 06/15/20 07:16 82 21 55 06/15/20 05:51 127/79 06/15/20 04:00 Mechanical Ventilator 06/15/20 04:00 50 06/15/20 04:00 86 06/15/20 04:00 98.4 90 18 134/82 (99) 100 06/15/20 03:02 84 19 55 06/15/20 00:00 Mechanical Ventilator 06/15/20 00:00 50 06/15/20 00:00 98.7 89 18 128/69 (88) 100 06/14/20 23:33 82 06/14/20 22:45 89 22 100 Mechanical Ventilator 55 85 20 06/14/20 21:50 129/97 06/14/20 21:00 91 06/14/20 20:00 98.8 94 16 129/97 (108) 100 06/14/20 20:00 Mechanical Ventilator 06/14/20 20:00 50 06/14/20 18:52 95 29 100 Mechanical Ventilator 50 06/14/20 18:52 95 24 55 06/14/20 18:23 86 154/89 06/14/20 16:00 50 06/14/20 16:00 50 06/14/20 16:00 98.6 94 21 136/85 (102) 100 06/14/20 16:00 84 06/14/20 16:00 Mechanical Ventilator 06/14/20 15:27 86 24 55 06/14/20 13:30 154/89 06/14/20 12:22 97.9 88 17 154/89 (110) 100 06/14/20 12:00 Mechanical Ventilator 06/14/20 12:00 84 06/14/20 12:00 50 06/14/20 11:34 83 20 100 Mechanical Ventilator 55 85 20 Intake and Output 06/14/20 06/15/20 19:00 07:00 Intake Total 1727.5 ml 1470 ml Output Total 2550 ml 900 ml Balance -822.5 ml 570 ml Intake Free Water 100 ml 200 ml IV Total 737.5 ml 660 ml Tube Feeding 650 ml 610 ml Other 240 ml Output Urine Total 2500 ml 800 ml Stool Total 50 ml 100 ml Laboratory Tests 06/14/20 12:20: POC Whole Blood Glucose 191H 06/14/20 15:30: Vancomycin Level Trough 19.3H 06/14/20 18:19: POC Whole Blood Glucose [Pending] 06/15/20 00:08: POC Whole Blood Glucose 162H 06/15/20 03:25: White Blood Count 12.9H, Red Blood Count 3.39L, Hemoglobin 9.6L, Hematocrit 30.0L, Mean Corpuscular Volume 89, Mean Corpuscular Hemoglobin 28.4, Mean Corpuscular Hemoglobin Concent 32.1, Red Cell Distribution Width 16.0H, Platelet Count 555H, Mean Platelet Volume 5.5L, Neutrophils (%) (Auto) 76.4H, Lymphocytes (%) (Auto) 12.2L, Monocytes (%) (Auto) 7.6, Eosinophils (%) (Auto) 3.3H, Basophils (%) (Auto) 0.5, Sodium Level 139, Potassium Level 3.8, Chloride Level 103, Carbon Dioxide Level 32, Anion Gap 4L, Blood Urea Nitrogen 11, Creatinine 0.7, Estimat Glomerular Filtration Rate > 60, Glucose Level 159H, Calcium Level 8.0L, Total Bilirubin 0.3, Aspartate Amino Transf (AST/SGOT) 21, Alanine Aminotransferase (ALT/SGPT) 34, Alkaline Phosphatase 202H, Total Protein 6.7, Albumin 1.7L, Globulin 5.0, Albumin/Globulin Ratio 0.3L 06/15/20 06:04: POC Whole Blood Glucose 157H Height (Feet): 5 Height (Inches): 10.00 Weight (Pounds): 162 Objective General Appearance: WD/WN, no apparent distress, alert Neck: non-tender, normal alignment Cardiovascular: normal rate Respiratory/Chest: chest wall non-tender, lungs clear, normal breath sounds Abdomen: normal bowel sounds, non tender, soft, no organomegaly Edema: no edema noted Arm (L), no edema noted Arm (R) Neurologic: unresponsive Skin: normal pigmentation Lymphatic: normal anterior cervical (L), normal anterior cervical (R) Assessment/Plan Problem List: (1) Stage 4 skin ulcer of sacral region ICD Codes: L98.429 - Non-pressure chronic ulcer of back with unspecified severity SNOMED: 69504223, 825442160 (2) Colostomy in place ICD Codes: Z93.3 - Colostomy status SNOMED: 683674569, 574427674 (3) Sepsis ICD Codes: A41.9 - Sepsis, unspecified organism SNOMED: 38186587 (4) Pneumonia ICD Codes: J18.9 - Pneumonia, unspecified organism SNOMED: 796246769 Qualifiers: Qualified Codes: J18.9 - Pneumonia, unspecified organism (5) UTI (urinary tract infection) ICD Codes: N39.0 - Urinary tract infection, site not specified SNOMED: 13325450 Qualifiers: Qualified Codes: N30.01 - Acute cystitis with hematuria Status: stable Assessment/Plan: cont iv abx monitor wbc- trending down tube feeds. monitor residuals monitor lipase replace lytes as needed vent support resp rx suctioning as needed wean as able cont bp rx wound care d/w surgery turn q2 dvt/stress ulcer prophylaxis Robby Mays MD Jun 15, 2020 10:49
[2020-06-15] MEDS: Colistin for inhalation INH SCH ×2 (11:15→23:00)
--- NOTE | 2020-06-15 11:30 | NUR ---
NURSE NOTES: The patient is resting on the bed comfortably without acute distress or shortness of breath. Will closely monitor the patient. Will continue plan of care.
--- NOTE | 2020-06-15 11:44 | Infectious Diseases Prog Note ---
Assessment/Plan Assessment/Plan A 1. coagulase neg staph line sepsis 2. pneumonia 3. E.coli Enterococcus, fungal UTI 4. leucocytosis resolved 5. Ventilatory dependent respiratory failure 6. diabetes mellitus 7. hypertension 8. 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 continue iv vancomycin & ceftriaxone X 35 days 2. continue fluconazole 1 more day 3. Colistin is not available Subjective ROS Limited/Unobtainable: Yes Constitutional: Denies: fever Allergies: Coded Allergies: No Known Allergies (Unverified , 06/08/20) Objective Last 24 Hour Vital Signs Date Time Temp Pulse Resp B/P (MAP) Pulse Ox O2 Delivery O2 Flow Rate FiO2 06/15/20 11:05 85 29 55 06/15/20 08:43 85 126/84 06/15/20 08:00 99.1 83 17 129/76 (93) 100 06/15/20 07:16 82 21 55 06/15/20 05:51 127/79 06/15/20 04:00 Mechanical Ventilator 06/15/20 04:00 50 06/15/20 04:00 86 06/15/20 04:00 98.4 90 18 134/82 (99) 100 06/15/20 03:02 84 19 55 06/15/20 00:00 Mechanical Ventilator 06/15/20 00:00 50 06/15/20 00:00 98.7 89 18 128/69 (88) 100 06/14/20 23:33 82 06/14/20 22:45 89 22 100 Mechanical Ventilator 55 85 20 06/14/20 21:50 129/97 06/14/20 21:00 91 06/14/20 20:00 98.8 94 16 129/97 (108) 100 06/14/20 20:00 Mechanical Ventilator 06/14/20 20:00 50 06/14/20 18:52 95 29 100 Mechanical Ventilator 50 06/14/20 18:52 95 24 55 06/14/20 18:23 86 154/89 06/14/20 16:00 50 06/14/20 16:00 50 06/14/20 16:00 98.6 94 21 136/85 (102) 100 06/14/20 16:00 84 06/14/20 16:00 Mechanical Ventilator 06/14/20 15:27 86 24 55 06/14/20 13:30 154/89 06/14/20 12:22 97.9 88 17 154/89 (110) 100 06/14/20 12:00 Mechanical Ventilator 06/14/20 12:00 84 06/14/20 12:00 50 Height (Feet): 5 Height (Inches): 10.00 Weight (Pounds): 162 HEENT: status post trach Respiratory/Chest: lungs clear, other - on ventilator Cardiovascular: normal rate, other - R arm OICC line Abdomen: soft, non tender, other - GT feeding Extremities: other - edema more in R arm Neurologic/Psychiatric: aphasia Microbiology Date/Time Source Procedure Growth Status 06/14/20 02:29 Indwelling Cath Urine Culture - Preliminary Yeast Species Resulted 06/13/20 22:45 Blood Blood Culture - Preliminary NO GROWTH AFTER 24 HOURS Resulted 06/13/20 22:40 Blood Blood Culture - Preliminary NO GROWTH AFTER 24 HOURS Resulted Laboratory Tests Test 06/14/20 12:20 06/14/20 15:30 06/14/20 18:19 06/15/20 00:08 POC Whole Blood Glucose 191 MG/DL (74-106) H Pending 162 MG/DL (74-106) H Vancomycin Level Trough 19.3 ug/mL (5.0-12.0) H Test 06/15/20 03:25 06/15/20 06:04 White Blood Count 12.9 K/UL (4.8-10.8) H Red Blood Count 3.39 M/UL (4.70-6.10) L Hemoglobin 9.6 G/DL (14.2-18.0) L Hematocrit 30.0 % (42.0-52.0) L Mean Corpuscular Volume 89 FL (80-99) Mean Corpuscular Hemoglobin 28.4 PG (27.0-31.0) Mean Corpuscular Hemoglobin Concent 32.1 G/DL (32.0-36.0) Red Cell Distribution Width 16.0 % (11.6-14.8) H Platelet Count 555 K/UL (150-450) H Mean Platelet Volume 5.5 FL (6.5-10.1) L Neutrophils (%) (Auto) 76.4 % (45.0-75.0) H Lymphocytes (%) (Auto) 12.2 % (20.0-45.0) L Monocytes (%) (Auto) 7.6 % (1.0-10.0) Eosinophils (%) (Auto) 3.3 % (0.0-3.0) H Basophils (%) (Auto) 0.5 % (0.0-2.0) Sodium Level 139 MMOL/L (136-145) Potassium Level 3.8 MMOL/L (3.5-5.1) Chloride Level 103 MMOL/L (98-107) Carbon Dioxide Level 32 MMOL/L (21-32) Anion Gap 4 mmol/L (5-15) L Blood Urea Nitrogen 11 mg/dL (7-18) Creatinine 0.7 MG/DL (0.55-1.30) Estimat Glomerular Filtration Rate > 60 mL/min (>60) Glucose Level 159 MG/DL (74-106) H Calcium Level 8.0 MG/DL (8.5-10.1) L Total Bilirubin 0.3 MG/DL (0.2-1.0) Aspartate Amino Transf (AST/SGOT) 21 U/L (15-37) Alanine Aminotransferase (ALT/SGPT) 34 U/L (12-78) Alkaline Phosphatase 202 U/L (46-116) H Total Protein 6.7 G/DL (6.4-8.2) Albumin 1.7 G/DL (3.4-5.0) L Globulin 5.0 g/dL Albumin/Globulin Ratio 0.3 (1.0-2.7) L POC Whole Blood Glucose 157 MG/DL (74-106) H Current Medications Medications (Trade) Dose Ordered Sig/Milla Route PRN Reason Start Time Stop Time Status Last Admin Dose Admin Acetaminophen (Tylenol) 650 mg Q4H PRN ORAL Temp >100.5 06/13/20 21:15 07/13/20 21:14 06/13/20 21:46 Amiodarone HCl (Cordarone) 200 mg DAILY GT 06/09/20 09:00 09/07/20 08:59 06/15/20 08:43 Amlodipine Besylate (Norvasc) 5 mg TWICE A DAY GT 06/09/20 09:00 07/09/20 08:59 06/15/20 08:43 Bethanechol Chloride (Urecholine) 25 mg Q6HR GT 06/09/20 06:00 07/09/20 05:59 06/15/20 05:49 Chlorhexidine Gluconate (Sue-Hex 2%) 1 applic DAILY@1999 TOPIC 06/10/20 20:00 09/08/20 19:59 06/14/20 22:02 Clonidine HCl (Catapres Tab) 0.1 mg Q6H PRN GT For High Blood Pressure 06/09/20 00:30 09/07/20 00:29 Colistimethate Sodium (Colistin *inhalation use only*) 75 mg Q12HR@ INH 06/13/20 22:00 06/20/20 21:59 06/14/20 22:45 Dextrose (Dextrose 50%) 25 ml Q30M PRN IV Hypoglycemia 06/09/20 06:00 09/07/20 05:59 06/09/20 06:02 Dextrose (Dextrose 50%) 50 ml Q30M PRN IV Hypoglycemia 06/09/20 00:15 09/07/20 00:14 Docusate Sodium (Colace) 100 mg TWICE A DAY GT 06/09/20 09:00 07/09/20 08:59 06/15/20 08:42 Epoetin Cameron (Epoetin Cameron-EPBX(NON ESRD)) 10,000 unit TUE-TUE-TUE SUBQ 06/09/20 21:00 09/07/20 20:59 06/13/20 20:28 Famotidine (Pepcid) 20 mg TWICE A DAY GT 06/09/20 09:00 09/07/20 08:59 06/15/20 08:43 Hydralazine HCl (Apresoline) 25 mg EVERY 8 HOURS GT 06/09/20 06:00 09/07/20 05:59 06/15/20 05:51 Insulin Aspart (NovoLOG) Q6HR SUBQ 06/09/20 06:00 09/07/20 05:59 06/15/20 06:21 Lactulose (Cephulac) 20 gm Q6H PRN GT Constipation 06/09/20 00:30 07/09/20 00:29 Lansoprazole (Prevacid) 30 mg TWICE A DAY GT 06/09/20 09:00 07/09/20 08:59 06/15/20 08:43 Levetiracetam (Keppra) 500 mg TWICE A DAY GT 06/09/20 09:00 07/09/20 08:59 06/15/20 08:43 Levothyroxine Sodium (Synthroid) 75 mcg DAILY GT 06/09/20 09:00 07/09/20 08:59 06/15/20 08:44 Meropenem 1 gm/ Sodium Chloride 55 ml @ 110 mls/hr Q8H IVPB 06/14/20 20:00 06/19/20 19:59 06/15/20 03:28 Metoclopramide HCl (Reglan) 5 mg EVERY 6 HOURS GT 06/09/20 06:00 07/09/20 05:59 06/15/20 05:49 Nitroglycerin (Ntg) 0.4 mg Q5MIN X 3 DOSES PRN SL CHEST PAIN 06/09/20 00:30 07/09/20 00:29 Ondansetron HCl (Zofran) 4 mg Q6H PRN GT Nausea & Vomiting 06/09/20 00:30 07/09/20 00:29 Pravastatin Sodium (Pravachol) 40 mg BEDTIME GT 06/09/20 21:00 07/09/20 20:59 06/14/20 21:50 Sodium Chloride 1,000 ml @ 50 mls/hr Q20H IV 06/09/20 01:00 07/09/20 00:59 06/14/20 21:51 Vancomycin HCl ([facility] pharmacy to dose) 1 ea DAILY PRN MISC Per rx protocol 06/09/20 00:15 07/20/20 00:14 Vancomycin/Sodium Chloride 1.25 ml @ 0.625 mls/ hr Q24H IVPB 06/15/20 23:00 06/20/20 22:59 Zinc Sulfate (Zinc Sulfate) 220 mg DAILY GT 06/09/20 09:00 09/07/20 08:59 06/15/20 08:44 Ramakrishna Lancaster MD Jun 15, 2020 11:44
[2020-06-15 12:00] VITALS: BP 135/74
--- NOTE | 2020-06-15 12:30 | NUR ---
NURSE NOTES: BS 191 noted. Novolog administered per protocol. Will closely monitor the patient. Will continue plan of care.
--- NOTE | 2020-06-15 14:30 | NUR ---
NURSE NOTES: Bed bath given to the patient. Tolerated well. Will closely monitor the patient. Will continue plan of care.
[2020-06-15 16:00] VITALS: BP 143/76
--- NOTE | 2020-06-15 16:00 | NUR ---
NURSE NOTES: The patient is resting comfortably without acute distress or shortness of breath. Tolerating vent setting and TF well. Will closely monitor the patient. Will continue plan of care.
--- NOTE | 2020-06-15 17:21 | General Progress Note ---
Subjective Allergies: Coded Allergies: No Known Allergies (Unverified , 06/08/20) Subjective NAD tolerating TF Objective Last 24 Hour Vital Signs Date Time Temp Pulse Resp B/P (MAP) Pulse Ox O2 Delivery O2 Flow Rate FiO2 06/15/20 16:00 Mechanical Ventilator 06/15/20 16:00 89 06/15/20 16:00 35 06/15/20 16:00 98.2 84 17 143/76 (98) 100 06/15/20 15:27 83 18 35 06/15/20 13:39 139/77 06/15/20 12:00 50 06/15/20 12:00 Mechanical Ventilator 06/15/20 12:00 82 06/15/20 12:00 98.9 86 17 135/74 (94) 100 06/15/20 11:05 85 29 55 06/15/20 08:43 85 126/84 06/15/20 08:00 Mechanical Ventilator 06/15/20 08:00 99.1 83 17 129/76 (93) 100 06/15/20 08:00 99.0 85 17 126/84 (98) 100 06/15/20 08:00 83 06/15/20 08:00 50 06/15/20 07:16 82 21 55 06/15/20 05:51 127/79 06/15/20 04:00 Mechanical Ventilator 06/15/20 04:00 50 06/15/20 04:00 86 06/15/20 04:00 98.4 90 18 134/82 (99) 100 06/15/20 03:02 84 19 55 06/15/20 00:00 Mechanical Ventilator 06/15/20 00:00 50 06/15/20 00:00 98.7 89 18 128/69 (88) 100 06/14/20 23:33 82 06/14/20 22:45 89 22 100 Mechanical Ventilator 55 85 20 06/14/20 21:50 129/97 06/14/20 21:00 91 06/14/20 20:00 98.8 94 16 129/97 (108) 100 06/14/20 20:00 Mechanical Ventilator 06/14/20 20:00 50 06/14/20 18:52 95 29 100 Mechanical Ventilator 50 06/14/20 18:52 95 24 55 06/14/20 18:23 86 154/89 Intake and Output 06/14/20 06/15/20 19:00 07:00 Intake Total 1727.5 ml 1470 ml Output Total 2550 ml 900 ml Balance -822.5 ml 570 ml Intake Free Water 100 ml 200 ml IV Total 737.5 ml 660 ml Tube Feeding 650 ml 610 ml Other 240 ml Output Urine Total 2500 ml 800 ml Stool Total 50 ml 100 ml Laboratory Tests 06/14/20 18:19: POC Whole Blood Glucose [Pending] 06/15/20 00:08: POC Whole Blood Glucose 162H 06/15/20 03:25: White Blood Count 12.9H, Red Blood Count 3.39L, Hemoglobin 9.6L, Hematocrit 30.0L, Mean Corpuscular Volume 89, Mean Corpuscular Hemoglobin 28.4, Mean Corpuscular Hemoglobin Concent 32.1, Red Cell Distribution Width 16.0H, Platelet Count 555H, Mean Platelet Volume 5.5L, Neutrophils (%) (Auto) 76.4H, Lymphocytes (%) (Auto) 12.2L, Monocytes (%) (Auto) 7.6, Eosinophils (%) (Auto) 3.3H, Basophils (%) (Auto) 0.5, Sodium Level 139, Potassium Level 3.8, Chloride Level 103, Carbon Dioxide Level 32, Anion Gap 4L, Blood Urea Nitrogen 11, Creatinine 0.7, Estimat Glomerular Filtration Rate > 60, Glucose Level 159H, Calcium Level 8.0L, Total Bilirubin 0.3, Aspartate Amino Transf (AST/SGOT) 21, Alanine Aminotransferase (ALT/SGPT) 34, Alkaline Phosphatase 202H, Total Protein 6.7, Albumin 1.7L, Globulin 5.0, Albumin/Globulin Ratio 0.3L 06/15/20 06:04: POC Whole Blood Glucose 157H 06/15/20 12:22: POC Whole Blood Glucose 191H 06/15/20 17:02: POC Whole Blood Glucose [Pending] Height (Feet): 5 Height (Inches): 10.00 Weight (Pounds): 162 Objective Elderly man NCAT (+) trach coarse BS RR abd soft, (+) GT (+) colostomy no edema Assessment/Plan Status: stable Assessment/Plan: Assessment - h/o pancreatitis - resolved - s/p colostomy - sepsis/leukocytosis - resp failure / trach - dysphagia / GT - s/p CVA - Anemia - CAD - DM - hypokalemia - HTN - GERD Recommendations - Abx - CT abd/pelvis noted - PPI - Monitor CBC - TF Moshe Kraft MD Jun 15, 2020 17:21
--- NOTE | 2020-06-15 18:00 | NUR ---
NURSE NOTES: BS 194 noted. Novolog covered per protocol. The patient is stable without acute distress or shortness of breath. Tolerating vent setting and TF well. Will closely monitor the patient. Will continue plan of care.
--- NOTE | 2020-06-15 19:20 | NUR ---
NURSE HAND-OFF REPORT: Important Events on Shift: None, Stable thoughout the shift Patient Status: Stable, Full code Diet: GTF Glucerna 1.2 @60mL/hr Pending Orders: N Pending Results/Labs: N Pending MD notification: N Latest Vital Signs: Temperature 98.2 , Pulse 90 , B/P 143 /76 , Respiratory Rate 24 , O2 SAT 100 , Mechanical Ventilator, O2 Flow Rate 4.0 . Vital Sign Comment: Stable EKG Rhythm: SR w/ 1AVB Rhythm change?: N MD Notified?: N -DR.BALFE BAILEY Response: No New Orders Received Latest Pulido Fall Score: 70 Fall Risk: High Risk Safety Measures: Call light Within Reach, Bed Alarm Zone 2, Side Rails Side Rails x2, Bed position Low and Locked. Fall Precautions: Yellow Socks Yellow Gown Door Sign Patient Fall Education Report given to BOO Flood. The patient is stable at this time. Endorsed plan of care.
--- NOTE | 2020-06-15 19:21 | NUR ---
NURSE NOTES: received pt from Dayanna HADDAD., pt is resting on the bed at this time, opens eyes. no s/s of pain at this time. pt is on trach vent, no SOB noted. O2sat is at 100% at this time. Gtube site intact, clean, and patent as well. colostomy bag noted, no leaking noted at this time, and intact. florez cath is intact draining well with gravity. side rails are padded. right upper picc line noted dressing site intact, clean, and patent. call light within reach. will continue to monitor pt with plan of care. bed at the lowest position, alarmed, and locked. side rails are padded. NURSE NOTES:
[2020-06-15 20:00] VITALS: BP 137/77
[2020-06-15] MEDS: Dyna-Hex 2% Top Sol 2oz TOPIC SCH (20:20)
[2020-06-15] MEDS ORDERED: Sterile Water Irrig 1000ml IRRIG ONE (21:03)
[2020-06-15] MEDS ORDERED: Tubing IV Secondary IV ONE ×2 (21:03→21:23)
[2020-06-15] MEDS ORDERED: NS 275ml ONE ×2 (21:03→21:23)
[2020-06-15] MEDS: VANCOMYCIN IVPB SCH (22:21)
[2020-06-15] MEDS: [UNRECOGNIZED DRUG - OTHER] IVPB SCH (22:21)
--- NOTE | 2020-06-15 23:00 | NUR ---
NURSE NOTES: pt is sleeping on the bed, no SOb noted. pt is sleeping comfortable. call light within reach. will continue to monitor pt.
[2020-06-16] VITALS: BP 143/70
[2020-06-16] MEDS: Metoclopramide 10mg/10ml Liq GT SCH ×5 (00:13→23:11)
[2020-06-16] MEDS: Bethanechol 25mg Tab GT SCH ×5 (00:14→23:11)
[2020-06-16] MEDS: NovoLOG Insulin Flexpen SUBQ SCH ×5 (00:15→23:12)
--- NOTE | 2020-06-16 02:00 | NUR ---
NURSE NOTES: cleaned pt and provided new gown and new blankets. oral care given. no active bleeding noted at this time. O2sat is at 100% and no SOB noted. call light within reach. will continue to monitor pt with plan of care.
[2020-06-16] MEDS: Meropenem 1gm/NS 55ml IVPB SCH ×2 (03:08)
[2020-06-16 04:00] VITALS: BP 126/54
[2020-06-16 05:26] LABS: BASOPHILS % (AUTO) 0.5 % (0.0-2.0); EOSINOPHILS % (AUTO) 3.9 % (0.0-3.0); HEMATOCRIT 31.2 % (42.0-52.0); LYMPHOCYTES % (AUTO) 15.4 % (20.0-45.0); MEAN CORPUSCULAR VOLUME 89 FL (80-99); MONOCYTES % (AUTO) 6.1 % (1.0-10.0); PLATELET COUNT 551 K/UL (150-450); RED BLOOD COUNT 3.49 M/UL (4.70-6.10); RED CELL DISTRIBUTION WIDTH 16.7 % (11.6-14.8); WHITE BLOOD COUNT 13.2 K/UL (4.8-10.8)
[2020-06-16] MEDS: HydrALAZINE 25mg tab GT SCH ×3 (05:27→22:13)
[2020-06-16 05:50] LABS: ALANINE AMINOTRANSFERASE 30 U/L (12-78); ALBUMIN 1.8 G/DL (3.4-5.0); ALBUMIN/GLOBULIN RATIO 0.4 (1.0-2.7); ALKALINE PHOSPHATASE 188 U/L (46-116); ANION GAP 7 mmol/L (5-15); ASPARTATE AMINO TRANSFERASE 18 U/L (15-37); BILIRUBIN,TOTAL 0.3 MG/DL (0.2-1.0); BLOOD UREA NITROGEN 12 mg/dL (7-18); CALCIUM 8.2 MG/DL (8.5-10.1); CARBON DIOXIDE 33 MMOL/L (21-32); CHLORIDE 101 MMOL/L (98-107); CREATININE 0.6 MG/DL (0.55-1.30); POTASSIUM 3.7 MMOL/L (3.5-5.1); SODIUM 141 MMOL/L (136-145)
--- NOTE | 2020-06-16 07:08 | NUR ---
NURSE HAND-OFF REPORT: Important Events on Shift: temp 99.5 Patient Status: stable Diet: glucerna 1.2 Pending Orders: N Pending Results/Labs:N Pending MD notification:N Latest Vital Signs: Temperature 99.5 , Pulse 103 , B/P 126 /54 , Respiratory Rate 17 , O2 SAT 98 , Mechanical Ventilator, O2 Flow Rate 4.0 . Vital Sign Comment: stable EKG Rhythm: Sinus Rhythm Rhythm change?: N MD Notified?: N -DR.BALFE BAILEY Response: No New Orders Received Latest Pulido Fall Score: 70 Fall Risk: High Risk Safety Measures: Call light Within Reach, Bed Alarm Zone 2, Side Rails Side Rails x2, Bed position Low and Locked. Fall Precautions: Yellow Socks Yellow Gown Door Sign Patient Fall Education Report given to Dayanna HADDAD.
--- NOTE | 2020-06-16 07:30 | NUR ---
NURSE NOTES: Received report from BOO Flood. Pt is resting in bed without acute distress and SOB. The pt is obtunded but able to communicate via facial expression and body movement. SR c 1*AVB on the monitoring engineer. The pt is trached and on ventilator on following setting and O2 saturation is 100%: : Portex 6, AC 16, TV 400, FiO2 35%, PEEP 5. The pt has GT that is intact and patent running Glucerna 1.2 @ 60mL/hr. No residual noted. Tube feeding on hold prior to Levothyroxine administration. Thomson is intact draining by gravity. Colostomy stoma is intact and clean connected to drainable bag, brown color BM noted. Skin issue noted and dressing intact. PICC R UA Double lumen, intact and patent running NS @ 50mL/H. Bed is in the lowest position, HOB elevated, call light is within reach, Fall, aspiration. seizure precautions implemented. Will follow up the lab and orders. Will continue with the plan of care.
[2020-06-16 08:00] VITALS: BP 150/80
--- NOTE | 2020-06-16 08:00 | NUR ---
NURSE NOTES: Initial vital signs taken. Initial nursing assessment done. The patient is stable at this time. Will closely monitor the patient. Will continue plan of care.
--- NOTE | 2020-06-16 08:26 | General Progress Note ---
Subjective ROS Limited/Unobtainable: No Constitutional: Reports: malaise, weakness HEENT: Reports: no symptoms Cardiovascular: Reports: no symptoms Respiratory: Reports: cough, shortness of breath, sputum Gastrointestinal/Abdominal: Reports: no symptoms Genitourinary: Reports: no symptoms Neurologic/Psychiatric: Reports: pre-existing deficit Endocrine: Reports: no symptoms Hematologic/Lymphatic: Reports: anemia Allergies: Coded Allergies: No Known Allergies (Unverified , 06/08/20) All Systems: reviewed and negative except above Subjective There have been no significant overnight events. Patient remained stable on the ventilator. Minimal secretions. Poorly responsive. Tolerating G-tube feeds. No residuals noted. White blood cell count improving. Currently on multiple IV antibiotics. having low grade temps. appears nontoxic. Objective Last 24 Hour Vital Signs Date Time Temp Pulse Resp B/P (MAP) Pulse Ox O2 Delivery O2 Flow Rate FiO2 06/16/20 05:27 126/54 06/16/20 04:00 35 06/16/20 04:00 99.5 103 17 126/54 (78) 98 06/16/20 04:00 Mechanical Ventilator 06/16/20 03:42 65 06/16/20 03:20 89 24 55 06/16/20 00:00 98.4 90 17 143/70 (94) 100 06/16/20 00:00 88 06/16/20 00:00 Mechanical Ventilator 06/15/20 23:00 87 24 100 Mechanical Ventilator 55 89 24 06/15/20 22:21 137/77 06/15/20 20:00 99.0 88 17 137/77 (97) 100 06/15/20 20:00 Mechanical Ventilator 06/15/20 20:00 35 06/15/20 19:35 89 06/15/20 19:10 90 24 35 06/15/20 17:37 89 143/76 06/15/20 16:00 Mechanical Ventilator 06/15/20 16:00 89 06/15/20 16:00 35 06/15/20 16:00 98.2 84 17 143/76 (98) 100 06/15/20 15:27 83 18 35 06/15/20 13:39 139/77 06/15/20 12:00 50 06/15/20 12:00 Mechanical Ventilator 06/15/20 12:00 82 06/15/20 12:00 98.9 86 17 135/74 (94) 100 06/15/20 11:05 85 29 55 06/15/20 08:43 85 126/84 Intake and Output 06/15/20 06/16/20 19:00 07:00 Intake Total 1575 ml 1851.250 ml Output Total 1220 ml 1915 ml Balance 355 ml -63.750 ml Intake Free Water 200 ml 300 ml IV Total 655 ml 711.250 ml Tube Feeding 720 ml 840 ml Output Urine Total 1200 ml 1900 ml Stool Total 20 ml 15 ml Laboratory Tests 06/15/20 12:22: POC Whole Blood Glucose 191H 06/15/20 17:02: POC Whole Blood Glucose [Pending] 06/16/20 00:12: POC Whole Blood Glucose [Pending] 06/16/20 03:30: White Blood Count 13.2H, Red Blood Count 3.49L, Hemoglobin 10.0L, Hematocrit 31.2L, Mean Corpuscular Volume 89, Mean Corpuscular Hemoglobin 28.5, Mean Corpuscular Hemoglobin Concent 31.9L, Red Cell Distribution Width 16.7H, Platelet Count 551H, Mean Platelet Volume 5.2L, Neutrophils (%) (Auto) 74.0, Lymphocytes (%) (Auto) 15.4L, Monocytes (%) (Auto) 6.1, Eosinophils (%) (Auto) 3.9H, Basophils (%) (Auto) 0.5, Sodium Level 141, Potassium Level 3.7, Chloride Level 101, Carbon Dioxide Level 33H, Anion Gap 7, Blood Urea Nitrogen 12, Creatinine 0.6, Estimat Glomerular Filtration Rate > 60, Glucose Level 151H, Calcium Level 8.2L, Total Bilirubin 0.3, Aspartate Amino Transf (AST/SGOT) 18, Alanine Aminotransferase (ALT/SGPT) 30, Alkaline Phosphatase 188H, Total Protein 6.9, Albumin 1.8L, Globulin 5.1, Albumin/Globulin Ratio 0.4L 06/16/20 05:29: POC Whole Blood Glucose 153H Height (Feet): 5 Height (Inches): 10.00 Weight (Pounds): 162 Objective General Appearance: WD/WN, no apparent distress, alert Neck: non-tender, normal alignment Cardiovascular: normal rate Respiratory/Chest: chest wall non-tender, lungs clear, normal breath sounds Abdomen: normal bowel sounds, non tender, soft, no organomegaly Edema: no edema noted Arm (L), no edema noted Arm (R) Neurologic: unresponsive Skin: normal pigmentation Lymphatic: normal anterior cervical (L), normal anterior cervical (R) Assessment/Plan Problem List: (1) Stage 4 skin ulcer of sacral region ICD Codes: L98.429 - Non-pressure chronic ulcer of back with unspecified s everity SNOMED: 20272970, 088451902 (2) Colostomy in place ICD Codes: Z93.3 - Colostomy status SNOMED: 553870631, 920729031 (3) Sepsis ICD Codes: A41.9 - Sepsis, unspecified organism SNOMED: 88955393 (4) Pneumonia ICD Codes: J18.9 - Pneumonia, unspecified organism SNOMED: 952418371 Qualifiers: Qualified Codes: J18.9 - Pneumonia, unspecified organism (5) UTI (urinary tract infection) ICD Codes: N39.0 - Urinary tract infection, site not specified SNOMED: 80093628 Qualifiers: Qualified Codes: N30.01 - Acute cystitis with hematuria Status: stable Assessment/Plan: cont iv abx monitor wbc- trending down tube feeds. monitor residuals monitor lipase replace lytes as needed vent support resp rx suctioning as needed wean as able cont bp rx monitor for fevers tylenol as needed wound care d/w surgery turn q2 dvt/stress ulcer prophylaxis Robby Mays MD Jun 16, 2020 08:26
[2020-06-16] MEDS: Docusate 100mg/10ml Liq GT SCH ×2 (08:58→17:31)
[2020-06-16] MEDS: Amiodarone 200mg tab GT SCH (08:58)
[2020-06-16] MEDS: levETIRAcetam 500mg/5ml Liquid GT SCH ×2 (08:58→17:31)
[2020-06-16] MEDS: Zinc Sulfate 220mg GT SCH (08:59)
--- NOTE | 2020-06-16 09:50 | NUR ---
NURSE NOTES: Morning medications administered per order. Tolerated well. Tolerating tube feedings, vent setting well. Will continue with plan of care.
--- NOTE | 2020-06-16 10:00 | NUR ---
NURSE NOTES: Communicated with Colin (sister and next of kin) regarding request of transferring the patient to [facility]. Communicated with the case management assistant (Barbie). Per Barbie, she will contact [facility] regarding the status. Informed family members and gave direct number to family member. Will continue plan of care.
--- NOTE | 2020-06-16 10:03 | Pulmonology Progress Note ---
Subjective ROS Limited/Unobtainable: No Constitutional: Denies: fever Allergies: Coded Allergies: No Known Allergies (Unverified , 06/08/20) All Systems: reviewed and negative except above Objective Last 24 Hour Vital Signs Date Time Temp Pulse Resp B/P (MAP) Pulse Ox O2 Delivery O2 Flow Rate FiO2 06/16/20 08:58 88 150/80 06/16/20 07:01 88 24 55 06/16/20 05:27 126/54 06/16/20 04:00 35 06/16/20 04:00 99.5 103 17 126/54 (78) 98 06/16/20 04:00 Mechanical Ventilator 06/16/20 03:42 65 06/16/20 03:20 89 24 55 06/16/20 00:00 98.4 90 17 143/70 (94) 100 06/16/20 00:00 88 06/16/20 00:00 Mechanical Ventilator 06/15/20 23:00 87 24 100 Mechanical Ventilator 55 89 24 06/15/20 22:21 137/77 06/15/20 20:00 99.0 88 17 137/77 (97) 100 06/15/20 20:00 Mechanical Ventilator 06/15/20 20:00 35 06/15/20 19:35 89 06/15/20 19:10 90 24 35 06/15/20 17:37 89 143/76 06/15/20 16:00 Mechanical Ventilator 06/15/20 16:00 89 06/15/20 16:00 35 06/15/20 16:00 98.2 84 17 143/76 (98) 100 06/15/20 15:27 83 18 35 06/15/20 13:39 139/77 06/15/20 12:00 50 06/15/20 12:00 Mechanical Ventilator 06/15/20 12:00 82 06/15/20 12:00 98.9 86 17 135/74 (94) 100 06/15/20 11:05 85 29 55 Intake and Output 06/15/20 06/16/20 19:00 07:00 Intake Total 1575 ml 1851.250 ml Output Total 1220 ml 1915 ml Balance 355 ml -63.750 ml Intake Free Water 200 ml 300 ml IV Total 655 ml 711.250 ml Tube Feeding 720 ml 840 ml Output Urine Total 1200 ml 1900 ml Stool Total 20 ml 15 ml Microbiology Date/Time Source Procedure Growth Status 06/14/20 02:29 Indwelling Cath Urine Culture - Preliminary Yeast Species Resulted 06/13/20 22:45 Blood Blood Culture - Preliminary NO GROWTH AFTER 48 HOURS Resulted 06/13/20 22:40 Blood Blood Culture - Preliminary NO GROWTH AFTER 48 HOURS Resulted Laboratory Tests 06/15/20 12:22: POC Whole Blood Glucose 191H 06/15/20 17:02: POC Whole Blood Glucose [Pending] 06/16/20 00:12: POC Whole Blood Glucose [Pending] 06/16/20 03:30: White Blood Count 13.2H, Red Blood Count 3.49L, Hemoglobin 10.0L, Hematocrit 31.2L, Mean Corpuscular Volume 89, Mean Corpuscular Hemoglobin 28.5, Mean Corpuscular Hemoglobin Concent 31.9L, Red Cell Distribution Width 16.7H, Platelet Count 551H, Mean Platelet Volume 5.2L, Neutrophils (%) (Auto) 74.0, Lymphocytes (%) (Auto) 15.4L, Monocytes (%) (Auto) 6.1, Eosinophils (%) (Auto) 3.9H, Basophils (%) (Auto) 0.5, Sodium Level 141, Potassium Level 3.7, Chloride Level 101, Carbon Dioxide Level 33H, Anion Gap 7, Blood Urea Nitrogen 12, Creatinine 0.6, Estimat Glomerular Filtration Rate > 60, Glucose Level 151H, Calcium Level 8.2L, Total Bilirubin 0.3, Aspartate Amino Transf (AST/SGOT) 18, Alanine Aminotransferase (ALT/SGPT) 30, Alkaline Phosphatase 188H, Total Protein 6.9, Albumin 1.8L, Globulin 5.1, Albumin/Globulin Ratio 0.4L 06/16/20 05:29: POC Whole Blood Glucose 153H Current Medications Medications (Trade) Dose Ordered Sig/Milla Route PRN Reason Start Time Stop Time Status Last Admin Dose Admin Acetaminophen (Tylenol) 650 mg Q4H PRN ORAL Temp >100.5 06/13/20 21:15 07/13/20 21:14 06/13/20 21:46 Amiodarone HCl (Cordarone) 200 mg DAILY GT 06/09/20 09:00 09/07/20 08:59 06/16/20 08:58 Amlodipine Besylate (Norvasc) 5 mg TWICE A DAY GT 06/09/20 09:00 07/09/20 08:59 06/16/20 08:58 Bethanechol Chloride (Urecholine) 25 mg Q6HR GT 06/09/20 06:00 07/09/20 05:59 06/16/20 05:27 Chlorhexidine Gluconate (Sue-Hex 2%) 1 applic DAILY@1999 TOPIC 06/10/20 20:00 09/08/20 19:59 06/15/20 20:20 Clonidine HCl (Catapres Tab) 0.1 mg Q6H PRN GT For High Blood Pressure 06/09/20 00:30 09/07/20 00:29 Colistimethate Sodium (Colistin *inhalation use only*) 75 mg Q12HR@ INH 06/13/20 22:00 06/20/20 21:59 06/15/20 23:00 Dextrose (Dextrose 50%) 25 ml Q30M PRN IV Hypoglycemia 06/09/20 06:00 09/07/20 05:59 06/09/20 06:02 Dextrose (Dextrose 50%) 50 ml Q30M PRN IV Hypoglycemia 06/09/20 00:15 09/07/20 00:14 Docusate Sodium (Colace) 100 mg TWICE A DAY GT 06/09/20 09:00 07/09/20 08:59 06/16/20 08:58 Epoetin Cameron (Epoetin Cameron-EPBX(NON ESRD)) 10,000 unit SUBQ 06/09/20 21:00 09/07/20 20:59 06/13/20 20:28 Famotidine (Pepcid) 20 mg TWICE A DAY GT 06/09/20 09:00 09/07/20 08:59 06/16/20 08:59 Hydralazine HCl (Apresoline) 25 mg EVERY 8 HOURS GT 06/09/20 06:00 09/07/20 05:59 06/16/20 05:27 Insulin Aspart (NovoLOG) Q6HR SUBQ 06/09/20 06:00 09/07/20 05:59 06/16/20 06:09 Lactulose (Cephulac) 20 gm Q6H PRN GT Constipation 06/09/20 00:30 07/09/20 00:29 Lansoprazole (Prevacid) 30 mg TWICE A DAY GT 06/09/20 09:00 07/09/20 08:59 06/16/20 08:59 Levetiracetam (Keppra) 500 mg TWICE A DAY GT 06/09/20 09:00 07/09/20 08:59 06/16/20 08:58 Levothyroxine Sodium (Synthroid) 75 mcg DAILY GT 06/09/20 09:00 07/09/20 08:59 06/16/20 08:59 Meropenem 1 gm/ Sodium Chloride 55 ml @ 110 mls/hr Q8H IVPB 06/14/20 20:00 06/19/20 19:59 06/16/20 03:08 Metoclopramide HCl (Reglan) 5 mg EVERY 6 HOURS GT 06/09/20 06:00 07/09/20 05:59 06/16/20 05:27 Nitroglycerin (Ntg) 0.4 mg Q5MIN X 3 DOSES PRN SL CHEST PAIN 06/09/20 00:30 07/09/20 00:29 Ondansetron HCl (Zofran) 4 mg Q6H PRN GT Nausea & Vomiting 06/09/20 00:30 07/09/20 00:29 Pravastatin Sodium (Pravachol) 40 mg BEDTIME GT 06/09/20 21:00 07/09/20 20:59 06/15/20 20:20 Sodium Chloride 1,000 ml @ 50 mls/hr Q20H IV 06/09/20 01:00 07/09/20 00:59 06/16/20 08:59 Vancomycin HCl (Vanco pharmacy to dose) 1 ea DAILY PRN MISC Per rx protocol 06/09/20 00:15 07/20/20 00:14 Vancomycin/Sodium Chloride 1.25 ml @ 0.625 mls/ hr Q24H IVPB 06/15/20 23:00 06/20/20 22:59 06/15/20 22:21 Zinc Sulfate (Zinc Sulfate) 220 mg DAILY GT 06/09/20 09:00 09/07/20 08:59 06/16/20 08:59 Assessment/Plan Assessment/Plan Pulmonary Progress Note HPI Patient is a 70 year old man with.past medical history of Respiratory failure, Sepsis, Chronic Kidney Disease, Type 2 Diabetes, and Decubitus ulcers, Hypertension, GERD, Anemia Pancreatitis, on TPN, Seizure Hx, Hypothyroidism, Hyperlidemia. Noted to have abnormal labs, having an elevated WBC count of 28K. No fevers, chills noted. HPI and ROS are limited Pt. unable to give detail regarding his ED visit as he is non-verbal. Allergies: No Known Allergies Past Medical History: Respiratory failure, Sepsis, Chronic Kidney Disease, Type 2 Diabetes, and Decubitus ulcers, Hypertension, GERD, Anemia Pancreatitis, on TPN, Seizure Hx, Hypothyroidism, Hyperlidemia Physical Exam Vital Signs Noted Physical Examination: Chronically ill appearing HEENT:NCAT, moist mm Chest: CTAB Heart: Hs1, HS2, RRR Abdomen: SNTND, G tube Extyremities: Wellperfusedd, no edema ELECTION CLERK: AMS, no focal signs, no seizures Assessment/Plan sepsis leukocytosis anemia colostomy respiratory failure possible gib chronic pancreatitis chronic encephalopathy hypernatremia acute renal failure pneumonia bacteremia UTI pneumonia sacral osteo/ decub diverting colostomy PLAN vent support IV antibiotics- noted; PICC line GI on feeds and tolerating replace K as needed ID recommendations noted close follow up monitor HH guarded at present hope to dc soon back to snf per sister, would like to transfer to [facility]- discussed with [facility] staff impression, plan, and exam edited and reviewed in detail care discussed with RN Labs noted EKG: Rate: normal - 98 Rhythm: NSR ST Segments: no acute changes Other Impression 1st degree AV block Chest X-Ray no pneumothorax, other - Left lower lobe infiltrate. Abner Mcclelland MD Jun 16, 2020 10:03
--- NOTE | 2020-06-16 11:13 | Infectious Diseases Prog Note ---
Assessment/Plan Assessment/Plan antibiotics : vancomycin iv, meropenem, inhaled colistin A 1. coag neg staph sepsis 2. pneumonia with pseudomonas, klebsiella 3. e.coli, enterococcus, fungal UTI 4. leucocytosis resolved 5. respiratory failure 6. diabetes mellitus 7. hypertension 9. coccyxgeal osteomyelitis P 1. continue iv vancomycin 34 more days 2. d/c meropenem, inhaled colistin 3. start inhaled gentamicin 4. will follow up cultures Subjective ROS Limited/Unobtainable: Yes Allergies: Coded Allergies: No Known Allergies (Unverified , 06/08/20) Objective Last 24 Hour Vital Signs Date Time Temp Pulse Resp B/P (MAP) Pulse Ox O2 Delivery O2 Flow Rate FiO2 06/16/20 08:58 88 150/80 06/16/20 08:00 98.1 88 16 150/80 (103) 100 06/16/20 08:00 88 06/16/20 08:00 Mechanical Ventilator 06/16/20 08:00 35 06/16/20 07:01 88 24 55 06/16/20 05:27 126/54 06/16/20 04:00 35 06/16/20 04:00 99.5 103 17 126/54 (78) 98 06/16/20 04:00 Mechanical Ventilator 06/16/20 03:42 65 06/16/20 03:20 89 24 55 06/16/20 00:00 98.4 90 17 143/70 (94) 100 06/16/20 00:00 88 06/16/20 00:00 Mechanical Ventilator 06/15/20 23:00 87 24 100 Mechanical Ventilator 55 89 24 06/15/20 22:21 137/77 06/15/20 20:00 99.0 88 17 137/77 (97) 100 06/15/20 20:00 Mechanical Ventilator 06/15/20 20:00 35 06/15/20 19:35 89 06/15/20 19:10 90 24 35 06/15/20 17:37 89 143/76 06/15/20 16:00 Mechanical Ventilator 06/15/20 16:00 89 06/15/20 16:00 35 06/15/20 16:00 98.2 84 17 143/76 (98) 100 06/15/20 15:27 83 18 35 06/15/20 13:39 139/77 06/15/20 12:00 50 9/27/20 12:00 Mechanical Ventilator 06/15/20 12:00 82 06/15/20 12:00 98.9 86 17 135/74 (94) 100 Height (Feet): 5 Height (Inches): 10.00 Weight (Pounds): 162 Respiratory/Chest: lungs clear Cardiovascular: normal rate, regular rhythm, no gallop/murmur Abdomen: soft, non tender Extremities: no edema, other - right arm PICC Microbiology Date/Time Source Procedure Growth Status 06/14/20 02:29 Indwelling Cath Urine Culture - Preliminary Yeast Species Resulted 06/13/20 22:45 Blood Blood Culture - Preliminary NO GROWTH AFTER 48 HOURS Resulted 06/13/20 22:40 Blood Blood Culture - Preliminary NO GROWTH AFTER 48 HOURS Resulted Laboratory Tests Test 06/15/20 12:22 06/15/20 17:02 06/16/20 00:12 06/16/20 03:30 POC Whole Blood Glucose 191 MG/DL (74-106) H Pending Pending White Blood Count 13.2 K/UL (4.8-10.8) H Red Blood Count 3.49 M/UL (4.70-6.10) L Hemoglobin 10.0 G/DL (14.2-18.0) L Hematocrit 31.2 % (42.0-52.0) L Mean Corpuscular Volume 89 FL (80-99) Mean Corpuscular Hemoglobin 28.5 PG (27.0-31.0) Mean Corpuscular Hemoglobin Concent 31.9 G/DL (32.0-36.0) L Red Cell Distribution Width 16.7 % (11.6-14.8) H Platelet Count 551 K/UL (150-450) H Mean Platelet Volume 5.2 FL (6.5-10.1) L Neutrophils (%) (Auto) 74.0 % (45.0-75.0) Lymphocytes (%) (Auto) 15.4 % (20.0-45.0) L Monocytes (%) (Auto) 6.1 % (1.0-10.0) Eosinophils (%) (Auto) 3.9 % (0.0-3.0) H Basophils (%) (Auto) 0.5 % (0.0-2.0) Sodium Level 141 MMOL/L (136-145) Potassium Level 3.7 MMOL/L (3.5-5.1) Chloride Level 101 MMOL/L (98-107) Carbon Dioxide Level 33 MMOL/L (21-32) H Anion Gap 7 mmol/L (5-15) Blood Urea Nitrogen 12 mg/dL (7-18) Creatinine 0.6 MG/DL (0.55-1.30) Estimat Glomerular Filtration Rate > 60 mL/min (>60) Glucose Level 151 MG/DL (74-106) H Calcium Level 8.2 MG/DL (8.5-10.1) L Total Bilirubin 0.3 MG/DL (0.2-1.0) Aspartate Amino Transf (AST/SGOT) 18 U/L (15-37) Alanine Aminotransferase (ALT/SGPT) 30 U/L (12-78) Alkaline Phosphatase 188 U/L (46-116) H Total Protein 6.9 G/DL (6.4-8.2) Albumin 1.8 G/DL (3.4-5.0) L Globulin 5.1 g/dL Albumin/Globulin Ratio 0.4 (1.0-2.7) L Test 06/16/20 05:29 POC Whole Blood Glucose 153 MG/DL (74-106) H Current Medications Medications (Trade) Dose Ordered Sig/Milla Route PRN Reason Start Time Stop Time Status Last Admin Dose Admin Acetaminophen (Tylenol) 650 mg Q4H PRN ORAL Temp >100.5 06/13/20 21:15 07/13/20 21:14 06/13/20 21:46 Amiodarone HCl (Cordarone) 200 mg DAILY GT 06/09/20 09:00 09/07/20 08:59 06/16/20 08:58 Amlodipine Besylate (Norvasc) 5 mg TWICE A DAY GT 06/09/20 09:00 07/09/20 08:59 06/16/20 08:58 Bethanechol Chloride (Urecholine) 25 mg Q6HR GT 06/09/20 06:00 07/09/20 05:59 06/16/20 05:27 Chlorhexidine Gluconate (Sue-Hex 2%) 1 applic DAILY@1999 TOPIC 06/10/20 20:00 09/08/20 19:59 06/15/20 20:20 Clonidine HCl (Catapres Tab) 0.1 mg Q6H PRN GT For High Blood Pressure 06/09/20 00:30 09/07/20 00:29 Colistimethate Sodium (Colistin *inhalation use only*) 75 mg Q12HR@10,22 INH 06/13/20 22:00 06/20/20 21:59 06/15/20 23:00 Dextrose (Dextrose 50%) 25 ml Q30M PRN IV Hypoglycemia 06/09/20 06:00 09/07/20 05:59 06/09/20 06:02 Dextrose (Dextrose 50%) 50 ml Q30M PRN IV Hypoglycemia 06/09/20 00:15 09/07/20 00:14 Docusate Sodium (Colace) 100 mg TWICE A DAY GT 06/09/20 09:00 07/09/20 08:59 06/16/20 08:58 Epoetin Cameron (Epoetin Cameron-EPBX(NON ESRD)) 10,000 unit SUBQ 06/09/20 21:00 09/07/20 20:59 06/13/20 20:28 Famotidine (Pepcid) 20 mg TWICE A DAY GT 06/09/20 09:00 09/07/20 08:59 06/16/20 08:59 Hydralazine HCl (Apresoline) 25 mg EVERY 8 HOURS GT 06/09/20 06:00 09/07/20 05:59 06/16/20 05:27 Insulin Aspart (NovoLOG) Q6HR SUBQ 06/09/20 06:00 09/07/20 05:59 06/16/20 06:09 Lactulose (Cephulac) 20 gm Q6H PRN GT Constipation 06/09/20 00:30 07/09/20 00:29 Lansoprazole (Prevacid) 30 mg TWICE A DAY GT 06/09/20 09:00 07/09/20 08:59 06/16/20 08:59 Levetiracetam (Keppra) 500 mg TWICE A DAY GT 06/09/20 09:00 07/09/20 08:59 06/16/20 08:58 Levothyroxine Sodium (Synthroid) 75 mcg DAILY GT 06/09/20 09:00 07/09/20 08:59 06/16/20 08:59 Meropenem 1 gm/ Sodium Chloride 55 ml @ 110 mls/hr Q8H IVPB 06/14/20 20:00 06/19/20 19:59 06/16/20 03:08 Metoclopramide HCl (Reglan) 5 mg EVERY 6 HOURS GT 06/09/20 06:00 07/09/20 05:59 06/16/20 05:27 Nitroglycerin (Ntg) 0.4 mg Q5MIN X 3 DOSES PRN SL CHEST PAIN 06/09/20 00:30 07/09/20 00:29 Ondansetron HCl (Zofran) 4 mg Q6H PRN GT Nausea & Vomiting 06/09/20 00:30 07/09/20 00:29 Pravastatin Sodium (Pravachol) 40 mg BEDTIME GT 06/09/20 21:00 07/09/20 20:59 06/15/20 20:20 Sodium Chloride 1,000 ml @ 50 mls/hr Q20H IV 06/09/20 01:00 07/09/20 00:59 06/16/20 08:59 Vancomycin HCl (Vanco pharmacy to dose) 1 ea DAILY PRN MISC Per rx protocol 06/09/20 00:15 07/20/20 00:14 Vancomycin/Sodium Chloride 1.25 ml @ 0.625 mls/ hr Q24H IVPB 06/15/20 23:00 06/20/20 22:59 06/15/20 22:21 Zinc Sulfate (Zinc Sulfate) 220 mg DAILY GT 06/09/20 09:00 09/07/20 08:59 06/16/20 08:59 Jayde Leyva MD Jun 16, 2020 11:13
[2020-06-16 12:00] VITALS: BP 147/86
--- NOTE | 2020-06-16 12:00 | NUR ---
NURSE NOTES: BS 149 noted. Novolog administered per protocol. The patient is stable without acute distress or shortness of breath. Tolerating vent setting and tube feeding well. Will closely monitor the patient. Will continue plan of care.
--- NOTE | 2020-06-16 14:00 | NUR ---
NURSE NOTES: Pt is resting and stable with no acute distress and shortness of breath. Tolerating vent setting and feeding tube. Will continue to monitor patient.
--- NOTE | 2020-06-16 14:44 | NUR ---
CASE MANAGEMENT: REVIEW SI: UTI . SEPSIS . PNA T 98.1 HR 88 RR 16 BP 150/80 SAT 100% MECH VENT FIO2 55 WBC 13.2 H/H 10.0/31.1 GLUCOSE 153 IS: VANCOMYCIN IV Q24HR GENTAMICIN INH Q12HR EPOETIN SUBQ MWF NS IVF @ 50ML/HR STEP DOWN UNIT STATUS DCP: PATIENT IS FROM [facility]
--- NOTE | 2020-06-16 14:53 | NUR ---
*-*DISCHARGE PLANNING*-* PATIENT HAS BEEN REFERRED BACK TO: [facility] P: [phone]
[2020-06-16 16:00] VITALS: BP 145/82
--- NOTE | 2020-06-16 16:00 | NUR ---
NURSE NOTES: Bed bath given. Pt is tolerating well. Will continue with plan of care.
--- NOTE | 2020-06-16 17:30 | NUR ---
NURSE NOTES: BS is 166, Novolog covered per protocol. Pt is stable at this time. Will continue with plan of care.
--- NOTE | 2020-06-16 19:05 | NUR ---
NURSE HAND-OFF REPORT: Important Events on Shift: Pt is stable throughout the shift Patient Status: stable, full code Diet: Glucerna 1.2 @ 60mL/hr Pending Orders: N Pending Results/Labs:N Pending MD notification:N Latest Vital Signs: Temperature 99.0 , Pulse 93 , B/P 145 /82 , Respiratory Rate 16 , O2 SAT 100 , Mechanical Ventilator, O2 Flow Rate 4.0 . Vital Sign Comment: stable EKG Rhythm: 1st Degree HB Rhythm change?: N MD Notified?: N -DR.BALFE BAILEY Response: No New Orders Received Latest Pulido Fall Score: 70 Fall Risk: High Risk Safety Measures: Call light Within Reach, Bed Alarm Zone 2, Side Rails Side Rails x2, Bed position Low and Locked. Fall Precautions: Yellow Socks Yellow Gown Door Sign Patient Fall Education Report given to BOO Flood. Pt is stable at this time. Endorsed plan of care.
[2020-06-16 20:00] VITALS: BP 144/78
[2020-06-16] MEDS: Dyna-Hex 2% Top Sol 2oz TOPIC SCH (20:24)
[2020-06-16] MEDS: Epoetin Alfa-EPBX (NON ESRD)4000 units/ml vial SUBQ SCH (20:26)
[2020-06-16] MEDS: Epoetin Alfa-EPBX (NON ESRD) 3000 units/ml vial SUBQ SCH (20:26)
--- NOTE | 2020-06-16 20:35 | General Progress Note ---
Subjective Allergies: Coded Allergies: No Known Allergies (Unverified , 06/08/20) Subjective NAD tolerating TF Objective Last 24 Hour Vital Signs Date Time Temp Pulse Resp B/P (MAP) Pulse Ox O2 Delivery O2 Flow Rate FiO2 06/16/20 20:00 98.8 92 21 144/78 (100) 100 06/16/20 19:30 93 23 35 06/16/20 17:31 93 145/82 06/16/20 16:00 35 06/16/20 16:00 Mechanical Ventilator 06/16/20 16:00 93 06/16/20 16:00 99.0 94 16 145/82 (103) 100 06/16/20 15:10 87 24 55 06/16/20 13:16 140/89 06/16/20 12:00 98.6 92 16 147/86 (106) 100 06/16/20 12:00 Mechanical Ventilator 06/16/20 12:00 91 06/16/20 12:00 35 06/16/20 11:10 86 24 55 06/16/20 08:58 88 150/80 06/16/20 08:00 98.1 88 16 150/80 (103) 100 06/16/20 08:00 88 06/16/20 08:00 Mechanical Ventilator 06/16/20 08:00 35 06/16/20 07:01 88 24 55 06/16/20 05:27 126/54 06/16/20 04:00 35 06/16/20 04:00 99.5 103 17 126/54 (78) 98 06/16/20 04:00 Mechanical Ventilator 06/16/20 03:42 65 06/16/20 03:20 89 24 55 06/16/20 00:00 98.4 90 17 143/70 (94) 100 06/16/20 00:00 88 06/16/20 00:00 Mechanical Ventilator 06/15/20 23:00 87 24 100 Mechanical Ventilator 55 89 24 06/15/20 22:21 137/77 Intake and Output 06/15/20 06/16/20 19:00 07:00 Intake Total 1575 ml 2011.250 ml Output Total 1220 ml 1915 ml Balance 355 ml 96.250 ml Intake Free Water 200 ml 400 ml IV Total 655 ml 711.250 ml Tube Feeding 720 ml 900 ml Output Urine Total 1200 ml 1900 ml Stool Total 20 ml 15 ml Laboratory Tests 06/16/20 00:12: POC Whole Blood Glucose [Pending] 06/16/20 03:30: White Blood Count 13.2H, Red Blood Count 3.49L, Hemoglobin 10.0L, Hematocrit 31.2L, Mean Corpuscular Volume 89, Mean Corpuscular Hemoglobin 28.5, Mean Corpuscular Hemoglobin Concent 31.9L, Red Cell Distribution Width 16.7H, Platelet Count 551H, Mean Platelet Volume 5.2L, Neutrophils (%) (Auto) 74.0, Lymphocytes (%) (Auto) 15.4L, Monocytes (%) (Auto) 6.1, Eosinophils (%) (Auto) 3.9H, Basophils (%) (Auto) 0.5, Sodium Level 141, Potassium Level 3.7, Chloride Level 101, Carbon Dioxide Level 33H, Anion Gap 7, Blood Urea Nitrogen 12, Creatinine 0.6, Estimat Glomerular Filtration Rate > 60, Glucose Level 151H, Calcium Level 8.2L, Total Bilirubin 0.3, Aspartate Amino Transf (AST/SGOT) 18, Alanine Aminotransferase (ALT/SGPT) 30, Alkaline Phosphatase 188H, Total Protein 6.9, Albumin 1.8L, Globulin 5.1, Albumin/Globulin Ratio 0.4L 06/16/20 05:29: POC Whole Blood Glucose 153H 06/16/20 11:24: POC Whole Blood Glucose 149H 06/16/20 17:29: POC Whole Blood Glucose 166H Height (Feet): 5 Height (Inches): 10.00 Weight (Pounds): 162 Objective Elderly man NCAT (+) trach coarse BS RR abd soft, (+) GT (+) colostomy no edema Assessment/Plan Status: stable Assessment/Plan: Assessment - h/o pancreatitis - resolved - s/p colostomy - sepsis/leukocytosis - resp failure / trach - dysphagia / GT - s/p CVA - Anemia - CAD - DM - hypokalemia - HTN - GERD Recommendations - Abx - CT abd/pelvis noted - PPI - Monitor CBC - TF Moshe Kraft MD Jun 16, 2020 20:34
--- NOTE | 2020-06-16 21:01 | Surgery Progress Note ---
Surgery Progress Note Subjective Additional Comments no acute events Objective Last 24 Hour Vital Signs Date Time Temp Pulse Resp B/P (MAP) Pulse Ox O2 Delivery O2 Flow Rate FiO2 06/16/20 20:00 35 06/16/20 20:00 Mechanical Ventilator 06/16/20 20:00 98.8 92 21 144/78 (100) 100 06/16/20 19:30 93 23 35 06/16/20 17:31 93 145/82 06/16/20 16:00 35 06/16/20 16:00 Mechanical Ventilator 06/16/20 16:00 93 06/16/20 16:00 99.0 94 16 145/82 (103) 100 06/16/20 15:10 87 24 55 06/16/20 13:16 140/89 06/16/20 12:00 98.6 92 16 147/86 (106) 100 06/16/20 12:00 Mechanical Ventilator 06/16/20 12:00 91 06/16/20 12:00 35 06/16/20 11:10 86 24 55 06/16/20 08:58 88 150/80 06/16/20 08:00 98.1 88 16 150/80 (103) 100 06/16/20 08:00 88 06/16/20 08:00 Mechanical Ventilator 06/16/20 08:00 35 06/16/20 07:01 88 24 55 06/16/20 05:27 126/54 06/16/20 04:00 35 06/16/20 04:00 99.5 103 17 126/54 (78) 98 06/16/20 04:00 Mechanical Ventilator 06/16/20 03:42 65 06/16/20 03:20 89 24 55 06/16/20 00:00 98.4 90 17 143/70 (94) 100 06/16/20 00:00 88 06/16/20 00:00 Mechanical Ventilator 06/15/20 23:00 87 24 100 Mechanical Ventilator 55 89 24 06/15/20 22:21 137/77 I&O Intake and Output 06/15/20 06/16/20 19:00 07:00 Intake Total 1575 ml 2011.250 ml Output Total 1220 ml 1915 ml Balance 355 ml 96.250 ml Intake Free Water 200 ml 400 ml IV Total 655 ml 711.250 ml Tube Feeding 720 ml 900 ml Output Urine Total 1200 ml 1900 ml Stool Total 20 ml 15 ml Cardiovascular: RSR Respiratory: decreased breath sounds Abdomen: non-tender, present bowel sounds Extremities: no tenderness, no cyanosis Laboratory Tests Test 06/16/20 00:12 06/16/20 03:30 06/16/20 05:29 06/16/20 11:24 POC Whole Blood Glucose Pending 153 MG/DL (74-106) H 149 MG/DL (74-106) H White Blood Count 13.2 K/UL (4.8-10.8) H Red Blood Count 3.49 M/UL (4.70-6.10) L Hemoglobin 10.0 G/DL (14.2-18.0) L Hematocrit 31.2 % (42.0-52.0) L Mean Corpuscular Volume 89 FL (80-99) Mean Corpuscular Hemoglobin 28.5 PG (27.0-31.0) Mean Corpuscular Hemoglobin Concent 31.9 G/DL (32.0-36.0) L Red Cell Distribution Width 16.7 % (11.6-14.8) H Platelet Count 551 K/UL (150-450) H Mean Platelet Volume 5.2 FL (6.5-10.1) L Neutrophils (%) (Auto) 74.0 % (45.0-75.0) Lymphocytes (%) (Auto) 15.4 % (20.0-45.0) L Monocytes (%) (Auto) 6.1 % (1.0-10.0) Eosinophils (%) (Auto) 3.9 % (0.0-3.0) H Basophils (%) (Auto) 0.5 % (0.0-2.0) Sodium Level 141 MMOL/L (136-145) Potassium Level 3.7 MMOL/L (3.5-5.1) Chloride Level 101 MMOL/L (98-107) Carbon Dioxide Level 33 MMOL/L (21-32) H Anion Gap 7 mmol/L (5-15) Blood Urea Nitrogen 12 mg/dL (7-18) Creatinine 0.6 MG/DL (0.55-1.30) Estimat Glomerular Filtration Rate > 60 mL/min (>60) Glucose Level 151 MG/DL (74-106) H Calcium Level 8.2 MG/DL (8.5-10.1) L Total Bilirubin 0.3 MG/DL (0.2-1.0) Aspartate Amino Transf (AST/SGOT) 18 U/L (15-37) Alanine Aminotransferase (ALT/SGPT) 30 U/L (12-78) Alkaline Phosphatase 188 U/L (46-116) H Total Protein 6.9 G/DL (6.4-8.2) Albumin 1.8 G/DL (3.4-5.0) L Globulin 5.1 g/dL Albumin/Globulin Ratio 0.4 (1.0-2.7) L Test 06/16/20 17:29 POC Whole Blood Glucose 166 MG/DL (74-106) H Plan Problems: (1) UTI (urinary tract infection) (2) Pneumonia (3) Sepsis Assessment & Plan: leukocytosis, anemia. abnormal labs stage 4 sacral prior debridement and seems like ostectomy colostomy noted mid back and bilateral ischial dti ua noted on iv abx g tube in place but per reports on tpn at facility labs ordered imaging ordered no acute surgical intervention planned will follow with recs improving cont diet as tolerated cont abx (4) Colostomy in place (5) Feeding by G-tube (6) Deep tissue injury (7) Stage 4 skin ulcer of sacral region Assessment & Plan: Pt deconditioned and presented on admission with, Tracheostomy,GT, Multiple Pressure Injuries. Dry eschar noted to L earlobe(L)0.8cm x (W)0.6cm. No erythema noted periwound. Loose,dry eschar cap L earlobe(L)1cm x (W)0.7cm. Base of wound beneath loose eschar cap is moist and paul. No odor or exudate noted. Non-Blanchable erythema with shearing centrally posterior neck under tracheal collar.Periwound skin is dark without erythema or fluctuance.(L)1.5cm x (W)4.5cm. Resolving Pressure injury L lumbar area(L)2cm x (W00.7cm. [place] epithelial at base of wound. Loose dry edges . no erythema or induration periwound. Full thickness Pressure Injury Lumbar Spine(L)2.5cm x (W)1.5cm. Base of wound is 75% paul and moist,25% slough.Borders are macerated. No odor or exudate noted. Periwound without erythema or fluctuance. Full Thickness Sacral Pressure Injury (L)7.5cm x (W)8.8cm x (D)2.4cm, undermining clockwise 12-5 by 1.8cm @2o'clock. Base of wound is beefy red with purpuric area at base. Small area of bone exposure, scattered slough(20%) Wound is otherwise beefy red. Small amt serous exudate note. No odor noted. DTPI L lower Buttocks that is evolving. Base of wound is 75% soft necrosis,25% most and pink with surrounding maroon and indurated borders. DTPI that is evolving and is partially opened at L ischium(L)8cm x (W)9.5cm. Base of wound is purpuric ,indurated with opening that is 25% slough,75% moist and pink. NO odor noted. DTPI R Ischium that is evolving and is partially opened(L)6.3cm x (W)6.5cm. Base of wound is Indurated reddish/brown with opening that is 25% slough,25% soft necrosis,50% moist and pink. NO odor or exudate noted. No evidence of erythema or fluctuance periwound. Resolving Pressure Injury posterior L tibia with dry eschar cap,mixed dry pink epithelial. Unstageable Pressure injury posterior R Tibia. Stable dry eschar noted(L)14.5cm x (W)1.7cm. Unstageable Pressure Injury R heel(L)3.2cm x (W)4.2cm. Base of wound is 100% necrotic with marginal erythema and fluctuance periwound. Partial Thickness Pressure Injury medial L heel(L)1.3cm x (W)1.2cm. Base of wound is moist and viable . Edges are macerated with surrounding non-blanchable erythema with fluctuance. UNstageable Pressure Injury Lateral L Heel . Base of wound is 100% soft necrosis and is malodorous. Non-Blanchable erythema with Fluctuance periwound.(L)4cm x (W)3.4cm. Tx.Plan: Apply Betadine to R and L earlobes. Cover each ear with Optifoam drsg. Change every 3 days and prn. Apply Cavilon Skin Barrier to posterior neck. Cover with Optifoam drsg. Change every 3 days and prn. Cleanse Wounds Lumbar and L lumbar with Saline. Apply TheraHoney. Apply Moisture Barrier Paste periwound. Cover each site with Optifoam drsgs. Change every 3 days and prn. Cleanse Sacral wound with Saline. Loosely pack with Therahoney impregnated Kerlix. Apply Moisture Barrier paste periwound. Cover with Optifoam drsg. Change Daily and prn. Apply Moisture Barrier Paste to Scrotum with each incontinence care. Cleanse R and L Ischial wounds with Saline. Apply Therahoney. Apply Moisture Barrier Paste periwound. Cover each wound with Optifoam drsg. Changee very 3 days and prn. Apply Betadine to Posterior R and L Tibial wounds. Cover each wound with Optifoam drsgs. Change every 3 days and prn. Apply Betadine to R and L Heel wounds. Cover each heel with Optifoam drsgs. Change every 3 days and prn. Reposition at least every 2hours or as tolerated. Off-load heels with Pillows. APM/COLBY Mattress overlay. Jonny Powell Jun 16, 2020 21:01
[2020-06-16] MEDS: VANCOMYCIN IVPB SCH (22:14)
[2020-06-16] MEDS: [UNRECOGNIZED DRUG - OTHER] IVPB SCH (22:14)
[2020-06-16] MEDS: Gentamicin for inhalation INH SCH (23:23)
[2020-06-17] VITALS: BP 137/63
--- NOTE | 2020-06-17 02:00 | NUR ---
NURSE NOTES: received pt from Dayanna HADDAD., pt is resting on the bed at this time, awake, opens eyes, AOx1 at this time. pt follows some command. no s/s of pain at this time. pt is on trach vent, no SOB noted. O2sat is at 100% at this time. Gtube site intact, clean, and patent. colostomy bag noted, no leaking noted at this time, brown BM noted, and intact. florez cath is intact draining well with gravity, yellow side rails are padded. right upper picc line noted dressing site intact, clean, and patent. call light within reach. will continue to monitor pt with plan of care. bed at the lowest position, alarmed, and locked side rails are padded. .
[2020-06-17 04:00] VITALS: BP 135/70
--- NOTE | 2020-06-17 04:54 | NUR ---
NURSE NOTES: cleaned pt, oral care given, repositioned pt Q2hrs. pt states no pain at this time. provided new gown, and blanket. will continue to monitor pt with plan of care. call light within reach.
[2020-06-17] MEDS: Metoclopramide 10mg/10ml Liq GT SCH ×4 (05:23→23:36)
[2020-06-17] MEDS: Bethanechol 25mg Tab GT SCH ×4 (05:23→23:30)
[2020-06-17] MEDS: HydrALAZINE 25mg tab GT SCH ×3 (05:23→21:57)
[2020-06-17] MEDS: NovoLOG Insulin Flexpen SUBQ SCH ×4 (05:25→23:38)
[2020-06-17 05:42] LABS: BASOPHILS % (AUTO) 0.9 % (0.0-2.0); EOSINOPHILS % (AUTO) 4.2 % (0.0-3.0); HEMATOCRIT 31.8 % (42.0-52.0); HEMOGLOBIN 10.1 G/DL (14.2-18.0); MEAN CORPUSCULAR VOLUME 89 FL (80-99); MONOCYTES % (AUTO) 8.3 % (1.0-10.0); NEUTROPHILS % (AUTO) 71.6 % (45.0-75.0); PLATELET COUNT 543 K/UL (150-450); RED BLOOD COUNT 3.58 M/UL (4.70-6.10); RED CELL DISTRIBUTION WIDTH 16.1 % (11.6-14.8); WHITE BLOOD COUNT 12.7 K/UL (4.8-10.8)
[2020-06-17 06:43] LABS: ALANINE AMINOTRANSFERASE 30 U/L (12-78); ALBUMIN 1.9 G/DL (3.4-5.0); ALBUMIN/GLOBULIN RATIO 0.4 (1.0-2.7); ALKALINE PHOSPHATASE 184 U/L (46-116); ASPARTATE AMINO TRANSFERASE 20 U/L (15-37); BILIRUBIN,TOTAL 0.4 MG/DL (0.2-1.0); BLOOD UREA NITROGEN 12 mg/dL (7-18); CALCIUM 8.6 MG/DL (8.5-10.1); CARBON DIOXIDE 33 MMOL/L (21-32); CHLORIDE 99 MMOL/L (98-107); CREATININE 0.6 MG/DL (0.55-1.30); POTASSIUM 3.6 MMOL/L (3.5-5.1); SODIUM 137 MMOL/L (136-145)
--- NOTE | 2020-06-17 07:22 | NUR ---
NURSE HAND-OFF REPORT: Important Events on Shift:low grade fever (highest 99.8 today) Patient Status: stable Diet: glucerna 1.2 @60ml/hr Pending Orders: n Pending Results/Labs:n Pending MD notification:n Latest Vital Signs: Temperature 99.7 , Pulse 91 , B/P 135 /70 , Respiratory Rate 20 , O2 SAT 100 , Mechanical Ventilator, O2 Flow Rate 4.0 . Vital Sign Comment: stable EKG Rhythm: SR w/ 1st hb Rhythm change?: N MD Notified?: N MD Response: Latest Pulido Fall Score: 70 Fall Risk: High Risk Safety Measures: Call light Within Reach, Bed Alarm Zone 2, Side Rails Side Rails x2, Bed position Low and Locked. Fall Precautions: Yellow Socks Yellow Gown Door Sign Patient Fall Education Report given to [Gentry HADDAD].
--- NOTE | 2020-06-17 07:27 | NUR ---
NURSE NOTES: Received report from Nadia Arellano RN. Patient in bed resting, no active s/s cardiac, respiratory distress noticed at this time. Patient AOx0, open eyes on verbal stimulus. SR with 1st HB with HR 91. Trach to vent Portex 6 AC 16 TV 400 Fio2 35 PEEP 5 O2 sat 100%. GT feeding on Glucerna 1.2 @ 60ml/h, colostomy bag draining well to gravity. PICC line on right upper arm, IVF NS running as prescribed rate @ 50ml/h. Thomson Catheter draining well to gravity at this time. Bed in lowest position, side rails upx3, call light within reach, bed alarm on, Will continue to monitor.
--- NOTE | 2020-06-17 07:43 | Pulmonology Progress Note ---
Subjective ROS Limited/Unobtainable: Yes Constitutional: Denies: fever Allergies: Coded Allergies: No Known Allergies (Unverified , 06/08/20) All Systems: reviewed and negative except above Subjective care noted overnight events reviewed on vent on feeds sister would like transfer to [facility]- [facility] written Objective Last 24 Hour Vital Signs Date Time Temp Pulse Resp B/P (MAP) Pulse Ox O2 Delivery O2 Flow Rate FiO2 06/17/20 05:23 135/70 06/17/20 04:00 99.7 91 20 135/70 (91) 100 06/17/20 04:00 35 06/17/20 04:00 Mechanical Ventilator 06/17/20 03:30 90 18 35 06/17/20 03:26 92 06/17/20 01:00 35 06/17/20 00:00 Mechanical Ventilator 06/17/20 00:00 98.4 90 16 137/63 (87) 100 06/17/20 00:00 35 06/16/20 23:29 92 06/16/20 23:00 95 17 100 Mechanical Ventilator 35 99 17 35 06/16/20 22:13 144/78 06/16/20 20:00 35 06/16/20 20:00 Mechanical Ventilator 06/16/20 20:00 98.8 92 21 144/78 (100) 100 06/16/20 19:30 93 23 35 06/16/20 19:07 94 06/16/20 17:31 93 145/82 06/16/20 16:00 35 06/16/20 16:00 Mechanical Ventilator 06/16/20 16:00 93 06/16/20 16:00 99.0 94 16 145/82 (103) 100 06/16/20 15:10 87 24 55 06/16/20 13:16 140/89 06/16/20 12:00 98.6 92 16 147/86 (106) 100 06/16/20 12:00 Mechanical Ventilator 06/16/20 12:00 91 06/16/20 12:00 35 06/16/20 11:10 86 24 55 06/16/20 08:58 88 150/80 06/16/20 08:00 98.1 88 16 150/80 (103) 100 06/16/20 08:00 88 06/16/20 08:00 Mechanical Ventilator 9/28/20 08:00 35 Intake and Output 06/16/20 06/17/20 19:00 07:00 Intake Total 1520 ml 1371.250 ml Output Total 1435 ml 2200 ml Balance 85 ml -828.750 ml Intake Free Water 200 ml 200 ml IV Total 600 ml 451.250 ml Tube Feeding 720 ml 720 ml Output Urine Total 1400 ml 2000 ml Stool Total 35 ml 200 ml Objective WDWN NAD reduced breath sounds bilaterally without rhonchi or wheeze [id number] without MRG NABS nontender colostomy no CCE nonfocal reduced LOC trach in place reviewed Laboratory Tests 06/16/20 11:24: POC Whole Blood Glucose 149H 06/16/20 17:29: POC Whole Blood Glucose 166H 06/16/20 23:00: POC Whole Blood Glucose [Pending] 06/17/20 04:00: White Blood Count 12.7H, Red Blood Count 3.58L, Hemoglobin 10.1L, Hematocrit 31.8L, Mean Corpuscular Volume 89, Mean Corpuscular Hemoglobin 28.3, Mean Corpuscular Hemoglobin Concent 31.8L, Red Cell Distribution Width 16.1H, Platelet Count 543H, Mean Platelet Volume 5.2L, Neutrophils (%) (Auto) 71.6, Lymphocytes (%) (Auto) 15.0L, Monocytes (%) (Auto) 8.3, Eosinophils (%) (Auto) 4.2H, Basophils (%) (Auto) 0.9, Erythrocyte Sedimentation Rate [Pending], Sodium Level 137, Potassium Level 3.6, Chloride Level 99, Carbon Dioxide Level 33H, Bl ood Urea Nitrogen 12, Creatinine 0.6, Estimat Glomerular Filtration Rate > 60, Glucose Level 112H, Calcium Level 8.6, Total Bilirubin 0.4, Aspartate Amino Transf (AST/SGOT) 20, Alanine Aminotransferase (ALT/SGPT) 30, Alkaline Phosphatase 184H, C-Reactive Protein, Quantitative 2.9H, Total Protein 6.3L, Albumin 1.9L, Globulin 4.4, Albumin/Globulin Ratio 0.4L 06/17/20 05:24: POC Whole Blood Glucose [Pending] Current Medications Medications (Trade) Dose Ordered Sig/Milla Route PRN Reason Start Time Stop Time Status Last Admin Dose Admin Acetaminophen (Tylenol) 650 mg Q4H PRN ORAL Temp >100.5 06/13/20 21:15 07/13/20 21:14 06/13/20 21:46 Amiodarone HCl (Cordarone) 200 mg DAILY GT 06/09/20 09:00 09/07/20 08:59 06/16/20 08:58 Amlodipine Besylate (Norvasc) 5 mg TWICE A DAY GT 06/09/20 09:00 07/09/20 08:59 06/16/20 17:31 Bethanechol Chloride (Urecholine) 25 mg Q6HR GT 06/09/20 06:00 07/09/20 05:59 06/17/20 05:23 Chlorhexidine Gluconate (Sue-Hex 2%) 1 applic DAILY@1999 TOPIC 06/10/20 20:00 09/08/20 19:59 06/16/20 20:24 Clonidine HCl (Catapres Tab) 0.1 mg Q6H PRN GT For High Blood Pressure 06/09/20 00:30 09/07/20 00:29 Dextrose (Dextrose 50%) 25 ml Q30M PRN IV Hypoglycemia 06/09/20 06:00 09/07/20 05:59 06/09/20 06:02 Dextrose (Dextrose 50%) 50 ml Q30M PRN IV Hypoglycemia 06/09/20 00:15 09/07/20 00:14 Docusate Sodium (Colace) 100 mg TWICE A DAY GT 06/09/20 09:00 07/09/20 08:59 06/16/20 17:31 Epoetin Cameron (Epoetin Cameron-EPBX(NON ESRD)) 3,000 unit -TUE SUBQ 06/16/20 21:00 09/14/20 20:59 06/16/20 20:26 Epoetin Cameron (Epoetin Cameron-EPBX(NON ESRD)) 4,000 unit TUE-TUE-TUE SUBQ 06/16/20 21:00 09/14/20 20:59 06/16/20 20:26 Famotidine (Pepcid) 20 mg TWICE A DAY GT 06/09/20 09:00 09/07/20 08:59 06/16/20 17:32 Gentamicin Sulfate (Gentamicin vial) 300 mg Q12HR@ INH 06/16/20 22:00 06/23/20 21:59 06/16/20 23:23 Hydralazine HCl (Apresoline) 25 mg EVERY 8 HOURS GT 06/09/20 06:00 09/07/20 05:59 06/17/20 05:23 Insulin Aspart (NovoLOG) Q6HR SUBQ 06/09/20 06:00 09/07/20 05:59 06/17/20 05:25 Lactulose (Cephulac) 20 gm Q6H PRN GT Constipation 06/09/20 00:30 07/09/20 00:29 Lansoprazole (Prevacid) 30 mg TWICE A DAY GT 06/09/20 09:00 07/09/20 08:59 06/16/20 17:32 Levetiracetam (Keppra) 500 mg TWICE A DAY GT 06/09/20 09:00 07/09/20 08:59 06/16/20 17:31 Levothyroxine Sodium (Synthroid) 75 mcg DAILY GT 06/09/20 09:00 07/09/20 08:59 06/16/20 08:59 Metoclopramide HCl (Reglan) 5 mg EVERY 6 HOURS GT 06/09/20 06:00 07/09/20 05:59 06/17/20 05:23 Nitroglycerin (Ntg) 0.4 mg Q5MIN X 3 DOSES PRN SL CHEST PAIN 06/09/20 00:30 07/09/20 00:29 Ondansetron HCl (Zofran) 4 mg Q6H PRN GT Nausea & Vomiting 06/09/20 00:30 07/09/20 00:29 Pravastatin Sodium (Pravachol) 40 mg BEDTIME GT 06/09/20 21:00 07/09/20 20:59 06/16/20 20:25 Sodium Chloride 1,000 ml @ 50 mls/hr Q20H IV 06/09/20 01:00 07/09/20 00:59 06/16/20 08:59 Vancomycin HCl (Vanco pharmacy to dose) 1 ea DAILY PRN MISC Per rx protocol 06/09/20 00:15 07/20/20 00:14 Vancomycin/Sodium Chloride 1.25 ml @ 0.625 mls/ hr Q24H IVPB 06/15/20 23:00 06/20/20 22:59 06/16/20 22:14 Zinc Sulfate (Zinc Sulfate) 220 mg DAILY GT 06/09/20 09:00 09/07/20 08:59 06/16/20 08:59 Assessment/Plan Assessment/Plan sepsis leukocytosis anemia colostomy respiratory failure possible gib chronic pancreatitis chronic encephalopathy hypernatremia acute renal failure pneumonia bacteremia UTI pneumonia sacral osteo/ decub diverting colostomy PLAN vent support IV antibiotics- noted; GI on feeds and tolerating ID recommendations noted close follow up monitor HH guarded at present hope to dc soon back to snf CXR improved per sister, would like to transfer to [facility]- discussed with [facility] staff impression, plan, and exam edited and reviewed in detail care discussed with Mundo Burciaga MD Jun 17, 2020 07:43
[2020-06-17 08:00] VITALS: BP 119/68
[2020-06-17] MEDS: levETIRAcetam 500mg/5ml Liquid GT SCH ×2 (08:42→17:46)
[2020-06-17] MEDS: Docusate 100mg/10ml Liq GT SCH ×2 (08:42→17:46)
[2020-06-17] MEDS: Amiodarone 200mg tab GT SCH (08:42)
[2020-06-17] MEDS: Zinc Sulfate 220mg GT SCH (08:42)
--- NOTE | 2020-06-17 10:16 | NUR ---
RD ASSESSMENT & RECOMMENDATIONS SEE CARE ACTIVITY FOR COMPLETE ASSESSMENT DAILY ESTIMATED NEEDS: Needs based on Critical care, wound / 67kg 22-30 kcals/kg 5808-0232 total kcals 1.25-2 g protein/kg 83-134 g total protein 25-30 mL/kg 1567-7106 total fluid mLs NUTRITION DIAGNOSIS: * Swallowing difficulty R/T dysphagia, respiratory status as evidenced by pt trach/vent dep, h/o PEG placement, GT feeds held and was on TPN [employer] for Pancreatitis, which now resolved, now on GT feeds. * Increased kcal/prot intake needs R/T wound healing as evidenced by pt admitted w /multiple advanced wounds, including full thickness Pressure Injury @ lumbar spine and sacrum w/ small area of bone exposure, DTPI wounds @ L lower buttocks, L ischium, R ischium, resolving pressure injury @ L tibia, unstageable wound @ R Tibia, R Lheel, and partial thickness pressure injury @ L heel. CURRENT TF:Glucerna 1.2 @ 60ml/hr x 22 hrs (on synthroid) ENTERAL NUTRITION RECOMMENDATIONS: Glucerna 1.2 @ 65ml/hr x 22 hrs + Prosource 1pkt daily to provide 1430ml, 1716kcal, 86g +11g prot (1.5g/kg), 1151ml free water * Increase current TF to goal of 65ml/hr as TF held for 2 hrs for synthroid meds. * Add Prosource 1pkt daily to better meet protein needs * HOB over 30 degrees/ water flush per MD * add Grady BID via GT for wound healing (additional 5g pro) ADDITIONAL RECOMMENDATIONS: * Per SNF: HT=5'8" MC=[id number] (as of 05/22/20), rec re-calibrated bedscale wt * Monitor TF tolerance: lipase wnl, h/o pancreatitis * Monitor lytes, replete as needed (K 2.7*-> now wnl) * Wound healing: add Vit C 500mg x1, continue ZnSO4 TF @ goal provides 100% est kcal/prot needs add Grady BID .
[2020-06-17] MEDS: Gentamicin for inhalation INH SCH ×2 (10:37→22:22)
--- NOTE | 2020-06-17 10:55 | NUR ---
NURSE NOTES: Dr. Leyva at the bedside, made aware of mild T last night, no new order received at this time. Will continue to monitor.
--- NOTE | 2020-06-17 11:15 | Infectious Diseases Prog Note ---
Assessment/Plan Assessment/Plan antibiotics : vancomycin iv, inhaled gentamicin A 1. coag neg staph sepsis 2. pneumonia with pseudomonas, klebsiella 3. e.coli, enterococcus, fungal UTI 4. leucocytosis resolved 5. respiratory failure 6. diabetes mellitus 7. hypertension 9. coccyxgeal osteomyelitis P 1. continue iv vancomycin 33 more days 2. continue inhaled gentamicin 5 more days 3. will follow up cultures Subjective ROS Limited/Unobtainable: Yes Allergies: Coded Allergies: No Known Allergies (Unverified , 06/08/20) Objective Last 24 Hour Vital Signs Date Time Temp Pulse Resp B/P (MAP) Pulse Ox O2 Delivery O2 Flow Rate FiO2 06/17/20 10:52 86 17 100 Mechanical Ventilator 35 92 17 35 06/17/20 08:42 89 124/68 06/17/20 08:00 Mechanical Ventilator 06/17/20 08:00 98.3 89 22 119/68 (85) 100 06/17/20 08:00 35 06/17/20 08:00 87 06/17/20 07:00 87 18 35 06/17/20 05:23 135/70 06/17/20 04:00 99.7 91 20 135/70 (91) 100 06/17/20 04:00 35 06/17/20 04:00 Mechanical Ventilator 06/17/20 03:30 90 18 35 06/17/20 03:26 92 06/17/20 01:00 35 06/17/20 00:00 Mechanical Ventilator 06/17/20 00:00 98.4 90 16 137/63 (87) 100 06/17/20 00:00 35 06/16/20 23:29 92 06/16/20 23:00 95 17 100 Mechanical Ventilator 35 99 17 35 06/16/20 22:13 144/78 06/16/20 20:00 35 06/16/20 20:00 Mechanical Ventilator 06/16/20 20:00 98.8 92 21 144/78 (100) 100 06/16/20 19:30 93 23 35 06/16/20 19:07 94 06/16/20 17:31 93 145/82 06/16/20 16:00 35 06/16/20 16:00 Mechanical Ventilator 06/16/20 16:00 93 06/16/20 16:00 99.0 94 16 145/82 (103) 100 06/16/20 15:10 87 24 55 06/16/20 13:16 140/89 06/16/20 12:00 98.6 92 16 147/86 (106) 100 06/16/20 12:00 Mechanical Ventilator 06/16/20 12:00 91 06/16/20 12:00 35 Height (Feet): 5 Height (Inches): 10.00 Weight (Pounds): 162 HEENT: status post trach Respiratory/Chest: lungs clear Cardiovascular: normal rate, regular rhythm, no gallop/murmur Abdomen: soft, non tender, other - GT Extremities: no edema, other - right arm PICC Laboratory Tests Test 06/16/20 11:24 06/16/20 17:29 06/16/20 23:00 06/17/20 04:00 POC Whole Blood Glucose 149 MG/DL (74-106) H 166 MG/DL (74-106) H Pending White Blood Count 12.7 K/UL (4.8-10.8) H Red Blood Count 3.58 M/UL (4.70-6.10) L Hemoglobin 10.1 G/DL (14.2-18.0) L Hematocrit 31.8 % (42.0-52.0) L Mean Corpuscular Volume 89 FL (80-99) Mean Corpuscular Hemoglobin 28.3 PG (27.0-31.0) Mean Corpuscular Hemoglobin Concent 31.8 G/DL (32.0-36.0) L Red Cell Distribution Width 16.1 % (11.6-14.8) H Platelet Count 543 K/UL (150-450) H Mean Platelet Volume 5.2 FL (6.5-10.1) L Neutrophils (%) (Auto) 71.6 % (45.0-75.0) Lymphocytes (%) (Auto) 15.0 % (20.0-45.0) L Monocytes (%) (Auto) 8.3 % (1.0-10.0) Eosinophils (%) (Auto) 4.2 % (0.0-3.0) H Basophils (%) (Auto) 0.9 % (0.0-2.0) Erythrocyte Sedimentation Rate 105 MM/HR (0-20) H Sodium Level 137 MMOL/L (136-145) Potassium Level 3.6 MMOL/L (3.5-5.1) Chloride Level 99 MMOL/L (98-107) Carbon Dioxide Level 33 MMOL/L (21-32) H Blood Urea Nitrogen 12 mg/dL (7-18) Creatinine 0.6 MG/DL (0.55-1.30) Estimat Glomerular Filtration Rate > 60 mL/min (>60) Glucose Level 112 MG/DL (74-106) H Calcium Level 8.6 MG/DL (8.5-10.1) Total Bilirubin 0.4 MG/DL (0.2-1.0) Aspartate Amino Transf (AST/SGOT) 20 U/L (15-37) Alanine Aminotransferase (ALT/SGPT) 30 U/L (12-78) Alkaline Phosphatase 184 U/L (46-116) H C-Reactive Protein, Quantitative 2.9 mg/dL (0.00-0.90) H Total Protein 6.3 G/DL (6.4-8.2) L Albumin 1.9 G/DL (3.4-5.0) L Globulin 4.4 g/dL Albumin/Globulin Ratio 0.4 (1.0-2.7) L Test 06/17/20 05:24 POC Whole Blood Glucose Pending Current Medications Medications (Trade) Dose Ordered Sig/Milla Route PRN Reason Start Time Stop Time Status Last Admin Dose Admin Acetaminophen (Tylenol) 650 mg Q4H PRN ORAL Temp >100.5 06/13/20 21:15 07/13/20 21:14 06/13/20 21:46 Amiodarone HCl (Cordarone) 200 mg DAILY GT 06/09/20 09:00 09/07/20 08:59 06/17/20 08:42 Amlodipine Besylate (Norvasc) 5 mg TWICE A DAY GT 06/09/20 09:00 07/09/20 08:59 06/17/20 08:42 Bethanechol Chloride (Urecholine) 25 mg Q6HR GT 06/09/20 06:00 07/09/20 05:59 06/17/20 05:23 Chlorhexidine Gluconate (Sue-Hex 2%) 1 applic DAILY@1999 TOPIC 06/10/20 20:00 09/08/20 19:59 06/16/20 20:24 Clonidine HCl (Catapres Tab) 0.1 mg Q6H PRN GT For High Blood Pressure 06/09/20 00:30 09/07/20 00:29 Dextrose (Dextrose 50%) 25 ml Q30M PRN IV Hypoglycemia 06/09/20 06:00 09/07/20 05:59 06/09/20 06:02 Dextrose (Dextrose 50%) 50 ml Q30M PRN IV Hypoglycemia 06/09/20 00:15 09/07/20 00:14 Docusate Sodium (Colace) 100 mg TWICE A DAY GT 06/09/20 09:00 07/09/20 08:59 06/17/20 08:42 Epoetin Cameron (Epoetin Cameron-EPBX(NON ESRD)) 3,000 unit SUBQ 06/16/20 21:00 09/14/20 20:59 06/16/20 20:26 Epoetin Cameron (Epoetin Cameron-EPBX(NON ESRD)) 4,000 unit SUBQ 06/16/20 21:00 09/14/20 20:59 06/16/20 20:26 Famotidine (Pepcid) 20 mg TWICE A DAY GT 06/09/20 09:00 09/07/20 08:59 06/17/20 08:42 Gentamicin Sulfate (Gentamicin vial) 300 mg Q12HR@10,22 INH 06/16/20 22:00 06/23/20 21:59 06/17/20 10:37 Hydralazine HCl (Apresoline) 25 mg EVERY 8 HOURS GT 06/09/20 06:00 09/07/20 05:59 06/17/20 05:23 Insulin Aspart (NovoLOG) Q6HR SUBQ 06/09/20 06:00 09/07/20 05:59 06/17/20 05:25 Lactulose (Cephulac) 20 gm Q6H PRN GT Constipation 06/09/20 00:30 07/09/20 00:29 Lansoprazole (Prevacid) 30 mg TWICE A DAY GT 06/09/20 09:00 07/09/20 08:59 06/17/20 08:42 Levetiracetam (Keppra) 500 mg TWICE A DAY GT 06/09/20 09:00 07/09/20 08:59 06/17/20 08:42 Levothyroxine Sodium (Synthroid) 75 mcg DAILY GT 06/09/20 09:00 07/09/20 08:59 06/17/20 08:42 Metoclopramide HCl (Reglan) 5 mg EVERY 6 HOURS GT 06/09/20 06:00 07/09/20 05:59 06/17/20 05:23 Nitroglycerin (Ntg) 0.4 mg Q5MIN X 3 DOSES PRN SL CHEST PAIN 06/09/20 00:30 07/09/20 00:29 Ondansetron HCl (Zofran) 4 mg Q6H PRN GT Nausea & Vomiting 06/09/20 00:30 07/09/20 00:29 Pravastatin Sodium (Pravachol) 40 mg BEDTIME GT 06/09/20 21:00 07/09/20 20:59 06/16/20 20:25 Sodium Chloride 1,000 ml @ 50 mls/hr Q20H IV 06/09/20 01:00 07/09/20 00:59 06/17/20 08:48 Vancomycin HCl (Vanco pharmacy to dose) 1 ea DAILY PRN MISC Per rx protocol 06/09/20 00:15 07/20/20 00:14 Vancomycin/Sodium Chloride 1.25 ml @ 0.625 mls/ hr Q24H IVPB 06/15/20 23:00 06/20/20 22:59 06/16/20 22:14 Zinc Sulfate (Zinc Sulfate) 220 mg DAILY GT 06/09/20 09:00 09/07/20 08:59 06/17/20 08:42 Jayde Leyva MD Jun 17, 2020 11:14
[2020-06-17 12:00] VITALS: BP 124/72
--- NOTE | 2020-06-17 12:41 | Surgery Progress Note ---
Surgery Progress Note Subjective Additional Comments tolerating feeds cellulitis improved wbc trending down esr noted Objective Last 24 Hour Vital Signs Date Time Temp Pulse Resp B/P (MAP) Pulse Ox O2 Delivery O2 Flow Rate FiO2 06/17/20 12:00 35 06/17/20 12:00 97.2 90 16 124/72 (89) 100 06/17/20 12:00 Mechanical Ventilator 06/17/20 10:52 86 17 100 Mechanical Ventilator 35 92 17 35 06/17/20 08:42 89 124/68 06/17/20 08:00 Mechanical Ventilator 06/17/20 08:00 98.3 89 22 119/68 (85) 100 06/17/20 08:00 35 06/17/20 08:00 87 06/17/20 07:00 87 18 35 06/17/20 05:23 135/70 06/17/20 04:00 99.7 91 20 135/70 (91) 100 06/17/20 04:00 35 06/17/20 04:00 Mechanical Ventilator 06/17/20 03:30 90 18 35 06/17/20 03:26 92 06/17/20 01:00 35 06/17/20 00:00 Mechanical Ventilator 06/17/20 00:00 98.4 90 16 137/63 (87) 100 06/17/20 00:00 35 06/16/20 23:29 92 06/16/20 23:00 95 17 100 Mechanical Ventilator 35 99 17 35 06/16/20 22:13 144/78 06/16/20 20:00 35 06/16/20 20:00 Mechanical Ventilator 06/16/20 20:00 98.8 92 21 144/78 (100) 100 06/16/20 19:30 93 23 35 06/16/20 19:07 94 06/16/20 17:31 93 145/82 06/16/20 16:00 35 06/16/20 16:00 Mechanical Ventilator 06/16/20 16:00 93 06/16/20 16:00 99.0 94 16 145/82 (103) 100 06/16/20 15:10 87 24 55 06/16/20 13:16 140/89 I&O Intake and Output 06/16/20 06/17/20 19:00 07:00 Intake Total 1520 ml 1371.250 ml Output Total 1435 ml 2200 ml Balance 85 ml -828.750 ml Intake Free Water 200 ml 200 ml IV Total 600 ml 451.250 ml Tube Feeding 720 ml 720 ml Output Urine Total 1400 ml 2000 ml Stool Total 35 ml 200 ml Dressing: other Wound: other Cardiovascular: RSR Respiratory: decreased breath sounds Abdomen: soft, non-tender, present bowel sounds Extremities: no tenderness, no cyanosis Laboratory Tests Test 06/16/20 17:29 06/16/20 23:00 06/17/20 04:00 06/17/20 05:24 POC Whole Blood Glucose 166 MG/DL (74-106) H Pending Pending White Blood Count 12.7 K/UL (4.8-10.8) H Red Blood Count 3.58 M/UL (4.70-6.10) L Hemoglobin 10.1 G/DL (14.2-18.0) L Hematocrit 31.8 % (42.0-52.0) L Mean Corpuscular Volume 89 FL (80-99) Mean Corpuscular Hemoglobin 28.3 PG (27.0-31.0) Mean Corpuscular Hemoglobin Concent 31.8 G/DL (32.0-36.0) L Red Cell Distribution Width 16.1 % (11.6-14.8) H Platelet Count 543 K/UL (150-450) H Mean Platelet Volume 5.2 FL (6.5-10.1) L Neutrophils (%) (Auto) 71.6 % (45.0-75.0) Lymphocytes (%) (Auto) 15.0 % (20.0-45.0) L Monocytes (%) (Auto) 8.3 % (1.0-10.0) Eosinophils (%) (Auto) 4.2 % (0.0-3.0) H Basophils (%) (Auto) 0.9 % (0.0-2.0) Erythrocyte Sedimentation Rate 105 MM/HR (0-20) H Sodium Level 137 MMOL/L (136-145) Potassium Level 3.6 MMOL/L (3.5-5.1) Chloride Level 99 MMOL/L (98-107) Carbon Dioxide Level 33 MMOL/L (21-32) H Blood Urea Nitrogen 12 mg/dL (7-18) Creatinine 0.6 MG/DL (0.55-1.30) Estimat Glomerular Filtration Rate > 60 mL/min (>60) Glucose Level 112 MG/DL (74-106) H Calcium Level 8.6 MG/DL (8.5-10.1) Total Bilirubin 0.4 MG/DL (0.2-1.0) Aspartate Amino Transf (AST/SGOT) 20 U/L (15-37) Alanine Aminotransferase (ALT/SGPT) 30 U/L (12-78) Alkaline Phosphatase 184 U/L (46-116) H C-Reactive Protein, Quantitative 2.9 mg/dL (0.00-0.90) H Total Protein 6.3 G/DL (6.4-8.2) L Albumin 1.9 G/DL (3.4-5.0) L Globulin 4.4 g/dL Albumin/Globulin Ratio 0.4 (1.0-2.7) L Test 06/17/20 11:11 POC Whole Blood Glucose 185 MG/DL (74-106) H Plan Problems: (1) UTI (urinary tract infection) (2) Pneumonia (3) Sepsis Assessment & Plan: leukocytosis, anemia. abnormal labs stage 4 sacral prior debridement and seems like ostectomy colostomy noted mid back and bilateral ischial dti ua noted on iv abx g tube in place but per reports on tpn at facility labs ordered imaging ordered no acute surgical intervention planned will follow with recs improving cont diet as tolerated cont abx DAILY ESTIMATED NEEDS: Needs based on Critical care, wound / 67kg 22-30 kcals/kg 2796-2806 total kcals 1.25-2 g protein/kg 83-134 g total protein 25-30 mL/kg 6902-1707 total fluid mLs NUTRITION DIAGNOSIS: * Swallowing difficulty R/T dysphagia, respiratory status as evidenced by pt trach/vent dep, h/o PEG placement, GT feeds held and was on TPN [employer]IDENT for Pancreatitis, which now resolved, now on GT feeds. * Increased kcal/prot intake needs R/T wound healing as evidenced by pt admitted w /multiple advanced wounds, including full thickness Pressure Injury @ lumbar spine and sacrum w/ small area of bone exposure, DTPI wounds @ L lower buttocks, L ischium, R ischium, resolving pressure injury @ L tibia, unstageable wound @ R Tibia, R Lheel, and partial thickness pressure injury @ L heel. CURRENT TF:Glucerna 1.2 @ 60ml/hr x 22 hrs (on synthroid) ENTERAL NUTRITION RECOMMENDATIONS: Glucerna 1.2 @ 65ml/hr x 22 hrs + Prosource 1pkt daily to provide 1430ml, 1716kcal, 86g +11g prot (1.5g/kg), 1151ml free water * Increase current TF to goal of 65ml/hr as TF held for 2 hrs for synthroid meds. * Add Prosource 1pkt daily to better meet protein needs * HOB over 30 degrees/ water flush per MD * add Grady BID via GT for wound healing (additional 5g pro) ADDITIONAL RECOMMENDATIONS: * Per SNF: HT=5'8" UM=916gox (as of 05/22/20), rec re-calibrated bedscale wt * Monitor TF tolerance: lipase wnl, h/o pancreatitis * Monitor lytes, replete as needed (K 2.7*-> now wnl) * Wound healing: add Vit C 500mg x1, continue ZnSO4 TF @ goal provides 100% est kcal/prot needs add Grady BID . 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 Dry eschar noted to L earlobe(L)0.8cm x (W)0.6cm. No erythema noted periwound. Loose,dry eschar cap L earlobe(L)1cm x (W)0.7cm. Base of wound beneath loose eschar cap is moist and paul. No odor or exudate noted. Non-Blanchable erythema with shearing centrally posterior neck under tracheal collar.Periwound skin is dark without erythema or fluctuance.(L)1.5cm x (W)4.5cm. Resolving Pressure injury L lumbar area(L)2cm x (W00.7cm. Sed[place] epithelial at base of wound. Loose dry edges . no erythema or induration periwound. Full thickness Pressure Injury Lumbar Spine(L)2.5cm x (W)1.5cm. Base of wound is 75% paul and moist,25% slough.Borders are macerated. No odor or exudate noted. Periwound without erythema or fluctuance. Full Thickness Sacral Pressure Injury (L)7.5cm x (W)8.8cm x (D)2.4cm, undermining clockwise 12-5 by 1.8cm @2o'clock. Base of wound is beefy red with purpuric area at base. Small area of bone exposure, scattered slough(20%) Wound is otherwise beefy red. Small amt serous exudate note. No odor noted. DTPI L lower Buttocks that is evolving. Base of wound is 75% soft necrosis,25% most and pink with surrounding maroon and indurated borders. DTPI that is evolving and is partially opened at L ischium(L)8cm x (W)9.5cm. Base of wound is purpuric ,indurated with opening that is 25% slough,75% moist and pink. NO odor noted. DTPI R Ischium that is evolving and is partially opened(L)6.3cm x (W)6.5cm. Base of wound is Indurated reddish/brown with opening that is 25% slough,25% soft necrosis,50% moist and pink. NO odor or exudate noted. No evidence of erythema or fluctuance periwound. Resolving Pressure Injury posterior L tibia with dry eschar cap,mixed dry pink epithelial. Unstageable Pressure injury posterior R Tibia. Stable dry eschar noted(L)14.5cm x (W)1.7cm. Unstageable Pressure Injury R heel(L)3.2cm x (W)4.2cm. Base of wound is 100% necrotic with marginal erythema and fluctuance periwound. Partial Thickness Pressure Injury medial L heel(L)1.3cm x (W)1.2cm. Base of wound is moist and viable . Edges are macerated with surrounding non-blanchable erythema with fluctuance. UNstageable Pressure Injury Lateral L Heel . Base of wound is 100% soft necrosis and is malodorous. Non-Blanchable erythema with Fluctuance periwound.(L)4cm x (W)3.4cm. Tx.Plan: Apply Betadine to R and L earlobes. Cover each ear with Optifoam drsg. Change every 3 days and prn. Apply Cavilon Skin Barrier to posterior neck. Cover with Optifoam drsg. Change every 3 days and prn. Cleanse Wounds Lumbar and L lumbar with Saline. Apply TheraHoney. Apply Moisture Barrier Paste periwound. Cover each site with Optifoam drsgs. Change every 3 days and prn. Cleanse Sacral wound with Saline. Loosely pack with Therahoney impregnated Kerlix. Apply Moisture Barrier paste periwound. Cover with Optifoam drsg. Change Daily and prn. Apply Moisture Barrier Paste to Scrotum with each incontinence care. Cleanse R and L Ischial wounds with Saline. Apply Therahoney. Apply Moisture Barrier Paste periwound. Cover each wound with Optifoam drsg. Changee very 3 days and prn. Apply Betadine to Posterior R and L Tibial wounds. Cover each wound with Optifoam drsgs. Change every 3 days and prn. Apply Betadine to R and L Heel wounds. Cover each heel with Optifoam drsgs. Change every 3 days and prn. Reposition at least every 2hours or as tolerated. Off-load heels with Pillows. APM/COLBY Mattress overlay. Jonny Powell Jun 17, 2020 12:41
--- NOTE | 2020-06-17 13:40 | NUR ---
CASE MANAGEMENT: REVIEW SI: UTI . SEPSIS . PNA T 97.2 HR 90 RR 16 BP 124/72 SAT 100% MECH VENT FIO2 35 WBC 12.7 H/H 10.1/31.8 GLUCOSE 185 IS: VANCOMYCIN IV Q24HR GENTAMICIN INH Q12HR EPOETIN SUBQ MWF NS IVF @ 50ML/HR STEP DOWN UNIT STATUS DCP: PATIENT IS FROM [facility]
[2020-06-17 16:00] VITALS: BP 120/67
--- NOTE | 2020-06-17 16:36 | General Progress Note ---
Subjective ROS Limited/Unobtainable: No Constitutional: Reports: malaise, weakness HEENT: Reports: no symptoms Cardiovascular: Reports: no symptoms Respiratory: Reports: sputum Gastrointestinal/Abdominal: Reports: difficulty swallowing Genitourinary: Reports: no symptoms Neurologic/Psychiatric: Reports: pre-existing deficit Endocrine: Reports: no symptoms Hematologic/Lymphatic: Reports: anemia Allergies: Coded Allergies: No Known Allergies (Unverified , 06/08/20) All Systems: reviewed and negative except above Subjective There have been no significant overnight events. Patient remains stable on the ventilator. Minimal secretions. Poorly responsive at baseline. Tolerating G- tube feeds. No residuals noted. White blood cell count improving. Currently on multiple IV antibiotics. fevers better. nontoxic appearing. labs noted. Objective Last 24 Hour Vital Signs Date Time Temp Pulse Resp B/P (MAP) Pulse Ox O2 Delivery O2 Flow Rate FiO2 06/17/20 16:00 Mechanical Ventilator 06/17/20 16:00 99.0 82 18 120/67 (84) 100 06/17/20 16:00 35 06/17/20 15:00 89 23 35 06/17/20 14:14 124/72 06/17/20 12:00 83 06/17/20 12:00 35 06/17/20 12:00 97.2 90 16 124/72 (89) 100 06/17/20 12:00 Mechanical Ventilator 06/17/20 10:52 86 17 100 Mechanical Ventilator 35 92 17 35 06/17/20 08:42 89 124/68 06/17/20 08:00 Mechanical Ventilator 06/17/20 08:00 98.3 89 22 119/68 (85) 100 06/17/20 08:00 35 06/17/20 08:00 87 06/17/20 07:00 87 18 35 06/17/20 05:23 135/70 06/17/20 04:00 99.7 91 20 135/70 (91) 100 06/17/20 04:00 35 06/17/20 04:00 Mechanical Ventilator 06/17/20 03:30 90 18 35 06/17/20 03:26 92 06/17/20 01:00 35 06/17/20 00:00 Mechanical Ventilator 06/17/20 00:00 98.4 90 16 137/63 (87) 100 06/17/20 00:00 35 06/16/20 23:29 92 06/16/20 23:00 95 17 100 Mechanical Ventilator 35 99 17 35 06/16/20 22:13 144/78 06/16/20 20:00 35 06/16/20 20:00 Mechanical Ventilator 06/16/20 20:00 98.8 92 21 144/78 (100) 100 06/16/20 19:30 93 23 35 06/16/20 19:07 94 06/16/20 17:31 93 145/82 Intake and Output 06/16/20 06/17/20 19:00 07:00 Intake Total 1520 ml 1371.250 ml Output Total 1435 ml 2200 ml Balance 85 ml -828.750 ml Intake Free Water 200 ml 200 ml IV Total 600 ml 451.250 ml Tube Feeding 720 ml 720 ml Output Urine Total 1400 ml 2000 ml Stool Total 35 ml 200 ml Laboratory Tests 06/16/20 17:29: POC Whole Blood Glucose 166H 06/16/20 23:00: POC Whole Blood Glucose [Pending] 06/17/20 04:00: White Blood Count 12.7H, Red Blood Count 3.58L, Hemoglobin 10.1L, Hematocrit 31.8L, Mean Corpuscular Volume 89, Mean Corpuscular Hemoglobin 28.3, Mean Corpuscular Hemoglobin Concent 31.8L, Red Cell Distribution Width 16.1H, Platelet Count 543H, Mean Platelet Volume 5.2L, Neutrophils (%) (Auto) 71.6, Lymphocytes (%) (Auto) 15.0L, Monocytes (%) (Auto) 8.3, Eosinophils (%) (Auto) 4.2H, Basophils (%) (Auto) 0.9, Erythrocyte Sedimentation Rate 105H, Sodium Level 137, Potassium Level 3.6, Chloride Level 99, Carbon Dioxide Level 33H, Blood Urea Nitrogen 12, Creatinine 0.6, Estimat Glomerular Filtration Rate > 60, Glucose Level 112H, Calcium Level 8.6, Total Bilirubin 0.4, Aspartate Amino Transf (AST/SGOT) 20, Alanine Aminotransferase (ALT/SGPT) 30, Alkaline Phosphatase 184H, C-Reactive Protein, Quantitative 2.9H, Total Protein 6.3L, Albumin 1.9L, Globulin 4.4, Albumin/Globulin Ratio 0.4L 06/17/20 05:24: POC Whole Blood Glucose [Pending] 06/17/20 11:11: POC Whole Blood Glucose 185H Height (Feet): 5 Height (Inches): 10.00 Weight (Pounds): 162 Objective General Appearance: WD/WN, no apparent distress, alert Neck: non-tender, normal alignment Cardiovascular: normal rate Respiratory/Chest: chest wall non-tender, lungs clear, normal breath sounds Abdomen: normal bowel sounds, non tender, soft, no organomegaly Edema: no edema noted Arm (L), no edema noted Arm (R) Neurologic: unresponsive Skin: normal pigmentation Lymphatic: normal anterior cervical (L), normal anterior cervical (R) Assessment/Plan Problem List: (1) Stage 4 skin ulcer of sacral region ICD Codes: L98.429 - Non-pressure chronic ulcer of back with unspecified severity SNOMED: 81321043, 951637670 (2) Colostomy in place ICD Codes: Z93.3 - Colostomy status SNOMED: 320795218, 653847691 (3) Sepsis ICD Codes: A41.9 - Sepsis, unspecified organism SNOMED: 64583412 (4) Pneumonia ICD Codes: J18.9 - Pneumonia, unspecified organism SNOMED: 957002279 Qualifiers: Qualified Codes: J18.9 - Pneumonia, unspecified organism (5) UTI (urinary tract infection) ICD Codes: N39.0 - Urinary tract infection, site not specified SNOMED: 70845274 Qualifiers: Qualified Codes: N30.01 - Acute cystitis with hematuria Status: stable Assessment/Plan: cont iv abx- long course needed per ID monitor wbc tube feeds replace lytes as needed vent support resp rx suctioning as needed wean as able cont bp rx monitor for fevers tylenol prn wound care per surgery turn q2 dvt/stress ulcer prophylaxis Robby Mays MD Jun 17, 2020 16:36
--- NOTE | 2020-06-17 19:12 | NUR ---
NURSE HAND-OFF REPORT: Important Events on Shift: Mild T 99.0, made aware Patient Status: stable Diet: Glucerna 1.2 @ 60ml/h Pending Orders: NA Pending Results/Labs:NA Pending MD notification:NA Latest Vital Signs: Temperature 99.0 , Pulse 83 , B/P 120 /67 , Respiratory Rate 18 , O2 SAT 100 , Mechanical Ventilator, O2 Flow Rate 4.0 . Vital Sign Comment: stable, mild T EKG Rhythm: SR w/ 1st HB Rhythm change?: N MD Notified?: N -DR.BALFE BAILEY Response: No New Orders Received Latest Pulido Fall Score: 70 Fall Risk: High Risk Safety Measures: Call light Within Reach, Bed Alarm Zone 2, Side Rails Side Rails x2, Bed position Low and Locked. Fall Precautions: Yellow Socks Yellow Gown Door Sign Patient Fall Education Report given to Nadia Arellano RN.
--- NOTE | 2020-06-17 19:13 | NUR ---
NURSE NOTES: received pt from Gentry HADDAD., pt is resting on the bed at this time. pt is awake, opens eyes, AOx1 at this time. pt follows some commands. no s/s of pain at this time. pt is on trach vent, no SOB noted. O2sat is at 100%. Gtube site intact, clean, and patent. colostomy bag noted, no leaking noted at this time, colostomy bag with brown BM noted, and intact. florez cath is intact draining well with gravity, yellow side rails are padded. right upper picc line noted dressing site intact, clean, and patent. call light within reach. will continue to monitor pt with plan of care. bed at the lowest position, alarmed, and locked side rails are padded.
[2020-06-17 20:00] VITALS: BP 138/81
--- NOTE | 2020-06-17 20:08 | Cardiology Report ---
APPROVED REPORT EKG Measurement Heart [id number] VA 248P [id number] <Conclusion> Sinus rhythm with 1st degree AV block Low voltage QRS Borderline ECG
--- NOTE | 2020-06-17 20:11 | General Progress Note ---
Subjective Allergies: Coded Allergies: No Known Allergies (Unverified , 06/08/20) Subjective NAD tolerating TF Objective Last 24 Hour Vital Signs Date Time Temp Pulse Resp B/P (MAP) Pulse Ox O2 Delivery O2 Flow Rate FiO2 06/17/20 19:30 89 24 35 06/17/20 17:47 83 120/67 06/17/20 16:00 Mechanical Ventilator 06/17/20 16:00 99.0 82 18 120/67 (84) 100 06/17/20 16:00 83 06/17/20 16:00 35 06/17/20 15:00 89 23 35 06/17/20 14:14 124/72 06/17/20 12:00 83 06/17/20 12:00 35 06/17/20 12:00 97.2 90 16 124/72 (89) 100 06/17/20 12:00 Mechanical Ventilator 06/17/20 10:52 86 17 100 Mechanical Ventilator 35 92 17 35 06/17/20 08:42 89 124/68 06/17/20 08:00 Mechanical Ventilator 06/17/20 08:00 98.3 89 22 119/68 (85) 100 06/17/20 08:00 35 06/17/20 08:00 87 06/17/20 07:00 87 18 35 06/17/20 05:23 135/70 06/17/20 04:00 99.7 91 20 135/70 (91) 100 06/17/20 04:00 35 06/17/20 04:00 Mechanical Ventilator 06/17/20 03:30 90 18 35 06/17/20 03:26 92 06/17/20 01:00 35 06/17/20 00:00 Mechanical Ventilator 06/17/20 00:00 98.4 90 16 137/63 (87) 100 06/17/20 00:00 35 06/16/20 23:29 92 06/16/20 23:00 95 17 100 Mechanical Ventilator 35 99 17 35 06/16/20 22:13 144/78 Intake and Output 06/16/20 06/17/20 19:00 07:00 Intake Total 1520 ml 1371.250 ml Output Total 1435 ml 2200 ml Balance 85 ml -828.750 ml Intake Free Water 200 ml 200 ml IV Total 600 ml 451.250 ml Tube Feeding 720 ml 720 ml Output Urine Total 1400 ml 2000 ml Stool Total 35 ml 200 ml Laboratory Tests 06/16/20 23:00: POC Whole Blood Glucose [Pending] 06/17/20 04:00: White Blood Count 12.7H, Red Blood Count 3.58L, Hemoglobin 10.1L, Hematocrit 31.8L, Mean Corpuscular Volume 89, Mean Corpuscular Hemoglobin 28.3, Mean Corpuscular Hemoglobin Concent 31.8L, Red Cell Distribution Width 16.1H, Platelet Count 543H, Mean Platelet Volume 5.2L, Neutrophils (%) (Auto) 71.6, Lymphocytes (%) (Auto) 15.0L, Monocytes (%) (Auto) 8.3, Eosinophils (%) (Auto) 4.2H, Basophils (%) (Auto) 0.9, Erythrocyte Sedimentation Rate 105H, Sodium Level 137, Potassium Level 3.6, Chloride Level 99, Carbon Dioxide Level 33H, Blood Urea Nitrogen 12, Creatinine 0.6, Estimat Glomerular Filtration Rate > 60, Glucose Level 112H, Calcium Level 8.6, Total Bilirubin 0.4, Aspartate Amino Transf (AST/SGOT) 20, Alanine Aminotransferase (ALT/SGPT) 30, Alkaline Phosphatase 184H, C-Reactive Protein, Quantitative 2.9H, Total Protein 6.3L, Albumin 1.9L, Globulin 4.4, Albumin/Globulin Ratio 0.4L 06/17/20 05:24: POC Whole Blood Glucose [Pending] 06/17/20 11:11: POC Whole Blood Glucose 185H 06/17/20 17:07: POC Whole Blood Glucose [Pending] Height (Feet): 5 Height (Inches): 10.00 Weight (Pounds): 162 Objective Elderly man NCAT (+) trach coarse BS RR abd soft, (+) GT (+) colostomy no edema Assessment/Plan Status: stable Assessment/Plan: Assessment - h/o pancreatitis - resolved - s/p colostomy - sepsis/leukocytosis - resp failure / trach - dysphagia / GT - s/p CVA - Anemia - CAD - DM - hypokalemia - HTN - GERD Recommendations - Abx - CT abd/pelvis noted - PPI - Monitor CBC - TF Moshe Kraft MD Jun 17, 2020 20:11
[2020-06-17] MEDS: Dyna-Hex 2% Top Sol 2oz TOPIC SCH (20:31)
[2020-06-17] MEDS: [UNRECOGNIZED DRUG - OTHER] IVPB SCH (23:29)
[2020-06-17] MEDS: VANCOMYCIN IVPB SCH (23:29)
[2020-06-18] VITALS: BP 137/67
[2020-06-18 04:00] VITALS: BP 149/69
--- NOTE | 2020-06-18 04:00 | NUR ---
NURSE NOTES: cleaned pt, oral care given, changed position Q 2hrs. no active bleeding noted. call light within reach. no SOB noted, O2sat 100%. pt states no pain at this time.
[2020-06-18 05:10] LABS: BASOPHILS % (AUTO) 0.8 % (0.0-2.0); EOSINOPHILS % (AUTO) 4.2 % (0.0-3.0); HEMATOCRIT 31.1 % (42.0-52.0); LYMPHOCYTES % (AUTO) 21.8 % (20.0-45.0); MEAN CORPUSCULAR VOLUME 89 FL (80-99); MONOCYTES % (AUTO) 7.1 % (1.0-10.0); NEUTROPHILS % (AUTO) 66.1 % (45.0-75.0); PLATELET COUNT 498 K/UL (150-450); RED BLOOD COUNT 3.51 M/UL (4.70-6.10); RED CELL DISTRIBUTION WIDTH 16.5 % (11.6-14.8); WHITE BLOOD COUNT 11.6 K/UL (4.8-10.8)
[2020-06-18] MEDS: Metoclopramide 10mg/10ml Liq GT SCH ×4 (05:24→22:39)
[2020-06-18] MEDS: Bethanechol 25mg Tab GT SCH ×4 (05:25→22:39)
[2020-06-18] MEDS: HydrALAZINE 25mg tab GT SCH ×3 (05:25→22:38)
[2020-06-18] MEDS: NovoLOG Insulin Flexpen SUBQ SCH ×3 (05:26→17:21)
[2020-06-18 05:38] LABS: ANION GAP 4 mmol/L (5-15); BLOOD UREA NITROGEN 12 mg/dL (7-18); CALCIUM 8.6 MG/DL (8.5-10.1); CARBON DIOXIDE 34 MMOL/L (21-32); CHLORIDE 100 MMOL/L (98-107); CREATININE 0.6 MG/DL (0.55-1.30); POTASSIUM 3.8 MMOL/L (3.5-5.1); SODIUM 138 MMOL/L (136-145)
--- NOTE | 2020-06-18 07:10 | NUR ---
NURSE HAND-OFF REPORT: Important Events on Shift:low grade fever Patient Status: stable Diet: Gluceran 1.2 @60ml/hr Pending Orders: none Pending Results/Labs:N Pending MD notification:N Latest Vital Signs: Temperature 99.0 , Pulse 107 , B/P 133 /70 , Respiratory Rate 22 , O2 SAT 98 , Mechanical Ventilator, O2 Flow Rate 4.0 . Vital Sign Comment: stable EKG Rhythm: Sinus Tachycardia Rhythm change?: N MD Notified?: N -DR.BALFE BAILEY Response: N Latest Pulido Fall Score: 70 Fall Risk: High Risk Safety Measures: Call light Within Reach, Bed Alarm Zone 2, Side Rails Side Rails x2, Bed position Low and Locked. Fall Precautions: Yellow Socks Yellow Gown Door Sign Patient Fall Education Report given to Odell HADDAD.
--- NOTE | 2020-06-18 07:16 | NUR ---
RESPIRATORY NOTE: PT RECEIVED STABLE ON CMV WITH CURRENT SETTINGS. SX PRN, AIRWAY IS SECURE AND PATENT. NO S/S OF RESPIRATORY DISTRESS NOTED AT THIS TIME. WILL CONTINUE TO MONITOR.
--- NOTE | 2020-06-18 07:33 | NUR ---
NURSE NOTES: Received report form So BOO Arellano. Patient is resting in bed, in stable condition. No s/sx of SOB, breathing is even and unlabored, vent settings are as ordered. Patient is nonverbal, observed no presence of pain or discomfort at this time. Bed is in lowest position, brakes engaged. Call light kept within easy reach. Will continue to monitor patient.
[2020-06-18 08:00] VITALS: BP 124/71
--- NOTE | 2020-06-18 09:19 | General Progress Note ---
Subjective ROS Limited/Unobtainable: Yes Constitutional: Reports: malaise, weakness HEENT: Reports: no symptoms Cardiovascular: Reports: no symptoms Respiratory: Reports: sputum Gastrointestinal/Abdominal: Reports: difficulty swallowing Genitourinary: Reports: no symptoms Neurologic/Psychiatric: Reports: no symptoms Endocrine: Reports: no symptoms Hematologic/Lymphatic: Reports: anemia Allergies: Coded Allergies: No Known Allergies (Unverified , 06/08/20) All Systems: reviewed and negative except above Subjective No significant overnight events. Patient remains stable on the ventilator. Minimal secretions. Poorly responsive at baseline. Tolerating G-tube feeds. No residuals noted. Currently on multiple IV antibiotics. fevers better. nontoxic appearing. labs noted. Objective Last 24 Hour Vital Signs Date Time Temp Pulse Resp B/P (MAP) Pulse Ox O2 Delivery O2 Flow Rate FiO2 06/18/20 05:25 133/70 06/18/20 04:00 99.0 107 22 149/69 (95) 98 06/18/20 04:00 Mechanical Ventilator 06/18/20 04:00 35 06/18/20 03:12 93 24 35 06/18/20 03:08 87 06/18/20 00:00 99.3 87 18 137/67 (90) 100 06/18/20 00:00 Mechanical Ventilator 06/18/20 00:00 35 06/17/20 23:32 86 06/17/20 22:54 85 20 100 Mechanical Ventilator 35 88 20 35 06/17/20 21:57 133/75 06/17/20 20:00 99.5 82 18 138/81 (100) 100 06/17/20 20:00 35 06/17/20 20:00 Mechanical Ventilator 06/17/20 19:30 89 24 35 06/17/20 19:21 86 06/17/20 17:47 83 120/67 06/17/20 16:00 Mechanical Ventilator 06/17/20 16:00 99.0 82 18 120/67 (84) 100 06/17/20 16:00 83 06/17/20 16:00 35 06/17/20 15:00 89 23 35 06/17/20 14:14 124/72 06/17/20 12:00 83 06/17/20 12:00 35 06/17/20 12:00 97.2 90 16 124/72 (89) 100 06/17/20 12:00 Mechanical Ventilator 06/17/20 10:52 86 17 100 Mechanical Ventilator 35 92 17 35 Intake and Output 06/17/20 06/18/20 18:59 06:59 Intake Total 1310 ml 1521.250 ml Output Total 870 ml 2600 ml Balance 440 ml -1078.750 ml Intake Free Water 200 ml 200 ml IV Total 450 ml 601.250 ml Tube Feeding 660 ml 720 ml Output Urine Total 650 ml 2400 ml Stool Total 220 ml 200 ml Laboratory Tests 06/17/20 11:11: POC Whole Blood Glucose 185H 06/17/20 17:07: POC Whole Blood Glucose [Pending] 06/17/20 22:15: Vancomycin Level Trough 18.2H 06/17/20 23:31: POC Whole Blood Glucose [Pending] 06/18/20 04:30: White Blood Count 11.6H, Red Blood Count 3.51L, Hemoglobin 10.0L, Hematocrit 31.1L, Mean Corpuscular Volume 89, Mean Corpuscular Hemoglobin 28.4, Mean Corpuscular Hemoglobin Concent 32.1, Red Cell Distribution Width 16.5H, Platelet Count 498H, Mean Platelet Volume 5.2L, Neutrophils (%) (Auto) 66.1, Lymphocytes (%) (Auto) 21.8, Monocytes (%) (Auto) 7.1, Eosinophils (%) (Auto) 4.2H, Basophils (%) (Auto) 0.8, Sodium Level 138, Potassium Level 3.8, Chloride Level 100, Carbon Dioxide Level 34H, Anion Gap 4L, Blood Urea Nitrogen 12, Creatinine 0.6, Estimat Glomerular Filtration Rate > 60, Glucose Level 171H, Calcium Level 8.6 06/18/20 05:23: POC Whole Blood Glucose [Pending] Height (Feet): 5 Height (Inches): 10.00 Weight (Pounds): 162 Objective General Appearance: WD/WN, no apparent distress, alert Neck: non-tender, normal alignment Cardiovascular: normal rate Respiratory/Chest: chest wall non-tender, lungs clear, normal breath sounds Abdomen: normal bowel sounds, non tender, soft, no organomegaly Edema: no edema noted Arm (L), no edema noted Arm (R) Neurologic: unresponsive Skin: normal pigmentation Lymphatic: normal anterior cervical (L), normal anterior cervical (R) Assessment/Plan Problem List: (1) Stage 4 skin ulcer of sacral region ICD Codes: L98.429 - Non-pressure chronic ulcer of back with unspecified severity SNOMED: 40621318, 353809327 (2) Colostomy in place ICD Codes: Z93.3 - Colostomy status SNOMED: 382618429, 966912433 (3) Sepsis ICD Codes: A41.9 - Sepsis, unspecified organism SNOMED: 10833248 (4) Pneumonia ICD Codes: J18.9 - Pneumonia, unspecified organism SNOMED: 315636032 Qualifiers: Qualified Codes: J18.9 - Pneumonia, unspecified organism (5) UTI (urinary tract infection) ICD Codes: N39.0 - Urinary tract infection, site not specified SNOMED: 53773536 Qualifiers: Qualified Codes: N30.01 - Acute cystitis with hematuria Status: stable Assessment/Plan: cont iv abx- long course needed per ID monitor wbc- imprving monitor cxr- improving tube feeds replace lytes as needed vent support resp rx suctioning as needed wean as able cont bp rx monitor for fevers tylenol prn wound care per surgery turn q2 dvt/stress ulcer prophylaxis ?transfer to [facility] per Robby Aimn MD Jun 18, 2020 09:19
[2020-06-18] MEDS: Docusate 100mg/10ml Liq GT SCH ×2 (09:20→18:22)
[2020-06-18] MEDS: levETIRAcetam 500mg/5ml Liquid GT SCH ×2 (09:20→18:22)
[2020-06-18] MEDS: Zinc Sulfate 220mg GT SCH (09:20)
[2020-06-18] MEDS: Amiodarone 200mg tab GT SCH (09:21)
[2020-06-18] MEDS: Ascorbic Acid 500mg tab ORAL SCH (09:21)
[2020-06-18] MEDS: Gentamicin for inhalation INH SCH ×2 (11:00→22:07)
[2020-06-18 12:00] VITALS: BP 133/73
--- NOTE | 2020-06-18 12:39 | Surgery Progress Note ---
Surgery Progress Note Subjective Additional Comments afebrile HD stable wbc improved no n/v Objective Last 24 Hour Vital Signs Date Time Temp Pulse Resp B/P (MAP) Pulse Ox O2 Delivery O2 Flow Rate FiO2 06/18/20 09:21 88 124/71 06/18/20 08:00 Mechanical Ventilator 06/18/20 08:00 35 06/18/20 08:00 97.5 88 21 124/71 (88) 98 06/18/20 05:25 133/70 06/18/20 04:00 99.0 107 22 149/69 (95) 98 06/18/20 04:00 Mechanical Ventilator 06/18/20 04:00 35 06/18/20 03:12 93 24 35 06/18/20 03:08 87 06/18/20 00:00 99.3 87 18 137/67 (90) 100 06/18/20 00:00 Mechanical Ventilator 06/18/20 00:00 35 06/17/20 23:32 86 06/17/20 22:54 85 20 100 Mechanical Ventilator 35 88 20 35 06/17/20 21:57 133/75 06/17/20 20:00 99.5 82 18 138/81 (100) 100 06/17/20 20:00 35 06/17/20 20:00 Mechanical Ventilator 06/17/20 19:30 89 24 35 06/17/20 19:21 86 06/17/20 17:47 83 120/67 06/17/20 16:00 Mechanical Ventilator 06/17/20 16:00 99.0 82 18 120/67 (84) 100 06/17/20 16:00 83 06/17/20 16:00 35 06/17/20 15:00 89 23 35 06/17/20 14:14 124/72 I&O Intake and Output 06/17/20 06/18/20 19:00 07:00 Intake Total 1360 ml 1521.250 ml Output Total 870 ml 2600 ml Balance 490 ml -1078.750 ml Intake Free Water 200 ml 200 ml IV Total 500 ml 601.250 ml Tube Feeding 660 ml 720 ml Output Urine Total 650 ml 2400 ml Stool Total 220 ml 200 ml Dressing: saturated Cardiovascular: RSR Respiratory: decreased breath sounds Abdomen: soft, non-tender, present bowel sounds Extremities: no tenderness, no cyanosis Laboratory Tests Test 06/17/20 17:07 06/17/20 22:15 06/17/20 23:31 06/18/20 04:30 POC Whole Blood Glucose Pending Pending Vancomycin Level Trough 18.2 ug/mL (5.0-12.0) H White Blood Count 11.6 K/UL (4.8-10.8) H Red Blood Count 3.51 M/UL (4.70-6.10) L Hemoglobin 10.0 G/DL (14.2-18.0) L Hematocrit 31.1 % (42.0-52.0) L Mean Corpuscular Volume 89 FL (80-99) Mean Corpuscular Hemoglobin 28.4 PG (27.0-31.0) Mean Corpuscular Hemoglobin Concent 32.1 G/DL (32.0-36.0) Red Cell Distribution Width 16.5 % (11.6-14.8) H Platelet Count 498 K/UL (150-450) H Mean Platelet Volume 5.2 FL (6.5-10.1) L Neutrophils (%) (Auto) 66.1 % (45.0-75.0) Lymphocytes (%) (Auto) 21.8 % (20.0-45.0) Monocytes (%) (Auto) 7.1 % (1.0-10.0) Eosinophils (%) (Auto) 4.2 % (0.0-3.0) H Basophils (%) (Auto) 0.8 % (0.0-2.0) Sodium Level 138 MMOL/L (136-145) Potassium Level 3.8 MMOL/L (3.5-5.1) Chloride Level 100 MMOL/L (98-107) Carbon Dioxide Level 34 MMOL/L (21-32) H Anion Gap 4 mmol/L (5-15) L Blood Urea Nitrogen 12 mg/dL (7-18) Creatinine 0.6 MG/DL (0.55-1.30) Estimat Glomerular Filtration Rate > 60 mL/min (>60) Glucose Level 171 MG/DL (74-106) H Calcium Level 8.6 MG/DL (8.5-10.1) Test 06/18/20 05:23 06/18/20 11:40 POC Whole Blood Glucose Pending 133 MG/DL (74-106) H Plan Problems: (1) UTI (urinary tract infection) (2) Pneumonia (3) Sepsis Assessment & Plan: leukocytosis, anemia. abnormal labs stage 4 sacral prior debridement and seems like ostectomy colostomy noted mid back and bilateral ischial dti ua noted on iv abx g tube in place but per reports on tpn at facility labs ordered imaging ordered no acute surgical intervention planned will follow with recs improving cont diet as tolerated cont abx DAILY ESTIMATED NEEDS: Needs based on Critical care, wound / 67kg 22-30 kcals/kg 9585-2809 total kcals 1.25-2 g protein/kg 83-134 g total protein 25-30 mL/kg 3146-2205 total fluid mLs NUTRITION DIAGNOSIS: * Swallowing difficulty R/T dysphagia, respiratory status as evidenced by pt trach/vent dep, h/o PEG placement, GT feeds held and was on TPN [employer] for Pancreatitis, which now resolved, now on GT feeds. * Increased kcal/prot intake needs R/T wound healing as evidenced by pt admitted w /multiple advanced wounds, including full thickness Pressure Injury @ lumbar spine and sacrum w/ small area of bone exposure, DTPI wounds @ L lower buttocks, L ischium, R ischium, resolving pressure injury @ L tibia, unstageable wound @ R Tibia, R Lheel, and partial thickness pressure injury @ L heel. CURRENT TF:Glucerna 1.2 @ 60ml/hr x 22 hrs (on synthroid) ENTERAL NUTRITION RECOMMENDATIONS: Glucerna 1.2 @ 65ml/hr x 22 hrs + Prosource 1pkt daily to provide 1430ml, 1716kcal, 86g +11g prot (1.5g/kg), 1151ml free water * Increase current TF to goal of 65ml/hr as TF held for 2 hrs for synthroid meds. * Add Prosource 1pkt daily to better meet protein needs * HOB over 30 degrees/ water flush per MD * add Grady BID via GT for wound healing (additional 5g pro) ADDITIONAL RECOMMENDATIONS: * Per SNF: HT=5'8" KX=[id number] (as of 05/22/20), rec re-calibrated bedscale wt * Monitor TF tolerance: lipase wnl, h/o pancreatitis * Monitor lytes, replete as needed (K 2.7*-> now wnl) * Wound healing: add Vit C 500mg x1, continue ZnSO4 TF @ goal provides 100% est kcal/prot needs add Grady BID . 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 Dry eschar noted to L earlobe(L)0.8cm x (W)0.6cm. No erythema noted periwound. Loose,dry eschar cap L earlobe(L)1cm x (W)0.7cm. Base of wound beneath loose eschar cap is moist and paul. No odor or exudate noted. Non-Blanchable erythema with shearing centrally posterior neck under tracheal collar.Periwound skin is dark without erythema or fluctuance.(L)1.5cm x ( W)4.5cm. Resolving Pressure injury L lumbar area(L)2cm x (W00.7cm. [place] epithelial at base of wound. Loose dry edges . no erythema or induration periwound. Full thickness Pressure Injury Lumbar Spine(L)2.5cm x (W)1.5cm. Base of wound is 75% paul and moist,25% slough.Borders are macerated. No odor or exudate noted. Periwound without erythema or fluctuance. Full Thickness Sacral Pressure Injury (L)7.5cm x (W)8.8cm x (D)2.4cm, undermining clockwise 12-5 by 1.8cm @2o'clock. Base of wound is beefy red with purpuric area at base. Small area of bone exposure, scattered slough(20%) Wound is otherwise beefy red. Small amt serous exudate note. No odor noted. DTPI L lower Buttocks that is evolving. Base of wound is 75% soft necrosis,25% most and pink with surrounding maroon and indurated borders. DTPI that is evolving and is partially opened at L ischium(L)8cm x (W)9.5cm. Base of wound is purpuric ,indurated with opening that is 25% slough,75% moist and pink. NO odor noted. DTPI R Ischium that is evolving and is partially opened(L)6.3cm x (W)6.5cm. Base of wound is Indurated reddish/brown with opening that is 25% slough,25% soft necrosis,50% moist and pink. NO odor or exudate noted. No evidence of erythema or fluctuance periwound. Resolving Pressure Injury posterior L tibia with dry eschar cap,mixed dry pink epithelial. Unstageable Pressure injury posterior R Tibia. Stable dry eschar noted(L)14.5cm x (W)1.7cm. Unstageable Pressure Injury R heel(L)3.2cm x (W)4.2cm. Base of wound is 100% necrotic with marginal erythema and fluctuance periwound. Partial Thickness Pressure Injury medial L heel(L)1.3cm x (W)1.2cm. Base of wound is moist and viable . Edges are macerated with surrounding non-blanchable erythema with fluctuance. UNstageable Pressure Injury Lateral L Heel . Base of wound is 100% soft necrosis and is malodorous. Non-Blanchable erythema with Fluctuance periwound.(L)4cm x (W)3.4cm. Tx.Plan: Apply Betadine to R and L earlobes. Cover each ear with Optifoam drsg. Change every 3 days and prn. Apply Cavilon Skin Barrier to posterior neck. Cover with Optifoam drsg. Change every 3 days and prn. Cleanse Wounds Lumbar and L lumbar with Saline. Apply TheraHoney. Apply Moisture Barrier Paste periwound. Cover each site with Optifoam drsgs. Change every 3 days and prn. Cleanse Sacral wound with Saline. Loosely pack with Therahoney impregnated Kerlix. Apply Moisture Barrier paste periwound. Cover with Optifoam drsg. Change Daily and prn. Apply Moisture Barrier Paste to Scrotum with each incontinence care. Cleanse R and L Ischial wounds with Saline. Apply Therahoney. Apply Moisture Barrier Paste periwound. Cover each wound with Optifoam drsg. Changee very 3 days and prn. Apply Betadine to Posterior R and L Tibial wounds. Cover each wound with Optifoam drsgs. Change every 3 days and prn. Apply Betadine to R and L Heel wounds. Cover each heel with Optifoam drsgs. Change every 3 days and prn. Reposition at least every 2hours or as tolerated. Off-load heels with Pillows. APM/COLBY Mattress overlay. Jonny Powell Jun 18, 2020 12:39
--- NOTE | 2020-06-18 14:04 | NUR ---
CASE MANAGEMENT: REVIEW SI: UTI . SEPSIS . PNA T 97.5 HR 88 RR 19 BP 124/71 SAT 98% MECH VENT FIO2 35 WBC 11.6 H/H 10.0/31.1 IS: VANCOMYCIN IV Q24HR GENTAMICIN INH Q12HR EPOETIN SUBQ MWF NS IVF @ 50ML/HR STEP DOWN UNIT STATUS DCP: PATIENT IS FROM [facility]
--- NOTE | 2020-06-18 14:10 | NUR ---
NURSE NOTES: Per Dr. Leyva discharge patient with vancomycin IV per pharmacy if leaving today, 06/18/2020, continue for [address]. [address] Leyva discontinue Gentamicin INH upon discharge if discharged today, 06/18/2020; patient is noted discharged today - continue Gentamicin INH while inpatient. Per Dr. Leyva MRSA nares colonized, VRE rectum colonized, MDR sputum colonized, ESBL sputum colonized. All orders entered, noted, and carried out.
[2020-06-18 16:00] VITALS: BP 134/77
--- NOTE | 2020-06-18 16:00 | NUR ---
NURSE NOTES: Per Dr. Hamilton discharge patient with hospital medications, urinary florez catheter for urinary retention, right upper arm PICC. Orders entered, noted, and carried out. Noted.
--- NOTE | 2020-06-18 17:25 | Pulmonology Progress Note ---
Subjective ROS Limited/Unobtainable: Yes Constitutional: Denies: fever Allergies: Coded Allergies: No Known Allergies (Unverified , 06/08/20) All Systems: reviewed and negative except above Subjective care noted overnight events reviewed on vent on feeds d/w all- cleared for dc Objective Last 24 Hour Vital Signs Date Time Temp Pulse Resp B/P (MAP) Pulse Ox O2 Delivery O2 Flow Rate FiO2 06/18/20 16:00 98.1 91 19 134/77 (96) 100 06/18/20 16:00 35 06/18/20 16:00 Mechanical Ventilator 06/18/20 15:09 86 21 35 06/18/20 13:53 133/73 06/18/20 12:00 35 06/18/20 12:00 Mechanical Ventilator 06/18/20 12:00 97.2 88 19 133/73 (93) 100 06/18/20 11:43 87 06/18/20 10:58 88 18 100 Mechanical Ventilator 35 87 16 06/18/20 09:42 87 20 35 06/18/20 09:21 88 124/71 06/18/20 08:00 Mechanical Ventilator 06/18/20 08:00 35 06/18/20 08:00 97.5 88 21 124/71 (88) 98 06/18/20 07:48 85 06/18/20 07:16 83 20 35 06/18/20 05:25 133/70 06/18/20 04:00 99.0 107 22 149/69 (95) 98 06/18/20 04:00 Mechanical Ventilator 06/18/20 04:00 35 06/18/20 03:12 93 24 35 06/18/20 03:08 87 06/18/20 00:00 99.3 87 18 137/67 (90) 100 06/18/20 00:00 Mechanical Ventilator 06/18/20 00:00 35 06/17/20 23:32 86 06/17/20 22:54 85 20 100 Mechanical Ventilator 35 88 20 35 06/17/20 21:57 133/75 06/17/20 20:00 99.5 82 18 138/81 (100) 100 06/17/20 20:00 35 06/17/20 20:00 Mechanical Ventilator 06/17/20 19:30 89 24 35 06/17/20 19:21 86 06/17/20 17:47 83 120/67 Intake and Output 06/17/20 06/18/20 19:00 07:00 Intake Total 1360 ml 1521.250 ml Output Total 870 ml 2600 ml Balance 490 ml -1078.750 ml Intake Free Water 200 ml 200 ml IV Total 500 ml 601.250 ml Tube Feeding 660 ml 720 ml Output Urine Total 650 ml 2400 ml Stool Total 220 ml 200 ml Objective WDWN NAD reduced breath sounds bilaterally without rhonchi or wheeze [id number] without MRG NABS nontender colostomy no CCE nonfocal reduced LOC trach in place reviewed Laboratory Tests 06/17/20 22:15: Vancomycin Level Trough 18.2H 06/17/20 23:31: POC Whole Blood Glucose [Pending] 06/18/20 04:30: White Blood Count 11.6H, Red Blood Count 3.51L, Hemoglobin 10.0L, Hematocrit 31.1L, Mean Corpuscular Volume 89, Mean Corpuscular Hemoglobin 28.4, Mean Corpuscular Hemoglobin Concent 32.1, Red Cell Distribution Width 16.5H, Platelet Count 498H, Mean Platelet Volume 5.2L, Neutrophils (%) (Auto) 66.1, Lymphocytes (%) (Auto) 21.8, Monocytes (%) (Auto) 7.1, Eosinophils (%) (Auto) 4.2H, Basophils (%) (Auto) 0.8, Sodium Level 138, Potassium Level 3.8, Chloride Level 100, Carbon Dioxide Level 34H, Anion Gap 4L, Blood Urea Nitrogen 12, Creatinine 0.6, Estimat Glomerular Filtration Rate > 60, Glucose Level 171H, Calcium Level 8.6 06/18/20 05:23: POC Whole Blood Glucose [Pending] 06/18/20 11:40: POC Whole Blood Glucose 133H 06/18/20 17:04: POC Whole Blood Glucose 163H Current Medications Medications (Trade) Dose Ordered Sig/Milla Route PRN Reason Start Time Stop Time Status Last Admin Dose Admin Acetaminophen (Tylenol) 650 mg Q4H PRN ORAL Temp >100.5 06/13/20 21:15 07/13/20 21:14 06/13/20 21:46 Amiodarone HCl (Cordarone) 200 mg DAILY GT 06/09/20 09:00 09/07/20 08:59 06/18/20 09:21 Amlodipine Besylate (Norvasc) 5 mg TWICE A DAY GT 06/09/20 09:00 07/09/20 08:59 06/18/20 09:21 Ascorbic Acid (Vitamin C) 500 mg DAILY ORAL 06/18/20 09:00 07/18/20 08:59 06/18/20 09:21 Bethanechol Chloride (Urecholine) 25 mg Q6HR GT 06/09/20 06:00 07/09/20 05:59 06/18/20 11:55 Chlorhexidine Gluconate (Sue-Hex 2%) 1 applic DAILY@1999 TOPIC 06/10/20 20:00 09/08/20 19:59 06/17/20 20:31 Clonidine HCl (Catapres Tab) 0.1 mg Q6H PRN GT For High Blood Pressure 06/09/20 00:30 09/07/20 00:29 Dextrose (Dextrose 50%) 25 ml Q30M PRN IV Hypoglycemia 06/09/20 06:00 09/07/20 05:59 06/09/20 06:02 Dextrose (Dextrose 50%) 50 ml Q30M PRN IV Hypoglycemia 06/09/20 00:15 09/07/20 00:14 Docusate Sodium (Colace) 100 mg TWICE A DAY GT 06/09/20 09:00 07/09/20 08:59 06/18/20 09:20 Epoetin Cameron (Epoetin Cameron-EPBX(NON ESRD)) 3,000 unit TUE-TUE-TUE SUBQ 06/16/20 21:00 09/14/20 20:59 06/16/20 20:26 Epoetin Cameron (Epoetin Cameron-EPBX(NON ESRD)) 4,000 unit TUE-TUE-TUE SUBQ 06/16/20 21:00 09/14/20 20:59 06/16/20 20:26 Famotidine (Pepcid) 20 mg TWICE A DAY GT 06/09/20 09:00 09/07/20 08:59 06/18/20 09:21 Gentamicin Sulfate (Gentamicin vial) 300 mg Q12HR@ INH 06/16/20 22:00 06/23/20 21:59 06/18/20 11:00 Hydralazine HCl (Apresoline) 25 mg EVERY 8 HOURS GT 06/09/20 06:00 09/07/20 05:59 06/18/20 13:53 Insulin Aspart (NovoLOG) Q6HR SUBQ 06/09/20 06:00 09/07/20 05:59 06/18/20 05:26 Lactulose (Cephulac) 20 gm Q6H PRN GT Constipation 06/09/20 00:30 07/09/20 00:29 Lansoprazole (Prevacid) 30 mg TWICE A DAY GT 06/09/20 09:00 07/09/20 08:59 06/18/20 09:21 Levetiracetam (Keppra) 500 mg TWICE A DAY GT 06/09/20 09:00 07/09/20 08:59 06/18/20 09:20 Levothyroxine Sodium (Synthroid) 75 mcg DAILY GT 06/09/20 09:00 07/09/20 08:59 06/18/20 09:20 Metoclopramide HCl (Reglan) 5 mg EVERY 6 HOURS GT 06/09/20 06:00 07/09/20 05:59 06/18/20 11:55 Nitroglycerin (Ntg) 0.4 mg Q5MIN X 3 DOSES PRN SL CHEST PAIN 06/09/20 00:30 07/09/20 00:29 Ondansetron HCl (Zofran) 4 mg Q6H PRN GT Nausea & Vomiting 06/09/20 00:30 07/09/20 00:29 Pravastatin Sodium (Pravachol) 40 mg BEDTIME GT 06/09/20 21:00 07/09/20 20:59 06/17/20 20:31 Sodium Chloride 1,000 ml @ 50 mls/hr Q20H IV 06/09/20 01:00 07/09/20 00:59 06/18/20 03:50 Vancomycin HCl (Vanco pharmacy to dose) 1 ea DAILY PRN MISC Per rx protocol 06/09/20 00:15 07/20/20 00:14 Vancomycin/Sodium Chloride 1.25 ml @ 0.625 mls/ hr Q24H IVPB 06/15/20 23:00 06/20/20 22:59 06/17/20 23:29 Zinc Sulfate (Zinc Sulfate) 220 mg DAILY GT 06/09/20 09:00 12/20/20 08:59 06/18/20 09:20 Assessment/Plan Assessment/Plan sepsis leukocytosis anemia colostomy respiratory failure possible gib chronic pancreatitis chronic encephalopathy hypernatremia acute renal failure pneumonia bacteremia UTI pneumonia sacral osteo/ decub diverting colostomy PLAN vent support IV antibiotics- noted; x 33 days of vanco GI on feeds and tolerating ID recommendations noted close follow up monitor HH guarded at present hope to dc soon back to snf today CXR improved- monitor impression, plan, and exam edited and reviewed in detail care discussed with Mundo Burciaga MD Jun 18, 2020 17:25
--- NOTE | 2020-06-18 19:00 | NUR ---
NURSE NOTES: Received report from BOO Polanco. Patien in bed. Eyes open. Respirations even and unlabored. SR at 100 on clinical research monitor. Trach to vent Portex #6 AC: 16 TV: 400 Fi02: 35 PEEP: 5 O2 saturation at 100%. GT feeding of Glucerna 1.2 @ 60ml/hr with no residual noted. colostomy bag draining soft brown pasty stool. PICC to right upper arm. NS infusing @ 50ml/h. F/c draining well to gravity of hasty yellow urine. Bed in lowest position and locked. side rails upx3, call light within reach, bed alarm engaged, Will continue POC.
--- NOTE | 2020-06-18 19:23 | NUR ---
NURSE HAND-OFF REPORT: Important Events on Shift: Awaiting bed availability to [facility] for discharge. Patient Status: Stable Diet: Glucerna 1.2 60 ml/hr. Pending Orders: None. Pending Results/Labs:None. Pending MD notification:None. Latest Vital Signs: Temperature 98.1 , Pulse 91 , B/P 134 /77 , Respiratory Rate 19 , O2 SAT 100 , Mechanical Ventilator, O2 Flow Rate 4.0 . Vital Sign Comment: Stable EKG Rhythm: SR,1st degree HB Rhythm change?: N Notified?: N -DR.BALFE BAILEY Response: No New Orders Received Latest Pulido Fall Score: 70 Fall Risk: High Risk Safety Measures: Call light Within Reach, Bed Alarm Zone 2, Side Rails Side Rails x2, Bed position Low and Locked. Fall Precautions: Yellow Socks Yellow Gown Door Sign Patient Fall Education Report given to BOO Casey.
[2020-06-18 20:00] VITALS: BP 122/70
--- NOTE | 2020-06-18 22:28 | General Progress Note ---
Subjective Allergies: Coded Allergies: No Known Allergies (Unverified , 06/08/20) Subjective NAD tolerating TF Objective Last 24 Hour Vital Signs Date Time Temp Pulse Resp B/P (MAP) Pulse Ox O2 Delivery O2 Flow Rate FiO2 06/18/20 20:00 Mechanical Ventilator Mechanical Ventilator 06/18/20 20:00 101 06/18/20 20:00 35 06/18/20 20:00 98.6 101 22 122/70 (87) 98 06/18/20 19:30 91 20 100 Mechanical Ventilator 35 06/18/20 19:28 95 20 35 06/18/20 18:23 91 134/77 06/18/20 16:00 98.1 91 19 134/77 (96) 100 06/18/20 16:00 35 06/18/20 16:00 84 06/18/20 16:00 Mechanical Ventilator 06/18/20 15:09 86 21 35 06/18/20 13:53 133/73 06/18/20 12:00 35 06/18/20 12:00 Mechanical Ventilator 06/18/20 12:00 97.2 88 19 133/73 (93) 100 06/18/20 11:43 87 06/18/20 10:58 88 18 100 Mechanical Ventilator 35 87 16 06/18/20 09:42 87 20 35 06/18/20 09:21 88 124/71 06/18/20 08:00 Mechanical Ventilator 06/18/20 08:00 35 06/18/20 08:00 97.5 88 21 124/71 (88) 98 06/18/20 07:48 85 06/18/20 07:16 83 20 35 06/18/20 05:25 133/70 06/18/20 04:00 99.0 107 22 149/69 (95) 98 06/18/20 04:00 Mechanical Ventilator 06/18/20 04:00 35 06/18/20 03:12 93 24 35 06/18/20 03:08 87 06/18/20 00:00 99.3 87 18 137/67 (90) 100 06/18/20 00:00 Mechanical Ventilator 06/18/20 00:00 35 06/17/20 23:32 86 06/17/20 22:54 85 20 100 Mechanical Ventilator 35 88 20 35 Intake and Output 06/17/20 06/18/20 19:00 07:00 Intake Total 1360 ml 1521.250 ml Output Total 870 ml 2600 ml Balance 490 ml -1078.750 ml Intake Free Water 200 ml 200 ml IV Total 500 ml 601.250 ml Tube Feeding 660 ml 720 ml Output Urine Total 650 ml 2400 ml Stool Total 220 ml 200 ml Laboratory Tests 06/17/20 23:31: POC Whole Blood Glucose [Pending] 06/18/20 04:30: White Blood Count 11.6H, Red Blood Count 3.51L, Hemoglobin 10.0L, Hematocrit 31.1L, Mean Corpuscular Volume 89, Mean Corpuscular Hemoglobin 28.4, Mean Corpuscular Hemoglobin Concent 32.1, Red Cell Distribution Width 16.5H, Platelet Count 498H, Mean Platelet Volume 5.2L, Neutrophils (%) (Auto) 66.1, Lymphocytes (%) (Auto) 21.8, Monocytes (%) (Auto) 7.1, Eosinophils (%) (Auto) 4.2H, B asophils (%) (Auto) 0.8, Sodium Level 138, Potassium Level 3.8, Chloride Level 100, Carbon Dioxide Level 34H, Anion Gap 4L, Blood Urea Nitrogen 12, Creatinine 0.6, Estimat Glomerular Filtration Rate > 60, Glucose Level 171H, Calcium Level 8.6 06/18/20 05:23: POC Whole Blood Glucose [Pending] 06/18/20 11:40: POC Whole Blood Glucose 133H 06/18/20 17:04: POC Whole Blood Glucose 163H Height (Feet): 5 Height (Inches): 10.00 Weight (Pounds): 162 Objective Elderly man NCAT (+) trach coarse BS RR abd soft, (+) GT (+) colostomy no edema Assessment/Plan Status: stable Assessment/Plan: Assessment - h/o pancreatitis - resolved - s/p colostomy - sepsis/leukocytosis - resp failure / trach - dysphagia / GT - s/p CVA - Anemia - CAD - DM - hypokalemia - HTN - GERD Recommendations - Abx - CT abd/pelvis noted - PPI - Monitor CBC - TF - D/C planning per PMD Moshe Kraft MD Jun 18, 2020 22:28
[2020-06-18] MEDS: Dyna-Hex 2% Top Sol 2oz TOPIC SCH (22:35)
[2020-06-18] MEDS: Epoetin Alfa-EPBX (NON ESRD)4000 units/ml vial SUBQ SCH (22:37)
[2020-06-18] MEDS: Epoetin Alfa-EPBX (NON ESRD) 3000 units/ml vial SUBQ SCH (22:37)
[2020-06-19] VITALS: BP 118/67
--- NOTE | 2020-06-19 | NUR ---
NURSE NOTES: Condition unchanged. VSS. Afebrile. Respirations even and unlabored. In no apparent distress.
[2020-06-19] MEDS: [UNRECOGNIZED DRUG - OTHER] IVPB SCH ×2 (00:14→23:59)
[2020-06-19] MEDS: VANCOMYCIN IVPB SCH ×2 (00:14→23:59)
[2020-06-19] MEDS: NovoLOG Insulin Flexpen SUBQ SCH ×4 (00:19→17:43)
[2020-06-19 04:00] VITALS: BP 140/80
--- NOTE | 2020-06-19 04:00 | NUR ---
NURSE NOTES: Condition unchanged. VSS. Afebrile. Respirations even and unlabored. No SOB noted. In no apparent distress. Continue to tolerate GT feeding well with no residual noted. Remain SR on fbi profiler. Will continue POC.
[2020-06-19] MEDS: Bethanechol 25mg Tab GT SCH ×4 (06:27→23:59)
[2020-06-19] MEDS: HydrALAZINE 25mg tab GT SCH ×3 (06:27→21:30)
[2020-06-19] MEDS: Metoclopramide 10mg/10ml Liq GT SCH ×4 (06:27→23:59)
--- NOTE | 2020-06-19 07:35 | NUR ---
NURSE NOTES: Report received from Odell Casey RN.Pt asleep noted no resp distress with trach tube to vent,ordered vent settings tolerated,no signs of pain or discomfort,SR on the monitor.GTF Glucerna 1.2 at 60 ml/hr,no residual noted,Thomson cath draining yellow urine,Colostomy bag with soft brown stools,skin hot to touch pt with fever T100.9 F,IV site to LAUREL PICC line intact with IVF NS at 50l/hr SR up x2 HOB elevated,bed lock in lowest position will continue with plans of care.
[2020-06-19 08:00] VITALS: BP 123/71
--- NOTE | 2020-06-19 09:00 | NUR ---
NURSE NOTES: Cold compress applied to forehead and Tylenol 650 mg GT given, will continue to monitor pt's temp.
[2020-06-19] MEDS: Zinc Sulfate 220mg GT SCH (09:15)
[2020-06-19] MEDS: Docusate 100mg/10ml Liq GT SCH ×2 (09:15→17:39)
[2020-06-19] MEDS: levETIRAcetam 500mg/5ml Liquid GT SCH ×2 (09:15→17:39)
[2020-06-19] MEDS: Ascorbic Acid 500mg tab ORAL SCH (09:15)
[2020-06-19] MEDS: Amiodarone 200mg tab GT SCH (09:17)
--- NOTE | 2020-06-19 10:00 | NUR ---
NURSE NOTES: Oral care done,tracheal oral secretions suctioned PRN.
[2020-06-19] MEDS: Gentamicin for inhalation INH SCH ×2 (10:30→22:57)
--- NOTE | 2020-06-19 10:35 | Infectious Diseases Prog Note ---
Assessment/Plan Assessment/Plan A 1. coagulase neg staph line sepsis 2. pneumonia 3. E.coli Enterococcus, fungal UTI 4. leucocytosis resolved 5. Ventilatory dependent respiratory failure 6. diabetes mellitus 7. hypertension 8. 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 New fever P 1. continue iv vancomycin X 31 days 2. continue Gentamicin inhaler X 3 more days 3. CXR, UA & urine culture Subjective ROS Limited/Unobtainable: Yes Constitutional: Reports: fever, other - T=100.9 Allergies: Coded Allergies: No Known Allergies (Unverified , 06/08/20) Objective Last 24 Hour Vital Signs Date Time Temp Pulse Resp B/P (MAP) Pulse Ox O2 Delivery O2 Flow Rate FiO2 06/19/20 09:15 90 123/71 06/19/20 08:00 35 06/19/20 08:00 100.9 92 23 123/71 (88) 100 06/19/20 08:00 90 06/19/20 07:00 90 27 35 06/19/20 06:27 140/80 06/19/20 04:00 96 06/19/20 04:00 35 06/19/20 04:00 99.3 97 25 140/80 (100) 100 06/19/20 04:00 Mechanical Ventilator Mechanical Ventilator 06/19/20 03:00 97 18 35 06/19/20 00:00 Mechanical Ventilator Mechanical Ventilator 06/19/20 00:00 98.1 97 21 118/67 (84) 98 06/18/20 22:38 122/70 06/18/20 22:30 93 17 100 Mechanical Ventilator 35 89 20 35 06/18/20 20:00 Mechanical Ventilator Mechanical Ventilator 06/18/20 20:00 101 06/18/20 20:00 35 06/18/20 20:00 98.6 101 22 122/70 (87) 98 06/18/20 19:30 91 20 100 Mechanical Ventilator 35 06/18/20 19:28 95 20 35 06/18/20 18:23 91 134/77 06/18/20 16:00 98.1 91 19 134/77 (96) 100 06/18/20 16:00 35 06/18/20 16:00 84 06/18/20 16:00 Mechanical Ventilator 06/18/20 15:09 86 21 35 06/18/20 13:53 133/73 06/18/20 12:00 35 06/18/20 12:00 Mechanical Ventilator 06/18/20 12:00 97.2 88 19 133/73 (93) 100 06/18/20 11:43 87 06/18/20 10:58 88 18 100 Mechanical Ventilator 35 87 16 Height (Feet): 5 Height (Inches): 10.00 Weight (Pounds): 162 HEENT: mucous membranes moist, status post trach Respiratory/Chest: lungs clear, other - on ventilator Cardiovascular: normal rate, other - R arm PICC line Abdomen: soft, non tender, other - GT feeding Extremities: other - mild edema Neurologic/Psychiatric: unresponsiveness Laboratory Tests Test 06/18/20 11:40 06/18/20 17:04 POC Whole Blood Glucose 133 MG/DL (74-106) H 163 MG/DL (74-106) H Current Medications Medications (Trade) Dose Ordered Sig/Milla Route PRN Reason Start Time Stop Time Status Last Admin Dose Admin Acetaminophen (Tylenol) 650 mg Q4H PRN ORAL Temp >100.5 06/13/20 21:15 07/13/20 21:14 06/19/20 09:37 Amiodarone HCl (Cordarone) 200 mg DAILY GT 06/09/20 09:00 09/07/20 08:59 06/19/20 09:17 Amlodipine Besylate (Norvasc) 5 mg TWICE A DAY GT 06/09/20 09:00 07/09/20 08:59 06/19/20 09:15 Ascorbic Acid (Vitamin C) 500 mg DAILY ORAL 06/18/20 09:00 07/18/20 08:59 06/19/20 09:15 Bethanechol Chloride (Urecholine) 25 mg Q6HR GT 06/09/20 06:00 07/09/20 05:59 06/19/20 06:27 Chlorhexidine Gluconate (Sue-Hex 2%) 1 applic DAILY@1999 TOPIC 06/10/20 20:00 09/08/20 19:59 06/18/20 22:35 Clonidine HCl (Catapres Tab) 0.1 mg Q6H PRN GT For High Blood Pressure 06/09/20 00:30 09/07/20 00:29 Dextrose (Dextrose 50%) 25 ml Q30M PRN IV Hypoglycemia 06/09/20 06:00 09/07/20 05:59 06/09/20 06:02 Dextrose (Dextrose 50%) 50 ml Q30M PRN IV Hypoglycemia 06/09/20 00:15 09/07/20 00:14 Docusate Sodium (Colace) 100 mg TWICE A DAY GT 06/09/20 09:00 07/09/20 08:59 06/19/20 09:15 Epoetin Cameron (Epoetin Cameron-EPBX(NON ESRD)) 3,000 unit TUE-TUE-TUE SUBQ 06/16/20 21:00 09/14/20 20:59 06/18/20 22:37 Epoetin Cameron (Epoetin Cameron-EPBX(NON ESRD)) 4,000 unit SUBQ 06/16/20 21:00 09/14/20 20:59 06/18/20 22:37 Famotidine (Pepcid) 20 mg TWICE A DAY GT 06/09/20 09:00 09/07/20 08:59 06/19/20 09:15 Gentamicin Sulfate (Gentamicin vial) 300 mg Q12HR@,22 INH 06/16/20 22:00 06/23/20 21:59 06/18/20 22:07 Hydralazine HCl (Apresoline) 25 mg EVERY 8 HOURS GT 06/09/20 06:00 09/07/20 05:59 06/19/20 06:27 Insulin Aspart (NovoLOG) Q6HR SUBQ 06/09/20 06:00 09/07/20 05:59 06/19/20 06:29 Lactulose (Cephulac) 20 gm Q6H PRN GT Constipation 06/09/20 00:30 07/09/20 00:29 Lansoprazole (Prevacid) 30 mg TWICE A DAY GT 06/09/20 09:00 07/09/20 08:59 06/19/20 09:15 Levetiracetam (Keppra) 500 mg TWICE A DAY GT 06/09/20 09:00 07/09/20 08:59 06/19/20 09:15 Levothyroxine Sodium (Synthroid) 75 mcg DAILY GT 06/09/20 09:00 07/09/20 08:59 06/19/20 09:15 Metoclopramide HCl (Reglan) 5 mg EVERY 6 HOURS GT 06/09/20 06:00 07/09/20 05:59 06/19/20 06:27 Nitroglycerin (Ntg) 0.4 mg Q5MIN X 3 DOSES PRN SL CHEST PAIN 06/09/20 00:30 07/09/20 00:29 Ondansetron HCl (Zofran) 4 mg Q6H PRN GT Nausea & Vomiting 06/09/20 00:30 07/09/20 00:29 Pravastatin Sodium (Pravachol) 40 mg BEDTIME GT 06/09/20 21:00 07/09/20 20:59 06/18/20 22:37 Sodium Chloride 1,000 ml @ 50 mls/hr Q20H IV 06/09/20 01:00 07/09/20 00:59 06/18/20 22:50 Vancomycin HCl (Vanco pharmacy to dose) 1 ea DAILY PRN MISC Per rx protocol 06/09/20 00:15 07/20/20 00:14 Vancomycin/Sodium Chloride 250 ml @ 125 mls/hr Q24H IVPB 06/18/20 23:00 06/23/20 22:59 06/19/20 00:14 Zinc Sulfate (Zinc Sulfate) 220 mg DAILY GT 06/09/20 09:00 09/07/20 08:59 06/19/20 09:15 Ramakrishna Lancaster MD Jun 19, 2020 10:35
--- NOTE | 2020-06-19 10:38 | NUR ---
NURSE NOTES: Pt''s temp downt to T98.8F.Pt stable no resp distress presented.
[2020-06-19] MEDS ORDERED: NS 275ml ONE ×2 (11:43→11:53)
--- NOTE | 2020-06-19 11:50 | Surgery Progress Note ---
Surgery Progress Note Subjective Additional Comments wbc improved glu better controlled no n/v comfortable Objective Last 24 Hour Vital Signs Date Time Temp Pulse Resp B/P (MAP) Pulse Ox O2 Delivery O2 Flow Rate FiO2 06/19/20 10:00 98.8 06/19/20 09:15 90 123/71 06/19/20 08:00 35 06/19/20 08:00 100.9 92 23 123/71 (88) 100 06/19/20 08:00 Mechanical Ventilator Mechanical Ventilator 06/19/20 08:00 90 06/19/20 07:00 90 27 35 06/19/20 06:27 140/80 06/19/20 04:00 96 06/19/20 04:00 35 06/19/20 04:00 99.3 97 25 140/80 (100) 100 06/19/20 04:00 Mechanical Ventilator Mechanical Ventilator 06/19/20 03:00 97 18 35 06/19/20 00:00 Mechanical Ventilator Mechanical Ventilator 06/19/20 00:00 98.1 97 21 118/67 (84) 98 06/18/20 22:38 122/70 06/18/20 22:30 93 17 100 Mechanical Ventilator 35 89 20 35 06/18/20 20:00 Mechanical Ventilator Mechanical Ventilator 06/18/20 20:00 101 06/18/20 20:00 35 06/18/20 20:00 98.6 101 22 122/70 (87) 98 06/18/20 19:30 91 20 100 Mechanical Ventilator 35 06/18/20 19:28 95 20 35 06/18/20 18:23 91 134/77 06/18/20 16:00 98.1 91 19 134/77 (96) 100 06/18/20 16:00 35 06/18/20 16:00 84 06/18/20 16:00 Mechanical Ventilator 06/18/20 15:09 86 21 35 06/18/20 13:53 133/73 06/18/20 12:00 35 06/18/20 12:00 Mechanical Ventilator 06/18/20 12:00 97.2 88 19 133/73 (93) 100 I&O Intake and Output 06/18/20 06/19/20 19:00 07:00 Intake Total 1070 ml 1560 ml Output Total 1500 ml 1900 ml Balance -430 ml -340 ml Intake Free Water 300 ml 100 ml IV Total 50 ml 800 ml Tube Feeding 720 ml 660 ml Output Urine Total 1400 ml 1700 ml Stool Total 100 ml 200 ml Dressing: saturated Cardiovascular: RSR Respiratory: decreased breath sounds Abdomen: soft, non-tender, present bowel sounds Extremities: no tenderness, no cyanosis Laboratory Tests Test 06/18/20 17:04 06/19/20 11:43 POC Whole Blood Glucose 163 MG/DL (74-106) H 121 MG/DL (74-106) H Plan Problems: (1) UTI (urinary tract infection) (2) Pneumonia (3) Sepsis Assessment & Plan: leukocytosis, anemia. abnormal labs stage 4 sacral prior debridement and seems like ostectomy colostomy noted mid back and bilateral ischial dti ua noted on iv abx g tube in place but per reports on tpn at facility labs ordered imaging ordered no acute surgical intervention planned will follow with recs improving cont diet as tolerated cont abx DAILY ESTIMATED NEEDS: Needs based on Critical care, wound / 67kg 22-30 kcals/kg 9190-3751 total kcals 1.25-2 g protein/kg 83-134 g total protein 25-30 mL/kg 3260-1756 total fluid mLs NUTRITION DIAGNOSIS: * Swallowing difficulty R/T dysphagia, respiratory status as evidenced by pt trach/vent dep, h/o PEG placement, GT feeds held and was on TPN 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 * Increased kcal/prot intake needs R/T wound healing as evidenced by pt admitted w /multiple advanced wounds, including full thickness Pressure Injury @ lumbar spine and sacrum w/ small area of bone exposure, DTPI wounds @ L lower buttocks, L ischium, R ischium, resolving pressure injury @ L tibia, unstageable wound @ R Tibia, R Lheel, and partial thickness pressure injury @ L heel. CURRENT TF:Glucerna 1.2 @ 60ml/hr x 22 hrs (on synthroid) ENTERAL NUTRITION RECOMMENDATIONS: Glucerna 1.2 @ 65ml/hr x 22 hrs + Prosource 1pkt daily to provide 1430ml, 1716kcal, 86g +11g prot (1.5g/kg), 1151ml free water * Increase current TF to goal of 65ml/hr as TF held for 2 hrs for synthroid meds. * Add Prosource 1pkt daily to better meet protein needs * HOB over 30 degrees/ water flush per MD * add Grady BID via GT for wound healing (additional 5g pro) ADDITIONAL RECOMMENDATIONS: * Per SNF: HT=5'8" DI=700ayu (as of 05/22/20), rec re-calibrated bedscale wt * Monitor TF tolerance: lipase wnl, h/o pancreatitis * Monitor lytes, replete as needed (K 2.7*-> now wnl) * Wound healing: add Vit C 500mg x1, continue ZnSO4 TF @ goal provides 100% est kcal/prot needs add Grady BID . 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 Dry eschar noted to L earlobe(L)0.8cm x (W)0.6cm. No erythema noted periwound. Loose,dry eschar cap L earlobe(L)1cm x (W)0.7cm. Base of wound beneath loose eschar cap is moist and paul. No odor or exudate noted. Non-Blanchable erythema with shearing centrally posterior neck under tracheal collar.Periwound skin is dark without erythema or fluctuance.(L)1.5cm x (W)4.5cm. Resolving Pressure injury L lumbar area(L)2cm x (W00.7cm. [place] epithelial at base of wound. Loose dry edges . no erythema or induration periwound. Full thickness Pressure Injury Lumbar Spine(L)2.5cm x (W)1.5cm. Base of wound is 75% paul and moist,25% slough.Borders are macerated. No odor or exudate noted. Periwound without erythema or fluctuance. Full Thickness Sacral Pressure Injury (L)7.5cm x (W)8.8cm x (D)2.4cm, undermining clockwise 12-5 by 1.8cm @2o'clock. Base of wound is beefy red with purpuric area at base. Small area of bone exposure, scattered slough(20%) Wound is otherwise beefy red. Small amt serous exudate note. No odor noted. DTPI L lower Buttocks that is evolving. Base of wound is 75% soft necrosis,25% most and pink with surrounding maroon and indurated borders. DTPI that is evolving and is partially opened at L ischium(L)8cm x (W)9.5cm. Base of wound is purpuric ,indurated with opening that is 25% slough,75% moist and pink. NO odor noted. DTPI R Ischium that is evolving and is partially opened(L)6.3cm x (W)6.5cm. Base of wound is Indurated reddish/brown with opening that is 25% slough,25% soft necrosis,50% moist and pink. NO odor or exudate noted. No evidence of erythema or fluctuance periwound. Resolving Pressure Injury posterior L tibia with dry eschar cap,mixed dry pink epithelial. Unstageable Pressure injury posterior R Tibia. Stable dry eschar noted(L)14.5cm x (W)1.7cm. Unstageable Pressure Injury R heel(L)3.2cm x (W)4.2cm. Base of wound is 100% necrotic with marginal erythema and fluctuance periwound. Partial Thickness Pressure Injury medial L heel(L)1.3cm x (W)1.2cm. Base of wound is moist and viable . Edges are macerated with surrounding non-blanchable erythema with fluctuance. UNstageable Pressure Injury Lateral L Heel . Base of wound is 100% soft necrosis and is malodorous. Non-Blanchable erythema with Fluctuance periwound.(L)4cm x (W)3.4cm. Tx.Plan: Apply Betadine to R and L earlobes. Cover each ear with Optifoam drsg. Change every 3 days and prn. Apply Cavilon Skin Barrier to posterior neck. Cover with Optifoam drsg. Change every 3 days and prn. Cleanse Wounds Lumbar and L lumbar with Saline. Apply TheraHoney. Apply Moisture Barrier Paste periwound. Cover each site with Optifoam drsgs. Change every 3 days and prn. Cleanse Sacral wound with Saline. Loosely pack with Therahoney impregnated Kerlix. Apply Moisture Barrier paste periwound. Cover with Optifoam drsg. Change Daily and prn. Apply Moisture Barrier Paste to Scrotum with each incontinence care. Cleanse R and L Ischial wounds with Saline. Apply Therahoney. Apply Moisture Barrier Paste periwound. Cover each wound with Optifoam drsg. Changee very 3 days and prn. Apply Betadine to Posterior R and L Tibial wounds. Cover each wound with Optifoam drsgs. Change every 3 days and prn. Apply Betadine to R and L Heel wounds. Cover each heel with Optifoam drsgs. Change every 3 days and prn. Reposition at least every 2hours or as tolerated. Off-load heels with Pillows. APM/COLBY Mattress overlay. Jonny Powell Jun 19, 2020 11:50
[2020-06-19] MEDS ORDERED: Tubing IV Secondary IV ONE (11:53)
[2020-06-19 12:00] VITALS: BP 131/73
--- NOTE | 2020-06-19 13:00 | NUR ---
NURSE NOTES: Pt turned and repositioned to sides,HOB elevated 30 degrees.
--- NOTE | 2020-06-19 15:19 | General Progress Note ---
Subjective ROS Limited/Unobtainable: No Constitutional: Reports: malaise HEENT: Reports: no symptoms Cardiovascular: Reports: no symptoms Respiratory: Reports: shortness of breath, sputum Gastrointestinal/Abdominal: Reports: difficulty swallowing Genitourinary: Reports: no symptoms Neurologic/Psychiatric: Reports: pre-existing deficit Endocrine: Reports: no symptoms Hematologic/Lymphatic: Reports: anemia Allergies: Coded Allergies: No Known Allergies (Unverified , 06/08/20) All Systems: reviewed and negative except above Subjective No significant overnight events. Patient remains stable on the ventilator. Minimal secretions. Poorly responsive at baseline. Tolerating G-tube feeds. No residuals noted. Currently on multiple IV antibiotics. fevers better. nontoxic appearing. labs noted. wbc trending down. Objective Last 24 Hour Vital Signs Date Time Temp Pulse Resp B/P (MAP) Pulse Ox O2 Delivery O2 Flow Rate FiO2 06/19/20 14:40 86 18 35 06/19/20 12:00 Mechanical Ventilator Mechanical Ventilator 06/19/20 12:00 98.8 87 23 131/73 (92) 100 06/19/20 12:00 35 06/19/20 11:46 89 06/19/20 10:30 96 21 35 06/19/20 10:00 98.8 06/19/20 09:15 90 123/71 06/19/20 08:00 35 06/19/20 08:00 100.9 92 23 123/71 (88) 100 06/19/20 08:00 Mechanical Ventilator Mechanical Ventilator 06/19/20 08:00 90 06/19/20 07:00 90 27 35 06/19/20 06:27 140/80 06/19/20 04:00 96 06/19/20 04:00 35 06/19/20 04:00 99.3 97 25 140/80 (100) 100 06/19/20 04:00 Mechanical Ventilator Mechanical Ventilator 06/19/20 03:00 97 18 35 06/19/20 00:00 Mechanical Ventilator Mechanical Ventilator 06/19/20 00:00 98.1 97 21 118/67 (84) 98 06/18/20 22:38 122/70 06/18/20 22:30 93 17 100 Mechanical Ventilator 35 89 20 35 06/18/20 20:00 Mechanical Ventilator Mechanical Ventilator 06/18/20 20:00 101 06/18/20 20:00 35 06/18/20 20:00 98.6 101 22 122/70 (87) 98 06/18/20 19:30 91 20 100 Mechanical Ventilator 35 06/18/20 19:28 95 20 35 06/18/20 18:23 91 134/77 06/18/20 16:00 98.1 91 19 134/77 (96) 100 06/18/20 16:00 35 06/18/20 16:00 84 06/18/20 16:00 Mechanical Ventilator Intake and Output 06/18/20 06/19/20 18:59 06:59 Intake Total 1070 ml 1670 ml Output Total 1500 ml 1900 ml Balance -430 ml -230 ml Intake Free Water 300 ml 100 ml IV Total 50 ml 850 ml Tube Feeding 720 ml 720 ml Output Urine Total 1400 ml 1700 ml Stool Total 100 ml 200 ml Laboratory Tests 06/18/20 17:04: POC Whole Blood Glucose 163H 06/19/20 11:43: POC Whole Blood Glucose 121H Height (Feet): 5 Height (Inches): 10.00 Weight (Pounds): 162 Objective General Appearance: WD/WN, no apparent distress, alert Neck: non-tender, normal alignment Cardiovascular: normal rate Respiratory/Chest: chest wall non-tender, lungs clear, normal breath sounds Abdomen: normal bowel sounds, non tender, soft, no organomegaly Edema: no edema noted Arm (L), no edema noted Arm (R) Neurologic: unresponsive Skin: normal pigmentation Lymphatic: normal anterior cervical (L), normal anterior cervical (R) Assessment/Plan Problem List: (1) Stage 4 skin ulcer of sacral region ICD Codes: L98.429 - Non-pressure chronic ulcer of back with unspecified severity SNOMED: 52515752, 886976667 (2) Colostomy in place ICD Codes: Z93.3 - Colostomy status SNOMED: 148616960, 444686456 (3) Sepsis ICD Codes: A41.9 - Sepsis, unspecified organism SNOMED: 17015437 (4) Pneumonia ICD Codes: J18.9 - Pneumonia, unspecified organism SNOMED: 318523435 Qualifiers: Qualified Codes: J18.9 - Pneumonia, unspecified organism (5) UTI (urinary tract infection) ICD Codes: N39.0 - Urinary tract infection, site not specified SNOMED: 87177744 Qualifiers: Qualified Codes: N30.01 - Acute cystitis with hematuria Status: stable Assessment/Plan: cont iv abx- long course needed per ID monitor wbc- imprving monitor cxr- improving tube feeds replace lytes as needed vent support resp rx suctioning as needed wean as able cont bp rx monitor for fevers tylenol prn wound care per surgery turn q2 dvt/stress ulcer prophylaxis dc planning Robby Mays MD Jun 19, 2020 15:19
[2020-06-19 16:00] VITALS: BP 121/67
--- NOTE | 2020-06-19 16:00 | NUR ---
NURSE NOTES: Family member at bedside,updated re pt's status.
--- NOTE | 2020-06-19 16:16 | Diagnostic Imaging Report ---
Indication: Shortness of breath Technique: One view of the chest Comparison: none Findings: Again demonstrated is retrocardiac consolidation. This appears slightly worse than on the prior study. There may be a small amount of pleural fluid on the left. This is a new finding if real. Right lung and pleural space remain clear. Tracheostomy, right arm PICC remain. Impression: New small left pleural effusion and increased retrocardiac consolidation, since prior study of one week earlier
--- NOTE | 2020-06-19 17:07 | Pulmonology Progress Note ---
Subjective ROS Limited/Unobtainable: No Constitutional: Reports: fever, other - T=100.9 Allergies: Coded Allergies: No Known Allergies (Unverified , 06/08/20) All Systems: reviewed and negative except above Subjective care noted overnight events reviewed on vent on feeds d/w all- low grade fevers Objective Last 24 Hour Vital Signs Date Time Temp Pulse Resp B/P (MAP) Pulse Ox O2 Delivery O2 Flow Rate FiO2 06/19/20 16:12 131/73 06/19/20 16:00 Mechanical Ventilator Mechanical Ventilator 06/19/20 16:00 98.8 95 20 121/67 (85) 100 06/19/20 16:00 35 06/19/20 14:40 86 18 35 06/19/20 12:00 Mechanical Ventilator Mechanical Ventilator 06/19/20 12:00 98.8 87 23 131/73 (92) 100 06/19/20 12:00 35 06/19/20 11:46 89 06/19/20 10:30 96 21 35 06/19/20 10:00 98.8 06/19/20 09:15 90 123/71 06/19/20 08:00 35 06/19/20 08:00 100.9 92 23 123/71 (88) 100 06/19/20 08:00 Mechanical Ventilator Mechanical Ventilator 06/19/20 08:00 90 06/19/20 07:00 90 27 35 06/19/20 06:27 140/80 06/19/20 04:00 96 06/19/20 04:00 35 06/19/20 04:00 99.3 97 25 140/80 (100) 100 06/19/20 04:00 Mechanical Ventilator Mechanical Ventilator 06/19/20 03:00 97 18 35 06/19/20 00:00 Mechanical Ventilator Mechanical Ventilator 06/19/20 00:00 98.1 97 21 118/67 (84) 98 06/18/20 22:38 122/70 06/18/20 22:30 93 17 100 Mechanical Ventilator 35 89 20 35 06/18/20 20:00 Mechanical Ventilator Mechanical Ventilator 06/18/20 20:00 101 06/18/20 20:00 35 06/18/20 20:00 98.6 101 22 122/70 (87) 98 06/18/20 19:30 91 20 100 Mechanical Ventilator 35 06/18/20 19:28 95 20 35 06/18/20 18:23 91 134/77 Intake and Output 06/18/20 06/19/20 19:00 07:00 Intake Total 1070 ml 1620 ml Output Total 1500 ml 1900 ml Balance -430 ml -280 ml Intake Free Water 300 ml 100 ml IV Total 50 ml 800 ml Tube Feeding 720 ml 720 ml Output Urine Total 1400 ml 1700 ml Stool Total 100 ml 200 ml Objective WDWN NAD reduced breath sounds bilaterally without rhonchi or wheeze [id number] without MRG NABS nontender colostomy no CCE nonfocal reduced LOC trach in place reviewed Laboratory Tests 06/19/20 11:43: POC Whole Blood Glucose 121H Current Medications Medications (Trade) Dose Ordered Sig/Milla Route PRN Reason Start Time Stop Time Status Last Admin Dose Admin Acetaminophen (Tylenol) 650 mg Q4H PRN ORAL Temp >100.5 06/13/20 21:15 07/13/20 21:14 06/19/20 09:37 Amiodarone HCl (Cordarone) 200 mg DAILY GT 06/09/20 09:00 09/07/20 08:59 06/19/20 09:17 Amlodipine Besylate (Norvasc) 5 mg TWICE A DAY GT 06/09/20 09:00 07/09/20 08:59 06/19/20 09:15 Ascorbic Acid (Vitamin C) 500 mg DAILY ORAL 06/18/20 09:00 07/18/20 08:59 06/19/20 09:15 Bethanechol Chloride (Urecholine) 25 mg Q6HR GT 06/09/20 06:00 07/09/20 05:59 06/19/20 11:57 Chlorhexidine Gluconate (Sue-Hex 2%) 1 applic DAILY@1999 TOPIC 06/10/20 20:00 09/08/20 19:59 06/18/20 22:35 Clonidine HCl (Catapres Tab) 0.1 mg Q6H PRN GT For High Blood Pressure 06/09/20 00:30 09/07/20 00:29 Dextrose (Dextrose 50%) 25 ml Q30M PRN IV Hypoglycemia 06/09/20 06:00 09/07/20 05:59 06/09/20 06:02 Dextrose (Dextrose 50%) 50 ml Q30M PRN IV Hypoglycemia 06/09/20 00:15 09/07/20 00:14 Docusate Sodium (Colace) 100 mg TWICE A DAY GT 06/09/20 09:00 07/09/20 08:59 06/19/20 09:15 Epoetin Cameron (Epoetin Cameron-EPBX(NON ESRD)) 3,000 unit SUBQ 06/16/20 21:00 09/14/20 20:59 06/18/20 22:37 Epoetin Cameron (Epoetin Cameron-EPBX(NON ESRD)) 4,000 unit TUE- SUBQ 06/16/20 21:00 09/14/20 20:59 06/18/20 22:37 Famotidine (Pepcid) 20 mg TWICE A DAY GT 06/09/20 09:00 09/07/20 08:59 06/19/20 09:15 Gentamicin Sulfate (Gentamicin vial) 300 mg Q12HR@,22 INH 06/16/20 22:00 06/23/20 21:59 06/18/20 22:07 Hydralazine HCl (Apresoline) 25 mg EVERY 8 HOURS GT 06/09/20 06:00 09/07/20 05:59 06/19/20 16:12 Insulin Aspart (NovoLOG) Q6HR SUBQ 06/09/20 06:00 09/07/20 05:59 06/19/20 06:29 Lactulose (Cephulac) 20 gm Q6H PRN GT Constipation 06/09/20 00:30 07/09/20 00:29 Lansoprazole (Prevacid) 30 mg TWICE A DAY GT 06/09/20 09:00 07/09/20 08:59 06/19/20 09:15 Levetiracetam (Keppra) 500 mg TWICE A DAY GT 06/09/20 09:00 07/09/20 08:59 06/19/20 09:15 Levothyroxine Sodium (Synthroid) 75 mcg DAILY GT 06/09/20 09:00 07/09/20 08:59 06/19/20 09:15 Metoclopramide HCl (Reglan) 5 mg EVERY 6 HOURS GT 06/09/20 06:00 07/09/20 05:59 06/19/20 11:57 Nitroglycerin (Ntg) 0.4 mg Q5MIN X 3 DOSES PRN SL CHEST PAIN 06/09/20 00:30 07/09/20 00:29 Ondansetron HCl (Zofran) 4 mg Q6H PRN GT Nausea & Vomiting 06/09/20 00:30 07/09/20 00:29 Pravastatin Sodium (Pravachol) 40 mg BEDTIME GT 06/09/20 21:00 07/09/20 20:59 06/18/20 22:37 Sodium Chloride 1,000 ml @ 50 mls/hr Q20H IV 06/09/20 01:00 07/09/20 00:59 06/18/20 22:50 Vancomycin HCl (Vanco pharmacy to dose) 1 ea DAILY PRN MISC Per rx protocol 06/09/20 00:15 07/20/20 00:14 Vancomycin/Sodium Chloride 250 ml @ 125 mls/hr Q24H IVPB 06/18/20 23:00 06/23/20 22:59 06/19/20 00:14 Zinc Sulfate (Zinc Sulfate) 220 mg DAILY GT 06/09/20 09:00 09/07/20 08:59 06/19/20 09:15 Assessment/Plan Assessment/Plan sepsis leukocytosis anemia colostomy respiratory failure possible gib chronic pancreatitis chronic encephalopathy hypernatremia acute renal failure pneumonia bacteremia UTI pneumonia sacral osteo/ decub diverting colostomy PLAN vent support IV antibiotics- noted; x 32 days of vanco GI on feeds and tolerating ID recommendations noted close follow up monitor HH guarded at present hope to dc soon back to snf in am CXR improved- monitor will defer dc for one more day impression, plan, and exam edited and reviewed in detail care discussed with Mundo Burciaga MD Jun 19, 2020 17:07
--- NOTE | 2020-06-19 18:00 | NUR ---
NURSE NOTES: Bed bath given,Colostomy bag changed pulled up turned and repositioned.
--- NOTE | 2020-06-19 19:30 | NUR ---
HAND-OFF: Report given to Nikki Tang RN.
--- NOTE | 2020-06-19 19:35 | NUR ---
NURSE NOTES: Important Events on Shift: Received report from Lali Peterson RN. Pt in stable condition, no signs or symptoms of pain or distress noted at thsi time. Vent settings: Portex 8, AC 12, TV 500, Fio2 40%, PEEP 5. Pt sating at 98%. R jugular TLC running 1/2NS @ 50 ml/hr., dressing clean and intact. Will continue plan of care and close monitoring. Patient Status: stable Diet: Glucerna 1.2 @ 60ml/hr via GT Pending Orders: PICC line placement, DC TLC Pending Results/Labs: AM labs Pending MD notification: none Latest Vital Signs: Temperature 98.8 , Pulse 100 , B/P 131 /73 , Respiratory Rate 24 , O2 SAT 100 , Mechanical Ventilator, O2 Flow Rate 4.0 . Vital Sign Comment: stable EKG Rhythm: SR,1st degree AVB Rhythm change?: N Notified?: N JULIET BAILEY Response: No New Orders Received Latest Pulido Fall Score: 70 Fall Risk: High Risk Safety Measures: Call light Within Reach, Bed Alarm Zone 2, Side Rails Side Rails x2, Bed position Low and Locked. Fall Precautions: Yellow Socks yes Yellow Gown yes Door Sign yes Patient Fall Education yes Addendum: 06/19/20 at 2119 by Nikki Tang RN NURSE NOTES: CORRECTION: Pt has PICC line in place in R upper arm runnings NS @ 50ml/hr; pt to DC with PICC in place. Vent settings: Portex 6, AC 16, TV 400, FiO2 35%, PEEP 5.
[2020-06-19 20:00] VITALS: BP 137/66
[2020-06-19] MEDS: Dyna-Hex 2% Top Sol 2oz TOPIC SCH (21:30)
--- NOTE | 2020-06-19 21:53 | General Progress Note ---
Subjective Allergies: Coded Allergies: No Known Allergies (Unverified , 06/08/20) Subjective NAD tolerating TF above noted Objective Last 24 Hour Vital Signs Date Time Temp Pulse Resp B/P (MAP) Pulse Ox O2 Delivery O2 Flow Rate FiO2 06/19/20 21:30 137/66 06/19/20 19:43 96 06/19/20 19:00 100 24 40 06/19/20 17:40 94 131/73 06/19/20 16:12 131/73 06/19/20 16:00 Mechanical Ventilator Mechanical Ventilator 06/19/20 16:00 98.8 95 20 121/67 (85) 100 06/19/20 16:00 35 06/19/20 16:00 94 06/19/20 14:40 86 18 35 06/19/20 12:00 Mechanical Ventilator Mechanical Ventilator 06/19/20 12:00 98.8 87 23 131/73 (92) 100 06/19/20 12:00 35 06/19/20 11:46 89 06/19/20 10:30 96 21 35 06/19/20 10:00 98.8 06/19/20 09:15 90 123/71 06/19/20 08:00 35 06/19/20 08:00 100.9 92 23 123/71 (88) 100 06/19/20 08:00 Mechanical Ventilator Mechanical Ventilator 06/19/20 08:00 90 06/19/20 07:00 90 27 35 06/19/20 06:27 140/80 06/19/20 04:00 96 06/19/20 04:00 35 06/19/20 04:00 99.3 97 25 140/80 (100) 100 06/19/20 04:00 Mechanical Ventilator Mechanical Ventilator 06/19/20 03:00 97 18 35 06/19/20 00:00 Mechanical Ventilator Mechanical Ventilator 06/19/20 00:00 98.1 97 21 118/67 (84) 98 06/18/20 22:38 122/70 06/18/20 22:30 93 17 100 Mechanical Ventilator 35 89 20 35 Intake and Output 06/18/20 06/19/20 19:00 07:00 Intake Total 1070 ml 1620 ml Output Total 1500 ml 1900 ml Balance -430 ml -280 ml Intake Free Water 300 ml 100 ml IV Total 50 ml 800 ml Tube Feeding 720 ml 720 ml Output Urine Total 1400 ml 1700 ml Stool Total 100 ml 200 ml Laboratory Tests 06/19/20 11:43: POC Whole Blood Glucose 121H 06/19/20 17:33: POC Whole Blood Glucose [Pending] Height (Feet): 5 Height (Inches): 10.00 Weight (Pounds): 162 Objective Elderly man NCAT (+) trach coarse BS RR abd soft, (+) GT (+) colostomy no edema Assessment/Plan Status: stable Assessment/Plan: Assessment - h/o pancreatitis - resolved - s/p colostomy - sepsis/leukocytosis - resp failure / trach - dysphagia / GT - s/p CVA - Anemia - CAD - DM - hypokalemia - HTN - GERD Recommendations - Abx - CT abd/pelvis noted - PPI - Monitor CBC - TF - D/C planning per PMD Moshe Kraft MD Jun 19, 2020 21:53
[2020-06-20] VITALS: BP 90/54
[2020-06-20] MEDS: NovoLOG Insulin Flexpen SUBQ SCH ×5 (00:26→23:51)
--- NOTE | 2020-06-20 03:00 | NUR ---
NURSE NOTES: Pt vomited GT feeding. Residual 100ml, no emesis noted after ETT suctioning. Minimal oral emesis suctioned. GT held, zofran given, will continue to monitor.
[2020-06-20 03:56] VITALS: BP 132/69
[2020-06-20 04:45] LABS: BASOPHILS % (AUTO) 0.6 % (0.0-2.0); EOSINOPHILS % (AUTO) 2.2 % (0.0-3.0); HEMATOCRIT 33.3 % (42.0-52.0); HEMOGLOBIN 10.5 G/DL (14.2-18.0); MEAN CORPUSCULAR VOLUME 89 FL (80-99); MONOCYTES % (AUTO) 8.4 % (1.0-10.0); NEUTROPHILS % (AUTO) 80.8 % (45.0-75.0); PLATELET COUNT 499 K/UL (150-450); RED BLOOD COUNT 3.75 M/UL (4.70-6.10); RED CELL DISTRIBUTION WIDTH 16.4 % (11.6-14.8); WHITE BLOOD COUNT 16.7 K/UL (4.8-10.8)
[2020-06-20 05:04] LABS: BILIRUBIN, URINE NEGATIVE (NEGATIVE); COLOR,URINE PALE YELLOW; GLUCOSE, URINE (UA) NEGATIVE (NEGATIVE); KETONES,URINE NEGATIVE (NEGATIVE); LEUKOCYTE ESTERASE ,URINE 2+ (NEGATIVE); NITRITE,URINE NEGATIVE (NEGATIVE); PH,URINE 7 (4.5-8.0); PROTEIN,URINE 1+ (NEGATIVE); UROBILINOGEN,URINE NORMAL MG/DL (0.0-1.0)
[2020-06-20 05:11] LABS: ANION GAP 6 mmol/L (5-15); BLOOD UREA NITROGEN 10 mg/dL (7-18); CALCIUM 8.5 MG/DL (8.5-10.1); CARBON DIOXIDE 31 MMOL/L (21-32); CHLORIDE 102 MMOL/L (98-107); CREATININE 0.7 MG/DL (0.55-1.30); POTASSIUM 3.5 MMOL/L (3.5-5.1); SODIUM 139 MMOL/L (136-145)
[2020-06-20 05:36] LABS: APPEARANCE,URINE SLIGHTLY CLOUDY
--- NOTE | 2020-06-20 05:39 | NUR ---
NURSE NOTES: GT residual checked, about 100ml still remains. No vomiting noted. GT will continue to be held. Novolog per sliding scale held r/t NPO status per protocol. Will endorse to AM shift to inform MD of change in condition. Will continue to monitor pt closely.
[2020-06-20] MEDS: Metoclopramide 10mg/10ml Liq GT SCH ×4 (06:10→23:50)
[2020-06-20] MEDS: HydrALAZINE 25mg tab GT SCH ×3 (06:10→21:57)
[2020-06-20] MEDS: Bethanechol 25mg Tab GT SCH ×4 (06:10→23:50)
--- NOTE | 2020-06-20 06:47 | NUR ---
NURSE HAND-OFF REPORT: Important Events on Shift: Pt vomited at approx. 0300; residuals >100ml, GT feeding held. Novolog held. Patient Status: stable Diet: Glucerna 1.2 @ 60ml/hr (on hold) Pending Orders: Possible DC to SNF Pending Results/Labs: BMP, CBC, Vanco trough Pending MD notification: vomiting x 1, GT residuals Latest Vital Signs: Temperature 98.6 , Pulse 93 , B/P 132 /69 , Respiratory Rate 22 , O2 SAT 98 , Mechanical Ventilator, O2 Flow Rate 4.0 . Vital Sign Comment: stable, afebrile EKG Rhythm: SR w/ 1st AVB Rhythm change?: N MD Notified?: N -DR.BALFE BAILEY Response: No New Orders Received Latest Pulido Fall Score: 70 Fall Risk: High Risk Safety Measures: Call light Within Reach, Bed Alarm Zone 2, Side Rails Side Rails x3, Bed position Low and Locked. Fall Precautions: Yes Yellow Socks yes Yellow Gown yes Door Sign yes Patient Fall Education yes Report to be given to Lali Peterson RN. Pt in stable condition.
--- NOTE | 2020-06-20 07:15 | NUR ---
NURSE NOTES: Report received from Nikki Tang RN.Pt asleep in bed ,noted no resp distress with trach tube to vent,ordered vent settings tolerated,no signs of pain or discomfort,SR on the monitor,GTF Glucerna 1.2 at 60 ml/hr off at this time,residual checked ,5 ml only,Feeding resumed,colostomy in placed with soft brown stools,Thomson cath draining yellow urine,Skin warm and dry with LAUREL PICC line intact ,IVF NS at 50ml/hr,SR up x2 HOB elevated,bed lock in lowest position,will continue with plans of care.
[2020-06-20 08:00] VITALS: BP 134/74
--- NOTE | 2020-06-20 08:32 | Pulmonology Progress Note ---
Subjective ROS Limited/Unobtainable: Yes Constitutional: Reports: fever, other - T=100.9 Allergies: Coded Allergies: No Known Allergies (Unverified , 06/08/20) All Systems: reviewed and negative except above Subjective care noted overnight events reviewed on vent on feeds d/w all- wbc worsening Objective Last 24 Hour Vital Signs Date Time Temp Pulse Resp B/P (MAP) Pulse Ox O2 Delivery O2 Flow Rate FiO2 06/20/20 07:29 94 19 40 06/20/20 06:10 132/69 06/20/20 04:00 93 06/20/20 03:56 98.6 93 22 132/69 (90) 98 06/20/20 03:55 35 06/20/20 03:54 Mechanical Ventilator Mechanical Ventilator 06/20/20 02:35 98 22 40 06/20/20 00:00 93 06/20/20 00:00 98.2 94 24 90/54 (66) 98 06/20/20 00:00 Mechanical Ventilator Mechanical Ventilator 06/19/20 22:57 92 18 99 Mechanical Ventilator 40 95 17 40 06/19/20 21:30 137/66 06/19/20 20:00 Mechanical Ventilator Mechanical Ventilator 06/19/20 20:00 35 06/19/20 20:00 98.4 96 20 137/66 (89) 98 06/19/20 19:43 96 06/19/20 19:00 100 24 40 06/19/20 17:40 94 131/73 06/19/20 16:12 131/73 06/19/20 16:00 Mechanical Ventilator Mechanical Ventilator 06/19/20 16:00 98.8 95 20 121/67 (85) 100 06/19/20 16:00 35 06/19/20 16:00 94 06/19/20 14:40 86 18 35 06/19/20 12:00 Mechanical Ventilator Mechanical Ventilator 06/19/20 12:00 98.8 87 23 131/73 (92) 100 06/19/20 12:00 35 06/19/20 11:46 89 06/19/20 10:30 96 21 35 06/19/20 10:00 98.8 06/19/20 09:15 90 123/71 Intake and Output 06/19/20 06/20/20 19:00 07:00 Intake Total 1150 ml 730 ml Output Total 3400 ml Balance 1150 ml -2670 ml Intake Free Water 200 ml 200 ml IV Total 50 ml 50 ml Tube Feeding 660 ml 480 ml Other 240 ml Output Urine Total 3300 ml Stool Total 100 ml # Bowel Movements 20 Objective WDWN NAD reduced breath sounds bilaterally without rhonchi or wheeze [id number] without MRG NABS nontender colostomy no CCE nonfocal reduced LOC trach in place reviewed Laboratory Tests 06/19/20 11:43: POC Whole Blood Glucose 121H 06/19/20 17:33: POC Whole Blood Glucose [Pending] 06/20/20 00:23: POC Whole Blood Glucose [Pending] 06/20/20 02:55: White Blood Count 16.7H, Red Blood Count 3.75L, Hemoglobin 10.5L, Hematocrit 33.3L, Mean Corpuscular Volume 89, Mean Corpuscular Hemoglobin 28.1, Mean Corpuscular Hemoglobin Concent 31.7L, Red Cell Distribution Width 16.4H, Platelet Count 499H, Mean Platelet Volume 5.2L, Neutrophils (%) (Auto) 80.8H, Lymphocytes (%) (Auto) 8.0L, Monocytes (%) (Auto) 8.4, Eosinophils (%) (Auto) 2.2, Basophils (%) (Auto) 0.6, Sodium Level 139, Potassium Level 3.5, Chloride Level 102, Carbon Dioxide Level 31, Anion Gap 6, Blood Urea Nitrogen 10, Creatinine 0.7, Estimat Glomerular Filtration Rate > 60, Glucose Level 182H, Calcium Level 8.5 06/20/20 05:00: Urine Color Pale yellow, Urine Appearance Slightly cloudy, Urine pH 7, Urine Specific [place] 1.010, Urine Protein 1+H, Urine Glucose (UA) Negative, Urine Ketones Negative, Urine Blood Negative, Urine Nitrite Negative, Urine Bilirubin Negative, Urine Urobilinogen Normal, Urine Leukocyte Esterase 2+H, Urine RBC 0- 2H, Urine WBC 10-15H, Urine Squamous Epithelial Cells Few, Urine Bacteria ModerateH, Urine Yeast ManyH 06/20/20 06:12: POC Whole Blood Glucose [Pending] Current Medications Medications (Trade) Dose Ordered Sig/Milla Route PRN Reason Start Time Stop Time Status Last Admin Dose Admin Acetaminophen (Tylenol) 650 mg Q4H PRN ORAL Temp >100.5 06/13/20 21:15 07/13/20 21:14 06/19/20 09:37 Amiodarone HCl (Cordarone) 200 mg DAILY GT 06/09/20 09:00 09/07/20 08:59 06/19/20 09:17 Amlodipine Besylate (Norvasc) 5 mg TWICE A DAY GT 06/09/20 09:00 07/09/20 08:59 06/19/20 17:40 Ascorbic Acid (Vitamin C) 500 mg DAILY ORAL 06/18/20 09:00 07/18/20 08:59 06/19/20 09:15 Bethanechol Chloride (Urecholine) 25 mg Q6HR GT 06/09/20 06:00 07/09/20 05:59 06/20/20 06:10 Chlorhexidine Gluconate (Sue-Hex 2%) 1 applic DAILY@1999 TOPIC 06/10/20 20:00 09/08/20 19:59 06/19/20 21:30 Clonidine HCl (Catapres Tab) 0.1 mg Q6H PRN GT For High Blood Pressure 06/09/20 00:30 09/07/20 00:29 Dextrose (Dextrose 50%) 25 ml Q30M PRN IV Hypoglycemia 06/09/20 06:00 09/07/20 05:59 06/09/20 06:02 Dextrose (Dextrose 50%) 50 ml Q30M PRN IV Hypoglycemia 06/09/20 00:15 09/07/20 00:14 Docusate Sodium (Colace) 100 mg TWICE A DAY GT 06/09/20 09:00 07/09/20 08:59 06/19/20 17:39 Epoetin Cameron (Epoetin Cameron-EPBX(NON ESRD)) 3,000 unit -TUE SUBQ 06/16/20 21:00 09/14/20 20:59 06/18/20 22:37 Epoetin Cameron (Epoetin Cameron-EPBX(NON ESRD)) 4,000 unit SUBQ 06/16/20 21:00 09/14/20 20:59 06/18/20 22:37 Famotidine (Pepcid) 20 mg TWICE A DAY GT 06/09/20 09:00 09/07/20 08:59 06/19/20 17:40 Gentamicin Sulfate (Gentamicin vial) 300 mg Q12HR@10,22 INH 06/16/20 22:00 06/23/20 21:59 06/19/20 22:57 Hydralazine HCl (Apresoline) 25 mg EVERY 8 HOURS GT 06/09/20 06:00 09/07/20 05:59 06/20/20 06:10 Insulin Aspart (NovoLOG) Q6HR SUBQ 06/09/20 06:00 09/07/20 05:59 06/20/20 00:26 Lactulose (Cephulac) 20 gm Q6H PRN GT Constipation 06/09/20 00:30 07/09/20 00:29 Lansoprazole (Prevacid) 30 mg TWICE A DAY GT 06/09/20 09:00 07/09/20 08:59 06/19/20 17:40 Levetiracetam (Keppra) 500 mg TWICE A DAY GT 06/09/20 09:00 07/09/20 08:59 06/19/20 17:39 Levothyroxine Sodium (Synthroid) 75 mcg DAILY GT 06/09/20 09:00 07/09/20 08:59 06/19/20 09:15 Metoclopramide HCl (Reglan) 5 mg EVERY 6 HOURS GT 06/09/20 06:00 07/09/20 05:59 06/20/20 06:10 Nitroglycerin (Ntg) 0.4 mg Q5MIN X 3 DOSES PRN SL CHEST PAIN 06/09/20 00:30 07/09/20 00:29 Ondansetron HCl (Zofran) 4 mg Q6H PRN GT Nausea & Vomiting 06/09/20 00:30 07/09/20 00:29 06/20/20 03:24 Pravastatin Sodium (Pravachol) 40 mg BEDTIME GT 06/09/20 21:00 07/09/20 20:59 06/19/20 21:31 Sodium Chloride 1,000 ml @ 50 mls/hr Q20H IV 06/09/20 01:00 07/09/20 00:59 06/19/20 17:45 Vancomycin HCl (Vanco pharmacy to dose) 1 ea DAILY PRN MISC Per rx protocol 06/09/20 00:15 07/20/20 00:14 Vancomycin/Sodium Chloride 250 ml @ 125 mls/hr Q24H IVPB 06/18/20 23:00 06/23/20 22:59 06/19/20 23:59 Zinc Sulfate (Zinc Sulfate) 220 mg DAILY GT 06/09/20 09:00 09/07/20 08:59 06/19/20 09:15 Assessment/Plan Assessment/Plan sepsis leukocytosis anemia colostomy respiratory failure possible gib chronic pancreatitis chronic encephalopathy hypernatremia acute renal failure pneumonia bacteremia UTI pneumonia sacral osteo/ decub diverting colostomy PLAN vent support IV antibiotics- noted; x 31 days of vanco complete gent inhaled GI on feeds and tolerating ID recommendations noted - concern of wbc elevation close follow up monitor HH guarded at present hope to dc soon back to snf once cleared by ID CXR to monitor impression, plan, and exam edited and reviewed in detail care discussed with Mundo Burciaga MD Jun 20, 2020 08:32
[2020-06-20] MEDS: Amiodarone 200mg tab GT SCH (09:00)
--- NOTE | 2020-06-20 10:00 | NUR ---
NURSE NOTES: Oral care done,oral/tracheal secretions suctioned PRN,Pulled up repositioned to sides.
[2020-06-20] MEDS: Zinc Sulfate 220mg GT SCH (10:10)
[2020-06-20] MEDS: levETIRAcetam 500mg/5ml Liquid GT SCH ×2 (10:10→18:03)
[2020-06-20] MEDS: Ascorbic Acid 500mg tab ORAL SCH (10:11)
[2020-06-20] MEDS: Docusate 100mg/10ml Liq GT SCH ×2 (10:11→18:03)
[2020-06-20] MEDS: Gentamicin for inhalation INH SCH ×2 (10:27→22:33)
--- NOTE | 2020-06-20 11:07 | Infectious Diseases Prog Note ---
Assessment/Plan Assessment/Plan antibiotics : vancomycin iv, inhaled gentamicin A 1. coag neg staph sepsis 2. pneumonia with pseudomonas, klebsiella 3. e.coli, enterococcus, fungal UTI 4. leucocytosis increased 5. respiratory failure 6. diabetes mellitus 7. hypertension 9. coccyxgeal osteomyelitis P 1. continue iv vancomycin 30 more days 2. continue inhaled gentamicin 2 more days 3. sputum culture 4. blood culture 5. UA and urine culture 6. stool for c.diff 7. start zosyn 8. will follow up cultures Subjective ROS Limited/Unobtainable: Yes Allergies: Coded Allergies: No Known Allergies (Unverified , 06/08/20) Objective Last 24 Hour Vital Signs Date Time Temp Pulse Resp B/P (MAP) Pulse Ox O2 Delivery O2 Flow Rate FiO2 06/20/20 10:27 88 16 100 Mechanical Ventilator 40 90 16 40 06/20/20 10:12 85 134/74 06/20/20 08:00 Mechanical Ventilator Mechanical Ventilator 06/20/20 08:00 85 06/20/20 08:00 35 06/20/20 08:00 98.2 89 19 134/74 (94) 98 06/20/20 07:29 94 19 40 06/20/20 06:10 132/69 06/20/20 04:00 93 06/20/20 03:56 98.6 93 22 132/69 (90) 98 06/20/20 03:55 35 06/20/20 03:54 Mechanical Ventilator Mechanical Ventilator 06/20/20 02:35 98 22 40 06/20/20 00:00 93 06/20/20 00:00 98.2 94 24 90/54 (66) 98 06/20/20 00:00 Mechanical Ventilator Mechanical Ventilator 06/19/20 22:57 92 18 99 Mechanical Ventilator 40 95 17 40 06/19/20 21:30 137/66 06/19/20 20:00 Mechanical Ventilator Mechanical Ventilator 06/19/20 20:00 35 06/19/20 20:00 98.4 96 20 137/66 (89) 98 06/19/20 19:43 96 06/19/20 19:00 100 24 40 06/19/20 17:40 94 131/73 06/19/20 16:12 131/73 06/19/20 16:00 Mechanical Ventilator Mechanical Ventilator 06/19/20 16:00 98.8 95 20 121/67 (85) 100 06/19/20 16:00 35 06/19/20 16:00 94 06/19/20 14:40 86 18 35 06/19/20 12:00 Mechanical Ventilator Mechanical Ventilator 06/19/20 12:00 98.8 87 23 131/73 (92) 100 06/19/20 12:00 35 06/19/20 11:46 89 Height (Feet): 5 Height (Inches): 10.00 Weight (Pounds): 162 HEENT: status post trach Respiratory/Chest: lungs clear Cardiovascular: normal rate, regular rhythm, no gallop/murmur Abdomen: soft, non tender, other - Gt Extremities: other - + edema, right arm PICC Laboratory Tests Test 06/19/20 11:43 06/19/20 17:33 06/20/20 00:23 06/20/20 02:55 POC Whole Blood Glucose 121 MG/DL (74-106) H Pending Pending White Blood Count 16.7 K/UL (4.8-10.8) H Red Blood Count 3.75 M/UL (4.70-6.10) L Hemoglobin 10.5 G/DL (14.2-18.0) L Hematocrit 33.3 % (42.0-52.0) L Mean Corpuscular Volume 89 FL (80-99) Mean Corpuscular Hemoglobin 28.1 PG (27.0-31.0) Mean Corpuscular Hemoglobin Concent 31.7 G/DL (32.0-36.0) L Red Cell Distribution Width 16.4 % (11.6-14.8) H Platelet Count 499 K/UL (150-450) H Mean Platelet Volume 5.2 FL (6.5-10.1) L Neutrophils (%) (Auto) 80.8 % (45.0-75.0) H Lymphocytes (%) (Auto) 8.0 % (20.0-45.0) L Monocytes (%) (Auto) 8.4 % (1.0-10.0) Eosinophils (%) (Auto) 2.2 % (0.0-3.0) Basophils (%) (Auto) 0.6 % (0.0-2.0) Sodium Level 139 MMOL/L (136-145) Potassium Level 3.5 MMOL/L (3.5-5.1) Chloride Level 102 MMOL/L (98-107) Carbon Dioxide Level 31 MMOL/L (21-32) Anion Gap 6 mmol/L (5-15) Blood Urea Nitrogen 10 mg/dL (7-18) Creatinine 0.7 MG/DL (0.55-1.30) Estimat Glomerular Filtration Rate > 60 mL/min (>60) Glucose Level 182 MG/DL (74-106) H Calcium Level 8.5 MG/DL (8.5-10.1) Test 06/20/20 05:00 06/20/20 06:12 Urine Color Pale yellow Urine Appearance Slightly cloudy Urine pH 7 (4.5-8.0) Urine Specific [place] 1.010 (1.005-1.035) Urine Protein 1+ (NEGATIVE) H Urine Glucose (UA) Negative (NEGATIVE) Urine Ketones Negative (NEGATIVE) Urine Blood Negative (NEGATIVE) Urine Nitrite Negative (NEGATIVE) Urine Bilirubin Negative (NEGATIVE) Urine Urobilinogen Normal MG/DL (0.0-1.0) Urine Leukocyte Esterase 2+ (NEGATIVE) H Urine RBC 0-2 /HPF (0 - 0) H Urine WBC 10-15 /HPF (0 - 0) H Urine Squamous Epithelial Cells Few /LPF (NONE/OCC) Urine Bacteria Moderate /HPF (NONE) H Urine Yeast Many /HPF (NONE) H POC Whole Blood Glucose Pending Current Medications Medications (Trade) Dose Ordered Sig/Milla Route PRN Reason Start Time Stop Time Status Last Admin Dose Admin Acetaminophen (Tylenol) 650 mg Q4H PRN ORAL Temp >100.5 06/13/20 21:15 07/13/20 21:14 06/19/20 09:37 Amiodarone HCl (Cordarone) 200 mg DAILY GT 06/09/20 09:00 09/07/20 08:59 06/20/20 09:00 Amlodipine Besylate (Norvasc) 5 mg TWICE A DAY GT 06/09/20 09:00 07/09/20 08:59 06/20/20 10:12 Ascorbic Acid (Vitamin C) 500 mg DAILY ORAL 06/18/20 09:00 07/18/20 08:59 06/20/20 10:11 Bethanechol Chloride (Urecholine) 25 mg Q6HR GT 06/09/20 06:00 07/09/20 05:59 06/20/20 06:10 Chlorhexidine Gluconate (Sue-Hex 2%) 1 applic DAILY@1999 TOPIC 06/10/20 20:00 09/08/20 19:59 06/19/20 21:30 Clonidine HCl (Catapres Tab) 0.1 mg Q6H PRN GT For High Blood Pressure 06/09/20 00:30 09/07/20 00:29 Dextrose (Dextrose 50%) 25 ml Q30M PRN IV Hypoglycemia 06/09/20 06:00 09/07/20 05:59 06/09/20 06:02 Dextrose (Dextrose 50%) 50 ml Q30M PRN IV Hypoglycemia 06/09/20 00:15 09/07/20 00:14 Docusate Sodium (Colace) 100 mg TWICE A DAY GT 06/09/20 09:00 07/09/20 08:59 06/20/20 10:11 Epoetin Cameron (Epoetin Cameron-EPBX(NON ESRD)) 3,000 unit TUE-TUE-TUE SUBQ 06/16/20 21:00 09/14/20 20:59 06/18/20 22:37 Epoetin Cameron (Epoetin Cameron-EPBX(NON ESRD)) 4,000 unit TUE-TUE-TUE SUBQ 06/16/20 21:00 09/14/20 20:59 06/18/20 22:37 Famotidine (Pepcid) 20 mg TWICE A DAY GT 06/09/20 09:00 09/07/20 08:59 06/20/20 10:11 Gentamicin Sulfate (Gentamicin vial) 300 mg Q12HR@ INH 06/16/20 22:00 06/23/20 21:59 06/20/20 10:27 Hydralazine HCl (Apresoline) 25 mg EVERY 8 HOURS GT 06/09/20 06:00 09/07/20 05:59 06/20/20 06:10 Insulin Aspart (NovoLOG) Q6HR SUBQ 06/09/20 06:00 09/07/20 05:59 06/20/20 00:26 Lactulose (Cephulac) 20 gm Q6H PRN GT Constipation 06/09/20 00:30 07/09/20 00:29 Lansoprazole (Prevacid) 30 mg TWICE A DAY GT 06/09/20 09:00 07/09/20 08:59 06/20/20 10:13 Levetiracetam (Keppra) 500 mg TWICE A DAY GT 06/09/20 09:00 07/09/20 08:59 06/20/20 10:10 Levothyroxine Sodium (Synthroid) 75 mcg DAILY GT 06/09/20 09:00 07/09/20 08:59 06/20/20 10:12 Metoclopramide HCl (Reglan) 5 mg EVERY 6 HOURS GT 06/09/20 06:00 07/09/20 05:59 06/20/20 06:10 Nitroglycerin (Ntg) 0.4 mg Q5MIN X 3 DOSES PRN SL CHEST PAIN 06/09/20 00:30 07/09/20 00:29 Ondansetron HCl (Zofran) 4 mg Q6H PRN GT Nausea & Vomiting 06/09/20 00:30 07/09/20 00:29 06/20/20 03:24 Pravastatin Sodium (Pravachol) 40 mg BEDTIME GT 06/09/20 21:00 07/09/20 20:59 06/19/20 21:31 Sodium Chloride 1,000 ml @ 50 mls/hr Q20H IV 06/09/20 01:00 07/09/20 00:59 06/19/20 17:45 Vancomycin HCl (Vanco pharmacy to dose) 1 ea DAILY PRN MISC Per rx protocol 06/09/20 00:15 07/20/20 00:14 Vancomycin/Sodium Chloride 250 ml @ 125 mls/hr Q24H IVPB 06/18/20 23:00 06/23/20 22:59 06/19/20 23:59 Zinc Sulfate (Zinc Sulfate) 220 mg DAILY GT 06/09/20 09:00 09/07/20 08:59 06/20/20 10:10 Jayde Leyva MD Jun 20, 2020 11:07
--- NOTE | 2020-06-20 11:29 | Surgery Progress Note ---
Surgery Progress Note Subjective Additional Comments afebrile leukocytosis cxr noted effusion and consolidation Objective Last 24 Hour Vital Signs Date Time Temp Pulse Resp B/P (MAP) Pulse Ox O2 Delivery O2 Flow Rate FiO2 06/20/20 10:27 88 16 100 Mechanical Ventilator 40 90 16 40 06/20/20 10:12 85 134/74 06/20/20 08:00 Mechanical Ventilator Mechanical Ventilator 06/20/20 08:00 85 06/20/20 08:00 35 06/20/20 08:00 98.2 89 19 134/74 (94) 98 06/20/20 07:29 94 19 40 06/20/20 06:10 132/69 06/20/20 04:00 93 06/20/20 03:56 98.6 93 22 132/69 (90) 98 06/20/20 03:55 35 06/20/20 03:54 Mechanical Ventilator Mechanical Ventilator 06/20/20 02:35 98 22 40 06/20/20 00:00 93 06/20/20 00:00 98.2 94 24 90/54 (66) 98 06/20/20 00:00 Mechanical Ventilator Mechanical Ventilator 06/19/20 22:57 92 18 99 Mechanical Ventilator 40 95 17 40 06/19/20 21:30 137/66 06/19/20 20:00 Mechanical Ventilator Mechanical Ventilator 06/19/20 20:00 35 06/19/20 20:00 98.4 96 20 137/66 (89) 98 06/19/20 19:43 96 06/19/20 19:00 100 24 40 06/19/20 17:40 94 131/73 06/19/20 16:12 131/73 06/19/20 16:00 Mechanical Ventilator Mechanical Ventilator 06/19/20 16:00 98.8 95 20 121/67 (85) 100 06/19/20 16:00 35 06/19/20 16:00 94 06/19/20 14:40 86 18 35 06/19/20 12:00 Mechanical Ventilator Mechanical Ventilator 06/19/20 12:00 98.8 87 23 131/73 (92) 100 06/19/20 12:00 35 06/19/20 11:46 89 I&O Intake and Output 06/19/20 06/20/20 19:00 07:00 Intake Total 1150 ml 730 ml Output Total 3400 ml Balance 1150 ml -2670 ml Intake Free Water 200 ml 200 ml IV Total 50 ml 50 ml Tube Feeding 660 ml 480 ml Other 240 ml Output Urine Total 3300 ml Stool Total 100 ml # Bowel Movements 20 Dressing: saturated Cardiovascular: RSR Respiratory: decreased breath sounds Abdomen: soft, non-tender, present bowel sounds Extremities: no edema, no tenderness, no cyanosis Laboratory Tests Test 06/19/20 11:43 06/19/20 17:33 06/20/20 00:23 06/20/20 02:55 POC Whole Blood Glucose 121 MG/DL (74-106) H Pending Pending White Blood Count 16.7 K/UL (4.8-10.8) H Red Blood Count 3.75 M/UL (4.70-6.10) L Hemoglobin 10.5 G/DL (14.2-18.0) L Hematocrit 33.3 % (42.0-52.0) L Mean Corpuscular Volume 89 FL (80-99) Mean Corpuscular Hemoglobin 28.1 PG (27.0-31.0) Mean Corpuscular Hemoglobin Concent 31.7 G/DL (32.0-36.0) L Red Cell Distribution Width 16.4 % (11.6-14.8) H Platelet Count 499 K/UL (150-450) H Mean Platelet Volume 5.2 FL (6.5-10.1) L Neutrophils (%) (Auto) 80.8 % (45.0-75.0) H Lymphocytes (%) (Auto) 8.0 % (20.0-45.0) L Monocytes (%) (Auto) 8.4 % (1.0-10.0) Eosinophils (%) (Auto) 2.2 % (0.0-3.0) Basophils (%) (Auto) 0.6 % (0.0-2.0) Sodium Level 139 MMOL/L (136-145) Potassium Level 3.5 MMOL/L (3.5-5.1) Chloride Level 102 MMOL/L (98-107) Carbon Dioxide Level 31 MMOL/L (21-32) Anion Gap 6 mmol/L (5-15) Blood Urea Nitrogen 10 mg/dL (7-18) Creatinine 0.7 MG/DL (0.55-1.30) Estimat Glomerular Filtration Rate > 60 mL/min (>60) Glucose Level 182 MG/DL (74-106) H Calcium Level 8.5 MG/DL (8.5-10.1) Test 06/20/20 05:00 06/20/20 06:12 Urine Color Pale yellow Urine Appearance Slightly cloudy Urine pH 7 (4.5-8.0) Urine Specific [place] 1.010 (1.005-1.035) Urine Protein 1+ (NEGATIVE) H Urine Glucose (UA) Negative (NEGATIVE) Urine Ketones Negative (NEGATIVE) Urine Blood Negative (NEGATIVE) Urine Nitrite Negative (NEGATIVE) Urine Bilirubin Negative (NEGATIVE) Urine Urobilinogen Normal MG/DL (0.0-1.0) Urine Leukocyte Esterase 2+ (NEGATIVE) H Urine RBC 0-2 /HPF (0 - 0) H Urine WBC 10-15 /HPF (0 - 0) H Urine Squamous Epithelial Cells Few /LPF (NONE/OCC) Urine Bacteria Moderate /HPF (NONE) H Urine Yeast Many /HPF (NONE) H POC Whole Blood Glucose Pending Plan Problems: (1) UTI (urinary tract infection) (2) Pneumonia (3) Sepsis Assessment & Plan: leukocytosis, anemia. abnormal labs stage 4 sacral prior debridement and seems like ostectomy colostomy noted mid back and bilateral ischial dti ua noted on iv abx g tube in place but per reports on tpn at facility labs ordered imaging ordered no acute surgical intervention planned will follow with recs improving cont diet as tolerated cont abx DAILY ESTIMATED NEEDS: Needs based on Critical care, wound / 67kg 22-30 kcals/kg [id number] total kcals 1.25-2 g protein/kg 83-134 g total protein 25-30 mL/kg 8031-8328 total fluid mLs NUTRITION DIAGNOSIS: * Swallowing difficulty R/T dysphagia, respiratory status as evidenced by pt trach/vent dep, h/o PEG placement, GT feeds held and was on TPN [employer] for Pancreatitis, which now resolved, now on GT feeds. * Increased kcal/prot intake needs R/T wound healing as evidenced by pt admitted w /multiple advanced wounds, including full thickness Pressure Injury @ lumbar spine and sacrum w/ small area of bone exposure, DTPI wounds @ L lower buttocks, L ischium, R ischium, resolving pressure injury @ L tibia, unstageable wound @ R Tibia, R Lheel, and partial thickness pressure injury @ L heel. CURRENT TF:Glucerna 1.2 @ 60ml/hr x 22 hrs (on synthroid) ENTERAL NUTRITION RECOMMENDATIONS: Glucerna 1.2 @ 65ml/hr x 22 hrs + Prosource 1pkt daily to provide 1430ml, 1716kcal, 86g +11g prot (1.5g/kg), 1151ml free water * Increase current TF to goal of 65ml/hr as TF held for 2 hrs for synthroid meds. * Add Prosource 1pkt daily to better meet protein needs * HOB over 30 degrees/ water flush per MD * add Grady BID via GT for wound healing (additional 5g pro) ADDITIONAL RECOMMENDATIONS: * Per SNF: HT=5'8" YP=393atv (as of 05/22/20), rec re-calibrated bedscale wt * Monitor TF tolerance: lipase wnl, h/o pancreatitis * Monitor lytes, replete as needed (K 2.7*-> now wnl) * Wound healing: add Vit C 500mg x1, continue ZnSO4 TF @ goal provides 100% est kcal/prot needs add Grady BID . 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 Dry eschar noted to L earlobe(L)0.8cm x (W)0.6cm. No erythema noted periwound. Loose,dry eschar cap L earlobe(L)1cm x (W)0.7cm. Base of wound beneath loose eschar cap is moist and paul. No odor or exudate noted. Non-Blanchable erythema with shearing centrally posterior neck under tracheal collar.Periwound skin is dark without erythema or fluctuance.(L)1.5cm x (W)4.5cm . Resolving Pressure injury L lumbar area(L)2cm x (W00.7cm. Ramer epithelial at base of wound. Loose dry edges . no erythema or induration periwound. Full thickness Pressure Injury Lumbar Spine(L)2.5cm x (W)1.5cm. Base of wound is 75% paul and moist,25% slough.Borders are macerated. No odor or exudate noted. Periwound without erythema or fluctuance. Full Thickness Sacral Pressure Injury (L)7.5cm x (W)8.8cm x (D)2.4cm, undermining clockwise 12-5 by 1.8cm @2o'clock. Base of wound is beefy red with purpuric area at base. Small area of bone exposure, scattered slough(20%) Wound is otherwise beefy red. Small amt serous exudate note. No odor noted. DTPI L lower Buttocks that is evolving. Base of wound is 75% soft necrosis,25% most and pink with surrounding maroon and indurated borders. DTPI that is evolving and is partially opened at L ischium(L)8cm x (W)9.5cm. Base of wound is purpuric ,indurated with opening that is 25% slough,75% moist and pink. NO odor noted. DTPI R Ischium that is evolving and is partially opened(L)6.3cm x (W)6.5cm. Base of wound is Indurated reddish/brown with opening that is 25% slough,25% soft necrosis,50% moist and pink. NO odor or exudate noted. No evidence of erythema or fluctuance periwound. Resolving Pressure Injury posterior L tibia with dry eschar cap,mixed dry pink epithelial. Unstageable Pressure injury posterior R Tibia. Stable dry eschar noted(L)14.5cm x (W)1.7cm. Unstageable Pressure Injury R heel(L)3.2cm x (W)4.2cm. Base of wound is 100% necrotic with marginal erythema and fluctuance periwound. Partial Thickness Pressure Injury medial L heel(L)1.3cm x (W)1.2cm. Base of wound is moist and viable . Edges are macerated with surrounding non-blanchable erythema with fluctuance. UNstageable Pressure Injury Lateral L Heel . Base of wound is 100% soft necrosis and is malodorous. Non-Blanchable erythema with Fluctuance periwound.(L)4cm x (W)3.4cm. Tx.Plan: Apply Betadine to R and L earlobes. Cover each ear with Optifoam drsg. Change every 3 days and prn. Apply Cavilon Skin Barrier to posterior neck. Cover with Optifoam drsg. Change every 3 days and prn. Cleanse Wounds Lumbar and L lumbar with Saline. Apply TheraHoney. Apply Moisture Barrier Paste periwound. Cover each site with Optifoam drsgs. Change every 3 days and prn. Cleanse Sacral wound with Saline. Loosely pack with Therahoney impregnated Kerlix. Apply Moisture Barrier paste periwound. Cover with Optifoam drsg. Change Daily and prn. Apply Moisture Barrier Paste to Scrotum with each incontinence care. Cleanse R and L Ischial wounds with Saline. Apply Therahoney. Apply Moisture Barrier Paste periwound. Cover each wound with Optifoam drsg. Changee very 3 days and prn. Apply Betadine to Posterior R and L Tibial wounds. Cover each wound with Optifoam drsgs. Change every 3 days and prn. Apply Betadine to R and L Heel wounds. Cover each heel with Optifoam drsgs. Change every 3 days and prn. Reposition at least every 2hours or as tolerated. Off-load heels with Pillows. APM/COLBY Mattress overlay. Jonny Powell Jun 20, 2020 11:29
--- NOTE | 2020-06-20 11:30 | NUR ---
NURSE NOTES: Dr Leyva at bedside,updated re pt's status.
[2020-06-20 12:00] VITALS: BP 122/73
--- NOTE | 2020-06-20 13:00 | NUR ---
NURSE NOTES: Pt resting quietly in bed ,stable no resp distress presented.
--- NOTE | 2020-06-20 14:39 | General Progress Note ---
Subjective ROS Limited/Unobtainable: No Constitutional: Reports: malaise, weakness HEENT: Reports: no symptoms Cardiovascular: Reports: no symptoms Respiratory: Reports: shortness of breath, sputum Gastrointestinal/Abdominal: Reports: difficulty swallowing Genitourinary: Reports: no symptoms Neurologic/Psychiatric: Reports: pre-existing deficit Endocrine: Reports: no symptoms Hematologic/Lymphatic: Reports: anemia Allergies: Coded Allergies: No Known Allergies (Unverified , 06/08/20) All Systems: reviewed and negative except above Subjective No significant overnight events. Patient remains stable on the ventilator. Minimal secretions. Poorly responsive at baseline. Tolerating G-tube feeds. No residuals noted. Currently on multiple IV antibiotics. fevers better but wbc trending up. nontoxic appearing. labs noted. cxr with new retrocardiac infiltrate and effusion Objective Last 24 Hour Vital Signs Date Time Temp Pulse Resp B/P (MAP) Pulse Ox O2 Delivery O2 Flow Rate FiO2 06/20/20 12:00 98.6 86 19 122/73 (89) 98 06/20/20 12:00 Mechanical Ventilator Mechanical Ventilator 06/20/20 12:00 35 06/20/20 12:00 86 06/20/20 10:27 88 16 100 Mechanical Ventilator 40 90 16 40 06/20/20 10:12 85 134/74 06/20/20 08:00 Mechanical Ventilator Mechanical Ventilator 06/20/20 08:00 85 06/20/20 08:00 35 06/20/20 08:00 98.2 89 19 134/74 (94) 98 06/20/20 07:29 94 19 40 06/20/20 06:10 132/69 06/20/20 04:00 93 06/20/20 03:56 98.6 93 22 132/69 (90) 98 06/20/20 03:55 35 06/20/20 03:54 Mechanical Ventilator Mechanical Ventilator 06/20/20 02:35 98 22 40 06/20/20 00:00 93 06/20/20 00:00 98.2 94 24 90/54 (66) 98 06/20/20 00:00 Mechanical Ventilator Mechanical Ventilator 06/19/20 22:57 92 18 99 Mechanical Ventilator 40 95 17 40 06/19/20 21:30 137/66 06/19/20 20:00 Mechanical Ventilator Mechanical Ventilator 06/19/20 20:00 35 06/19/20 20:00 98.4 96 20 137/66 (89) 98 06/19/20 19:43 96 06/19/20 19:00 100 24 40 06/19/20 17:40 94 131/73 06/19/20 16:12 131/73 06/19/20 16:00 Mechanical Ventilator Mechanical Ventilator 06/19/20 16:00 98.8 95 20 121/67 (85) 100 06/19/20 16:00 35 06/19/20 16:00 94 06/19/20 14:40 86 18 35 Intake and Output 06/19/20 06/20/20 19:00 07:00 Intake Total 1150 ml 730 ml Output Total 3400 ml Balance 1150 ml -2670 ml Intake Free Water 200 ml 200 ml IV Total 50 ml 50 ml Tube Feeding 660 ml 480 ml Other 240 ml Output Urine Total 3300 ml Stool Total 100 ml # Bowel Movements 20 Laboratory Tests 06/19/20 17:33: POC Whole Blood Glucose [Pending] 06/20/20 00:23: POC Whole Blood Glucose [Pending] 06/20/20 02:55: White Blood Count 16.7H, Red Blood Count 3.75L, Hemoglobin 10.5L, Hematocrit 33.3L, Mean Corpuscular Volume 89, Mean Corpuscular Hemoglobin 28.1, Mean Co rpuscular Hemoglobin Concent 31.7L, Red Cell Distribution Width 16.4H, Platelet Count 499H, Mean Platelet Volume 5.2L, Neutrophils (%) (Auto) 80.8H, Lymphocytes (%) (Auto) 8.0L, Monocytes (%) (Auto) 8.4, Eosinophils (%) (Auto) 2.2, Basophils (%) (Auto) 0.6, Sodium Level 139, Potassium Level 3.5, Chloride Level 102, Carbon Dioxide Level 31, Anion Gap 6, Blood Urea Nitrogen 10, Creatinine 0.7, Estimat Glomerular Filtration Rate > 60, Glucose Level 182H, Calcium Level 8.5 06/20/20 05:00: Urine Color Pale yellow, Urine Appearance Slightly cloudy, Urine pH 7, Urine Specific [place] 1.010, Urine Protein 1+H, Urine Glucose (UA) Negative, Urine Ketones Negative, Urine Blood Negative, Urine Nitrite Negative, Urine Bilirubin Negative, Urine Urobilinogen Normal, Urine Leukocyte Esterase 2+H, Urine RBC 0- 2H, Urine WBC 10-15H, Urine Squamous Epithelial Cells Few, Urine Bacteria ModerateH, Urine Yeast ManyH 06/20/20 06:12: POC Whole Blood Glucose [Pending] 06/20/20 12:35: POC Whole Blood Glucose [Pending] Height (Feet): 5 Height (Inches): 10.00 Weight (Pounds): 162 Objective General Appearance: WD/WN, no apparent distress, alert Neck: non-tender, normal alignment Cardiovascular: normal rate Respiratory/Chest: chest wall non-tender, lungs clear, normal breath sounds Abdomen: normal bowel sounds, non tender, soft, no organomegaly Edema: no edema noted Arm (L), no edema noted Arm (R) Neurologic: unresponsive Skin: normal pigmentation Lymphatic: normal anterior cervical (L), normal anterior cervical (R) Assessment/Plan Problem List: (1) Stage 4 skin ulcer of sacral region ICD Codes: L98.429 - Non-pressure chronic ulcer of back with unspecified severity SNOMED: 67025211, 923198163 (2) Colostomy in place ICD Codes: Z93.3 - Colostomy status SNOMED: 633211927, 486433986 (3) Sepsis ICD Codes: A41.9 - Sepsis, unspecified organism SNOMED: 00702220 (4) Pneumonia ICD Codes: J18.9 - Pneumonia, unspecified organism SNOMED: 857594716 Qualifiers: Qualified Codes: J18.9 - Pneumonia, unspecified organism (5) UTI (urinary tract infection) ICD Codes: N39.0 - Urinary tract infection, site not specified SNOMED: 49404824 Qualifiers: Qualified Codes: N30.01 - Acute cystitis with hematuria Status: stable Assessment/Plan: cont iv abx- long course needed per ID monitor wbc monitor cxr tube feeds replace lytes as needed vent support resp rx suctioning as needed wean as able cont bp rx monitor for fevers tylenol prn wound care per surgery turn q2 dvt/stress ulcer prophylaxis dc planning Robby Mays MD Jun 20, 2020 14:39
[2020-06-20] MEDS: Piperacillin/Tazobactam 3.375 GM in NS 110 ML IVPB SCH ×2 (15:18→21:58)
[2020-06-20 16:00] VITALS: BP 127/72
--- NOTE | 2020-06-20 16:06 | NUR ---
CASE MANAGEMENT: REVIEW 06/20/2020 SI;SEPSIS. VS: T 98.6 HR 86 RR 19 B/P 122/73 SATS 98% ON MECH VENT FIO2 35 LABS: WBC 16.7 GLU 182 IS;VANCOMYCIN IV Q24HR GENTAMICIN INH Q12HR EPOETIN SUBQ MWF NS IVF @ 50 ML/HR HYDRALAZINE GT Q8H ZOSYN IV Q8H NORVASC GT BID KEPPRA GT BID CORDARONE GT QD SDU
--- NOTE | 2020-06-20 17:00 | NUR ---
NURSE NOTES: Bed bath given,kept dry and clean,pulled up and repositioned to sides.
--- NOTE | 2020-06-20 19:05 | NUR ---
NURSE HAND-OFF REPORT: Important Events on Shift:pt with no fever during the shift. Patient Status: Stable Diet: Glucerna 1.2 at 60 ml/hr per GT Pending Orders: N/A Pending Results/Labs:N/A Pending MD notification:N/A Latest Vital Signs: Temperature 98.6 , Pulse 87 , B/P 127 /72 , Respiratory Rate 20 , O2 SAT 98 , Mechanical Ventilator, O2 Flow Rate 4.0 . Vital Sign Comment: stable,no fever noted during the am shift EKG Rhythm: SR w/ AVB Rhythm change?: N Notified?: N -DR.BALFE BAILEY Response: No New Orders Received Latest Pulido Fall Score: 70 Fall Risk: High Risk Safety Measures: Call light Within Reach, Bed Alarm Zone 2, Side Rails Side Rails x3, Bed position Low and Locked. Fall Precautions: Yellow Socks Yellow Gown Door Sign Patient Fall Education Report given to Shirlene Frost RN.
--- NOTE | 2020-06-20 19:10 | NUR ---
NURSE NOTES: Received report from Linda MORGAN RN. Patient in bed. Eyes open. Respirations even and unlabored. SR w/ 1st degree AVB on monitor tech. Trach to vent Portex #6 AC: 16 TV: 400 Fi02: 35 PEEP: 5 O2 saturation at 100%. GT feeding of Glucerna 1.2 @ 60ml/hr with no residual noted. colostomy bag draining soft brown pasty stool. PICC to right upper arm. NS infusing @ 50ml/h. F/c draining well to gravity of hasty yellow urine. Bed in lowest position and locked. side rails upx3, call light within reach, bed alarm engaged, Will continue POC.
[2020-06-20 20:00] VITALS: BP 120/71
[2020-06-20 20:31] LABS: APPEARANCE,URINE SLIGHTLY CLOUDY; BILIRUBIN, URINE NEGATIVE (NEGATIVE); COLOR,URINE PALE YELLOW; GLUCOSE, URINE (UA) NEGATIVE (NEGATIVE); KETONES,URINE NEGATIVE (NEGATIVE); LEUKOCYTE ESTERASE ,URINE 2+ (NEGATIVE); NITRITE,URINE NEGATIVE (NEGATIVE); PH,URINE 7 (4.5-8.0); PROTEIN,URINE 1+ (NEGATIVE); UROBILINOGEN,URINE NORMAL MG/DL (0.0-1.0)
[2020-06-20] MEDS: Dyna-Hex 2% Top Sol 2oz TOPIC SCH (20:57)
[2020-06-20] MEDS: Epoetin Alfa-EPBX (NON ESRD)4000 units/ml vial SUBQ SCH (21:14)
[2020-06-20] MEDS: Epoetin Alfa-EPBX (NON ESRD) 3000 units/ml vial SUBQ SCH (21:14)
--- NOTE | 2020-06-20 22:10 | General Progress Note ---
Subjective Allergies: Coded Allergies: No Known Allergies (Unverified , 06/08/20) Subjective NAD tolerating TF above noted Objective Last 24 Hour Vital Signs Date Time Temp Pulse Resp B/P (MAP) Pulse Ox O2 Delivery O2 Flow Rate FiO2 06/20/20 21:57 120/71 06/20/20 20:00 35 06/20/20 20:00 Mechanical Ventilator Mechanical Ventilator 06/20/20 20:00 98.2 85 19 120/71 (87) 100 06/20/20 19:24 87 20 40 06/20/20 18:03 82 127/72 06/20/20 16:00 98.6 86 21 127/72 (90) 98 06/20/20 16:00 35 06/20/20 16:00 Mechanical Ventilator Mechanical Ventilator 06/20/20 16:00 82 06/20/20 15:46 91 22 40 06/20/20 15:18 122/73 06/20/20 12:00 98.6 86 19 122/73 (89) 98 06/20/20 12:00 Mechanical Ventilator Mechanical Ventilator 06/20/20 12:00 35 06/20/20 12:00 86 06/20/20 10:27 88 16 100 Mechanical Ventilator 40 90 16 40 06/20/20 10:12 85 134/74 06/20/20 08:00 Mechanical Ventilator Mechanical Ventilator 06/20/20 08:00 85 06/20/20 08:00 35 06/20/20 08:00 98.2 89 19 134/74 (94) 98 06/20/20 07:29 94 19 40 06/20/20 06:10 132/69 06/20/20 04:00 93 06/20/20 03:56 98.6 93 22 132/69 (90) 98 06/20/20 03:55 35 06/20/20 03:54 Mechanical Ventilator Mechanical Ventilator 06/20/20 02:35 98 22 40 06/20/20 00:00 93 06/20/20 00:00 98.2 94 24 90/54 (66) 98 06/20/20 00:00 Mechanical Ventilator Mechanical Ventilator 06/19/20 22:57 92 18 99 Mechanical Ventilator 40 95 17 40 Intake and Output 06/19/20 06/20/20 19:00 07:00 Intake Total 1150 ml 790 ml Output Total 3400 ml Balance 1150 ml -2610 ml Intake Free Water 200 ml 200 ml IV Total 50 ml 50 ml Tube Feeding 660 ml 540 ml Other 240 ml Output Urine Total 3300 ml Stool Total 100 ml # Bowel Movements 20 Laboratory Tests 06/20/20 00:23: POC Whole Blood Glucose [Pending] 06/20/20 02:55: White Blood Count 16.7H, Red Blood Count 3.75L, Hemoglobin 10.5L, Hematocrit 33.3L, Mean Corpuscular Volume 89, Mean Corpuscular Hemoglobin 28.1, Mean Corpuscular Hemoglobin Concent 31.7L, Red Cell Distribution Width 16.4H, Platelet Count 499H, Mean Platelet Volume 5.2L, Neutrophils (%) (Auto) 80.8H, Lymphocytes (%) (Auto) 8.0L, Monocytes (%) (Auto) 8.4, Eosinophils (%) (Auto) 2.2, Basophils (%) (Auto) 0.6, Sodium Level 139, Potassium Level 3.5, Chloride Level 102, Carbon Dioxide Level 31, Anion Gap 6, Blood Urea Nitrogen 10, Cre atinine 0.7, Estimat Glomerular Filtration Rate > 60, Glucose Level 182H, Calcium Level 8.5 06/20/20 05:00: Urine Color Pale yellow, Urine Appearance Slightly cloudy, Urine pH 7, Urine Specific [place] 1.010, Urine Protein 1+H, Urine Glucose (UA) Negative, Urine Ketones Negative, Urine Blood Negative, Urine Nitrite Negative, Urine Bilirubin Negative, Urine Urobilinogen Normal, Urine Leukocyte Esterase 2+H, Urine RBC 0- 2H, Urine WBC 10-15H, Urine Squamous Epithelial Cells Few, Urine Bacteria ModerateH, Urine Yeast ManyH 06/20/20 06:12: POC Whole Blood Glucose [Pending] 06/20/20 12:35: POC Whole Blood Glucose [Pending] 06/20/20 17:56: POC Whole Blood Glucose 171H 06/20/20 20:00: Urine Color Pale yellow, Urine Appearance Slightly cloudy, Urine pH 7, Urine Specific [place] 1.005, Urine Protein 1+H, Urine Glucose (UA) Negative, Urine Ketones Negative, Urine Blood Negative, Urine Nitrite Negative, Urine Bilirubin Negative, Urine Urobilinogen Normal, Urine Leukocyte Esterase 2+H, Urine RBC 0- 2H, Urine WBC 2-4, Urine Squamous Epithelial Cells Occasional, Urine Bacteria Occasional, Urine Yeast ModerateH Height (Feet): 5 Height (Inches): 10.00 Weight (Pounds): 162 Objective Elderly man NCAT (+) trach coarse BS RR abd soft, (+) GT (+) colostomy no edema Assessment/Plan Status: stable Assessment/Plan: Assessment - h/o pancreatitis - resolved - s/p colostomy - sepsis/leukocytosis - resp failure / trach - dysphagia / GT - s/p CVA - Anemia - CAD - DM - hypokalemia - HTN - GERD Recommendations - Abx - CT abd/pelvis noted - PPI - Monitor CBC - TF - D/C planning per PMD Moshe Kraft MD Jun 20, 2020 22:10
[2020-06-21] VITALS: BP 110/64
--- NOTE | 2020-06-21 | NUR ---
NURSE NOTES: patient asleep in bed with no acute distress. Tolerating well with current vent settings. o2 at 97-100%. temp 99.3. cooling measure provided.
[2020-06-21] MEDS: [UNRECOGNIZED DRUG - OTHER] IVPB SCH ×2 (00:13→22:56)
[2020-06-21] MEDS: VANCOMYCIN IVPB SCH ×2 (00:13→22:56)
--- NOTE | 2020-06-21 03:00 | NUR ---
NURSE NOTES: sponge bath given. no vomit. no GT residual. HOB elevated.collected sputum culture.
[2020-06-21 04:00] VITALS: BP 136/73
[2020-06-21 05:21] LABS: BASOPHILS % (AUTO) 0.9 % (0.0-2.0); EOSINOPHILS % (AUTO) 5.5 % (0.0-3.0); HEMATOCRIT 28.5 % (42.0-52.0); HEMOGLOBIN 9.1 G/DL (14.2-18.0); LYMPHOCYTES % (AUTO) 14.3 % (20.0-45.0); MEAN CORPUSCULAR VOLUME 90 FL (80-99); MONOCYTES % (AUTO) 10.8 % (1.0-10.0); NEUTROPHILS % (AUTO) 68.6 % (45.0-75.0); PLATELET COUNT 442 K/UL (150-450); RED BLOOD COUNT 3.17 M/UL (4.70-6.10); RED CELL DISTRIBUTION WIDTH 16.5 % (11.6-14.8); WHITE BLOOD COUNT 12.7 K/UL (4.8-10.8)
[2020-06-21 05:44] LABS: ALANINE AMINOTRANSFERASE 17 U/L (12-78); ALBUMIN 1.9 G/DL (3.4-5.0); ALBUMIN/GLOBULIN RATIO 0.4 (1.0-2.7); ALKALINE PHOSPHATASE 127 U/L (46-116); ANION GAP 5 mmol/L (5-15); ASPARTATE AMINO TRANSFERASE 18 U/L (15-37); BILIRUBIN,TOTAL 0.4 MG/DL (0.2-1.0); BLOOD UREA NITROGEN 11 mg/dL (7-18); CALCIUM 8.2 MG/DL (8.5-10.1); CARBON DIOXIDE 31 MMOL/L (21-32); CHLORIDE 104 MMOL/L (98-107); CREATININE 0.7 MG/DL (0.55-1.30); POTASSIUM 3.4 MMOL/L (3.5-5.1); SODIUM 140 MMOL/L (136-145)
[2020-06-21] MEDS: Piperacillin/Tazobactam 3.375 GM in NS 110 ML IVPB SCH ×3 (06:05→21:09)
[2020-06-21] MEDS: HydrALAZINE 25mg tab GT SCH ×3 (06:07→21:08)
[2020-06-21] MEDS: Metoclopramide 10mg/10ml Liq GT SCH ×4 (06:07→23:05)
[2020-06-21] MEDS: Bethanechol 25mg Tab GT SCH ×4 (06:07→23:04)
[2020-06-21] MEDS: NovoLOG Insulin Flexpen SUBQ SCH ×4 (06:09→23:12)
--- NOTE | 2020-06-21 07:36 | General Progress Note ---
Subjective ROS Limited/Unobtainable: No Allergies: Coded Allergies: No Known Allergies (Unverified , 06/08/20) Objective Last 24 Hour Vital Signs Date Time Temp Pulse Resp B/P (MAP) Pulse Ox O2 Delivery O2 Flow Rate FiO2 06/21/20 06:07 136/73 06/21/20 04:00 98.1 81 17 136/73 (94) 100 06/21/20 04:00 35 06/21/20 04:00 Mechanical Ventilator Mechanical Ventilator 06/21/20 04:00 81 06/21/20 02:37 82 23 40 06/21/20 00:00 99.3 83 17 110/64 (79) 100 06/21/20 00:00 80 06/21/20 00:00 Mechanical Ventilator Mechanical Ventilator 06/21/20 00:00 35 06/20/20 22:33 86 19 100 Mechanical Ventilator 40 89 16 40 06/20/20 21:57 120/71 06/20/20 20:00 35 06/20/20 20:00 Mechanical Ventilator Mechanical Ventilator 06/20/20 20:00 88 06/20/20 20:00 98.2 85 19 120/71 (87) 100 06/20/20 19:24 87 20 40 06/20/20 18:03 82 127/72 06/20/20 16:00 98.6 86 21 127/72 (90) 98 06/20/20 16:00 35 06/20/20 16:00 Mechanical Ventilator Mechanical Ventilator 06/20/20 16:00 82 06/20/20 15:46 91 22 40 06/20/20 15:18 122/73 06/20/20 12:00 98.6 86 19 122/73 (89) 98 06/20/20 12:00 Mechanical Ventilator Mechanical Ventilator 06/20/20 12:00 35 06/20/20 12:00 86 06/20/20 10:27 88 16 100 Mechanical Ventilator 40 90 16 40 06/20/20 10:12 85 134/74 06/20/20 08:00 Mechanical Ventilator Mechanical Ventilator 06/20/20 08:00 85 06/20/20 08:00 35 06/20/20 08:00 98.2 89 19 134/74 (94) 98 Intake and Output 06/20/20 06/21/20 19:00 07:00 Intake Total 1370 ml Output Total 600 ml Balance 770 ml Intake Free Water 200 ml IV Total 150 ml Tube Feeding 660 ml Other 360 ml Output Urine Total 600 ml # Bowel Movements 100 Laboratory Tests 06/20/20 12:35: POC Whole Blood Glucose [Pending] 06/20/20 17:56: POC Whole Blood Glucose 171H 06/20/20 20:00: Urine Color Pale yellow, Urine Appearance Slightly cloudy, Urine pH 7, Urine Spe cific [place] 1.005, Urine Protein 1+H, Urine Glucose (UA) Negative, Urine Ketones Negative, Urine Blood Negative, Urine Nitrite Negative, Urine Bilirubin Negative, Urine Urobilinogen Normal, Urine Leukocyte Esterase 2+H, Urine RBC 0- 2H, Urine WBC 2-4, Urine Squamous Epithelial Cells Occasional, Urine Bacteria Occasional, Urine Yeast ModerateH 06/20/20 22:00: Vancomycin Level Trough 19.7H 06/20/20 23:43: POC Whole Blood Glucose 168H 06/21/20 03:50: White Blood Count 12.7H, Red Blood Count 3.17L, Hemoglobin 9.1L, Hematocrit 28.5L, Mean Corpuscular Volume 90, Mean Corpuscular Hemoglobin 28.6, Mean Corpuscular Hemoglobin Concent 31.8L, Red Cell Distribution Width 16.5H, Platelet Count 442, Mean Platelet Volume 5.1L, Neutrophils (%) (Auto) 68.6, Lymphocytes (%) (Auto) 14.3L, Monocytes (%) (Auto) 10.8H, Eosinophils (%) (Auto) 5.5H, Basophils (%) (Auto) 0.9, Sodium Level 140, Potassium Level 3.4L, Chloride Level 104, Carbon Dioxide Level 31, Anion Gap 5, Blood Urea Nitrogen 11, Creatinine 0.7, Estimat Glomerular Filtration Rate > 60, Glucose Level 126H, Calcium Level 8.2L, Total Bilirubin 0.4, Aspartate Amino Transf (AST/SGOT) 18, Alanine Aminotransferase (ALT/SGPT) 17, Alkaline Phosphatase 127H, Total Protein 6.5, Albumin 1.9L, Globulin 4.6, Albumin/Globulin Ratio 0.4L 06/21/20 05:48: POC Whole Blood Glucose 151H Height (Feet): 5 Height (Inches): 10.00 Weight (Pounds): 162 General Appearance: lethargic EENT: normal ENT inspection Neck: supple Cardiovascular: normal rate Respiratory/Chest: decreased breath sounds Abdomen: hypoactive bowel sounds Extremities: non-tender Assessment/Plan Status: stable Assessment/Plan: Assessment - h/o pancreatitis - resolved - s/p colostomy - sepsis/leukocytosis - resp failure / trach - dysphagia / GT - s/p CVA - Anemia - CAD - DM - hypokalemia - HTN - GERD Recommendations - Abx - CT abd/pelvis noted - PPI - Monitor CBC - TF - D/C planning per PMD Wade Corado MD Jun 21, 2020 07:36
--- NOTE | 2020-06-21 07:40 | NUR ---
NURSE HAND-OFF REPORT: Important Events on Shift: Patient Status: stable Diet:GTF with Glucerna 1.2 at 60cc/hr Pending Orders: no Pending Results/Labs:blood and urine culture Pending MD notification:no Latest Vital Signs: Temperature 98.1 , Pulse 81 , B/P 136 /73 , Respiratory Rate 17 , O2 SAT 100 , Mechanical Ventilator, O2 Flow Rate 4.0 . Vital Sign Comment: NO EKG Rhythm: SR w/ 1st AVB Rhythm change?: N Notified?: N -DR.BALFE BAILEY Response: No New Orders Received Latest Pulido Fall Score: 70 Fall Risk: High Risk Safety Measures: Call light Within Reach, Bed Alarm Zone 2, Side Rails Side Rails x3, Bed position Low and Locked. Fall Precautions: Yellow Socks Yellow Gown Door Sign Patient Fall Education Report given to SANDY HADDAD.
[2020-06-21 08:00] VITALS: BP 130/63
--- NOTE | 2020-06-21 08:00 | NUR ---
NURSE NOTES: Received report on pt. Patient laying in bed sleeping with no sign of resp distress. Pt has trach to vent Portex #6 AC: 16 TV: 400 Fi02: 35 PEEP: 5 O2 saturation at 100%. cardiac care nurse: SR w/ 1st degree AVB noted. GT feeding of Glucerna 1.2 @ 60ml/hr with no residual noted. colostomy bag to left ab quadrant draining soft brown pasty stool. Right arm PICC with NS infusing @ 50ml/h. Pt has florez cath is draining well to gravity. Bed in lowest position and locked. side rails upx3, call light within reach, bed alarm engaged, Will continue POC.
--- NOTE | 2020-06-21 09:07 | Surgery Progress Note ---
Surgery Progress Note Subjective Symptoms: tolerating diet, passing flatus, other Additional Comments no acute events Objective Last 24 Hour Vital Signs Date Time Temp Pulse Resp B/P (MAP) Pulse Ox O2 Delivery O2 Flow Rate FiO2 06/21/20 07:40 79 18 35 06/21/20 06:07 136/73 06/21/20 04:00 98.1 81 17 136/73 (94) 100 06/21/20 04:00 35 06/21/20 04:00 Mechanical Ventilator Mechanical Ventilator 06/21/20 04:00 81 06/21/20 02:37 82 23 40 06/21/20 00:00 99.3 83 17 110/64 (79) 100 06/21/20 00:00 80 06/21/20 00:00 Mechanical Ventilator Mechanical Ventilator 06/21/20 00:00 35 06/20/20 22:33 86 19 100 Mechanical Ventilator 40 89 16 40 06/20/20 21:57 120/71 06/20/20 20:00 35 06/20/20 20:00 Mechanical Ventilator Mechanical Ventilator 06/20/20 20:00 88 06/20/20 20:00 98.2 85 19 120/71 (87) 100 06/20/20 19:24 87 20 40 06/20/20 18:03 82 127/72 06/20/20 16:00 98.6 86 21 127/72 (90) 98 06/20/20 16:00 35 06/20/20 16:00 Mechanical Ventilator Mechanical Ventilator 06/20/20 16:00 82 06/20/20 15:46 91 22 40 06/20/20 15:18 122/73 06/20/20 12:00 98.6 86 19 122/73 (89) 98 06/20/20 12:00 Mechanical Ventilator Mechanical Ventilator 06/20/20 12:00 35 06/20/20 12:00 86 06/20/20 10:27 88 16 100 Mechanical Ventilator 40 90 16 40 06/20/20 10:12 85 134/74 I&O Intake and Output 06/20/20 06/21/20 19:00 07:00 Intake Total 1370 ml 2132.5 ml Output Total 600 ml 650 ml Balance 770 ml 1482.5 ml Intake Free Water 200 ml 300 ml IV Total 150 ml 1112.5 ml Tube Feeding 660 ml 720 ml Other 360 ml Output Urine Total 600 ml 600 ml Stool Total 50 ml # Bowel Movements 100 Dressing: saturated Cardiovascular: RSR Respiratory: clear Abdomen: soft, non-tender, present bowel sounds Extremities: no edema, no tenderness, no cyanosis Laboratory Tests Test 06/20/20 12:35 06/20/20 17:56 06/20/20 20:00 06/20/20 22:00 POC Whole Blood Glucose Pending 171 MG/DL (74-106) H Urine Color Pale yellow Urine Appearance Slightly cloudy Urine pH 7 (4.5-8.0) Urine Specific [place] 1.005 (1.005-1.035) Urine Protein 1+ (NEGATIVE) H Urine Glucose (UA) Negative (NEGATIVE) Urine Ketones Negative (NEGATIVE) Urine Blood Negative (NEGATIVE) Urine Nitrite Negative (NEGATIVE) Urine Bilirubin Negative (NEGATIVE) Urine Urobilinogen Normal MG/DL (0.0-1.0) Urine Leukocyte Esterase 2+ (NEGATIVE) H Urine RBC 0-2 /HPF (0 - 0) H Urine WBC 2-4 /HPF (0 - 0) Urine Squamous Epithelial Cells Occasional /LPF Urine Bacteria Occasional /HPF (NONE) Urine Yeast Moderate /HPF (NONE) H Vancomycin Level Trough 19.7 ug/mL (5.0-12.0) H Test 06/20/20 23:43 06/21/20 03:50 06/21/20 05:48 POC Whole Blood Glucose 168 MG/DL (74-106) H 151 MG/DL (74-106) H White Blood Count 12.7 K/UL (4.8-10.8) H Red Blood Count 3.17 M/UL (4.70-6.10) L Hemoglobin 9.1 G/DL (14.2-18.0) L Hematocrit 28.5 % (42.0-52.0) L Mean Corpuscular Volume 90 FL (80-99) Mean Corpuscular Hemoglobin 28.6 PG (27.0-31.0) Mean Corpuscular Hemoglobin Concent 31.8 G/DL (32.0-36.0) L Red Cell Distribution Width 16.5 % (11.6-14.8) H Platelet Count 442 K/UL (150-450) Mean Platelet Volume 5.1 FL (6.5-10.1) L Neutrophils (%) (Auto) 68.6 % (45.0-75.0) Lymphocytes (%) (Auto) 14.3 % (20.0-45.0) L Monocytes (%) (Auto) 10.8 % (1.0-10.0) H Eosinophils (%) (Auto) 5.5 % (0.0-3.0) H Basophils (%) (Auto) 0.9 % (0.0-2.0) Sodium Level 140 MMOL/L (136-145) Potassium Level 3.4 MMOL/L (3.5-5.1) L Chloride Level 104 MMOL/L (98-107) Carbon Dioxide Level 31 MMOL/L (21-32) Anion Gap 5 mmol/L (5-15) Blood Urea Nitrogen 11 mg/dL (7-18) Creatinine 0.7 MG/DL (0.55-1.30) Estimat Glomerular Filtration Rate > 60 mL/min (>60) Glucose Level 126 MG/DL (74-106) H Calcium Level 8.2 MG/DL (8.5-10.1) L Total Bilirubin 0.4 MG/DL (0.2-1.0) Aspartate Amino Transf (AST/SGOT) 18 U/L (15-37) Alanine Aminotransferase (ALT/SGPT) 17 U/L (12-78) Alkaline Phosphatase 127 U/L (46-116) H Total Protein 6.5 G/DL (6.4-8.2) Albumin 1.9 G/DL (3.4-5.0) L Globulin 4.6 g/dL Albumin/Globulin Ratio 0.4 (1.0-2.7) L Plan Problems: (1) UTI (urinary tract infection) (2) Pneumonia (3) Sepsis Assessment & Plan: leukocytosis, anemia. abnormal labs stage 4 sacral prior debridement and seems like ostectomy colostomy noted mid back and bilateral ischial dti ua noted on iv abx g tube in place but per reports on tpn at facility labs ordered imaging ordered no acute surgical intervention planned will follow with recs improving cont diet as tolerated cont abx DAILY ESTIMATED NEEDS: Needs based on Critical care, wound / 67kg 22-30 kcals/kg 0102-9034 total kcals 1.25-2 g protein/kg 83-134 g total protein 25-30 mL/kg 0490-6425 total fluid mLs NUTRITION DIAGNOSIS: * Swallowing difficulty R/T dysphagia, respiratory status as evidenced by pt trach/vent dep, h/o PEG placement, GT feeds held and 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 * Increased kcal/prot intake needs R/T wound healing as evidenced by pt admitted w /multiple advanced wounds, including full thickness Pressure Injury @ lumbar spine and sacrum w/ small area of bone exposure, DTPI wounds @ L lower buttocks, L ischium, R ischium, resolving pressure injury @ L tibia, unstageable wound @ R Tibia, R Lheel, and partial thickness pressure injury @ L heel. CURRENT TF:Glucerna 1.2 @ 60ml/hr x 22 hrs (on synthroid) ENTERAL NUTRITION RECOMMENDATIONS: Glucerna 1.2 @ 65ml/hr x 22 hrs + Prosource 1pkt daily to provide 1430ml, 1716kcal, 86g +11g prot (1.5g/kg), 1151ml free water * Increase current TF to goal of 65ml/hr as TF held for 2 hrs for synthroid meds. * Add Prosource 1pkt daily to better meet protein needs * HOB over 30 degrees/ water flush per MD * add Grady BID via GT for wound healing (additional 5g pro) ADDITIONAL RECOMMENDATIONS: * Per SNF: HT=5'8" NC=[id number] (as of 05/22/20), rec re-calibrated bedscale wt * Monitor TF tolerance: lipase wnl, h/o pancreatitis * Monitor lytes, replete as needed (K 2.7*-> now wnl) * Wound healing: add Vit C 500mg x1, continue ZnSO4 TF @ goal provides 100% est kcal/prot needs add Grady BID . 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 Dry eschar noted to L ear lobe(L)0.8cm x (W)0.6cm. No erythema noted periwound. Loose,dry eschar cap L earlobe(L)1cm x (W)0.7cm. Base of wound beneath loose eschar cap is moist and paul. No odor or exudate noted. Non-Blanchable erythema with shearing centrally posterior neck under tracheal collar.Periwound skin is dark without erythema or fluctuance.(L)1.5cm x (W)4.5cm. Resolving Pressure injury L lumbar area(L)2cm x (W00.7cm. [place] epithelial at base of wound. Loose dry edges . no erythema or induration periwound. Full thickness Pressure Injury Lumbar Spine(L)2.5cm x (W)1.5cm. Base of wound is 75% paul and moist,25% slough.Borders are macerated. No odor or exudate noted. Periwound without erythema or fluctuance. Full Thickness Sacral Pressure Injury (L)7.5cm x (W)8.8cm x (D)2.4cm, undermining clockwise 12-5 by 1.8cm @2o'clock. Base of wound is beefy red with purpuric area at base. Small area of bone exposure, scattered slough(20%) Wound is otherwise beefy red. Small amt serous exudate note. No odor noted. DTPI L lower Buttocks that is evolving. Base of wound is 75% soft necrosis,25% most and pink with surrounding maroon and indurated borders. DTPI that is evolving and is partially opened at L ischium(L)8cm x (W)9.5cm. Base of wound is purpuric ,indurated with opening that is 25% slough,75% moist and pink. NO odor noted. DTPI R Ischium that is evolving and is partially opened(L)6.3cm x (W)6.5cm. Base of wound is Indurated reddish/brown with opening that is 25% slough,25% soft necrosis,50% moist and pink. NO odor or exudate noted. No evidence of erythema or fluctuance periwound. Resolving Pressure Injury posterior L tibia with dry eschar cap,mixed dry pink epithelial. Unstageable Pressure injury posterior R Tibia. Stable dry eschar noted(L)14.5cm x (W)1.7cm. Unstageable Pressure Injury R heel(L)3.2cm x (W)4.2cm. Base of wound is 100% necrotic with marginal erythema and fluctuance periwound. Partial Thickness Pressure Injury medial L heel(L)1.3cm x (W)1.2cm. Base of wound is moist and viable . Edges are macerated with surrounding non-blanchable erythema with fluctuance. UNstageable Pressure Injury Lateral L Heel . Base of wound is 100% soft necrosis and is malodorous. Non-Blanchable erythema with Fluctuance periwound.(L)4cm x (W)3.4cm. Tx.Plan: Apply Betadine to R and L earlobes. Cover each ear with Optifoam drsg. Change every 3 days and prn. Apply Cavilon Skin Barrier to posterior neck. Cover with Optifoam drsg. Change every 3 days and prn. Cleanse Wounds Lumbar and L lumbar with Saline. Apply TheraHoney. Apply Moisture Barrier Paste periwound. Cover each site with Optifoam drsgs. Change every 3 days and prn. Cleanse Sacral wound with Saline. Loosely pack with Therahoney impregnated Kerlix. Apply Moisture Barrier paste periwound. Cover with Optifoam drsg. Change Daily and prn. Apply Moisture Barrier Paste to Scrotum with each incontinence care. Cleanse R and L Ischial wounds with Saline. Apply Therahoney. Apply Moisture Barrier Paste periwound. Cover each wound with Optifoam drsg. Changee very 3 days and prn. Apply Betadine to Posterior R and L Tibial wounds. Cover each wound with Optifoam drsgs. Change every 3 days and prn. Apply Betadine to R and L Heel wounds. Cover each heel with Optifoam drsgs. Change every 3 days and prn. Reposition at least every 2hours or as tolerated. Off-load heels with Pillows. APM/COLBY Mattress overlay. Jonny Powell Jun 21, 2020 09:07
[2020-06-21] MEDS: Docusate 100mg/10ml Liq GT SCH ×2 (09:12→17:30)
[2020-06-21] MEDS: Ascorbic Acid 500mg tab ORAL SCH (09:12)
[2020-06-21] MEDS: Zinc Sulfate 220mg GT SCH (09:12)
[2020-06-21] MEDS: levETIRAcetam 500mg/5ml Liquid GT SCH ×2 (09:12→17:30)
[2020-06-21] MEDS: Amiodarone 200mg tab GT SCH (09:13)
--- NOTE | 2020-06-21 10:02 | Pulmonology Progress Note ---
Subjective ROS Limited/Unobtainable: No Constitutional: Reports: fever, other - T=100.9 Allergies: Coded Allergies: No Known Allergies (Unverified , 06/08/20) All Systems: reviewed and negative except above Objective Last 24 Hour Vital Signs Date Time Temp Pulse Resp B/P (MAP) Pulse Ox O2 Delivery O2 Flow Rate FiO2 06/21/20 09:12 79 136/73 06/21/20 07:40 79 18 35 06/21/20 06:07 136/73 06/21/20 04:00 98.1 81 17 136/73 (94) 100 06/21/20 04:00 35 06/21/20 04:00 Mechanical Ventilator Mechanical Ventilator 06/21/20 04:00 81 06/21/20 02:37 82 23 40 06/21/20 00:00 99.3 83 17 110/64 (79) 100 06/21/20 00:00 80 06/21/20 00:00 Mechanical Ventilator Mechanical Ventilator 06/21/20 00:00 35 06/20/20 22:33 86 19 100 Mechanical Ventilator 40 89 16 40 06/20/20 21:57 120/71 06/20/20 20:00 35 06/20/20 20:00 Mechanical Ventilator Mechanical Ventilator 06/20/20 20:00 88 06/20/20 20:00 98.2 85 19 120/71 (87) 100 06/20/20 19:24 87 20 40 06/20/20 18:03 82 127/72 06/20/20 16:00 98.6 86 21 127/72 (90) 98 06/20/20 16:00 35 06/20/20 16:00 Mechanical Ventilator Mechanical Ventilator 06/20/20 16:00 82 06/20/20 15:46 91 22 40 06/20/20 15:18 122/73 06/20/20 12:00 98.6 86 19 122/73 (89) 98 06/20/20 12:00 Mechanical Ventilator Mechanical Ventilator 06/20/20 12:00 35 06/20/20 12:00 86 06/20/20 10:27 88 16 100 Mechanical Ventilator 40 90 16 40 06/20/20 10:12 85 134/74 Intake and Output 06/20/20 06/21/20 18:59 06:59 Intake Total 1430 ml 1995.0 ml Output Total 600 ml Balance 830 ml 1995.0 ml Intake Free Water 200 ml 300 ml IV Total 150 ml 1035.0 ml Tube Feeding 720 ml 660 ml Other 360 ml Output Urine Total 600 ml # Bowel Movements 100 Microbiology Date/Time Source Procedure Growth Status 06/20/20 20:00 Stool Clostridium difficile Toxin Assay - Final Complete 06/20/20 07:00 Indwelling Cath Urine Culture - Preliminary NO GROWTH AFTER 24 HOURS Resulted Laboratory Tests 06/20/20 12:35: POC Whole Blood Glucose [Pending] 06/20/20 17:56: POC Whole Blood Glucose 171H 06/20/20 20:00: Urine Color Pale yellow, Urine Appearance Slightly cloudy, Urine pH 7, Urine Specific [place] 1.005, Urine Protein 1+H, Urine Glucose (UA) Negative, Urine Ketones Negative, Urine Blood Negative, Urine Nitrite Negative, Urine Bilirubin Negative, Urine Urobilinogen Normal, Urine Leukocyte Esterase 2+H, Urine RBC 0- 2H, Urine WBC 2-4, Urine Squamous Epithelial Cells Occasional, Urine Bacteria Occasional, Urine Yeast ModerateH 06/20/20 22:00: Vancomycin Level Trough 19.7H 06/20/20 23:43: POC Whole Blood Glucose 168H 06/21/20 03:50: White Blood Count 12.7H, Red Blood Count 3.17L, Hemoglobin 9.1L, Hematocrit 28.5L, Mean Corpuscular Volume 90, Mean Corpuscular Hemoglobin 28.6, Mean Corpuscular Hemoglobin Concent 31.8L, Red Cell Distribution Width 16.5H, Platelet Count 442, Mean Platelet Volume 5.1L, Neutrophils (%) (Auto) 68.6, Lymphocytes (%) (Auto) 14.3L, Monocytes (%) (Auto) 10.8H, Eosinophils (%) (Auto) 5.5H, Basophils (%) (Auto) 0.9, Sodium Level 140, Potassium Level 3.4L, Chloride Level 104, Carbon Dioxide Level 31, Anion Gap 5, Blood Urea Nitrogen 11, Creatinine 0.7, Estimat Glomerular Filtration Rate > 60, Glucose Level 126H, Calcium Level 8.2L, Total Bilirubin 0.4, Aspartate Amino Transf (AST/SGOT) 18, Alanine Aminotransferase (ALT/SGPT) 17, Alkaline Phosphatase 127H, Total Protein 6.5, Albumin 1.9L, Globulin 4.6, Albumin/Globulin Ratio 0.4L 06/21/20 05:48: POC Whole Blood Glucose 151H Current Medications Medications (Trade) Dose Ordered Sig/Milla Route PRN Reason Start Time Stop Time Status Last Admin Dose Admin Acetaminophen (Tylenol) 650 mg Q4H PRN ORAL Temp >100.5 06/13/20 21:15 07/13/20 21:14 06/21/20 02:34 Amiodarone HCl (Cordarone) 200 mg DAILY GT 06/09/20 09:00 09/07/20 08:59 06/21/20 09:13 Amlodipine Besylate (Norvasc) 5 mg TWICE A DAY GT 06/09/20 09:00 07/09/20 08:59 06/21/20 09:12 Ascorbic Acid (Vitamin C) 500 mg DAILY ORAL 06/18/20 09:00 07/18/20 08:59 06/21/20 09:12 Bethanechol Chloride (Urecholine) 25 mg Q6HR GT 06/09/20 06:00 07/09/20 05:59 06/21/20 06:07 Chlorhexidine Gluconate (Sue-Hex 2%) 1 applic DAILY@1999 TOPIC 06/10/20 20:00 09/08/20 19:59 06/20/20 20:57 Clonidine HCl (Catapres Tab) 0.1 mg Q6H PRN GT For High Blood Pressure 06/09/20 00:30 09/07/20 00:29 Dextrose (Dextrose 50%) 25 ml Q30M PRN IV Hypoglycemia 06/09/20 06:00 09/07/20 05:59 06/09/20 06:02 Dextrose (Dextrose 50%) 50 ml Q30M PRN IV Hypoglycemia 06/09/20 00:15 09/07/20 00:14 Docusate Sodium (Colace) 100 mg TWICE A DAY GT 06/09/20 09:00 07/09/20 08:59 06/21/20 09:12 Epoetin Cameron (Epoetin Cameron-EPBX(NON ESRD)) 3,000 unit TUE-TUE-TUE SUBQ 06/16/20 21:00 09/14/20 20:59 06/20/20 21:14 Epoetin Cameron (Epoetin Cameron-EPBX(NON ESRD)) 4,000 unit TUE-TUE-TUE SUBQ 06/16/20 21:00 09/14/20 20:59 06/20/20 21:14 Famotidine (Pepcid) 20 mg TWICE A DAY GT 06/09/20 09:00 09/07/20 08:59 06/21/20 09:12 Gentamicin Sulfate (Gentamicin vial) 300 mg Q12HR@10,22 INH 06/16/20 22:00 06/23/20 21:59 06/20/20 22:33 Hydralazine HCl (Apresoline) 25 mg EVERY 8 HOURS GT 06/09/20 06:00 09/07/20 05:59 06/21/20 06:07 Insulin Aspart (NovoLOG) Q6HR SUBQ 06/09/20 06:00 09/07/20 05:59 06/21/20 06:09 Lactulose (Cephulac) 20 gm Q6H PRN GT Constipation 06/09/20 00:30 07/09/20 00:29 Lansoprazole (Prevacid) 30 mg TWICE A DAY GT 06/09/20 09:00 07/09/20 08:59 06/21/20 09:12 Levetiracetam (Keppra) 500 mg TWICE A DAY GT 06/09/20 09:00 07/09/20 08:59 06/21/20 09:12 Levothyroxine Sodium (Synthroid) 75 mcg DAILY GT 06/09/20 09:00 07/09/20 08:59 06/21/20 09:12 Metoclopramide HCl (Reglan) 5 mg EVERY 6 HOURS GT 06/09/20 06:00 07/09/20 05:59 06/21/20 06:07 Nitroglycerin (Ntg) 0.4 mg Q5MIN X 3 DOSES PRN SL CHEST PAIN 06/09/20 00:30 07/09/20 00:29 Ondansetron HCl (Zofran) 4 mg Q6H PRN GT Nausea & Vomiting 06/09/20 00:30 07/09/20 00:29 06/20/20 03:24 Piperacillin Sod/ Tazobactam Sod 3.375 gm/Sodium Chloride 110 ml @ 27.5 mls/hr EVERY 8 HOURS IVPB 06/20/20 14:00 06/25/20 13:59 06/21/20 06:05 Pravastatin Sodium (Pravachol) 40 mg BEDTIME GT 06/09/20 21:00 07/09/20 20:59 06/20/20 20:57 Sodium Chloride 1,000 ml @ 50 mls/hr Q20H IV 06/09/20 01:00 07/09/20 00:59 06/20/20 15:19 Vancomycin HCl (Vanco pharmacy to dose) 1 ea DAILY PRN MISC Per rx protocol 06/09/20 00:15 07/20/20 00:14 Vancomycin/Sodium Chloride 250 ml @ 125 mls/hr Q24H IVPB 06/18/20 23:00 06/23/20 22:59 06/21/20 00:13 Zinc Sulfate (Zinc Sulfate) 220 mg DAILY GT 06/09/20 09:00 09/07/20 08:59 06/21/20 09:12 Assessment/Plan Assessment/Plan Pulmonary Progress Note HPI Patient is a 70 year old man with.past medical history of Respiratory failure, Sepsis, Chronic Kidney Disease, Type 2 Diabetes, and Decubitus ulcers, Hypertension, GERD, Anemia Pancreatitis, on TPN, Seizure Hx, Hypothyroidism, Hyperlidemia. Noted to have abnormal labs, having an elevated WBC count of 28K. No fevers, chills noted. HPI and ROS are limited Pt. unable to give detail regarding his ED visit as he is non-verbal. 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, no seizures Assessment/Plan Assessment/Plan sepsis leukocytosis anemia colostomy respiratory failure possible gib chronic pancreatitis chronic encephalopathy hypernatremia acute renal failure pneumonia bacteremia UTI pneumonia sacral osteo/ decub diverting colostomy PLAN vent support IV antibiotics- noted; x 31 days of vanco complete gent inhaled GI on feeds and tolerating ID recommendations noted - concern of wbc elevation close follow up monitor HH guarded at present hope to dc soon back to snf once cleared by ID CXR to monitor impression, plan, and exam edited and reviewed in detail care discussed with RN Labs noted EKG: Rate: normal - 98 Rhythm: NSR ST Segments: no acute changes Other Impression 1st degree AV block Chest X-Ray no pneumothorax, other - Left lower lobe infiltrate. Abner Mcclelland MD Jun 21, 2020 10:02
--- NOTE | 2020-06-21 10:05 | NUR ---
NURSE NOTES: Trach suctioning and oral care performed
[2020-06-21] MEDS: Gentamicin for inhalation INH SCH ×2 (10:53→23:12)
[2020-06-21 12:00] VITALS: BP 131/73
[2020-06-21] MEDS ORDERED: Tubing IV Secondary IV ONE (12:53)
--- NOTE | 2020-06-21 13:13 | General Progress Note ---
Subjective ROS Limited/Unobtainable: Yes Constitutional: Reports: no symptoms, malaise, weakness HEENT: Reports: no symptoms Cardiovascular: Reports: no symptoms Respiratory: Reports: shortness of breath, sputum Gastrointestinal/Abdominal: Reports: difficulty swallowing Genitourinary: Reports: no symptoms Neurologic/Psychiatric: Reports: pre-existing deficit Endocrine: Reports: no symptoms Hematologic/Lymphatic: Reports: anemia Allergies: Coded Allergies: No Known Allergies (Unverified , 06/08/20) All Systems: reviewed and negative except above Subjective No significant overnight events. Patient remains stable on the ventilator. Minimal secretions. Poorly responsive at baseline. Tolerating G-tube feeds. +colostomy output. no bleeding. No residuals noted. Currently on multiple IV antibiotics. fevers better. but wbc trending down. nontoxic appearing. labs noted. cxr with new retrocardiac infiltrate and effusion Objective Last 24 Hour Vital Signs Date Time Temp Pulse Resp B/P (MAP) Pulse Ox O2 Delivery O2 Flow Rate FiO2 06/21/20 12:00 74 06/21/20 12:00 Mechanical Ventilator Mechanical Ventilator 06/21/20 12:00 35 06/21/20 12:00 98.1 73 18 131/73 (92) 100 06/21/20 10:50 78 21 100 Mechanical Ventilator 35 77 16 35 06/21/20 09:12 79 136/73 06/21/20 08:00 35 06/21/20 08:00 97.7 81 20 130/63 (85) 100 06/21/20 08:00 79 06/21/20 08:00 Mechanical Ventilator Mechanical Ventilator 06/21/20 07:40 79 18 35 06/21/20 06:07 136/73 06/21/20 04:00 98.1 81 17 136/73 (94) 100 06/21/20 04:00 35 06/21/20 04:00 Mechanical Ventilator Mechanical Ventilator 06/21/20 04:00 81 06/21/20 02:37 82 23 40 06/21/20 00:00 99.3 83 17 110/64 (79) 100 06/21/20 00:00 80 06/21/20 00:00 Mechanical Ventilator Mechanical Ventilator 06/21/20 00:00 35 06/20/20 22:33 86 19 100 Mechanical Ventilator 40 89 16 40 06/20/20 21:57 120/71 06/20/20 20:00 35 06/20/20 20:00 Mechanical Ventilator Mechanical Ventilator 06/20/20 20:00 88 06/20/20 20:00 98.2 85 19 120/71 (87) 100 06/20/20 19:24 87 20 40 06/20/20 18:03 82 127/72 06/20/20 16:00 98.6 86 21 127/72 (90) 98 06/20/20 16:00 35 06/20/20 16:00 Mechanical Ventilator Mechanical Ventilator 06/20/20 16:00 82 06/20/20 15:46 91 22 40 06/20/20 15:18 122/73 Intake and Output 06/20/20 06/21/20 19:00 07:00 Intake Total 1370 ml 2132.5 ml Output Total 600 ml 650 ml Balance 770 ml 1482.5 ml Intake Free Water 200 ml 300 ml IV Total 150 ml 1112.5 ml Tube Feeding 660 ml 720 ml Other 360 ml Output Urine Total 600 ml 600 ml Stool Total 50 ml # Bowel Movements 100 Laboratory Tests 06/20/20 17:56: POC Whole Blood Glucose 171H 06/20/20 20:00: Urine Color Pale yellow, Urine Appearance Slightly cloudy, Urine pH 7, Urine Specific [place] 1.005, Urine Protein 1+H, Urine Glucose (UA) Negative, Urine Ketones Negative, Urine Blood Negative, Urine Nitrite Negative, Urine Bilirubin Negative, Urine Urobilinogen Normal, Urine Leukocyte Esterase 2+H, Urine RBC 0- 2H, Urine WBC 2-4, Urine Squamous Epithelial Cells Occasional, Urine Bacteria Occasional, Urine Yeast ModerateH 06/20/20 22:00: Vancomycin Level Trough 19.7H 06/20/20 23:43: POC Whole Blood Glucose 168H 06/21/20 03:50: White Blood Count 12.7H, Red Blood Count 3.17L, Hemoglobin 9.1L, Hematocrit 28.5L, Mean Corpuscular Volume 90, Mean Corpuscular Hemoglobin 28.6, Mean [place]ila uscular Hemoglobin Concent 31.8L, Red Cell Distribution Width 16.5H, Platelet Count 442, Mean Platelet Volume 5.1L, Neutrophils (%) (Auto) 68.6, Lymphocytes (%) (Auto) 14.3L, Monocytes (%) (Auto) 10.8H, Eosinophils (%) (Auto) 5.5H, Basophils (%) (Auto) 0.9, Sodium Level 140, Potassium Level 3.4L, Chloride Level 104, Carbon Dioxide Level 31, Anion Gap 5, Blood Urea Nitrogen 11, Creatinine 0.7, Estimat Glomerular Filtration Rate > 60, Glucose Level 126H, Calcium Level 8.2L, Total Bilirubin 0.4, Aspartate Amino Transf (AST/SGOT) 18, Alanine Aminotransferase (ALT/SGPT) 17, Alkaline Phosphatase 127H, Total Protein 6.5, Albumin 1.9L, Globulin 4.6, Albumin/Globulin Ratio 0.4L 06/21/20 05:48: POC Whole Blood Glucose 151H 06/21/20 12:56: POC Whole Blood Glucose 171H Height (Feet): 5 Height (Inches): 10.00 Weight (Pounds): 162 Objective General Appearance: WD/WN, no apparent distress, alert Neck: non-tender, normal alignment Cardiovascular: normal rate Respiratory/Chest: chest wall non-tender, lungs clear, normal breath sounds Abdomen: normal bowel sounds, non tender, soft, no organomegaly Edema: no edema noted Arm (L), no edema noted Arm (R) Neurologic: unresponsive Skin: normal pigmentation Lymphatic: normal anterior cervical (L), normal anterior cervical (R) Assessment/Plan Problem List: (1) Stage 4 skin ulcer of sacral region ICD Codes: L98.429 - Non-pressure chronic ulcer of back with unspecified severity SNOMED: 76823227, 593808927 (2) Colostomy in place ICD Codes: Z93.3 - Colostomy status SNOMED: 523875165, 482629090 (3) Sepsis ICD Codes: A41.9 - Sepsis, unspecified organism SNOMED: 83669505 (4) Pneumonia ICD Codes: J18.9 - Pneumonia, unspecified organism SNOMED: 431972747 Qualifiers: Qualified Codes: J18.9 - Pneumonia, unspecified organism (5) UTI (urinary tract infection) ICD Codes: N39.0 - Urinary tract infection, site not specified SNOMED: 58923818 Qualifiers: Qualified Codes: N30.01 - Acute cystitis with hematuria Status: stable Assessment/Plan: cont iv abx- long course needed per ID monitor wbc- improving monitor cxr tube feeds replace lytes as needed vent support resp rx suctioning as needed wean as able cont bp rx tylenol prn wound care per surgery colostomy care turn q2 dvt/stress ulcer prophylaxis dc planning Robby Mays MD Jun 21, 2020 13:13
[2020-06-21 16:00] VITALS: BP 110/64
--- NOTE | 2020-06-21 19:00 | NUR ---
NURSE NOTES: RECEIVED REPORT FROM BOO DELGADO. PATIENT ASLEEP IN BED, OPENS EYES TO VERBAL AND TACTILE STIMULI ONLY, NON-VERBAL. NO S/SX OF PAIN OR DISCOMFORT NOTED AT THIS TIME. BREATHING EVEN AND UNLABORED WITH NO S/SX OF DISTRESS ON CURRENT SETTINGS- TRACH TO VENT: PORTEX 6, AC 16, VT 400, FIO2 35%, PEEP 5. NOTED TO HAVE LAUREL PICC LINE WITH IVF RUNNING PRESCRIBED. VILLALOBOS CATHETER DRAINING WELL TO GRAVITY WITH URINE CLEAR AND LIGHT YELLOW IN COLOR. FALL AND ASPIRATION PRECAUTIONS IN PLACE. CONTACT PRECAUTIONS IMPLEMENTED. BED LOCKED AND IN LOWEST POSITION, SIDERAILS UP X 3. CALL LIGHT WITHIN REACH. WILL CONTINUE PER POC. Addendum: 06/21/20 at 194 by Sydnee Albert RN GTF RUNNING PRESCRIBED; GT FLUSHED, PATENT, NO RESIDUAL NOTED. Addendum: 06/21/20 at 194 by Sydnee Albert RN SEIZURE PRECAUTIONS IN PLACE- SIDERAILS PADDED.
[2020-06-21 20:00] VITALS: BP 127/74
[2020-06-21] MEDS: Dyna-Hex 2% Top Sol 2oz TOPIC SCH (20:26)
[2020-06-22] VITALS: BP 127/69
--- NOTE | 2020-06-22 | NUR ---
NURSE NOTES: WOUND CARE DONE/PICTURES TAKEN, COLOSTOMY BAG EMPTIED (300 ML OUTPUT), ORAL CARE PROVIDED- PATIENT TOLERATED WELL WITH NO S/SX OF PAIN OR DISCOMFORT. NO S/SX OF CARDIOPULMONARY DISTRESS NOTED AT THIS TIME. WILL CONTINUE TO MONITOR.
[2020-06-22 04:00] VITALS: BP 137/65
[2020-06-22] MEDS: Piperacillin/Tazobactam 3.375 GM in NS 110 ML IVPB SCH ×3 (05:38→21:01)
[2020-06-22] MEDS: Metoclopramide 10mg/10ml Liq GT SCH ×4 (05:38→23:11)
[2020-06-22] MEDS: Bethanechol 25mg Tab GT SCH ×4 (05:39→23:11)
[2020-06-22] MEDS: HydrALAZINE 25mg tab GT SCH ×3 (05:39→21:03)
[2020-06-22] MEDS: NovoLOG Insulin Flexpen SUBQ SCH ×4 (05:54→23:12)
[2020-06-22 05:59] LABS: BASOPHILS % (AUTO) 1.1 % (0.0-2.0); EOSINOPHILS % (AUTO) 5.5 % (0.0-3.0); HEMOGLOBIN 9.2 G/DL (14.2-18.0); LYMPHOCYTES % (AUTO) 14.8 % (20.0-45.0); MEAN CORPUSCULAR VOLUME 90 FL (80-99); MONOCYTES % (AUTO) 9.3 % (1.0-10.0); NEUTROPHILS % (AUTO) 69.3 % (45.0-75.0); PLATELET COUNT 471 K/UL (150-450); RED BLOOD COUNT 3.23 M/UL (4.70-6.10); RED CELL DISTRIBUTION WIDTH 16.6 % (11.6-14.8); WHITE BLOOD COUNT 14.2 K/UL (4.8-10.8)
--- NOTE | 2020-06-22 06:17 | NUR ---
NURSE NOTES: PATIENT NOTED TO BE "GAGGING", AND NODDED WHEN ASKED IF HE WAS FEELING NAUSEOUS. RESIDUAL 5ML. FEEDING TURNED OFF.
[2020-06-22 06:31] LABS: ANION GAP 4 mmol/L (5-15); BLOOD UREA NITROGEN 10 mg/dL (7-18); CALCIUM 8.2 MG/DL (8.5-10.1); CARBON DIOXIDE 30 MMOL/L (21-32); CHLORIDE 105 MMOL/L (98-107); CREATININE 0.7 MG/DL (0.55-1.30); POTASSIUM 3.6 MMOL/L (3.5-5.1); SODIUM 139 MMOL/L (136-145)
--- NOTE | 2020-06-22 07:00 | NUR ---
NURSE HAND-OFF REPORT: Important Events on Shift: C/O NAUSEA (FEEDING HELD) Patient Status: STABLE Diet: GTF GLUCERNA 1.2 @ 60ML/HR Pending Orders: DISCHARGE Pending Results/Labs:10/4 AM LABS Pending MD notification:N/A Latest Vital Signs: Temperature 98.2 , Pulse 83 , B/P 130 /76 , Respiratory Rate 18 , O2 SAT 99 , Mechanical Ventilator, O2 Flow Rate 4.0 . Vital Sign Comment: STABLE EKG Rhythm: SRw/1stAVB Rhythm change?: N Notified?: N -DR.BALFE BAILEY Response: No New Orders Received Latest Pulido Fall Score: 70 Fall Risk: High Risk Safety Measures: Call light Within Reach, Bed Alarm Zone 2, Side Rails Side Rails x3, Bed position Low and Locked. Fall Precautions: Yellow Socks Yellow Gown Door Sign Patient Fall Education Report given to BOO HOSKINS.
--- NOTE | 2020-06-22 07:34 | NUR ---
NURSE NOTES: Received report from Sydnee HADDAD.
[2020-06-22 08:00] VITALS: BP 145/70
--- NOTE | 2020-06-22 08:22 | NUR ---
NURSE NOTES: Pt. in bed, sleeping but response with tactile stimuli. No sign of distress. Mech. vent dependent with setting of AC16/VT400/Fi O2 of 35%/P5. No grimacing noted. HOB elevated at all times. On GTF Glucerna 1.2 at 60cc/hr. No n/v noted. F/C in placed patent/intact draining yellow colored urine. PICC line at right upper arm in placed patent/intact running NS at 50cc/hr. Colostomy in placed. Bed in low positioned, locked. Call light within reach. Will cont. to monitor.
[2020-06-22] MEDS: levETIRAcetam 500mg/5ml Liquid GT SCH ×2 (08:57→17:54)
[2020-06-22] MEDS: Docusate 100mg/10ml Liq GT SCH ×2 (08:57→17:54)
[2020-06-22] MEDS: Ascorbic Acid 500mg tab ORAL SCH (08:57)
[2020-06-22] MEDS: Zinc Sulfate 220mg GT SCH (08:57)
[2020-06-22] MEDS: Amiodarone 200mg tab GT SCH (09:03)
[2020-06-22] MEDS: Gentamicin for inhalation INH SCH (09:06)
--- NOTE | 2020-06-22 09:21 | General Progress Note ---
Subjective ROS Limited/Unobtainable: No Allergies: Coded Allergies: No Known Allergies (Unverified , 06/08/20) Objective Last 24 Hour Vital Signs Date Time Temp Pulse Resp B/P (MAP) Pulse Ox O2 Delivery O2 Flow Rate FiO2 06/22/20 08:58 80 145/70 06/22/20 07:20 83 18 35 06/22/20 05:39 130/76 06/22/20 04:00 98.2 84 23 137/65 (89) 99 06/22/20 04:00 Mechanical Ventilator Mechanical Ventilator 06/22/20 04:00 35 06/22/20 04:00 83 06/22/20 03:01 79 18 35 06/22/20 00:00 Mechanical Ventilator Mechanical Ventilator 06/22/20 00:00 97.9 89 22 127/69 (88) 100 06/22/20 00:00 90 06/21/20 23:12 87 24 35 06/21/20 21:08 122/65 06/21/20 20:00 86 06/21/20 20:00 35 06/21/20 20:00 Mechanical Ventilator Mechanical Ventilator 06/21/20 20:00 97.9 89 19 127/74 (91) 100 06/21/20 19:17 87 20 35 06/21/20 17:31 69 110/64 06/21/20 16:00 Mechanical Ventilator Mechanical Ventilator 06/21/20 16:00 69 06/21/20 16:00 35 06/21/20 16:00 97.9 73 20 110/64 (79) 100 06/21/20 15:00 71 16 Mechanical Ventilator 35 06/21/20 13:10 131/73 06/21/20 12:00 74 06/21/20 12:00 Mechanical Ventilator Mechanical Ventilator 06/21/20 12:00 35 06/21/20 12:00 98.1 73 18 131/73 (92) 100 06/21/20 10:50 78 21 100 Mechanical Ventilator 35 77 16 35 Intake and Output 06/21/20 06/22/20 18:59 06:59 Intake Total 1507.5 ml 1520 ml Output Total 870 ml 1850 ml Balance 637.5 ml -330 ml Intake Free Water 100 ml 200 ml IV Total 687.5 ml 600 ml Tube Feeding 720 ml 720 ml Output Urine Total 700 ml 1400 ml Stool Total 170 ml 450 ml Laboratory Tests 06/21/20 12:56: POC Whole Blood Glucose 171H 06/21/20 18:13: POC Whole Blood Glucose 161H 06/21/20 22:55: POC Whole Blood Glucose [Pending] 06/22/20 04:00: White Blood Count 14.2H, Red Blood Count 3.23L, Hemoglobin 9.2L, Hematocrit 29.0L, Mean Corpuscular Volume 90, Mean Corpuscular Hemoglobin 28.6, Mean Corpuscular Hemoglobin Concent 31.8L, Red Cell Distribution Width 16.6H, Platelet Count 471H, Mean Platelet Volume 5.2L, Neutrophils (%) (Auto) 69.3, Lymphocytes (%) (Auto) 14.8L, Monocytes (%) (Auto) 9.3, Eosinophils (%) (Auto) 5.5H, Basophils (%) (Auto) 1.1, Sodium Level 139, Potassium Level 3.6, Chloride Level 105, Carbon Dioxide Level 30, Anion Gap 4L, Blood Urea Nitrogen 10, Creatinine 0.7, Estimat Glomerular Filtration Rate > 60, Glucose Level 155H, Calcium Level 8.2L 06/22/20 05:50: POC Whole Blood Glucose 154H Height (Feet): 5 Height (Inches): 10.00 Weight (Pounds): 162 General Appearance: no apparent distress EENT: normal ENT inspection Neck: supple Cardiovascular: normal rate Respiratory/Chest: decreased breath sounds Abdomen: hypoactive bowel sounds Extremities: non-tender Assessment/Plan Status: stable Assessment/Plan: Assessment - h/o pancreatitis - resolved - s/p colostomy - sepsis/leukocytosis - resp failure / trach - dysphagia / GT - s/p CVA - Anemia - CAD - DM - hypokalemia - HTN - GERD Recommendations - Abx - CT abd/pelvis noted - PPI - Monitor CBC - TF - D/C planning per PMWade Rodriguez MD Jun 22, 2020 09:21
--- NOTE | 2020-06-22 11:00 | NUR ---
NURSE NOTES: Pt. visited by family. Pt. remain stable. Turned and repositioned.
--- NOTE | 2020-06-22 11:17 | General Progress Note ---
Subjective ROS Limited/Unobtainable: No Constitutional: Reports: malaise, weakness HEENT: Reports: no symptoms Cardiovascular: Reports: no symptoms Respiratory: Reports: cough, shortness of breath, sputum Gastrointestinal/Abdominal: Reports: difficulty swallowing Genitourinary: Reports: no symptoms Neurologic/Psychiatric: Reports: pre-existing deficit, seizure Endocrine: Reports: no symptoms Hematologic/Lymphatic: Reports: anemia Allergies: Coded Allergies: No Known Allergies (Unverified , 06/08/20) All Systems: reviewed and negative except above Subjective No significant overnight events. Patient remains on the vent. Minimal secretions. Poorly responsive at baseline. Tolerating G-tube feeds. +colostomy output. no bleeding. No residuals noted. Currently on multiple IV antibiotics. fevers better. nontoxic appearing. labs noted. Objective Last 24 Hour Vital Signs Date Time Temp Pulse Resp B/P (MAP) Pulse Ox O2 Delivery O2 Flow Rate FiO2 06/22/20 08:58 80 145/70 06/22/20 08:00 97.7 80 18 145/70 (95) 100 06/22/20 08:00 35 06/22/20 08:00 Mechanical Ventilator Mechanical Ventilator 06/22/20 07:20 83 18 35 06/22/20 05:39 130/76 06/22/20 04:00 98.2 84 23 137/65 (89) 99 06/22/20 04:00 Mechanical Ventilator Mechanical Ventilator 06/22/20 04:00 35 06/22/20 04:00 83 06/22/20 03:01 79 18 35 06/22/20 00:00 Mechanical Ventilator Mechanical Ventilator 06/22/20 00:00 97.9 89 22 127/69 (88) 100 06/22/20 00:00 90 06/21/20 23:12 87 24 35 06/21/20 21:08 122/65 06/21/20 20:00 86 06/21/20 20:00 35 06/21/20 20:00 Mechanical Ventilator Mechanical Ventilator 06/21/20 20:00 97.9 89 19 127/74 (91) 100 06/21/20 19:17 87 20 35 06/21/20 17:31 69 110/64 06/21/20 16:00 Mechanical Ventilator Mechanical Ventilator 06/21/20 16:00 69 06/21/20 16:00 35 06/21/20 16:00 97.9 73 20 110/64 (79) 100 06/21/20 15:00 71 16 Mechanical Ventilator 35 06/21/20 13:10 131/73 06/21/20 12:00 74 06/21/20 12:00 Mechanical Ventilator Mechanical Ventilator 06/21/20 12:00 35 06/21/20 12:00 98.1 73 18 131/73 (92) 100 Intake and Output 06/21/20 06/22/20 19:00 07:00 Intake Total 1480.0 ml 1410 ml Output Total 220 ml 1850 ml Balance 1260.0 ml -440 ml Intake Free Water 100 ml 200 ml IV Total 660.0 ml 550 ml Tube Feeding 720 ml 660 ml Output Urine Total 100 ml 1400 ml Stool Total 120 ml 450 ml Laboratory Tests 06/21/20 12:56: POC Whole Blood Glucose 171H 06/21/20 18:13: POC Whole Blood Glucose 161H 06/21/20 22:55: POC Whole Blood Glucose [Pending] 06/22/20 04:00: White Blood Count 14.2H, Red Blood Count 3.23L, Hemoglobin 9.2L, Hematocrit 29.0L, Mean Corpuscular Volume 90, Mean Corpuscular Hemoglobin 28.6, Mean Corpuscular Hemoglobin Concent 31.8L, Red Cell Distribution Width 16.6H, Platelet Count 471H, Mean Platelet Volume 5.2L, Neutrophils (%) (Auto) 69.3, Lymphocytes (%) (Auto) 14.8L, Monocytes (%) (Auto) 9.3, Eosinophils (%) (Auto) 5.5H, Basophils (%) (Auto) 1.1, Sodium Level 139, Potassium Level 3.6, Chloride Level 105, Carbon Dioxide Level 30, Anion Gap 4L, Blood Urea Nitrogen 10, Creatinine 0.7, Estimat Glomerular Filtration Rate > 60, Glucose Level 155H, Calcium Level 8.2L 06/22/20 05:50: POC Whole Blood Glucose 154H Height (Feet): 5 Height (Inches): 10.00 Weight (Pounds): 162 Objective General Appearance: WD/WN, no apparent distress, alert Neck: non-tender, normal alignment Cardiovascular: normal rate Respiratory/Chest: chest wall non-tender, lungs clear, normal breath sounds Abdomen: normal bowel sounds, non tender, soft, no organomegaly Edema: no edema noted Arm (L), no edema noted Arm (R) Neurologic: unresponsive Skin: normal pigmentation Lymphatic: normal anterior cervical (L), normal anterior cervical (R) Assessment/Plan Problem List: (1) Stage 4 skin ulcer of sacral region ICD Codes: L98.429 - Non-pressure chronic ulcer of back with unspecified severity SNOMED: 29590409, 132166271 (2) Colostomy in place ICD Codes: Z93.3 - Colostomy status SNOMED: 689245612, 223364773 (3) Sepsis ICD Codes: A41.9 - Sepsis, unspecified organism SNOMED: 90705783 (4) Pneumonia ICD Codes: J18.9 - Pneumonia, unspecified organism SNOMED: 539824447 Qualifiers: Qualified Codes: J18.9 - Pneumonia, unspecified organism (5) UTI (urinary tract infection) ICD Codes: N39.0 - Urinary tract infection, site not specified SNOMED: 00030734 Qualifiers: Qualified Codes: N30.01 - Acute cystitis with hematuria Status: stable Assessment/Plan: cont iv abx per ID monitor wbc- improving monitor cxr tube feeds replace lytes as needed vent support resp rx suctioning as needed wean as able cont bp rx tylenol prn wound care per surgery colostomy care turn q2 dvt/stress ulcer prophylaxis dc planning Robby Mays MD Jun 22, 2020 11:17
[2020-06-22 12:00] VITALS: BP 136/76
--- NOTE | 2020-06-22 14:04 | Infectious Diseases Prog Note ---
Assessment/Plan Assessment/Plan A 1. coagulase neg staph line sepsis 2. pneumonia 3. E.coli Enterococcus, fungal UTI 4. leucocytosis resolved 5. Ventilatory dependent respiratory failure 6. diabetes mellitus 7. hypertension 8. 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 New fever P 1. continue iv vancomycin X 28 days days 2. Discontinue Gentamicin inhaler 3. Continue Zosyn Subjective ROS Limited/Unobtainable: Yes Constitutional: Denies: fever Allergies: Coded Allergies: No Known Allergies (Unverified , 06/08/20) Objective Last 24 Hour Vital Signs Date Time Temp Pulse Resp B/P (MAP) Pulse Ox O2 Delivery O2 Flow Rate FiO2 06/22/20 12:00 97.7 83 18 136/76 (96) 97 06/22/20 12:00 35 06/22/20 08:58 80 145/70 06/22/20 08:00 97.7 80 18 145/70 (95) 100 06/22/20 08:00 35 06/22/20 08:00 Mechanical Ventilator Mechanical Ventilator 06/22/20 07:49 73 06/22/20 07:20 83 18 35 06/22/20 05:39 130/76 06/22/20 04:00 98.2 84 23 137/65 (89) 99 06/22/20 04:00 Mechanical Ventilator Mechanical Ventilator 06/22/20 04:00 35 06/22/20 04:00 83 06/22/20 03:01 79 18 35 06/22/20 00:00 Mechanical Ventilator Mechanical Ventilator 06/22/20 00:00 97.9 89 22 127/69 (88) 100 06/22/20 00:00 90 06/21/20 23:12 87 24 35 06/21/20 21:08 122/65 06/21/20 20:00 86 06/21/20 20:00 35 06/21/20 20:00 Mechanical Ventilator Mechanical Ventilator 06/21/20 20:00 97.9 89 19 127/74 (91) 100 06/21/20 19:17 87 20 35 06/21/20 17:31 69 110/64 06/21/20 16:00 Mechanical Ventilator Mechanical Ventilator 06/21/20 16:00 69 06/21/20 16:00 35 06/21/20 16:00 97.9 73 20 110/64 (79) 100 06/21/20 15:00 71 16 Mechanical Ventilator 35 Height (Feet): 5 Height (Inches): 10.00 Weight (Pounds): 162 HEENT: mucous membranes moist, status post trach Respiratory/Chest: lungs clear, other - on ventilator Cardiovascular: normal rate Abdomen: soft, non tender, other - GT feeding Extremities: other - arms edema Neurologic/Psychiatric: other - opens left eyes Microbiology Date/Time Source Procedure Growth Status 06/21/20 03:00 Sputum Gram Stain - Final Resulted 06/21/20 03:00 Sputum Sputum Culture Pending Resulted 06/20/20 20:00 Stool Clostridium difficile Toxin Assay - Final Complete 06/20/20 07:00 Indwelling Cath Urine Culture - Preliminary NO GROWTH AFTER 24 HOURS Resulted Laboratory Tests Test 06/21/20 18:13 06/21/20 22:55 06/22/20 04:00 06/22/20 05:50 POC Whole Blood Glucose 161 MG/DL (74-106) H Pending 154 MG/DL (74-106) H White Blood Count 14.2 K/UL (4.8-10.8) H Red Blood Count 3.23 M/UL (4.70-6.10) L Hemoglobin 9.2 G/DL (14.2-18.0) L Hematocrit 29.0 % (42.0-52.0) L Mean Corpuscular Volume 90 FL (80-99) Mean Corpuscular Hemoglobin 28.6 PG (27.0-31.0) Mean Corpuscular Hemoglobin Concent 31.8 G/DL (32.0-36.0) L Red Cell Distribution Width 16.6 % (11.6-14.8) H Platelet Count 471 K/UL (150-450) H Mean Platelet Volume 5.2 FL (6.5-10.1) L Neutrophils (%) (Auto) 69.3 % (45.0-75.0) Lymphocytes (%) (Auto) 14.8 % (20.0-45.0) L Monocytes (%) (Auto) 9.3 % (1.0-10.0) Eosinophils (%) (Auto) 5.5 % (0.0-3.0) H Basophils (%) (Auto) 1.1 % (0.0-2.0) Sodium Level 139 MMOL/L (136-145) Potassium Level 3.6 MMOL/L (3.5-5.1) Chloride Level 105 MMOL/L (98-107) Carbon Dioxide Level 30 MMOL/L (21-32) Anion Gap 4 mmol/L (5-15) L Blood Urea Nitrogen 10 mg/dL (7-18) Creatinine 0.7 MG/DL (0.55-1.30) Estimat Glomerular Filtration Rate > 60 mL/min (>60) Glucose Level 155 MG/DL (74-106) H Calcium Level 8.2 MG/DL (8.5-10.1) L Current Medications Medications (Trade) Dose Ordered Sig/Milla Route PRN Reason Start Time Stop Time Status Last Admin Dose Admin Acetaminophen (Tylenol) 650 mg Q4H PRN ORAL Temp >100.5 06/13/20 21:15 07/13/20 21:14 06/21/20 02:34 Amiodarone HCl (Cordarone) 200 mg DAILY GT 06/09/20 09:00 09/07/20 08:59 06/22/20 09:03 Amlodipine Besylate (Norvasc) 5 mg TWICE A DAY GT 06/09/20 09:00 07/09/20 08:59 06/22/20 08:58 Ascorbic Acid (Vitamin C) 500 mg DAILY ORAL 06/18/20 09:00 07/18/20 08:59 06/22/20 08:57 Bethanechol Chloride (Urecholine) 25 mg Q6HR GT 06/09/20 06:00 07/09/20 05:59 06/22/20 12:27 Chlorhexidine Gluconate (Sue-Hex 2%) 1 applic DAILY@1999 TOPIC 06/10/20 20:00 09/08/20 19:59 06/21/20 20:26 Clonidine HCl (Catapres Tab) 0.1 mg Q6H PRN GT For High Blood Pressure 06/09/20 00:30 09/07/20 00:29 Dextrose (Dextrose 50%) 25 ml Q30M PRN IV Hypoglycemia 06/09/20 06:00 09/07/20 05:59 06/09/20 06:02 Dextrose (Dextrose 50%) 50 ml Q30M PRN IV Hypoglycemia 06/09/20 00:15 09/07/20 00:14 Docusate Sodium (Colace) 100 mg TWICE A DAY GT 06/09/20 09:00 07/09/20 08:59 06/22/20 08:57 Epoetin Cameron (Epoetin Cameron-EPBX(NON ESRD)) 3,000 unit TUE- SUBQ 06/16/20 21:00 09/14/20 20:59 06/20/20 21:14 Epoetin Cameron (Epoetin Cameron-EPBX(NON ESRD)) 4,000 unit SUBQ 06/16/20 21:00 09/14/20 20:59 06/20/20 21:14 Famotidine (Pepcid) 20 mg TWICE A DAY GT 06/09/20 09:00 09/07/20 08:59 06/22/20 08:57 Gentamicin Sulfate (Gentamicin vial) 300 mg Q12HR@10,22 INH 06/16/20 22:00 06/23/20 21:59 06/22/20 09:06 Hydralazine HCl (Apresoline) 25 mg EVERY 8 HOURS GT 06/09/20 06:00 09/07/20 05:59 06/22/20 05:39 Insulin Aspart (NovoLOG) Q6HR SUBQ 06/09/20 06:00 09/07/20 05:59 06/22/20 12:28 Lactulose (Cephulac) 20 gm Q6H PRN GT Constipation 06/09/20 00:30 07/09/20 00:29 Lansoprazole (Prevacid) 30 mg TWICE A DAY GT 06/09/20 09:00 07/09/20 08:59 06/22/20 08:58 Levetiracetam (Keppra) 500 mg TWICE A DAY GT 06/09/20 09:00 07/09/20 08:59 06/22/20 08:57 Levothyroxine Sodium (Synthroid) 75 mcg DAILY GT 06/09/20 09:00 07/09/20 08:59 06/22/20 08:57 Metoclopramide HCl (Reglan) 5 mg EVERY 6 HOURS GT 06/09/20 06:00 07/09/20 05:59 06/22/20 12:27 Nitroglycerin (Ntg) 0.4 mg Q5MIN X 3 DOSES PRN SL CHEST PAIN 06/09/20 00:30 07/09/20 00:29 Ondansetron HCl (Zofran) 4 mg Q6H PRN GT Nausea & Vomiting 06/09/20 00:30 07/09/20 00:29 06/20/20 03:24 Piperacillin Sod/ Tazobactam Sod 3.375 gm/Sodium Chloride 110 ml @ 27.5 mls/hr EVERY 8 HOURS IVPB 06/20/20 14:00 06/25/20 13:59 06/22/20 05:38 Pravastatin Sodium (Pravachol) 40 mg BEDTIME GT 06/09/20 21:00 07/09/20 20:59 06/21/20 20:27 Sodium Chloride 1,000 ml @ 50 mls/hr Q20H IV 06/09/20 01:00 07/09/20 00:59 06/22/20 06:34 Vancomycin HCl (Vanco pharmacy to dose) 1 ea DAILY PRN MISC Per rx protocol 06/09/20 00:15 07/20/20 00:14 Vancomycin/Sodium Chloride 250 ml @ 125 mls/hr Q24H IVPB 06/18/20 23:00 07/22/20 22:59 06/21/20 22:56 Zinc Sulfate (Zinc Sulfate) 220 mg DAILY GT 06/09/20 09:00 09/07/20 08:59 06/22/20 08:57 Ramakrishna Lancaster MD Jun 22, 2020 14:04
--- NOTE | 2020-06-22 15:55 | Surgery Progress Note ---
Surgery Progress Note Subjective Additional Comments afebrile HD stable wbc 14k Objective Last 24 Hour Vital Signs Date Time Temp Pulse Resp B/P (MAP) Pulse Ox O2 Delivery O2 Flow Rate FiO2 06/22/20 15:11 76 16 35 06/22/20 14:28 140/73 06/22/20 12:00 97.7 83 18 136/76 (96) 97 06/22/20 12:00 35 06/22/20 11:24 87 20 35 06/22/20 08:58 80 145/70 06/22/20 08:00 97.7 80 18 145/70 (95) 100 06/22/20 08:00 35 06/22/20 08:00 Mechanical Ventilator Mechanical Ventilator 06/22/20 07:49 73 06/22/20 07:20 83 18 35 06/22/20 05:39 130/76 06/22/20 04:00 98.2 84 23 137/65 (89) 99 06/22/20 04:00 Mechanical Ventilator Mechanical Ventilator 06/22/20 04:00 35 06/22/20 04:00 83 06/22/20 03:01 79 18 35 06/22/20 00:00 Mechanical Ventilator Mechanical Ventilator 06/22/20 00:00 97.9 89 22 127/69 (88) 100 06/22/20 00:00 90 06/21/20 23:12 87 24 35 06/21/20 21:08 122/65 06/21/20 20:00 86 06/21/20 20:00 35 06/21/20 20:00 Mechanical Ventilator Mechanical Ventilator 06/21/20 20:00 97.9 89 19 127/74 (91) 100 06/21/20 19:17 87 20 35 06/21/20 17:31 69 110/64 06/21/20 16:00 Mechanical Ventilator Mechanical Ventilator 06/21/20 16:00 69 06/21/20 16:00 35 06/21/20 16:00 97.9 73 20 110/64 (79) 100 I&O Intake and Output 06/21/20 06/22/20 19:00 07:00 Intake Total 1480.0 ml 1410 ml Output Total 220 ml 1850 ml Balance 1260.0 ml -440 ml Intake Free Water 100 ml 200 ml IV Total 660.0 ml 550 ml Tube Feeding 720 ml 660 ml Output Urine Total 100 ml 1400 ml Stool Total 120 ml 450 ml Dressing: saturated Cardiovascular: RSR Respiratory: decreased breath sounds Abdomen: soft, non-tender, present bowel sounds Extremities: no tenderness, no cyanosis Laboratory Tests Test 06/21/20 18:13 06/21/20 22:55 06/22/20 04:00 06/22/20 05:50 POC Whole Blood Glucose 161 MG/DL (74-106) H Pending 154 MG/DL (74-106) H White Blood Count 14.2 K/UL (4.8-10.8) H Red Blood Count 3.23 M/UL (4.70-6.10) L Hemoglobin 9.2 G/DL (14.2-18.0) L Hematocrit 29.0 % (42.0-52.0) L Mean Corpuscular Volume 90 FL (80-99) Mean Corpuscular Hemoglobin 28.6 PG (27.0-31.0) Mean Corpuscular Hemoglobin Concent 31.8 G/DL (32.0-36.0) L Red Cell Distribution Width 16.6 % (11.6-14.8) H Platelet Count 471 K/UL (150-450) H Mean Platelet Volume 5.2 FL (6.5-10.1) L Neutrophils (%) (Auto) 69.3 % (45.0-75.0) Lymphocytes (%) (Auto) 14.8 % (20.0-45.0) L Monocytes (%) (Auto) 9.3 % (1.0-10.0) Eosinophils (%) (Auto) 5.5 % (0.0-3.0) H Basophils (%) (Auto) 1.1 % (0.0-2.0) Sodium Level 139 MMOL/L (136-145) Potassium Level 3.6 MMOL/L (3.5-5.1) Chloride Level 105 MMOL/L (98-107) Carbon Dioxide Level 30 MMOL/L (21-32) Anion Gap 4 mmol/L (5-15) L Blood Urea Nitrogen 10 mg/dL (7-18) Creatinine 0.7 MG/DL (0.55-1.30) Estimat Glomerular Filtration Rate > 60 mL/min (>60) Glucose Level 155 MG/DL (74-106) H Calcium Level 8.2 MG/DL (8.5-10.1) L Plan Problems: (1) UTI (urinary tract infection) (2) Pneumonia (3) Sepsis Assessment & Plan: leukocytosis, anemia. abnormal labs stage 4 sacral prior debridement and seems like ostectomy colostomy noted mid back and bilateral ischial dti ua noted on iv abx g tube in place but per reports on tpn at facility labs ordered imaging ordered no acute surgical intervention planned will follow with recs improving cont diet as tolerated cont abx DAILY ESTIMATED NEEDS: Needs based on Critical care, wound / 67kg 22-30 kcals/kg 5739-0204 total kcals 1.25-2 g protein/kg 83-134 g total protein 25-30 mL/kg 4973-7364 total fluid mLs NUTRITION DIAGNOSIS: * Swallowing difficulty R/T dysphagia, respiratory status as evidenced by pt trach/vent dep, h/o PEG placement, GT feeds held and was on TPN [employer] for Pancreatitis, which now resolved, now on GT feeds. * Increased kcal/prot intake needs R/T wound healing as evidenced by pt admitted w /multiple advanced wounds, including full thickness Pressure Injury @ lumbar spine and sacrum w/ small area of bone exposure, DTPI wounds @ L lower buttocks, L ischium, R ischium, resolving pressure injury @ L tibia, unstageable wound @ R Tibia, R Lheel, and partial thickness pressure injury @ L heel. CURRENT TF:Glucerna 1.2 @ 60ml/hr x 22 hrs (on synthroid) ENTERAL NUTRITION RECOMMENDATIONS: Glucerna 1.2 @ 65ml/hr x 22 hrs + Prosource 1pkt daily to provide 1430ml, 1716kcal, 86g +11g prot (1.5g/kg), 1151ml free water * Increase current TF to goal of 65ml/hr as TF held for 2 hrs for synthroid meds. * Add Prosource 1pkt daily to better meet protein needs * HOB over 30 degrees/ water flush per MD * add Grady BID via GT for wound healing (additional 5g pro) ADDITIONAL RECOMMENDATIONS: * Per SNF: HT=5'8" HU=699mru (as of 05/22/20), rec re-calibrated bedscale wt * Monitor TF tolerance: lipase wnl, h/o pancreatitis * Monitor lytes, replete as needed (K 2.7*-> now wnl) * Wound healing: add Vit C 500mg x1, continue ZnSO4 TF @ goal provides 100% est kcal/prot needs add Grady BID . 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 Dry eschar noted to L earlobe(L)0.8cm x (W)0.6cm. No erythema noted periwound. Loose,dry eschar cap L earlobe(L)1cm x (W)0.7cm. Base of wound beneath loose eschar cap is moist and paul. No odor or exudate noted. Non-Blanchable erythema with shearing centrally posterior neck under tracheal collar.Periwound skin is dark without erythema or fluctuance.(L)1.5cm x (W)4.5cm. Resolving Pressure injury L lumbar area(L)2cm x (W00.7cm. Roebuck epithelial at base of wound. Loose dry edges . no erythema or induration periwound. Full thickness Pressure Injury Lumbar Spine(L)2.5cm x (W)1.5cm. Base of wound is 75% paul and moist,25% slough.Borders are macerated. No odor or exudate noted. Periwound without erythema or fluctuance. Full Thickness Sacral Pressure Injury (L)7.5cm x (W)8.8cm x (D)2.4cm, undermining clockwise 12-5 by 1.8cm @2o'clock. Base of wound is beefy red with purpuric area at base. Small area of bone exposure, scattered slough(20%) Wound is otherwise beefy red. Small amt serous exudate note. No odor noted. DTPI L lower Buttocks that is evolving. Base of wound is 75% soft necrosis,25% most and pink with surrounding maroon and indurated borders. DTPI that is evolving and is partially opened at L ischium(L)8cm x (W)9.5cm. Base of wound is purpuric ,indurated with opening that is 25% slough,75% moist and pink. NO odor noted. DTPI R Ischium that is evolving and is partially opened(L)6.3cm x (W)6.5cm. Base of wound is Indurated reddish/brown with opening that is 25% slough,25% soft necrosis,50% moist and pink. NO odor or exudate noted. No evidence of erythema or fluctuance periwound. Resolving Pressure Injury posterior L tibia with dry eschar cap,mixed dry pink epithelial. Unstageable Pressure injury posterior R Tibia. Stable dry eschar noted(L)14.5cm x (W)1.7cm. Unstageable Pressure Injury R heel(L)3.2cm x (W)4.2cm. Base of wound is 100% necrotic with marginal erythema and fluctuance periwound. Partial Thickness Pressure Injury medial L heel(L)1.3cm x (W)1.2cm. Base of wound is moist and viable . Edges are macerated with surrounding non-blanchable erythema with fluctuance. UNstageable Pressure Injury Lateral L Heel . Base of wound is 100% soft necrosis and is malodorous. Non-Blanchable erythema with Fluctuance periwound.(L)4cm x (W)3.4cm. Tx.Plan: Apply Betadine to R and L earlobes. Cover each ear with Optifoam drsg. Change every 3 days and prn. Apply Cavilon Skin Barrier to posterior neck. Cover with Optifoam drsg. Change every 3 days and prn. Cleanse Wounds Lumbar and L lumbar with Saline. Apply TheraHoney. Apply Moisture Barrier Paste periwound. Cover each site with Optifoam drsgs. Change every 3 days and prn. Cleanse Sacral wound with Saline. Loosely pack with Therahoney impregnated Kerlix. Apply Moisture Barrier paste periwound. Cover with Optifoam drsg. Change Daily and prn. Apply Moisture Barrier Paste to Scrotum with each incontinence care. Cleanse R and L Ischial wounds with Saline. Apply Therahoney. Apply Moisture Barrier Paste periwound. Cover each wound with Optifoam drsg. Changee very 3 days and prn. Apply Betadine to Posterior R and L Tibial wounds. Cover each wound with Optifoam drsgs. Change every 3 days and prn. Apply Betadine to R and L Heel wounds. Cover each heel with Optifoam drsgs. Change every 3 days and prn. Reposition at least every 2hours or as tolerated. Off-load heels with Pillows. APM/COLBY Mattress overlay. Jonny Powell Jun 22, 2020 15:55
[2020-06-22 16:00] VITALS: BP 116/58
--- NOTE | 2020-06-22 16:00 | NUR ---
NURSE NOTES: Sister of pt. at bedside for support. V/S WNL.
--- NOTE | 2020-06-22 16:33 | Pulmonology Progress Note ---
Subjective ROS Limited/Unobtainable: Yes Constitutional: Denies: fever Allergies: Coded Allergies: No Known Allergies (Unverified , 06/08/20) All Systems: reviewed and negative except above Objective Last 24 Hour Vital Signs Date Time Temp Pulse Resp B/P (MAP) Pulse Ox O2 Delivery O2 Flow Rate FiO2 06/22/20 16:00 Mechanical Ventilator Mechanical Ventilator 06/22/20 16:00 35 06/22/20 16:00 98.4 62 18 116/58 (77) 93 06/22/20 15:11 76 16 35 06/22/20 14:28 140/73 06/22/20 12:00 Mechanical Ventilator Mechanical Ventilator 06/22/20 12:00 97.7 83 18 136/76 (96) 97 06/22/20 12:00 35 06/22/20 11:33 81 06/22/20 11:24 87 20 35 06/22/20 08:58 80 145/70 06/22/20 08:00 97.7 80 18 145/70 (95) 100 06/22/20 08:00 35 06/22/20 08:00 Mechanical Ventilator Mechanical Ventilator 06/22/20 07:49 73 06/22/20 07:20 83 18 35 06/22/20 05:39 130/76 06/22/20 04:00 98.2 84 23 137/65 (89) 99 06/22/20 04:00 Mechanical Ventilator Mechanical Ventilator 06/22/20 04:00 35 06/22/20 04:00 83 06/22/20 03:01 79 18 35 06/22/20 00:00 Mechanical Ventilator Mechanical Ventilator 06/22/20 00:00 97.9 89 22 127/69 (88) 100 06/22/20 00:00 90 06/21/20 23:12 87 24 35 06/21/20 21:08 122/65 06/21/20 20:00 86 06/21/20 20:00 35 06/21/20 20:00 Mechanical Ventilator Mechanical Ventilator 06/21/20 20:00 97.9 89 19 127/74 (91) 100 06/21/20 19:17 87 20 35 06/21/20 17:31 69 110/64 Intake and Output 06/21/20 06/22/20 19:00 07:00 Intake Total 1480.0 ml 1410 ml Output Total 220 ml 1850 ml Balance 1260.0 ml -440 ml Intake Free Water 100 ml 200 ml IV Total 660.0 ml 550 ml Tube Feeding 720 ml 660 ml Output Urine Total 100 ml 1400 ml Stool Total 120 ml 450 ml Microbiology Date/Time Source Procedure Growth Status 06/21/20 03:00 Sputum Gram Stain - Final Resulted 06/21/20 03:00 Sputum Sputum Culture Pending Resulted 06/20/20 20:00 Stool Clostridium difficile Toxin Assay - Final Complete 06/20/20 07:00 Indwelling Cath Urine Culture - Preliminary NO GROWTH AFTER 24 HOURS Resulted Laboratory Tests 06/21/20 18:13: POC Whole Blood Glucose 161H 06/21/20 22:55: POC Whole Blood Glucose [Pending] 06/22/20 04:00: White Blood Count 14.2H, Red Blood Count 3.23L, Hemoglobin 9.2L, Hematocrit 29.0L, Mean Corpuscular Volume 90, Mean Corpuscular Hemoglobin 28.6, Mean Corpuscular Hemoglobin Concent 31.8L, Red Cell Distribution Width 16.6H, Platelet Count 471H, Mean Platelet Volume 5.2L, Neutrophils (%) (Auto) 69.3, Lymphocytes (%) (Auto) 14.8L, Monocytes (%) (Auto) 9.3, Eosinophils (%) (Auto) 5.5H, Basophils (%) (Auto) 1.1, Sodium Level 139, Potassium Level 3.6, Chloride Level 105, Carbon Dioxide Level 30, Anion Gap 4L, Blood Urea Nitrogen 10, Creatinine 0.7, Estimat Glomerular Filtration Rate > 60, Glucose Level 155H, Calcium Level 8.2L 06/22/20 05:50: POC Whole Blood Glucose 154H Current Medications Medications (Trade) Dose Ordered Sig/Milla Route PRN Reason Start Time Stop Time Status Last Admin Dose Admin Acetaminophen (Tylenol) 650 mg Q4H PRN ORAL Temp >100.5 06/13/20 21:15 07/13/20 21:14 06/21/20 02:34 Amiodarone HCl (Cordarone) 200 mg DAILY GT 06/09/20 09:00 09/07/20 08:59 06/22/20 09:03 Amlodipine Besylate (Norvasc) 5 mg TWICE A DAY GT 06/09/20 09:00 07/09/20 08:59 06/22/20 08:58 Ascorbic Acid (Vitamin C) 500 mg DAILY ORAL 06/18/20 09:00 07/18/20 08:59 06/22/20 08:57 Bethanechol Chloride (Urecholine) 25 mg Q6HR GT 06/09/20 06:00 07/09/20 05:59 06/22/20 12:27 Chlorhexidine Gluconate (Sue-Hex 2%) 1 applic DAILY@1999 TOPIC 06/10/20 20:00 09/08/20 19:59 06/21/20 20:26 Clonidine HCl (Catapres Tab) 0.1 mg Q6H PRN GT For High Blood Pressure 06/09/20 00:30 09/07/20 00:29 Dextrose (Dextrose 50%) 25 ml Q30M PRN IV Hypoglycemia 06/09/20 06:00 09/07/20 05:59 06/09/20 06:02 Dextrose (Dextrose 50%) 50 ml Q30M PRN IV Hypoglycemia 06/09/20 00:15 09/07/20 00:14 Docusate Sodium (Colace) 100 mg TWICE A DAY GT 06/09/20 09:00 07/09/20 08:59 06/22/20 08:57 Epoetin Cameron (Epoetin Cameron-EPBX(NON ESRD)) 3,000 unit SUBQ 06/16/20 21:00 09/14/20 20:59 06/20/20 21:14 Epoetin Cameron (Epoetin Cameron-EPBX(NON ESRD)) 4,000 unit SUBQ 06/16/20 21:00 09/14/20 20:59 06/20/20 21:14 Famotidine (Pepcid) 20 mg TWICE A DAY GT 06/09/20 09:00 09/07/20 08:59 06/22/20 08:57 Hydralazine HCl (Apresoline) 25 mg EVERY 8 HOURS GT 06/09/20 06:00 09/07/20 05:59 06/22/20 14:28 Insulin Aspart (NovoLOG) Q6HR SUBQ 06/09/20 06:00 09/07/20 05:59 06/22/20 12:28 Lactulose (Cephulac) 20 gm Q6H PRN GT Constipation 06/09/20 00:30 07/09/20 00:29 Lansoprazole (Prevacid) 30 mg TWICE A DAY GT 06/09/20 09:00 07/09/20 08:59 06/22/20 08:58 Levetiracetam (Keppra) 500 mg TWICE A DAY GT 06/09/20 09:00 07/09/20 08:59 06/22/20 08:57 Levothyroxine Sodium (Synthroid) 75 mcg DAILY GT 06/09/20 09:00 07/09/20 08:59 06/22/20 08:57 Metoclopramide HCl (Reglan) 5 mg EVERY 6 HOURS GT 06/09/20 06:00 07/09/20 05:59 06/22/20 12:27 Nitroglycerin (Ntg) 0.4 mg Q5MIN X 3 DOSES PRN SL CHEST PAIN 06/09/20 00:30 07/09/20 00:29 Ondansetron HCl (Zofran) 4 mg Q6H PRN GT Nausea & Vomiting 06/09/20 00:30 07/09/20 00:29 06/20/20 03:24 Piperacillin Sod/ Tazobactam Sod 3.375 gm/Sodium Chloride 110 ml @ 27.5 mls/hr EVERY 8 HOURS IVPB 06/20/20 14:00 06/25/20 13:59 06/22/20 14:28 Pravastatin Sodium (Pravachol) 40 mg BEDTIME GT 06/09/20 21:00 07/09/20 20:59 06/21/20 20:27 Sodium Chloride 1,000 ml @ 50 mls/hr Q20H IV 06/09/20 01:00 07/09/20 00:59 06/22/20 06:34 Vancomycin HCl (Vanco pharmacy to dose) 1 ea DAILY PRN MISC Per rx protocol 06/09/20 00:15 07/20/20 00:14 Vancomycin/Sodium Chloride 250 ml @ 125 mls/hr Q24H IVPB 06/18/20 23:00 07/22/20 22:59 06/21/20 22:56 Zinc Sulfate (Zinc Sulfate) 220 mg DAILY GT 06/09/20 09:00 09/07/20 08:59 06/22/20 08:57 Assessment/Plan Assessment/Plan Pulmonary Progress Note HPI Patient is a 70 year old man with.past medical history of Respiratory failure, Sepsis, Chronic Kidney Disease, Type 2 Diabetes, and Decubitus ulcers, Hypertension, GERD, Anemia Pancreatitis, on TPN, Seizure Hx, Hypothyroidism, Hyperlidemia. Noted to have abnormal labs, having an elevated WBC count of 28K. No fevers, chills noted. HPI and ROS are limited Pt. unable to give detail regarding his ED visit as he is non-verbal. Allergies: No Known Allergies Past Medical History: Respiratory failure, Sepsis, Chronic Kidney Disease, Type 2 Diabetes, and Decubitus ulcers, Hypertension, GERD, Anemia Pancreatitis, on TPN, Seizure Hx, Hypothyroidism, Hyperlipidemia Physical Exam Vital Signs Noted Physical Examination: Chronically ill appearing HEENT:NCAT, moist mm Chest: CTAB Heart: Hs1, HS2, RRR Abdomen: SNTND, G tube Extyremities: Wellperfusedd, no edema HEAD AND NECK SURGEON: AMS, no focal signs, no seizures Assessment/Plan Assessment sepsis leukocytosis anemia colostomy respiratory failure possible gib chronic pancreatitis chronic encephalopathy hypernatremia acute renal failure pneumonia bacteremia UTI pneumonia sacral osteo/ decub diverting colostomy Plan vent support IV antibiotics- noted; x 31 days of vanco total complete gent inhaled GI on feeds and tolerating ID recommendations noted - concern of wbc elevation close follow up monitor HH guarded at present hope to dc soon back to snf once cleared by ID CXR to monitor impression, plan, and exam edited and reviewed in detail care discussed with RN Labs noted EKG: Rate: normal - 98 Rhythm: NSR ST Segments: no acute changes Other Impression 1st degree AV block Chest X-Ray no pneumothorax, other - Left lower lobe infiltrate. Abner Mcclelland MD Jun 22, 2020 16:32
--- NOTE | 2020-06-22 19:15 | NUR ---
NURSE NOTES: Received report from BOO Sykes. Patient awake in bed, opens eyes and tracking, oriented to name, afebrile and no respiratory distress noted. Vent to trache Portex 8, AC 16,TV 400, FiO2 35%, Peep 5 saturating at 99-100%. With Right upper arm PICC line to NS at 50cc/hr intact, flushed and asymptomatic. On Glucerna 1.2 at 60cc/hr via GT infusing well without any sediments. With FC to urine bag draining well with yellowish urine. HOB elevated. Call light within reach. Bed rails are up and wheels are locked. Continue plan of care
--- NOTE | 2020-06-22 19:27 | NUR ---
NURSE HAND-OFF REPORT: Important Events on Shift: Awaiting for pending d/c back to SNF. Patient Status: stable. Diet: Glucerna 1.2 at 60cc/hr Pending Orders: discharge back to SNF Pending Results/Labs: Pending MD notification: Latest Vital Signs: Temperature 98.4 , Pulse 62 , B/P 116 /58 , Respiratory Rate 18 , O2 SAT 93 , Mechanical Ventilator, O2 Flow Rate 4.0 . Vital Sign Comment: EKG Rhythm: SR w/ 1st AVB Rhythm change?: N Notified?: N -DR.BALFE BAILEY Response: No New Orders Received Latest Pulido Fall Score: 70 Fall Risk: High Risk Safety Measures: Call light Within Reach, Bed Alarm Zone 2, Side Rails Side Rails x3, Bed position Low and Locked. Fall Precautions: Yellow Socks Yellow Gown Door Sign Patient Fall Education Report given to SEUN HADDAD.
[2020-06-22 20:00] VITALS: BP 135/79
[2020-06-22] MEDS: Dyna-Hex 2% Top Sol 2oz TOPIC SCH (21:00)
[2020-06-22] MEDS: [UNRECOGNIZED DRUG - OTHER] IVPB SCH (22:05)
[2020-06-22] MEDS: VANCOMYCIN IVPB SCH (22:05)
[2020-06-23] VITALS: BP 141/77
[2020-06-23 04:00] VITALS: BP 148/80
[2020-06-23] MEDS: Bethanechol 25mg Tab GT SCH ×2 (06:22→12:40)
[2020-06-23] MEDS: Metoclopramide 10mg/10ml Liq GT SCH ×2 (06:22→12:41)
[2020-06-23] MEDS: HydrALAZINE 25mg tab GT SCH ×2 (06:22→14:28)
[2020-06-23] MEDS: NovoLOG Insulin Flexpen SUBQ SCH ×2 (06:23→11:56)
[2020-06-23] MEDS: Piperacillin/Tazobactam 3.375 GM in NS 110 ML IVPB SCH ×2 (06:45→14:29)
--- NOTE | 2020-06-23 07:00 | NUR ---
NURSE NOTES: received patient report from SEUN RN. patient is noted to be on vent at prescribed rate. TF running, tolerating. SR on the monitor. no acute events reported last night. afebrile. calm, comfortable, wound care per order. will follow plan of care.
--- NOTE | 2020-06-23 07:20 | NUR ---
HAND-OFF: Report given to Yuniel Vick. Patient stable..
[2020-06-23 08:00] VITALS: BP 136/78
--- NOTE | 2020-06-23 08:03 | Pulmonology Progress Note ---
Subjective ROS Limited/Unobtainable: Yes Constitutional: Denies: fever Allergies: Coded Allergies: No Known Allergies (Unverified , 06/08/20) All Systems: reviewed and negative except above Subjective care noted overnight events reviewed on vent on feeds d/w all- wbc not yet normal Objective Last 24 Hour Vital Signs Date Time Temp Pulse Resp B/P (MAP) Pulse Ox O2 Delivery O2 Flow Rate FiO2 06/23/20 07:10 91 23 35 06/23/20 06:22 144/80 06/23/20 04:00 35 06/23/20 04:00 98.2 94 18 148/80 (102) 93 06/23/20 04:00 Mechanical Ventilator Mechanical Ventilator 06/23/20 03:43 97 06/23/20 03:05 95 24 35 06/23/20 00:00 Mechanical Ventilator Mechanical Ventilator 06/23/20 00:00 98.0 100 18 141/77 (98) 93 06/22/20 23:34 100 06/22/20 23:15 98 25 35 06/22/20 21:03 125/75 06/22/20 20:00 35 06/22/20 20:00 Mechanical Ventilator Mechanical Ventilator 06/22/20 20:00 98.1 91 18 135/79 (97) 93 06/22/20 19:57 92 20 35 06/22/20 19:32 90 06/22/20 17:55 62 116/58 06/22/20 16:00 Mechanical Ventilator Mechanical Ventilator 06/22/20 16:00 35 06/22/20 16:00 98.4 62 18 116/58 (77) 93 06/22/20 15:22 85 06/22/20 15:11 76 16 35 06/22/20 14:28 140/73 06/22/20 12:00 Mechanical Ventilator Mechanical Ventilator 06/22/20 12:00 97.7 83 18 136/76 (96) 97 06/22/20 12:00 35 06/22/20 11:33 81 06/22/20 11:24 87 20 35 06/22/20 08:58 80 145/70 Intake and Output 06/22/20 06/23/20 19:00 07:00 Intake Total 1450 ml 1801.0 ml Output Total 1400 ml 2000 ml Balance 50 ml -199.0 ml Intake Free Water 300 ml 180 ml IV Total 550 ml 901.0 ml Tube Feeding 600 ml 720 ml Output Urine Total 1200 ml 2000 ml Stool Total 200 ml Objective WDWN NAD reduced breath sounds bilaterally without rhonchi or wheeze [id number] without MRG NABS nontender colostomy no CCE nonfocal reduced LOC trach in place reviewed Microbiology Date/Time Source Procedure Growth Status 06/21/20 03:00 Sputum Gram Stain - Final Resulted 06/21/20 03:00 Sputum Sputum Culture Pending Resulted 06/20/20 20:00 Urine,Clean Catch Urine Culture - Preliminary Yeast Species Resulted 06/20/20 20:00 Stool Clostridium difficile Toxin Assay - Final Complete 06/20/20 19:15 Blood Blood Culture - Preliminary NO GROWTH AFTER 48 HOURS Resulted Laboratory Tests 06/22/20 23:08: POC Whole Blood Glucose 184H 06/23/20 05:11: POC Whole Blood Glucose 177H Current Medications Medications (Trade) Dose Ordered Sig/Milla Route PRN Reason Start Time Stop Time Status Last Admin Dose Admin Acetaminophen (Tylenol) 650 mg Q4H PRN ORAL Temp >100.5 06/13/20 21:15 07/13/20 21:14 06/21/20 02:34 Amiodarone HCl (Cordarone) 200 mg DAILY GT 06/09/20 09:00 09/07/20 08:59 06/22/20 09:03 Amlodipine Besylate (Norvasc) 5 mg TWICE A DAY GT 06/09/20 09:00 07/09/20 08:59 06/22/20 17:55 Ascorbic Acid (Vitamin C) 500 mg DAILY ORAL 06/18/20 09:00 07/18/20 08:59 06/22/20 08:57 Bethanechol Chloride (Urecholine) 25 mg Q6HR GT 06/09/20 06:00 07/09/20 05:59 06/23/20 06:22 Chlorhexidine Gluconate (Sue-Hex 2%) 1 applic DAILY@1999 TOPIC 06/10/20 20:00 09/08/20 19:59 06/22/20 21:00 Clonidine HCl (Catapres Tab) 0.1 mg Q6H PRN GT For High Blood Pressure 06/09/20 00:30 09/07/20 00:29 Dextrose (Dextrose 50%) 25 ml Q30M PRN IV Hypoglycemia 06/09/20 06:00 09/07/20 05:59 06/09/20 06:02 Dextrose (Dextrose 50%) 50 ml Q30M PRN IV Hypoglycemia 06/09/20 00:15 09/07/20 00:14 Docusate Sodium (Colace) 100 mg TWICE A DAY GT 06/09/20 09:00 07/09/20 08:59 06/22/20 17:54 Epoetin Cameron (Epoetin Cameron-EPBX(NON ESRD)) 3,000 unit SUBQ 06/16/20 21:00 09/14/20 20:59 06/20/20 21:14 Epoetin Cameron (Epoetin Cameron-EPBX(NON ESRD)) 4,000 unit SUBQ 06/16/20 21:00 09/14/20 20:59 06/20/20 21:14 Famotidine (Pepcid) 20 mg TWICE A DAY GT 06/09/20 09:00 09/07/20 08:59 06/22/20 17:54 Hydralazine HCl (Apresoline) 25 mg EVERY 8 HOURS GT 06/09/20 06:00 09/07/20 05:59 06/23/20 06:22 Insulin Aspart (NovoLOG) Q6HR SUBQ 06/09/20 06:00 09/07/20 05:59 06/23/20 06:23 Lactulose (Cephulac) 20 gm Q6H PRN GT Constipation 06/09/20 00:30 07/09/20 00:29 Lansoprazole (Prevacid) 30 mg TWICE A DAY GT 06/09/20 09:00 07/09/20 08:59 06/22/20 17:54 Levetiracetam (Keppra) 500 mg TWICE A DAY GT 06/09/20 09:00 07/09/20 08:59 06/22/20 17:54 Levothyroxine Sodium (Synthroid) 75 mcg DAILY GT 06/09/20 09:00 07/09/20 08:59 06/22/20 08:57 Metoclopramide HCl (Reglan) 5 mg EVERY 6 HOURS GT 06/09/20 06:00 07/09/20 05:59 06/23/20 06:22 Nitroglycerin (Ntg) 0.4 mg Q5MIN X 3 DOSES PRN SL CHEST PAIN 06/09/20 00:30 07/09/20 00:29 Ondansetron HCl (Zofran) 4 mg Q6H PRN GT Nausea & Vomiting 06/09/20 00:30 07/09/20 00:29 06/20/20 03:24 Piperacillin Sod/ Tazobactam Sod 3.375 gm/Sodium Chloride 110 ml @ 27.5 mls/hr EVERY 8 HOURS IVPB 06/20/20 14:00 06/25/20 13:59 06/23/20 06:45 Pravastatin Sodium (Pravachol) 40 mg BEDTIME GT 06/09/20 21:00 07/09/20 20:59 06/22/20 21:01 Sodium Chloride 1,000 ml @ 50 mls/hr Q20H IV 06/09/20 01:00 07/09/20 00:59 06/23/20 04:11 Vancomycin HCl (Vanco pharmacy to dose) 1 ea DAILY PRN MISC Per rx protocol 06/09/20 00:15 07/20/20 00:14 Vancomycin/Sodium Chloride 250 ml @ 125 mls/hr Q24H IVPB 06/18/20 23:00 07/22/20 22:59 06/22/20 22:05 Zinc Sulfate (Zinc Sulfate) 220 mg DAILY GT 06/09/20 09:00 09/07/20 08:59 06/22/20 08:57 Assessment/Plan Assessment/Plan sepsis leukocytosis anemia colostomy respiratory failure possible gib chronic pancreatitis chronic encephalopathy hypernatremia acute renal failure pneumonia bacteremia UTI pneumonia sacral osteo/ decub diverting colostomy PLAN vent support IV antibiotics- noted; x 28 days of vanco completed gent inhaled on zosyn GI on feeds and tolerating ID recommendations noted - concern of wbc elevation close follow up monitor HH guarded at present hope to dc soon back to snf once cleared by ID new cultures noted impression, plan, and exam edited and reviewed in detail care discussed with Mundo Burciaga MD Jun 23, 2020 08:03
[2020-06-23] MEDS: Docusate 100mg/10ml Liq GT SCH (08:45)
[2020-06-23] MEDS: levETIRAcetam 500mg/5ml Liquid GT SCH (08:45)
[2020-06-23] MEDS: Zinc Sulfate 220mg GT SCH (08:45)
[2020-06-23] MEDS: Amiodarone 200mg tab GT SCH (08:45)
[2020-06-23] MEDS: Ascorbic Acid 500mg tab ORAL SCH (08:45)
--- NOTE | 2020-06-23 10:54 | NUR ---
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 * Increased kcal/prot intake needs R/T wound healing as evidenced by pt admitted w /multiple advanced wounds, including full thickness Pressure Injury @ lumbar spine and sacrum w/ small area of bone exposure, DTPI wounds @ L lower buttocks, L ischium, R ischium, resolving pressure injury @ L tibia, unstageable wound @ R Tibia, R Lheel, and partial thickness pressure injury @ L heel. CURRENT TF:Glucerna 1.2 @ 60ml/hr x 22 hrs (on synthroid) ENTERAL NUTRITION RECOMMENDATIONS: Glucerna 1.2 @ 65ml/hr x 22 hrs + Prosource 1pkt daily to provide 1430ml, 1716kcal, 86g +11g prot (1.5g/kg), 1151ml free water * Increase current TF to goal of 65ml/hr as TF held for 2 hrs for synthroid meds. * Add Prosource 1pkt daily to better meet protein needs * HOB over 30 degrees/ water flush per MD * add Grady BID via GT for wound healing (additional 5g pro) ADDITIONAL RECOMMENDATIONS: * Per SNF: HT=5'8" FB=856gks (as of 05/22/20), rec re-calibrated bedscale wt * Monitor TF tolerance: lipase wnl, h/o pancreatitis * Monitor lytes, replete as needed (K 2.7*-> now wnl) * Wound healing:Continue Vit C 500mg and ZnSO4 TF @ goal provides 100% est kcal/prot needs add Grady BID .
--- NOTE | 2020-06-23 11:09 | Infectious Diseases Prog Note ---
Assessment/Plan Assessment/Plan antibiotics : vancomycin iv, zosyn A 1. coag neg staph sepsis 2. pneumonia with pseudomonas, klebsiella 3. e.coli, enterococcus, fungal UTI 4. leucocytosis 5. respiratory failure 6. diabetes mellitus 7. hypertension 9. coccyxgeal osteomyelitis P 1. continue iv vancomycin 27 more days 2. continue zosyn 3. will follow up cultures Subjective ROS Limited/Unobtainable: Yes Allergies: Coded Allergies: No Known Allergies (Unverified , 06/08/20) Objective Last 24 Hour Vital Signs Date Time Temp Pulse Resp B/P (MAP) Pulse Ox O2 Delivery O2 Flow Rate FiO2 06/23/20 09:00 Mechanical Ventilator Mechanical Ventilator 06/23/20 09:00 35 06/23/20 08:45 91 136/78 06/23/20 08:00 98.2 91 24 136/78 (97) 98 06/23/20 07:10 91 23 35 06/23/20 06:22 144/80 06/23/20 04:00 35 06/23/20 04:00 98.2 94 18 148/80 (102) 93 06/23/20 04:00 Mechanical Ventilator Mechanical Ventilator 06/23/20 03:43 97 06/23/20 03:05 95 24 35 06/23/20 00:00 Mechanical Ventilator Mechanical Ventilator 06/23/20 00:00 98.0 100 18 141/77 (98) 93 06/22/20 23:34 100 06/22/20 23:15 98 25 35 06/22/20 21:03 125/75 06/22/20 20:00 35 06/22/20 20:00 Mechanical Ventilator Mechanical Ventilator 06/22/20 20:00 98.1 91 18 135/79 (97) 93 06/22/20 19:57 92 20 35 06/22/20 19:32 90 06/22/20 17:55 62 116/58 06/22/20 16:00 Mechanical Ventilator Mechanical Ventilator 06/22/20 16:00 35 06/22/20 16:00 98.4 62 18 116/58 (77) 93 06/22/20 15:22 85 06/22/20 15:11 76 16 35 06/22/20 14:28 140/73 06/22/20 12:00 Mechanical Ventilator Mechanical Ventilator 06/22/20 12:00 97.7 83 18 136/76 (96) 97 06/22/20 12:00 35 06/22/20 11:33 81 06/22/20 11:24 87 20 35 Height (Feet): 5 Height (Inches): 10.00 Weight (Pounds): 162 HEENT: status post trach Respiratory/Chest: lungs clear Cardiovascular: normal rate, regular rhythm, no gallop/murmur Abdomen: soft, non tender, other - ostomy Extremities: other - + edema, right arm PICC Microbiology Date/Time Source Procedure Growth Status 06/21/20 03:00 Sputum Gram Stain - Final Resulted 06/21/20 03:00 Sputum Culture - Preliminary Gram Negative Bacillus 1 Resulted 06/20/20 20:00 Urine,Clean Catch Urine Culture - Preliminary Yeast Species Resulted 06/20/20 20:00 Stool Clostridium difficile Toxin Assay - Final Complete 06/20/20 19:15 Blood Blood Culture - Preliminary NO GROWTH AFTER 48 HOURS Resulted Laboratory Tests Test 06/22/20 23:08 06/23/20 05:11 POC Whole Blood Glucose 184 MG/DL (74-106) H 177 MG/DL (74-106) H Current Medications Medications (Trade) Dose Ordered Sig/Milla Route PRN Reason Start Time Stop Time Status Last Admin Dose Admin Acetaminophen (Tylenol) 650 mg Q4H PRN ORAL Temp >100.5 06/13/20 21:15 07/13/20 21:14 06/21/20 02:34 Amiodarone HCl (Cordarone) 200 mg DAILY GT 06/09/20 09:00 09/07/20 08:59 06/23/20 08:45 Amlodipine Besylate (Norvasc) 5 mg TWICE A DAY GT 06/09/20 09:00 07/09/20 08:59 06/23/20 08:45 Ascorbic Acid (Vitamin C) 500 mg DAILY ORAL 06/18/20 09:00 07/18/20 08:59 06/23/20 08:45 Bethanechol Chloride (Urecholine) 25 mg Q6HR GT 06/09/20 06:00 07/09/20 05:59 06/23/20 06:22 Chlorhexidine Gluconate (Sue-Hex 2%) 1 applic DAILY@1999 TOPIC 06/10/20 20:00 09/08/20 19:59 06/22/20 21:00 Clonidine HCl (Catapres Tab) 0.1 mg Q6H PRN GT For High Blood Pressure 06/09/20 00:30 09/07/20 00:29 Dextrose (Dextrose 50%) 25 ml Q30M PRN IV Hypoglycemia 06/09/20 06:00 09/07/20 05:59 06/09/20 06:02 Dextrose (Dextrose 50%) 50 ml Q30M PRN IV Hypoglycemia 06/09/20 00:15 09/07/20 00:14 Docusate Sodium (Colace) 100 mg TWICE A DAY GT 06/09/20 09:00 07/09/20 08:59 06/23/20 08:45 Epoetin Cameron (Epoetin Cameron-EPBX(NON ESRD)) 3,000 unit SUBQ 06/16/20 21:00 09/14/20 20:59 06/20/20 21:14 Epoetin Cameron (Epoetin Cameron-EPBX(NON ESRD)) 4,000 unit SUBQ 06/16/20 21:00 09/14/20 20:59 06/20/20 21:14 Famotidine (Pepcid) 20 mg TWICE A DAY GT 06/09/20 09:00 09/07/20 08:59 06/23/20 08:45 Hydralazine HCl (Apresoline) 25 mg EVERY 8 HOURS GT 06/09/20 06:00 09/07/20 05:59 06/23/20 06:22 Insulin Aspart (NovoLOG) Q6HR SUBQ 06/09/20 06:00 09/07/20 05:59 06/23/20 06:23 Lactulose (Cephulac) 20 gm Q6H PRN GT Constipation 06/09/20 00:30 07/09/20 00:29 Lansoprazole (Prevacid) 30 mg TWICE A DAY GT 06/09/20 09:00 07/09/20 08:59 06/23/20 08:44 Levetiracetam (Keppra) 500 mg TWICE A DAY GT 06/09/20 09:00 07/09/20 08:59 06/23/20 08:45 Levothyroxine Sodium (Synthroid) 75 mcg DAILY GT 06/09/20 09:00 07/09/20 08:59 06/23/20 08:44 Metoclopramide HCl (Reglan) 5 mg EVERY 6 HOURS GT 06/09/20 06:00 07/09/20 05:59 06/23/20 06:22 Nitroglycerin (Ntg) 0.4 mg Q5MIN X 3 DOSES PRN SL CHEST PAIN 06/09/20 00:30 07/09/20 00:29 Ondansetron HCl (Zofran) 4 mg Q6H PRN GT Nausea & Vomiting 06/09/20 00:30 07/09/20 00:29 06/20/20 03:24 Piperacillin Sod/ Tazobactam Sod 3.375 gm/Sodium Chloride 110 ml @ 27.5 mls/hr EVERY 8 HOURS IVPB 06/20/20 14:00 06/25/20 13:59 06/23/20 06:45 Pravastatin Sodium (Pravachol) 40 mg BEDTIME GT 06/09/20 21:00 07/09/20 20:59 06/22/20 21:01 Sodium Chloride 1,000 ml @ 50 mls/hr Q20H IV 06/09/20 01:00 07/09/20 00:59 06/23/20 04:11 Vancomycin HCl (Vanco pharmacy to dose) 1 ea DAILY PRN MISC Per rx protocol 06/09/20 00:15 07/20/20 00:14 Vancomycin/Sodium Chloride 250 ml @ 125 mls/hr Q24H IVPB 06/18/20 23:00 07/22/20 22:59 06/22/20 22:05 Zinc Sulfate (Zinc Sulfate) 220 mg DAILY GT 06/09/20 09:00 09/07/20 08:59 06/23/20 08:45 Jayde Leyva MD Jun 23, 2020 11:09
--- NOTE | 2020-06-23 11:59 | General Progress Note ---
Subjective Allergies: Coded Allergies: No Known Allergies (Unverified , 06/08/20) Subjective NAD tolerating TF above noted Objective Last 24 Hour Vital Signs Date Time Temp Pulse Resp B/P (MAP) Pulse Ox O2 Delivery O2 Flow Rate FiO2 06/23/20 11:10 81 20 35 06/23/20 09:00 Mechanical Ventilator Mechanical Ventilator 06/23/20 09:00 35 06/23/20 08:45 91 136/78 06/23/20 08:00 92 06/23/20 08:00 98.2 91 24 136/78 (97) 98 06/23/20 07:10 91 23 35 06/23/20 06:22 144/80 06/23/20 04:00 35 06/23/20 04:00 98.2 94 18 148/80 (102) 93 06/23/20 04:00 Mechanical Ventilator Mechanical Ventilator 06/23/20 03:43 97 06/23/20 03:05 95 24 35 06/23/20 00:00 Mechanical Ventilator Mechanical Ventilator 06/23/20 00:00 98.0 100 18 141/77 (98) 93 06/22/20 23:34 100 06/22/20 23:15 98 25 35 06/22/20 21:03 125/75 06/22/20 20:00 35 06/22/20 20:00 Mechanical Ventilator Mechanical Ventilator 06/22/20 20:00 98.1 91 18 135/79 (97) 93 06/22/20 19:57 92 20 35 06/22/20 19:32 90 06/22/20 17:55 62 116/58 06/22/20 16:00 Mechanical Ventilator Mechanical Ventilator 06/22/20 16:00 35 06/22/20 16:00 98.4 62 18 116/58 (77) 93 06/22/20 15:22 85 06/22/20 15:11 76 16 35 06/22/20 14:28 140/73 06/22/20 12:00 Mechanical Ventilator Mechanical Ventilator 06/22/20 12:00 97.7 83 18 136/76 (96) 97 06/22/20 12:00 35 Intake and Output 06/22/20 06/23/20 19:00 07:00 Intake Total 1450 ml 1801.0 ml Output Total 1400 ml 2000 ml Balance 50 ml -199.0 ml Intake Free Water 300 ml 180 ml IV Total 550 ml 901.0 ml Tube Feeding 600 ml 720 ml Output Urine Total 1200 ml 2000 ml Stool Total 200 ml Laboratory Tests 06/22/20 23:08: POC Whole Blood Glucose 184H 06/23/20 05:11: POC Whole Blood Glucose 177H 06/23/20 11:54: POC Whole Blood Glucose 133H Height (Feet): 5 Height (Inches): 10.00 Weight (Pounds): 162 Objective Elderly man NCAT (+) trach coarse BS RR abd soft, (+) GT (+) colostomy no edema Assessment/Plan Status: stable Assessment/Plan: Assessment - h/o pancreatitis - resolved - s/p colostomy - sepsis/leukocytosis - resp failure / trach - dysphagia / GT - s/p CVA - Anemia - CAD - DM - hypokalemia - HTN - GERD Recommendations - Abx - CT abd/pelvis noted - PPI - Monitor CBC - TF Moshe Kraft MD Jun 23, 2020 11:59
[2020-06-23 12:00] VITALS: BP 127/77
--- NOTE | 2020-06-23 12:02 | NUR ---
CASE MANAGEMENT: REVIEW SI: UTI . SEPSIS . PNA T 98.2 HR 92 RR 24 BP 144/80 SAT 98% MECH VENT FIO2 35 GLUCOSE 133 IS: VANCOMYCIN IV Q24HR GENTAMICIN INH Q12HR EPOETIN SUBQ MWF NS IVF @ 50ML/HR STEP DOWN UNIT STATUS DCP: PATIENT IS FROM [facility]
--- NOTE | 2020-06-23 13:00 | NUR ---
*-*DISCHARGE PLANNED*-* PATIENT HAS BEEN ACCEPTED AND WILL BE DISCHARGED BACK TO: [facility] [facility] [place]: [phone] FOR NURSE TO NURSE REPORT ROOM# 215.A SKILLED [facility]SP[facility] SET FOR 3:30PM S/W MICKI [id number]. S/W PATIENTS SISTER, LACHELLE MCGRAW, WHO IS IN AGREEMENT WITH DISCHARGE PLAN.
--- NOTE | 2020-06-23 14:11 | Surgery Progress Note ---
Surgery Progress Note Subjective Symptoms: improved, tolerating diet, passing flatus, BM Objective Last 24 Hour Vital Signs Date Time Temp Pulse Resp B/P (MAP) Pulse Ox O2 Delivery O2 Flow Rate FiO2 06/23/20 12:00 99.0 85 20 127/77 (94) 100 06/23/20 12:00 35 06/23/20 12:00 Mechanical Ventilator Mechanical Ventilator 06/23/20 11:10 81 20 35 06/23/20 09:00 Mechanical Ventilator Mechanical Ventilator 06/23/20 09:00 35 06/23/20 08:45 91 136/78 06/23/20 08:00 92 06/23/20 08:00 98.2 91 24 136/78 (97) 98 06/23/20 07:10 91 23 35 06/23/20 06:22 144/80 06/23/20 04:00 35 06/23/20 04:00 98.2 94 18 148/80 (102) 93 06/23/20 04:00 Mechanical Ventilator Mechanical Ventilator 06/23/20 03:43 97 06/23/20 03:05 95 24 35 06/23/20 00:00 Mechanical Ventilator Mechanical Ventilator 06/23/20 00:00 98.0 100 18 141/77 (98) 93 06/22/20 23:34 100 06/22/20 23:15 98 25 35 06/22/20 21:03 125/75 06/22/20 20:00 35 06/22/20 20:00 Mechanical Ventilator Mechanical Ventilator 06/22/20 20:00 98.1 91 18 135/79 (97) 93 06/22/20 19:57 92 20 35 06/22/20 19:32 90 06/22/20 17:55 62 116/58 06/22/20 16:00 Mechanical Ventilator Mechanical Ventilator 06/22/20 16:00 35 06/22/20 16:00 98.4 62 18 116/58 (77) 93 06/22/20 15:22 85 06/22/20 15:11 76 16 35 06/22/20 14:28 140/73 I&O Intake and Output 06/22/20 06/23/20 19:00 07:00 Intake Total 1450 ml 1801.0 ml Output Total 1400 ml 2000 ml Balance 50 ml -199.0 ml Intake Free Water 300 ml 180 ml IV Total 550 ml 901.0 ml Tube Feeding 600 ml 720 ml Output Urine Total 1200 ml 2000 ml Stool Total 200 ml Dressing: dry Wound: clean Cardiovascular: RSR Respiratory: clear, decreased breath sounds Abdomen: soft, non-tender, present bowel sounds Extremities: no edema, no tenderness, no cyanosis Laboratory Tests Test 06/22/20 23:08 06/23/20 05:11 06/23/20 11:54 POC Whole Blood Glucose 184 MG/DL (74-106) H 177 MG/DL (74-106) H 133 MG/DL (74-106) H Plan Problems: (1) UTI (urinary tract infection) (2) Pneumonia (3) Sepsis Assessment & Plan: leukocytosis, anemia. abnormal labs stage 4 sacral prior debridement and seems like ostectomy colostomy noted mid back and bilateral ischial dti ua noted on iv abx g tube in place but per reports on tpn at facility labs ordered imaging ordered no acute surgical intervention planned will follow with recs improving cont diet as tolerated cont abx DAILY ESTIMATED NEEDS: Needs based on Critical care, wound / 67kg 22-30 kcals/kg 5857-7937 total kcals 1.25-2 g protein/kg 83-134 g total protein 25-30 mL/kg 9383-4384 total fluid mLs NUTRITION DIAGNOSIS: * Swallowing difficulty R/T dysphagia, respiratory status as evidenced by pt trach/vent dep, h/o PEG placement, GT feeds held and 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 * Increased kcal/prot intake needs R/T wound healing as evidenced by pt admitted w /multiple advanced wounds, including full thickness Pressure Injury @ lumbar spine and sacrum w/ small area of bone exposure, DTPI wounds @ L lower buttocks, L ischium, R ischium, resolving pressure injury @ L tibia, unstageable wound @ R Tibia, R Lheel, and partial thickness pressure injury @ L heel. CURRENT TF:Glucerna 1.2 @ 60ml/hr x 22 hrs (on synthroid) ENTERAL NUTRITION RECOMMENDATIONS: Glucerna 1.2 @ 65ml/hr x 22 hrs + Prosource 1pkt daily to provide 1430ml, 1716kcal, 86g +11g prot (1.5g/kg), 1151ml free water * Increase current TF to goal of 65ml/hr as TF held for 2 hrs for synthroid meds. * Add Prosource 1pkt daily to better meet protein needs * HOB over 30 degrees/ water flush per MD * add Grady BID via GT for wound healing (additional 5g pro) ADDITIONAL RECOMMENDATIONS: * Per SNF: HT=5'8" PB=297wyd (as of 05/22/20), rec re-calibrated bedscale wt * Monitor TF tolerance: lipase wnl, h/o pancreatitis * Monitor lytes, replete as needed (K 2.7*-> now wnl) * Wound healing:Continue Vit C 500mg and ZnSO4 TF @ goal provides 100% est kcal/prot needs add Grady BID (4) Colostomy in place (5) Feeding by G-tube (6) Deep tissue injury (7) Stage 4 skin ulcer of sacral region Assessment & Plan: Pt deconditioned and presented on admission with, Tracheostomy,GT, Multiple Pressure Injuries. Dry eschar noted to L earlobe(L)0.8cm x (W)0.6cm. No erythema noted periwound. Loose,dry eschar cap L earlobe(L)1cm x (W)0.7cm. Base of wound beneath loose eschar cap is moist and paul. No odor or exudate noted. Non-Blanchable erythema with shearing centrally posterior neck under tracheal collar.Periwound skin is dark without erythema or fluctuance.(L)1.5cm x (W)4.5cm. Resolving Pressure injury L lumbar area(L)2cm x (W00.7cm. [place] epithelial at base of wound. Loose dry edges . no erythema or induration periwound. Full thickness Pressure Injury Lumbar Spine(L)2.5cm x (W)1.5cm. Base of wound is 75% paul and moist,25% slough.Borders are macerated. No odor or exudate noted. Periwound without erythema or fluctuance. Full Thickness Sacral Pressure Injury (L)7.5cm x (W)8.8cm x (D)2.4cm, undermining clockwise 12-5 by 1.8cm @2o'clock. Base of wound is beefy red with purpuric area at base. Small area of bone exposure, scattered slough(20%) Wound is otherwise beefy red. Small amt serous exudate note. No odor noted. DTPI L lower Buttocks that is evolving. Base of wound is 75% soft necrosis,25% most and pink with surrounding maroon and indurated borders. DTPI that is evolving and is partially opened at L ischium(L)8cm x (W)9.5cm. Base of wound is purpuric ,indurated with opening that is 25% slough,75% moist and pink. NO odor noted. DTPI R Ischium that is evolving and is partially opened(L)6.3cm x (W)6.5cm. Base of wound is Indurated reddish/brown with opening that is 25% slough,25% soft ne crosis,50% moist and pink. NO odor or exudate noted. No evidence of erythema or fluctuance periwound. Resolving Pressure Injury posterior L tibia with dry eschar cap,mixed dry pink epithelial. Unstageable Pressure injury posterior R Tibia. Stable dry eschar noted(L)14.5cm x (W)1.7cm. Unstageable Pressure Injury R heel(L)3.2cm x (W)4.2cm. Base of wound is 100% necrotic with marginal erythema and fluctuance periwound. Partial Thickness Pressure Injury medial L heel(L)1.3cm x (W)1.2cm. Base of wound is moist and viable . Edges are macerated with surrounding non-blanchable erythema with fluctuance. UNstageable Pressure Injury Lateral L Heel . Base of wound is 100% soft necrosis and is malodorous. Non-Blanchable erythema with Fluctuance periwound.(L)4cm x (W)3.4cm. Tx.Plan: Apply Betadine to R and L earlobes. Cover each ear with Optifoam drsg. Change every 3 days and prn. Apply Cavilon Skin Barrier to posterior neck. Cover with Optifoam drsg. Change every 3 days and prn. Cleanse Wounds Lumbar and L lumbar with Saline. Apply TheraHoney. Apply Moisture Barrier Paste periwound. Cover each site with Optifoam drsgs. Change every 3 days and prn. Cleanse Sacral wound with Saline. Loosely pack with Therahoney impregnated Kerlix. Apply Moisture Barrier paste periwound. Cover with Optifoam drsg. Change Daily and prn. Apply Moisture Barrier Paste to Scrotum with each incontinence care. Cleanse R and L Ischial wounds with Saline. Apply Therahoney. Apply Moisture Barrier Paste periwound. Cover each wound with Optifoam drsg. Changee very 3 days and prn. Apply Betadine to Posterior R and L Tibial wounds. Cover each wound with Optifoam drsgs. Change every 3 days and prn. Apply Betadine to R and L Heel wounds. Cover each heel with Optifoam drsgs. Change every 3 days and prn. Reposition at least every 2hours or as tolerated. Off-load heels with Pillows. APM/COLBY Mattress overlay. Jonny Powell Jun 23, 2020 14:10
--- NOTE | 2020-06-23 14:25 | NUR ---
NURSE NOTES: left a message to dr Hamilton regarding discharge medications for this patient. awaiting callback and new order.
[2020-06-23 16:00] VITALS: BP 133/76
--- NOTE | 2020-06-23 16:11 | General Progress Note ---
Subjective ROS Limited/Unobtainable: No Constitutional: Reports: malaise, weakness HEENT: Reports: no symptoms Cardiovascular: Reports: no symptoms Respiratory: Reports: cough Gastrointestinal/Abdominal: Reports: difficulty swallowing Genitourinary: Reports: no symptoms Neurologic/Psychiatric: Reports: no symptoms Endocrine: Reports: no symptoms Hematologic/Lymphatic: Reports: anemia Allergies: Coded Allergies: No Known Allergies (Unverified , 06/08/20) All Systems: reviewed and negative except above Subjective No significant overnight events. Patient remains on the vent. Minimal secretions. Poorly responsive at baseline. Tolerating G-tube feeds. +colostomy output. no bleeding. No residuals noted. Currently on multiple IV antibiotics. fevers better. nontoxic appearing. labs noted. Objective Last 24 Hour Vital Signs Date Time Temp Pulse Resp B/P (MAP) Pulse Ox O2 Delivery O2 Flow Rate FiO2 06/23/20 14:28 135/73 06/23/20 12:00 99.0 85 20 127/77 (94) 100 06/23/20 12:00 80 06/23/20 12:00 35 06/23/20 12:00 Mechanical Ventilator Mechanical Ventilator 06/23/20 11:10 81 20 35 06/23/20 09:00 Mechanical Ventilator Mechanical Ventilator 06/23/20 09:00 35 06/23/20 08:45 91 136/78 06/23/20 08:00 92 06/23/20 08:00 98.2 91 24 136/78 (97) 98 06/23/20 07:10 91 23 35 06/23/20 06:22 144/80 06/23/20 04:00 35 06/23/20 04:00 98.2 94 18 148/80 (102) 93 06/23/20 04:00 Mechanical Ventilator Mechanical Ventilator 06/23/20 03:43 97 06/23/20 03:05 95 24 35 06/23/20 00:00 Mechanical Ventilator Mechanical Ventilator 06/23/20 00:00 98.0 100 18 141/77 (98) 93 06/22/20 23:34 100 06/22/20 23:15 98 25 35 06/22/20 21:03 125/75 06/22/20 20:00 35 06/22/20 20:00 Mechanical Ventilator Mechanical Ventilator 06/22/20 20:00 98.1 91 18 135/79 (97) 93 06/22/20 19:57 92 20 35 06/22/20 19:32 90 06/22/20 17:55 62 116/58 Intake and Output 06/22/20 06/23/20 19:00 07:00 Intake Total 1450 ml 1801.0 ml Output Total 1400 ml 2000 ml Balance 50 ml -199.0 ml Intake Free Water 300 ml 180 ml IV Total 550 ml 901.0 ml Tube Feeding 600 ml 720 ml Output Urine Total 1200 ml 2000 ml Stool Total 200 ml Laboratory Tests 06/22/20 23:08: POC Whole Blood Glucose 184H 06/23/20 05:11: POC Whole Blood Glucose 177H 06/23/20 11:54: POC Whole Blood Glucose 133H Height (Feet): 5 Height (Inches): 10.00 Weight (Pounds): 162 Objective General Appearance: WD/WN, no apparent distress, alert Neck: non-tender, normal alignment Cardiovascular: normal rate Respiratory/Chest: chest wall non-tender, lungs clear, normal breath sounds Abdomen: normal bowel sounds, non tender, soft, no organomegaly Edema: no edema noted Arm (L), no edema noted Arm (R) Neurologic: unresponsive Skin: normal pigmentation Lymphatic: normal anterior cervical (L), normal anterior cervical (R) Assessment/Plan Problem List: (1) Stage 4 skin ulcer of sacral region ICD Codes: L98.429 - Non-pressure chronic ulcer of back with unspecified severity SNOMED: 29847024, 988689377 (2) Colostomy in place ICD Codes: Z93.3 - Colostomy status SNOMED: 876670971, 231898693 (3) Sepsis ICD Codes: A41.9 - Sepsis, unspecified organism SNOMED: 76239124 (4) Pneumonia ICD Codes: J18.9 - Pneumonia, unspecified organism SNOMED: 954419949 Qualifiers: Qualified Codes: J18.9 - Pneumonia, unspecified organism (5) UTI (urinary tract infection) ICD Codes: N39.0 - Urinary tract infection, site not specified SNOMED: 86454748 Qualifiers: Qualified Codes: N30.01 - Acute cystitis with hematuria Status: stable Assessment/Plan: cont iv abx per ID monitor wbc- improving tube feeds replace lytes as needed vent support resp rx suctioning as needed wean as able cont bp rx tylenol prn wound care per surgery colostomy care turn q2 dvt/stress ulcer prophylaxis dc planning to snf Robby Mays MD Jun 23, 2020 16:11
--- NOTE | 2020-06-23 18:45 | NUR ---
NURSE NOTES: patient left facility going to [facility], report was given to Mahsa of [facility]..Patient is going to Room 215-A. No belongings found.packet was endorsed to ambulance personnel.[facility] to keep per dr rojas for ATB administration. retail assistant removed. patient is stable, not in acute distress.
--- NOTE | 2020-06-24 08:53 | Discharge Summary ---
Discharge Summary Discharge Summary _ DATE OF ADMISSION: 06/08/2020 DATE OF DISCHARGE: 06/23/2020 DISCHARGED BY: Dr. Mays REASON FOR ADMISSION: 70 years old male with past medical history of chronic ventilator dependent respiratory failure with tracheostomy status, diabetes mellitus, dysphagia, recent pancreatitis requiring TPN, hypertension, diabetes mellitus, seizure disorder, GERD, chronic kidney disease, sacral decubitus ulcer stage IV along with multiply deep tissue injury , present on admission, presented from the [facility] facility due to leukocytosis with WBC 28. No fevers or chills. Upon evaluation in ED patient was afebrile , tachypneic. Laboratory work-up revealed leukocytosis WBC 20.6 ,hemoglobin 7.3 ,hematocrit 23.7, platelet count 632. Urinalysis revealed +3 protein , positive nitrates ,+2 leukocyte esterase, pyuria ,moderate bacteria and yeast. Electrolytes were stable BUN 27 , creatinine 0.8 Troponin negative, EKG revealed sinus rhythm with first-degree AV block . CXR revealed bibasilar infiltrates. Rapid COVID-19 was negative Patient admitted to [facility] for further management. CONSULTANTS: pulmonary Dr. Hamilton ID specialist Dr. Leyva financial controller Dr. Cole surgery [facility] COURSE: Patient admitted to [facility]. Ventilator support and tracheostomy care provided. Pulmonary toilet provided. Patient started on IV fluids and broad spectrum antibiotics ABG was stable on current settings. FiO2 titrated as needed. Blood culture revealed coagulase negative staph . Urine culture revealed E. coli , Enterococcus faecalis and Juliana. Sputum culture revealed Pseudomonas MDR and Klebsiella ESBL. Antibiotic regimen optimized as per ID specialist recommendation . Repeated blood culture 06/13 and 06/20 were negative . Urine culture on 06/20 revealed yeast . p Venous duplex bilateral lower extremity revealed no evidence of acute DVT. Echocardiogram demonstrated preserved ejection fraction of 60 to 65%. No evidence of wall motion abnormality. Right ventricular systolic pressure 43 over for the mild pulmonary hypertension. GI specialist followed for recent history of pancreatitis. CT scan of the abdomen pelvis was ordered to rule out any pancreatic phlegmon or infected pseudocyst or other complication. Lipase level was stable. CT scan demonstrated no significant peripancreatic phlegmon or fluid or evidence of pancreatic necrosis. Patient started on PEG tube feeding , and TPN was discontinued. CT scan of the abdomen and pelvis also revealed extensive decubitus ulceration with findings suggestive of a coccygeal osteomyelitis . No evidence of the abscess. ID specialist recommended total 6 weeks treatment antibiotics. PICC line was placed for long-term antibiotic use. Patient will need to continue antibiotic at the facility to complete a course. Hemoglobin and hematocrit were closely monitored with goal to keep hemoglobin above 7. Stool for occult blood was negative. Patient undergone transfusion of 2 units of packed red blood cells while in the hospital for hemoglobin 5.9. Prior to discharge hemoglobin 9.2, hematocrit 29.0. Patient was on Epogen. Strict aspiration precaution maintained. Patient tolerated G-tube feeding. Renal parameters electrolytes were closely monitored. Electrolytes corrected as needed. Nephrotoxic's were avoided. Prior to discharge BUN 10, creatinine 0.7. SNF medication continued. Seizure precaution maintained. Keppra continued. Blood sugar was managed with sliding scale of insulin. Hemoglobin A1c 7.7. GI prophylaxis provided. Bowel regimen instituted. Patient clinically stabilized and was ready for transfer back to [facility] for continuation of care. FINAL DIAGNOSES: Sepsis with coagulase negative staph bacteremia E. coli, enterococci, , fungal UTI Coccygeal osteomyelitis Pseudomonas MDR and Klebsiella ESBL pneumonia Leukocytosis Chronic respiratory failure ventilator dependent with tracheostomy status Recent history of pancreatitis ( prior was on TPN) Diabetes mellitus Colostomy in place Dysphagia , feeding by G-tube History of CVA Anemia , requiring blood transfusion Anemia of chronic kidney disease Hypertensive cardiovascular disease Chronic encephalopathy Chronic kidney disease Seizure disorder GERD Deep tissue injury present on admission Stage IV decubitus sacral ulcer present on admission DISCHARGE MEDICATIONS: List of medication was sent to accepting facility. DISCHARGE INSTRUCTIONS: Patient was discharged to the [facility] facility. Follow up with medical doctor at the facility. I have been assigned to dictate discharge summary for this account. I was not involved in the patient's management. Annette Diaz NP Jun 24, 2020 08:53
== END 2020-06-23 18:48 | DRG 870 ==
LOC: EDBD 13:12 → EMR 14:45 → EDBEDREQ 14:47 → 2W 15:00 → EDBEDREQ 17:32
PROC: 5A1955Z Respiratory Ventilation, Greater than 96 Consecutive Hours (ICD-10-PCS; principal; 2020-06-08)
PROC: 02HV33Z Insertion of Infusion Device into Superior Vena Cava, Percutaneous Approach (ICD-10-PCS; 2020-06-11)
PROC: B548ZZA Ultrasonography of Superior Vena Cava, Guidance (ICD-10-PCS; 2020-06-11)
DX: A41.9 Sepsis, unspecified organism (principal); L89.154 Pressure ulcer of sacral region, stage 4; J15.1 Pneumonia due to Pseudomonas; J15.0 Pneumonia due to Klebsiella pneumoniae; G93.49 Other encephalopathy; J96.10 Chronic respiratory failure, unspecified whether with hypoxia or hypercapnia; N39.0 Urinary tract infection, site not specified; K86.1 Other chronic pancreatitis; N17.9 Acute kidney failure, unspecified; Z99.11 Dependence on respirator [ventilator] status; B49 Unspecified mycosis; M86.9 Osteomyelitis, unspecified; N18.9 Chronic kidney disease, unspecified; I13.10 Hypertensive heart and chronic kidney disease without heart failure, with stage 1 through stage 4 chronic kidney disease, or unspecified chronic kidney disease; E11.22 Type 2 diabetes mellitus with diabetic chronic kidney disease; D63.1 Anemia in chronic kidney disease; K21.9 Gastro-esophageal reflux disease without esophagitis; G40.909 Epilepsy, unspecified, not intractable, without status epilepticus; E03.9 Hypothyroidism, unspecified; E78.5 Hyperlipidemia, unspecified; I25.10 Atherosclerotic heart disease of native coronary artery without angina pectoris; Z93.3 Colostomy status; Z93.0 Tracheostomy status; Z93.1 Gastrostomy status; I48.91 Unspecified atrial fibrillation; Z74.01 Bed confinement status; R13.10 Dysphagia, unspecified; E87.6 Hypokalemia
CPT/HCPCS: 36415; 36569; 71045; 74018; 74177; 76937; 80048; 80053; 80202; 81003; 82270; 82550; 82553; 82607; 82803; 82962; 83036; 83540; 83550; 83605; 83690; 83735; 84100; 84484; 85007; 85025; 85610; 85651; 85730; 86140; 86850; 86900; 86901; 86920; 87040; 87070; 87081; 87086; 87181; 87205; 87324; 93005; 93306; 93970; 94002; 94003; 94664; 96361; 96365; 96368; 96375; 99285; J7030; J8499; U0002